=== PATIENT | male | born 1955 ===

== ENCOUNTER 2021-06-28 05:52 | Inpatient (IN) | payer BC, MEDICARE, SELFPAY ==
[2021-06-28] VITALS (10 sets, daily range): BP systolic 102–157; BP diastolic 56–100; PULSE 67–150; RESP 10–20; TEMP 36.6–37.1; O2SAT 94–98; BMI 26.7
--- NOTE | 2021-06-28 | ECG_ITS ---
Test Reason : TACHYCARDIA Blood Pressure : / mmHG Vent. Rate : 154 BPM Atrial Rate : 170 BPM P-R Int : 000 ms QRS Dur : 080 ms QT Int : 292 ms P-R-T Axes : 000 040 -59 degrees QTc Int : 467 ms Atrial fibrillation with rapid ventricular response Low voltage QRS ST depression, consider subendocardial injury Anterolateral leads Possible Inferior infarct (cited on or before 08-AUG-2011) Abnormal ECG When compared with ECG of 14-JAN-2019 21:21, Atrial fibrillation with rapid ventricular response is now Present ST now depressed in Anterolateral leads Referred By: Masood Jeffery Electronically Signed By:MARLYN FELICIANO
--- NOTE | ~2021-06-28 | XR_ITS ---
EXAMINATION: XR CHEST CLINICAL INFORMATION: Rule out pulmonary edema COMPARISON: Previous chest x-ray most recent December 2018 TECHNIQUE: Frontal view of the chest was obtained. FINDINGS: The cardiac silhouette does not appear enlarged. Pulmonary yadira may be slightly prominent questionable for enlarged pulmonary arteries or pulmonary venous redistribution. Mediastinal contours are unremarkable. The lungs are clear without evidence of pulmonary edema. There is no pleural effusion or pneumothorax. There are degenerative changes of the spine and scoliosis. XR/XR chest 1V IMPRESSION: Normal size heart. No evidence of pulmonary edema.
--- NOTE | 2021-06-28 06:13 | PC.NURSE ---
pt had episode of svt after attempting to go the bathroom this morning. Heart rate was in the 130' to 150's. Pt experience lightheadedness and became diaphoretic. Pt placed on monitor, heart rate on the 130s to 150s. Iv line placed. labs drawn. Base line ekg and repeat Ekg after pt give 20mg of Cardizem Iv at 6:02am, Heart is irregular but with a control heart rate. Pt reports feeling much better. Pt also recieved 1 liter of normal saline. pt did take his Eliquis this morning.
--- NOTE | 2021-06-28 06:13 | ED.ARRPALP ---
HPI - Arrhythmia/Palpitations General Chief Complaint: Arrhythmia/Palpitations Stated Complaint: IN AND OUT OF SVTs Time Seen by Provider: 06/28/21 06:10 Source: patient and EMS Mode of arrival: EMS Limitations: no limitations History of Present Illness HPI narrative: Patient comes to the emergency room complaining palpitations, syncopal episode. Early this morning, patient stood up from bed, tried walking towards the bathroom, patient states that he was feeling dizzy. EMS was called. On arrival, patient was found to be in atrial fibrillation. Patient told EMS that he was feeling well, declined transport to the hospital by ambulance, stated that he would have his son drive him. When EMS was helping the patient into his car, patient had a syncopal episode lasting a few seconds, patient did not fall to the ground, he was helped by the EMS crew and lowered to the floor. Patient was unconscious for 2-3 seconds according to EMS, put on the stretcher and brought to the emergency room. On arrival, patient stated that he was very dizzy, no chest pain, shortness of breath. Initial heart rate per EMS was between 160-100, on arrival to the emergency room, heart rate 160. Patient did not receive any medication by EMS. Patient known to be on Eliquis for atrial fibrillation. Patient reports he has had multiple abrasions in the past. Related Data Allergies Allergy/AdvReac Type Severity Reaction Status Date / Time Sulfa (Sulfonamide Allergy Mild HIVES Unverified 07/09/20 15:36 Antibiotics) [SULFA (SULFONAMIDE ANTIBIOTICS)] penicillamine [Cuprimine] Allergy Unknown unknown Verified 09/11/18 00:00 Penicillins Allergy Unknown INKNOWN Unverified 07/09/20 15:36 sulfacetamide Allergy Unknown rash Verified 09/11/18 00:00 Review of Systems Review of Systems: Constitutional : No Weight loss, No Fever, No Chills, No Night Sweats, No Fatigue, No Malaise ENT/Mouth : No Hearing loss, No Ear Pain, No Nasal Congestion, No Sinus Pain, No Hoarseness, No sore throat, No Rhinorrhea, No Swallowing Difficulty Eyes: No Eye Pain, No Swelling, No Redness, No Foreign Body, No Discharge, No Vision Changes Cardiovascular : No Chest Pain, No SOB, No Dyspnea on Exertion, No Orthopnea, No Edema, complaining of palpitations and dizziness Respiratory : No Cough, No Sputum, No Wheezing, No Smoke Exposure, No Dyspnea Gastrointestinal : No Nausea, No Vomiting, No Diarrhea, No Constipation, No abdominal Pain, No Hematochezia, No Melena Genitourinary : no irregular bleeding, No Dysuria, No Urinary Frequency, No Hematuria, No Urinary Incontinence, No Urgency, No Flank Pain, No Urinary Flow Changes, No Hesitancy Musculoskeletal : No joint pain, No Myalgias, No Joint Swelling Skin : No Skin Lesions, No rash Neuro : No Weakness, No Numbness, No Paresthesias, 1 loss of consciousness for a few seconds, No Headache Psych : No Anxiety/Panic, No Depression, No SI/HI/AH/VH, No Social Issues, Heme/Lymph: No Bruising, No Bleeding,No Lymphadenopathy Endocrine : No Polyuria, No Polydipsia, No Temperature Intolerance [facility] Past Medical History Medical History (Updated 06/28/21 @ 06:38 by Maddy Rea MD) Atrial fibrillation CVA (cerebral vascular accident) Type 2 diabetes mellitus Surgical History (Updated 06/28/21 @ 06:18 by Maddy Rea MD) H/O cardiac radiofrequency ablation Social History Social History Alcohol intake: current Alcohol intake frequency: holidays/special occasions only Patient Tobacco Use Status: Never used Tobacco Use of substances other than those prescribed or required for medical reasons: No Advance Directives: No Advance Directives Information Provided: No Physical Exam Vital Signs: Vital Signs: Last Vital Signs Temp 98.8 F 06/28/21 05:56 Pulse 90 06/28/21 06:09 Resp 16 06/28/21 06:09 BP 102/63 06/28/21 06:09 Pulse Ox 97 06/28/21 06:09 Body Mass Index 26.7 Const: Other: Appearance: Alert. Oriented X3. No acute distress. Eyes: Pupils equal, round and reactive to light. ENT: Pharynx normal. Neck: Normal inspection. Neck supple. No lymph nodes noted. No crepitus CVS: Irregularly irregular, heart rate approximately 160 beats per minute Respiratory: No respiratory distress. Breath sounds normal. No Wheezing. No rales Abdomen: Soft and nontender. No rigidity. No distention. good BS x4 Skin: Skin warm and dry. Normal skin color. Normal skin turgor. Extremities: No lower extremity edema. No Lacerations. No Rash Neuro: Oriented X 3. No motor deficit. No sensory deficit. Moving all extermities. No slurred speech. Course Course Course Narrative: On arrival to the emergency room, patient's blood pressure above 100, heart rate 160. EKG shows atrial fibrillation, patient was given 1 dose of 20 mg of diltiazem, heart rate improved to 90 to 100, blood pressure 104 systolic. Patient now asymptomatic, denies chest pain, no shortness of breath, no dizziness. As mentioned above, patient is on Eliquis. All of the patient's labs are pending, point of care shows a glucose of 380, patient receiving 1 L of normal saline, 10 units of regular insulin As we were checking patient's orthostatic vitals, when patient stood up, patient's blood pressure dropped to 72 systolic, started feeling very dizzy. Patient was put in bed immediately, patient recuperated well within couple of minutes, blood pressure improved to 120 systolic. Patient feeling better, no chest pain, no shortness of breath. However, patient's heart rate is 120. Patient was started on a Cardizem drip. Patient being admitted MDM - Arrhythmia/Palpitations Lab Data Result diagrams: 06/28/21 06:19 06/28/21 06:19 Labs: Lab Results 06/28/21 06/28/21 06/28/21 Range/Units 05:59 06:19 06:19 WBC 11.6 H (4.8-10.8) X10*3/uL RBC 5.17 (4.60-5.80) X10*6/uL Hgb 15.5 (14.0-18.0) g/dl Hct 43.8 (42-52) % MCV 84.7 (80-98) fL MCH 30.0 (27.0-33.0) pg MCHC 35.4 (31.0-36.0) g/dl RDW 12.4 (11.0-16.0) % Plt Count 217 (160-400) X10*3/uL MPV 12.5 H (9.4-12.4) fL Immature Gran % (Auto) 0.3 (0.0-0.4) % Neut % (Auto) 57.8 (45-73) % Lymph % (Auto) 29.7 (20-40) % [place] % (Auto) 9.4 (2-11) % Eos % (Auto) 2.5 (0-4) % Baso % (Auto) 0.3 (0-2) % Lymph # (Auto) 3.5 (1.2-4.9) X10*3/uL [place] # (Auto) 1.1 (0.1-1.2) X10*3/uL Eos # (Auto) 0.3 (0.0-0.4) X10*3/uL Baso # (Auto) 0.0 (0.0-0.2) X10*3/uL Abs Immat Gran (auto) 0.04 H (0.00-0.03) X10*3/uL Absolute Neuts (auto) 6.7 (2.0-8.3) X10*3/uL Absolute Nucleated RBC 0.000 (0.0-0.012) X10*3/uL Nucleated RBC % (auto) 0.0 (0.0-0.2) /100WBC Sodium 137 (135-145) mmol/L Potassium 4.6 (3.3-5.1) mmol/L Chloride 103 (96-108) mmol/L Carbon Dioxide 24 (22-29) mmol/L Anion Gap 15 (12-20) BUN 23 H (9-16) mg/dL Creatinine 1.56 H (0.5-1.4) mg/dL Estim Creat Clear Calc 46.7 Estimated GFR 44 POC Glucose 389 H* (60-115) mg/dL Random Glucose 433 H* (60-115) mg/dL Calcium 9.5 (8.4-10.2) mg/dL Total Bilirubin 0.9 (0.0-1.0) mg/dL Direct Bilirubin 0.4 (0.0-0.5) mg/dL AST 13 (5-37) U/L ALT 14 (0-40) U/L Alkaline Phosphatase 71 (39-117) U/L Troponin I High Sens (<3.5-35.0) ng/L B-Natriuretic Peptide (<100) pg/mL Total Protein 6.6 (6.5-8.0) g/dL Albumin 4.1 (3.5-5.0) g/dL 09/06/21 Range/Units 06:19 WBC (4.8-10.8) X10*3/uL RBC (4.60-5.80) X10*6/uL Hgb (14.0-18.0) g/dl Hct (42-52) % MCV (80-98) fL MCH (27.0-33.0) pg MCHC (31.0-36.0) g/dl RDW (11.0-16.0) % Plt Count (160-400) X10*3/uL MPV (9.4-12.4) fL Immature Gran % (Auto) (0.0-0.4) % Neut % (Auto) (45-73) % Lymph % (Auto) (20-40) % [place] % (Auto) (2-11) % Eos % (Auto) (0-4) % Baso % (Auto) (0-2) % Lymph # (Auto) (1.2-4.9) X10*3/uL [place] # (Auto) (0.1-1.2) X10*3/uL Eos # (Auto) (0.0-0.4) X10*3/uL Baso # (Auto) (0.0-0.2) X10*3/uL Abs Immat Gran (auto) (0.00-0.03) X10*3/uL Absolute Neuts (auto) (2.0-8.3) X10*3/uL Absolute Nucleated RBC (0.0-0.012) X10*3/uL Nucleated RBC % (auto) (0.0-0.2) /100WBC Sodium (135-145) mmol/L Potassium (3.3-5.1) mmol/L Chloride (96-108) mmol/L Carbon Dioxide (22-29) mmol/L Anion Gap (12-20) BUN (9-16) mg/dL Creatinine (0.5-1.4) mg/dL Estim Creat Clear Calc Estimated GFR POC Glucose (60-115) mg/dL Random Glucose (60-115) mg/dL Calcium (8.4-10.2) mg/dL Total Bilirubin (0.0-1.0) mg/dL Direct Bilirubin (0.0-0.5) mg/dL AST (5-37) U/L ALT (0-40) U/L Alkaline Phosphatase (39-117) U/L Troponin I High Sens < 3.5 (<3.5-35.0) ng/L B-Natriuretic Peptide 105 H (<100) pg/mL Total Protein (6.5-8.0) g/dL Albumin (3.5-5.0) g/dL Critical Care Time Critical Care Time Critical Care Time: Yes Total Critical Care Time: 90 Attestation: 90 minutes were spent with the patient in patient care, stabilization Discharge Plan Discharge Clinical Impression: Atrial fibrillation with rapid ventricular response, Hyperglycemia Patient Disposition: Admitted As Inpatient
[2021-06-28] MEDS: dilTIAZem HCL 50 MG/10 ML VIAL 20 MG IVPUSH (06:22)
[2021-06-28 06:23] LABS: Glucose, Whole Blood 389 mg/dL (60-115)
[2021-06-28] MEDS: 0.9 % Sodium Chloride 1,000 ML 999 ML IVCONT (06:24)
[2021-06-28 06:25] LABS: Basophils Percent Auto 0.3 % (0-2); Eosinophils Absolute Auto 0.3 X10*3/uL (0.0-0.4); Eosinophils Percent Auto 2.5 % (0-4); Hematocrit 43.8 % (42-52); Hemoglobin 15.5 g/dl (14.0-18.0); Imm Gran Abs Auto 0.04 X10*3/uL (0.00-0.03); Imm Gran Pct Auto 0.3 % (0.0-0.4); Lymphocytes Absolute Auto 3.5 X10*3/uL (1.2-4.9); Lymphocytes Percent Auto 29.7 % (20-40); MANUAL DIFF FLAG NO; Mean Corpuscular HGB Conc 35.4 g/dl (31.0-36.0); Mean Corpuscular Volume 84.7 fL (80-98); Mean Platelet Volume 12.5 fL (9.4-12.4); Monocytes Absolute Auto 1.1 X10*3/uL (0.1-1.2); Monocytes Percent Auto 9.4 % (2-11); Neutrophils Absolute Auto 6.7 X10*3/uL (2.0-8.3); Neutrophils Percent Auto 57.8 % (45-73); Platelet Count 217 X10*3/uL (160-400); Red Blood Count 5.17 X10*6/uL (4.60-5.80); Red Cell Distribution Width 12.4 % (11.0-16.0); White Blood Count 11.6 X10*3/uL (4.8-10.8)
[2021-06-28 06:43] LABS: B Type Natriuretic Peptide 105 pg/mL (<100); Troponin-I High Sensitivity < 3.5 ng/L (<3.5-35.0)
[2021-06-28] MEDS: Insulin Regular, Human 100 UNIT/ML 3 ML VIAL 10 UNIT IVPUSH (06:48)
--- NOTE | 2021-06-28 06:49 | PC.NURSE ---
medicated pt for poc per mar. pt denies any sob or chest pain. pt heart rate is control at this time will continue to monitor.
[2021-06-28 06:57] LABS: Alanine Aminotransferase 14 U/L (0-40); Albumin Level 4.1 g/dL (3.5-5.0); Alkaline Phosphatase 71 U/L (39-117); Anion Gap 15 (12-20); Aspartate Amino Transferase 13 U/L (5-37); Bilirubin Direct 0.4 mg/dL (0.0-0.5); Bilirubin Total 0.9 mg/dL (0.0-1.0); Blood Urea Nitrogen 23 mg/dL (9-16); Calcium 9.5 mg/dL (8.4-10.2); Carbon Dioxide 24 mmol/L (22-29); Chloride 103 mmol/L (96-108); Creatinine Clr Calc Pharmacy 46.7; Estimated Glomerular Filt Rate 44; Glucose Random 433 mg/dL (60-115); Potassium 4.6 mmol/L (3.3-5.1); Sodium 137 mmol/L (135-145); Total Protein 6.6 g/dL (6.5-8.0)
--- NOTE | 2021-06-28 07:37 | PC.NURSE ---
pt received in bed , NAYAN, follows commands. States feeling better. Dr. Rea at bedside, pt stands up, HR up to 140s, BP to 72/40. Plan is to start cardiazem drip; admission.Pt aware of plan.
--- NOTE | 2021-06-28 07:50 | P.HPHOSP_ITS ---
History of Present Illness Date of Service: 06/28/21 Chief Complaint: Syncope 66-year-old man presented to the ER after an episode dizziness. Apparently got up from the bed and felt unwell and EMS was called. While EMS was there patient got knocked walking apparently had fallen and lost consciousness. This lasted it is several seconds maybe a minute. Patient reports not having any history of this in the past. He does have a history of coronary artery disease with stents. He denied chest pain, shortness of breath, nausea, vomiting, diarrhea. Does have a history of atrial fibrillation and had an ablation and has not had any incident in over 2 years. In the ER he was noted to be in atrial fibrillation with rapid ventricular response was placed on a Cardizem drip. He subsequently converted to normal sinus rhythm and Cardizem drip was stopped. His creatinine was elevated 1.56, glucose 433, troponin 3.5, BNP 105, TSH 3.92, magnesium 2.0. His vital signs are stable. He will be admitted for further management and treatment of atrial fibrillation with rapid ventricular response and syncope. Review of Systems Review of Systems: Denies any recent fever chills or decrease in appetite respiratory denies any shortness of breath coverage production cardiovascular denies chest pain gastrointestinal denies any dysphagia abdominal pain nausea vomiting or diarrhea genitourinary denies any dysuria frequency or hematuria musculoskeletal denies any joint pain or swelling neuropsych denies any weakness or seizures all other systems reviewed are negative [facility] Medical History (Updated 06/28/21 @ 11:06 by Franchesca Troncoso NP) Atrial fibrillation CKD (chronic kidney disease), stage III CVA (cerebral vascular accident) HLD (hyperlipidemia) Type 2 diabetes mellitus Surgical History H/O cardiac radiofrequency ablation Social History Alcohol intake: current Alcohol intake frequency: holidays/special occasions only Patient Tobacco Use Status: Never used Tobacco Use of substances other than those prescribed or required for medical reasons: No Advance Directives: No Advance Directives Information Provided: No Meds Allergies Allergy/AdvReac Type Severity Reaction Status Date / Time Sulfa (Sulfonamide Allergy Mild HIVES Unverified 07/09/20 15:36 Antibiotics) [SULFA (SULFONAMIDE ANTIBIOTICS)] penicillamine [Cuprimine] Allergy Unknown unknown Verified 09/11/18 00:00 Penicillins Allergy Unknown INKNOWN Unverified 07/09/20 15:36 sulfacetamide Allergy Unknown rash Verified 09/11/18 00:00 Active Medications: Current Medications Generic Name Dose Route Start Last Admin Trade Name Freq PRN Reason Stop Dose Admin Acetaminophen 650 mg 06/28/21 07:47 Acetaminophen 325 Mg Tablet PO Q6H PRN Pain, Mild (Pain Scale 1-3) Diltiazem HCl 125 mg/ Sodium 125 mls @ 0 mls/hr 06/28/21 07:45 Chloride IVCONT .Q0M [facility] Protocol Per Protocol Sodium Chloride 3 ml 06/28/21 08:00 0.9 % Sodium Chloride Flush 3 Ml Syringe IVFLUSH QSHIFT [facility] Home Medications Medication Instructions Recorded Confirmed Last Taken Type Rafaelaglzahra VillafuertePen U-100 Insulin 36 units SUBCUT BEDTIME 06/28/21 06/28/21 06/27/21 History apixaban 5 mg tablet (Eliquis) 1 tab PO BID 06/28/21 06/28/21 06/28/21 History aspirin 81 mg chewable tablet 81 mg PO DAILY 06/28/21 06/28/21 06/28/21 History atorvastatin 40 mg tablet 1 tab PO BEDTIME 06/28/21 06/28/21 06/27/21 History diphenoxylate-atropine 2.5 1 tab PO BID 06/28/21 06/28/21 Unknown History mg-0.025 mg tablet (Lomotil) fiber 2 tab PO BID 06/28/21 06/28/21 Unknown History Physical Exam Vital Signs and Narrative: Vital Signs: Last Vital Signs Temp 98.8 F 06/28/21 05:56 Pulse 90 06/28/21 06:09 Resp 16 06/28/21 06:09 BP 102/63 06/28/21 06:09 Pulse Ox 97 06/28/21 06:09 Body Mass Index 26.7 Appearing in no acute distress head is normocephalic atraumatic eyes pupils are PERRLA sclera is anicteric mouth throat mucous membranes are intact and moist neck is supple no lymphadenopathy, no JVD noted lung sounds are clear to auscultation heart regular rate rhythm, clear S1, S2 positive bowel sounds, abdomen is soft, nontender neuro patient is alert x3, no focal deficits Results Labs CBC and Chem 7: 06/28/21 06:19 06/28/21 06:19 Labs: Laboratory Results - last 24 hr 06/28/21 06/28/21 06/28/21 05:59 06:19 06:19 MCV 84.7 MCH 30.0 MCHC 35.4 RDW 12.4 Plt Count 217 MPV 12.5 H Immature Gran % (Auto) 0.3 Neut % (Auto) 57.8 Lymph % (Auto) 29.7 [place] % (Auto) 9.4 Eos % (Auto) 2.5 Baso % (Auto) 0.3 Lymph # (Auto) 3.5 [place] # (Auto) 1.1 Eos # (Auto) 0.3 Baso # (Auto) 0.0 Abs Immat Gran (auto) 0.04 H Absolute Neuts (auto) 6.7 Absolute Nucleated RBC 0.000 Nucleated RBC % (auto) 0.0 Anion Gap 15 Estim Creat Clear Calc 46.7 Estimated GFR 44 POC Glucose 389 H* Random Glucose 433 H* Calcium 9.5 Total Bilirubin 0.9 Direct Bilirubin 0.4 AST 13 ALT 14 Alkaline Phosphatase 71 Troponin I High Sens B-Natriuretic Peptide Total Protein 6.6 Albumin 4.1 06/28/21 06:19 MCV MCH MCHC RDW Plt Count MPV Immature Gran % (Auto) Neut % (Auto) Lymph % (Auto) [place] % (Auto) Eos % (Auto) Baso % (Auto) Lymph # (Auto) [place] # (Auto) Eos # (Auto) Baso # (Auto) Abs Immat Gran (auto) Absolute Neuts (auto) Absolute Nucleated RBC Nucleated RBC % (auto) Anion Gap Estim Creat Clear Calc Estimated GFR POC Glucose Random Glucose Calcium Total Bilirubin Direct Bilirubin AST ALT Alkaline Phosphatase Troponin I High Sens < 3.5 B-Natriuretic Peptide 105 H Total Protein Albumin Imaging Radiologist's Impressions: Impressions Chest X-Ray 06/28/21 06:11 IMPRESSION: Normal size heart. No evidence of pulmonary edema. Assessment and Plan (1) Syncope: Status: Acute (2) Atrial fibrillation with rapid ventricular response: Status: Acute 66 year old man admitted with Afib RVR and had an episode of syncope. Syncope Orthostatic BP OOB with assist monitor for arrhythmias on telemetry Afib RVR. Treated with IV diltiazem in the ED HR better controlled check tsh,mag and trop continue OAC and BB Diabetes Sliding scale, ADA diet DVT prophylaxis with Aruna Attending Dr. Lomeli Quality Stroke Does the patient have a stroke diagnosis?: No VTE Prior VTE?: No VTE Risk Level:: Medical - moderate - high VTE Device Contraindication: Treatment Not Indicated VTE Drug Contraindication: N/A - Med Ordered
--- NOTE | 2021-06-28 07:57 | ECG_ITS ---
Test Reason : TACHYCARDIA Blood Pressure : / mmHG Vent. Rate : 155 BPM Atrial Rate : 178 BPM P-R Int : 150 ms QRS Dur : 080 ms QT Int : 276 ms P-R-T Axes : 033 039 -75 degrees QTc Int : 443 ms Atrial fibrillation with rapid ventricular response ST & T wave abnormality, consider inferior ischemia ST depression, consider subendocardial injury Anterolateral leads Abnormal ECG When compared with ECG of 28-JUN-2021 05:59, No significant change was found Referred By: Maddy Rea Electronically Signed By:MARLYN FELICIANO
[2021-06-28] MEDS: dilTIAZem HCL 125 MG in 0.9 % Sodium Chloride 100 ML 10 MG IVCONT (07:58)
--- NOTE | 2021-06-28 07:58 | ECG_ITS ---
Test Reason : TACHYCARDIA Blood Pressure : / mmHG Vent. Rate : 100 BPM Atrial Rate : 136 BPM P-R Int : 000 ms QRS Dur : 084 ms QT Int : 286 ms P-R-T Axes : 000 029 010 degrees QTc Int : 368 ms Atrial fibrillation Low voltage QRS Inferior infarct , age undetermined Abnormal ECG When compared with ECG of 28-JUN-2021 06:01, Vent. rate has decreased BY 55 BPM Inferior infarct is now Present T wave inversion no longer evident in Inferior leads T wave inversion no longer evident in Lateral leads Referred By: Maddy Rea Electronically Signed By:MARLYN FELICIANO
--- NOTE | 2021-06-28 08:30 | ECG_ITS ---
Test Reason : REPEAT, A FIB Blood Pressure : / mmHG Vent. Rate : 071 BPM Atrial Rate : 071 BPM P-R Int : 188 ms QRS Dur : 088 ms QT Int : 390 ms P-R-T Axes : 034 008 009 degrees QTc Int : 423 ms Normal sinus rhythm Inferior infarct (cited on or before 28-JUN-2021) Abnormal ECG When compared with ECG of 28-JUN-2021 06:05, Sinus rhythm has replaced Atrial fibrillation Referred By: Gisel Layne Electronically Signed By:MARLYN FELICIANO
[2021-06-28 08:34] LABS: Thyroid Stimulating Hormone 3.92 uIU/mL (0.32-4.0)
--- NOTE | 2021-06-28 09:59 | PC.NURSE ---
seen by PAUL Troncoso, hospitalist. Chandu ortiz halted r/t NSR 60s. Plan is to admit patient, awaiting orders.
--- NOTE | 2021-06-28 12:06 | PC.NURSE ---
Pt SaO2 at 98% this rn noticed the NC was not properly on his nose -- d/c o2 via NC pt SaO2 98% on Room air
--- NOTE | 2021-06-28 12:38 | PC.NURSE ---
this RN came on at 11 and took repoort on pt, informed by RN taking over for that Cardizem drip was stopped at pt came out of Rapid A.Fib. Updated MAR to reflect that the drip was stopped, unknown exact stop time
--- NOTE | 2021-06-28 12:41 | PC.NURSE ---
this RN taking over pt at [address] [place] [address] drip was stopped by previous RN. MAR did not reflect this. MAR updated at this time to reflect the stopped drip
[2021-06-28 12:48] LABS: Glucose, Whole Blood 252 mg/dL (60-115)
[2021-06-28 12:49] LABS: COVID-19 Test Negative (Negative); IDNOW Serial# 9DD0AD1C
--- NOTE | 2021-06-28 12:57 | PM.CNCAR ---
History of Present Illness History of Present Illness Date of Service: 06/28/21 Requesting physician: Franchesca Troncoso Consult reason: atrial fibrillation and other (Syncope) Chief complaint: IN AND OUT OF SVTs Narrative: I was requested to see Kiko in cardiology consultation today for syncope. He is a 66-year-old male with prior history of paroxysmal atrial fibrillation status post ablation as per him and his duysobog-ic-krf was present at bedside, coronary artery disease status post stenting of the LAD, February of 2019, diabetes mellitus, prior CVA related to atrial fibrillation, colon cancer status post treatment and remission. Patient says he was in usual state of health, this morning developed dizziness lightheadedness and subsequently ktfvxwyz-[id number] was a pediatrician/medical doctor took his pulse and was noted to be in rapid irregular heartbeat. His symptoms were similar to his prior atrial fibrillation. Given his symptomatology, ambulance was called. When the ambulance came there his symptoms have subsided and he was feeling well. At that time the EMS advised him to still go to the emergency room but can go on his own car. He was then being helped walk to the car and he lost consciousness. At that time there was no clear episode of irregular rapid heart rate noted. Wtvovbgw-[id number]-ksm thinks that his heart rate might have been slow. Symptoms were clearly orthostatic in nature. Since then he has been in emergency room he presented with atrial fibrillation rapid ventricular response was given IV Cardizem and subsequently converted to sinus rhythm. He has been supine and has had no recurrent symptoms. He has had no chest pain. No shortness of breath, orthopnea, PND. He has had no recent exertional chest pain but has some precordial chest pain which last for few seconds not exertional nature. 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 Takes all his medications including blood thinners. No recent bleeding or neurologic events. Patient has symptoms of chronic diarrhea. However he denies any recent nausea vomiting or worsening diarrhea. Review of Systems Constitutional: Constitutional: Reports no additional constitutional complaints Eyes: Eyes: Reports no additional eye complaints ENT: Reports system reviewed and no additional complaints, except as documented Cardiovascular: Cardiovascular: Denies chest pain, Reports syncope, Denies leg edema, Reports lightheadedness, Reports Loss of Consciousness, Denies palpitations and Denies dyspnea Respiratory: Respiratory: Reports no additional respiratory complaints and Denies dyspnea Gastrointestinal: Gastrointestinal: Reports no additional gastrointestinal complaints Genitourinary: Genitourinary: Reports no additional male genitourinary complaints Musculoskeletal: Musculoskeletal: Reports no additional musculoskeletal complaints Integumentary/Breasts: Skin/Breast: Reports system reviewed and no additional complaints, except as docu Neurologic: Reports system reviewed and no additional complaints, except as documented and Reports syncope Psychiatric: Psychiatric: Reports no additional psychiatric complaints Endocrine: Endocrine: Reports no additional endocrine complaints and Denies palpitations Allergic/Immunologic: Allergic/Immunologic: Reports no additional allergic/immunologic complaints [facility] Past Medical History Medical History (Updated 06/28/21 @ 13:03 by Jose L Archer MD) Atrial fibrillation CAD (coronary artery disease) CKD (chronic kidney disease), stage III CVA (cerebral vascular accident) HLD (hyperlipidemia) Type 2 diabetes mellitus Surgical History Surgical History (Updated 06/28/21 @ 13:03 by Jose L Archer MD) H/O cardiac radiofrequency ablation Stented coronary artery Social History Social History Alcohol intake: current Alcohol intake frequency: holidays/special occasions only Patient Tobacco Use Status: Never used Tobacco Use of substances other than those prescribed or required for medical reasons: No Advance Directives: No Advance Directives Information Provided: No Meds Allergies Allergy/AdvReac Type Severity Reaction Status Date / Time Sulfa (Sulfonamide Allergy Mild HIVES Unverified 07/09/20 15:36 Antibiotics) [SULFA (SULFONAMIDE ANTIBIOTICS)] penicillamine [Cuprimine] Allergy Unknown unknown Verified 09/11/18 00:00 Penicillins Allergy Unknown INKNOWN Unverified 07/09/20 15:36 sulfacetamide Allergy Unknown rash Verified 09/11/18 00:00 Active Medications: Current Medications Generic Name Dose Route Start Last Admin Trade Name Freq PRN Reason Stop Dose Admin Acetaminophen 650 mg 06/28/21 07:47 Acetaminophen 325 Mg Tablet PO Q6H PRN Pain, Mild (Pain Scale 1-3) Diltiazem HCl 125 mg/ Sodium 125 mls @ 0 mls/hr 06/28/21 07:45 06/28/21 12:38 Chloride IVCONT 0 mg/hr .Q0M ALAN 0 mls/hr Titration Protocol Per Protocol Sodium Chloride 3 ml 06/28/21 08:00 06/28/21 12:03 0.9 % Sodium Chloride Flush 3 Ml Syringe IVFLUSH Not Given QSHIFT [facility] Home Medications Medication Instructions Recorded Confirmed Last Taken Type Andreia Siu U-100 Insulin 36 units SUBCUT BEDTIME 06/28/21 06/28/21 06/27/21 History apixaban 5 mg tablet (Eliquis) 1 tab PO BID 06/28/21 06/28/21 06/28/21 History aspirin 81 mg chewable tablet 81 mg PO DAILY 06/28/21 06/28/21 06/28/21 History atorvastatin 40 mg tablet 1 tab PO BEDTIME 06/28/21 06/28/21 06/27/21 History diphenoxylate-atropine 2.5 1 tab PO BID 06/28/21 06/28/21 Unknown History mg-0.025 mg tablet (Lomotil) fiber 2 tab PO BID 06/28/21 06/28/21 Unknown History Physical Exam Vital Signs: Vital Signs: Last Vital Signs Temp 98.8 F 06/28/21 05:56 Pulse 69 06/28/21 12:01 Resp 15 06/28/21 12:01 BP 133/67 06/28/21 12:01 Pulse Ox 98 06/28/21 12:01 Body Mass Index 26.7 Const: General: cooperative, comfortable, alert and awake Nutritional Appearance: average body habitus Orientation/consciousness: patient oriented x3 Limitations: no limitations HENMT: Head: Yes normocephalic and Yes atraumatic Neck: Neck: Yes trachea midline, Yes supple and Yes no JVD Resp: Effort & Inspection: normal respiratory effort Auscultation: clear to auscultation bilaterally Cardio: Jugular venous distension: no JVD Palpation: normal PMI Rate: regular rate Rhythm: regular rhythm Heart sounds: S1 normal heart sound present, S2 normal heart sound present, no click, no gallops, no murmurs and no rubs GI: Auscultation: normal bowel sounds Skin: General skin exam: no rashes or lesions noted Neuro: General: patient oriented x3 and no focal motor deficits Extrem: General: Yes no clubbing, cyanosis or edema Psych: Appearance: grossly normal Results Labs and Meds Result diagrams: 06/28/21 06:19 06/28/21 06:19 Lab results: Laboratory Results - last 24 hr 06/28/21 06/28/2106/28/21 05:59 06:19 06:19 WBC 11.6 H RBC 5.17 Hgb 15.5 Hct 43.8 MCV 84.7 MCH 30.0 MCHC 35.4 RDW 12.4 Plt Count 217 MPV 12.5 H Immature Gran % (Auto) 0.3 Neut % (Auto) 57.8 Lymph % (Auto) 29.7 [place] % (Auto) 9.4 Eos % (Auto) 2.5 Baso % (Auto) 0.3 Lymph # (Auto) 3.5 [place] # (Auto) 1.1 Eos # (Auto) 0.3 Baso # (Auto) 0.0 Abs Immat Gran (auto) 0.04 H Absolute Neuts (auto) 6.7 Absolute Nucleated RBC 0.000 Nucleated RBC % (auto) 0.0 Sodium 137 Potassium 4.6 Chloride 103 Carbon Dioxide 24 Anion Gap 15 BUN 23 H Creatinine 1.56 H Estim Creat Clear Calc 46.7 Estimated GFR 44 POC Glucose 389 H* Random Glucose 433 H* Calcium 9.5 Magnesium 2.0 Total Bilirubin 0.9 Direct Bilirubin 0.4 AST 13 ALT 14 Alkaline Phosphatase 71 Troponin I High Sens B-Natriuretic Peptide Total Protein 6.6 Albumin 4.1 TSH 3.92 COVID-19 (MARIELA) COVID-19 Aionex Com 06/28/21 06/28/21 06/28/21 06:19 12:10 12:43 WBC RBC Hgb Hct MCV MCH MCHC RDW Plt Count MPV Immature Gran % (Auto) Neut % (Auto) Lymph % (Auto) [place] % (Auto) Eos % (Auto) Baso % (Auto) Lymph # (Auto) [place] # (Auto) Eos # (Auto) Baso # (Auto) Abs Immat Gran (auto) Absolute Neuts (auto) Absolute Nucleated RBC Nucleated RBC % (auto) Sodium Potassium Chloride Carbon Dioxide Anion Gap BUN Creatinine Estim Creat Clear Calc Estimated GFR POC Glucose 252 H Random Glucose Calcium Magnesium Total Bilirubin Direct Bilirubin AST ALT Alkaline Phosphatase Troponin I High Sens < 3.5 B-Natriuretic Peptide 105 H Total Protein Albumin TSH COVID-19 (MARIELA) Negative COVID-19 Clin Com See Note Initial EKG shows atrial fibrillation rapid ventricular response with right bundle-branch block with inferior Q-waves with ST depression in the lateral lead suggestive of rate-related ischemia EKG post conversion shows normal sinus rhythm with incomplete right bundle-branch block with inferior infarct with normalized ST segment changes Imaging Radiologist's impression: Impressions Chest X-Ray 06/28/21 06:11 IMPRESSION: Normal size heart. No evidence of pulmonary edema. Assessment and Plan (1) Syncope: Status: Acute Patient present with syncope which is highly unusual manifestation of atrial fibrillation rapid ventricular response. However in the past he has had symptoms of lightheadedness with atrial fibrillation. Could represent a vascular volume depletion from his chronic diarrhea. Would perform orthostatic vital signs with orthostatic blood pressure changes. Also continue full disclosure cardiac monitoring to rule out Dax arrhythmias or less likely ventricular tachyarrhythmias. Echocardiogram tomorrow. Further treatment based on the findings. Overnight would give him IV normal saline 100 cc an hour. Clinically not in heart failure. Minimally elevated BNP most likely related to atrial fibrillation rapid ventricular response. (2) Atrial fibrillation with rapid ventricular response: Status: Acute Atrial fibrillation rapid ventricular response with prior history of ablation as per the patient and patient's uimzyrek-av-yud. Recurrent atrial fibrillation at this point time with symptoms of lightheadedness. Converted back to sinus rhythm with rate control. Start him on metoprolol 12.5 mg p.o. b.i.d. and maximize as tolerated based on his blood pressure. Continue full oral anticoagulation with Eliquis 5 mg b.i.d.. Check TSH. Echocardiograms above. Will follow the patient. Thank you for allowing us to partake in his care Procedures Date of Service Date of Service: 06/28/21
[2021-06-28 17:15] LABS: Glucose, Whole Blood 212 mg/dL (60-115)
[2021-06-28] MEDS: Insulin Lispro 100 UNIT/ML 3 ML VIAL SUBCUT ×2 (17:49→20:57)
[2021-06-28] MEDS: 0.9 % Sodium Chloride Flush 3 ML SYRINGE IVFLUSH ×2 (17:50→20:58)
[2021-06-28] MEDS: Diphenoxylate/Atrop 2.5/0.025 TABLET 1 TAB PO (18:19)
[2021-06-28 19:50] LABS: Glucose, Whole Blood 258 mg/dL (60-115)
[2021-06-28] MEDS: Atorvastatin Calcium 40 MG TABLET PO (20:56)
[2021-06-28] MEDS: Apixaban 5 MG TABLET PO (20:56)
[2021-06-28] MEDS: dilTIAZem HCL 30 MG TABLET PO (20:56)
[2021-06-29] VITALS (15 sets, daily range): BP systolic 97–176; BP diastolic 57–86; PULSE 57–78; RESP 18; TEMP 36.2–37.1; O2SAT 94–98
[2021-06-29 05:52] LABS: MANUAL DIFF FLAG NO
[2021-06-29 05:59] LABS: Basophils Percent Auto 0.4 % (0-2); Eosinophils Absolute Auto 0.2 X10*3/uL (0.0-0.4); Eosinophils Percent Auto 2.1 % (0-4); Hematocrit 40.4 % (42-52); Hemoglobin 13.8 g/dl (14.0-18.0); Imm Gran Abs Auto 0.03 X10*3/uL (0.00-0.03); Imm Gran Pct Auto 0.3 % (0.0-0.4); Lymphocytes Absolute Auto 2.6 X10*3/uL (1.2-4.9); Lymphocytes Percent Auto 24.3 % (20-40); Mean Corpuscular HGB Conc 34.2 g/dl (31.0-36.0); Mean Corpuscular Hemoglobin 29.4 pg (27.0-33.0); Mean Platelet Volume 12.7 fL (9.4-12.4); Monocytes Absolute Auto 0.9 X10*3/uL (0.1-1.2); Monocytes Percent Auto 8.5 % (2-11); Neutrophils Absolute Auto 6.8 X10*3/uL (2.0-8.3); Neutrophils Percent Auto 64.4 % (45-73); Platelet Count 191 X10*3/uL (160-400); Red Cell Distribution Width 12.5 % (11.0-16.0); White Blood Count 10.5 X10*3/uL (4.8-10.8)
[2021-06-29 06:09] LABS: Anion Gap 14 (12-20); Blood Urea Nitrogen 20 mg/dL (9-16); Carbon Dioxide 24 mmol/L (22-29); Chloride 108 mmol/L (96-108); Creatinine Clr Calc Pharmacy 57.9; Estimated Glomerular Filt Rate 57; Glucose Random 195 mg/dL (60-115); Potassium 4.2 mmol/L (3.3-5.1); Sodium 142 mmol/L (135-145)
[2021-06-29 07:44] LABS: Glucose, Whole Blood 219 mg/dL (60-115)
[2021-06-29] MEDS: dilTIAZem HCL 30 MG TABLET PO (08:13)
[2021-06-29] MEDS: Insulin Lispro 100 UNIT/ML 3 ML VIAL SUBCUT ×4 (08:13→20:49)
[2021-06-29] MEDS: Diphenoxylate/Atrop 2.5/0.025 TABLET 1 TAB PO ×2 (08:14→17:48)
[2021-06-29] MEDS: Aspirin 81 MG TAB.CHEW PO (08:14)
[2021-06-29] MEDS: 0.9 % Sodium Chloride Flush 3 ML SYRINGE IVFLUSH ×3 (08:14→20:52)
[2021-06-29] MEDS: Apixaban 5 MG TABLET PO ×2 (08:14→20:49)
--- NOTE | 2021-06-29 11:04 | MHC.CM.PN ---
CM MET WITH PT WHO REPORTS HE LIVES WITH HIS SON, [id number] AND GRAND KIDS. HE REPORTS HE IS INDEPENDENT WITH CARE AND HAS NO DME AND NO SERVICES. PT REPORTS HE HAS A HCP NAMING HIS SON HIS AGENT. PT CONFIRMS HIS PCP IS AMINATA CHEN. CURRENT DC PLAN IS HOME WITH NO SERVICES PT WILL ARRANGE TRANSPORT HOME
--- NOTE | 2021-06-29 11:12 | P.PNCA_ITS ---
Subjective Subjective Date of Service: 06/29/21 Interval history: Feels ok. No new symptoms. Review of Systems Review of Systems Yes all other systems are reviewed and are negative Cardiovascular: Reports as per HPI, Reports no additional cardiovascular complaints, Denies acrocyanosis, Denies cool extremities, Denies painful fingertips, Denies chest pain, Denies chest pain at rest, Denies diaphoresis, Denies syncope, Denies irregular heart rhythm, Denies claudication, Denies leg edema, Denies lightheadedness, Denies palpitations and Denies dyspnea Respiratory: Denies dyspnea Denies syncope Endocrine: Denies palpitations Physical Exam Vital Signs: Last Vital Signs Temp 97.4 F 06/29/21 07:22 Pulse 78 06/29/21 08:13 Resp 18 06/29/21 07:22 BP 135/65 06/29/21 08:00 Pulse Ox 97 06/29/21 07:22 Body Mass Index 26.7 Const General: cooperative and no acute distress HENME Other: Unremarkable Neck Neck: Yes normal visual inspection Chest Chest palpation & inspection: normal inspection of the chest Resp Auscultation: clear to auscultation bilaterally, no crackles and no wheezes Cardio Jugular venous distension: no JVD Palpation: normal PMI Heart sounds: S1 normal heart sound present, S2 normal heart sound present, no gallops, no murmurs and no rubs GI Palpation (GI): Soft to palpation Back/Spine/Pelvis Other: unremarkable Skin General skin exam: no rashes or lesions noted Neuro Cranial nerves: Yes Other cranial nerve findings present Extrem General: Yes no clubbing, cyanosis or edema Psych Mental Status: other Results Labs and Meds Result diagrams: 06/29/21 04:51 06/29/21 04:51 Lab results: Laboratory Results - last 24 hr 06/28/21 06/28/21 06/28/21 12:10 12:43 17:11 WBC RBC Hgb Hct MCV MCH MCHC RDW Plt Count MPV Immature Gran % (Auto) Neut % (Auto) Lymph % (Auto) [place] % (Auto) Eos % (Auto) Baso % (Auto) Lymph # (Auto) [place] # (Auto) Eos # (Auto) Baso # (Auto) Abs Immat Gran (auto) Absolute Neuts (auto) Absolute Nucleated RBC Nucleated RBC % (auto) Sodium Potassium Chloride Carbon Dioxide Anion Gap BUN Creatinine Estim Creat Clear Calc Estimated GFR POC Glucose 252 H 212 H Random Glucose Calcium COVID-19 (MARIELA) Negative COVID-19 Clin Com See Note 06/28/21 06/29/21 06/29/21 19:47 04:51 04:51 WBC 10.5 RBC 4.70 Hgb 13.8 L Hct 40.4 L MCV 86.0 MCH 29.4 MCHC 34.2 RDW 12.5 Plt Count 191 MPV 12.7 H Immature Gran % (Auto) 0.3 Neut % (Auto) 64.4 Lymph % (Auto) 24.3 [place] % (Auto) 8.5 Eos % (Auto) 2.1 Baso % (Auto) 0.4 Lymph # (Auto) 2.6 [place] # (Auto) 0.9 Eos # (Auto) 0.2 Baso # (Auto) 0.0 Abs Immat Gran (auto) 0.03 Absolute Neuts (auto) 6.8 Absolute Nucleated RBC 0.000 Nucleated RBC % (auto) 0.0 Sodium 142 Potassium 4.2 Chloride 108 Carbon Dioxide 24 Anion Gap 14 BUN 20 H Creatinine 1.26 Estim Creat Clear Calc 57.9 Estimated GFR 57 POC Glucose 258 H Random Glucose 195 H D Calcium 9.0 COVID-19 (MARIELA) COVID-19 Clin Com 06/29/21 07:40 WBC RBC Hgb Hct MCV MCH MCHC RDW Plt Count MPV Immature Gran % (Auto) Neut % (Auto) Lymph % (Auto) [place] % (Auto) Eos % (Auto) Baso % (Auto) Lymph # (Auto) [place] # (Auto) Eos # (Auto) Baso # (Auto) Abs Immat Gran (auto) Absolute Neuts (auto) Absolute Nucleated RBC Nucleated RBC % (auto) Sodium Potassium Chloride Carbon Dioxide Anion Gap BUN Creatinine Estim Creat Clear Calc Estimated GFR POC Glucose 219 H Random Glucose Calcium COVID-19 (MARIELA) COVID-19 Clin Com ECG Interpretation: Telemetry shows sinus rhythm and PACs. Progress Note: A&P Assessment and plan (1) Atrial fibrillation with rapid ventricular response: Status: Acute (2) Syncope: Status: Acute Assessment and Plan: Atrial fibrillation with rapid rate, presenting as syncope. History of prior ablation. He is not on any rate or rhythm control agents at baseline. Has been commenced on diltiazem. If blood pressure tolerates, then changed to diltiazem CD 120 mg daily. Continue anticoagulation. Echocardiogram today. Follow up with his own medical registrar upon discharge. Fall Risk Details Current Medications: Current Medications Generic Name Dose Route Start Last Admin Trade Name Freq PRN Reason Stop Dose Admin Acetaminophen 650 mg 06/28/21 07:47 Acetaminophen 325 Mg Tablet PO Q6H PRN Pain, Mild (Pain Scale 1-3) Apixaban 5 mg 06/28/21 21:00 06/29/21 08:14 Apixaban 5 Mg Tablet PO 5 mg BID ALAN Administration Aspirin 81 mg 06/29/21 09:00 06/29/21 08:14 Aspirin 81 Mg Tab.Chew PO 81 mg DAILY ALAN Administration Atorvastatin Calcium 40 mg 06/28/21 21:00 06/28/21 20:56 Atorvastatin Calcium 40 Mg Tablet PO 40 mg BEDTIME ALAN Administration Dextrose 25 gm 06/28/21 17:01 Dextrose 50 % 25 Gm/50 Ml Vial IVPUSH Q15M PRN per Hypoglycemia Standing Ord. Protocol Diltiazem HCl 30 mg 06/28/21 21:00 06/29/21 08:13 Diltiazem Hcl 30 Mg Tablet PO 30 mg QID ALAN Administration Protocol Diphenoxylate HCl/Atropine 1 tab 06/29/21 08:00 06/29/21 08:14 Diphenoxylate/Atrop 2.5/0.025 Tablet PO 1 tab BIDWM ALAN Administration Glucose 15 gm 06/28/21 17:01 Glucose Gel 15 Gm Gel..Gram. PO Q15M PRN per Hypoglycemia Standing Ord. Protocol Insulin Human Lispro 0 unit 06/28/21 21:00 06/29/21 08:13 Insulin Lispro 100 Unit/Ml 3 Ml Vial SUBCUT 4 unit QIDACHS ALAN Administration Protocol Sodium Chloride 3 ml 06/28/21 08:00 06/29/21 08:14 0.9 % Sodium Chloride Flush 3 Ml Syringe IVFLUSH 3 ml QSHIFT [facility] Administration Time Spent With Patient Time: Total time spent is greater than 50% in coordination of care (as documented) at patient's floor/unit and/or counseling patient: Time with patient: less than 15 minutes Progress Note: Quality Stroke Does the patient have a stroke diagnosis?: No Procedures Date of Service Date of Service: 06/29/21
[2021-06-29 11:37] LABS: Glucose, Whole Blood 265 mg/dL (60-115)
--- NOTE | 2021-06-29 15:06 | HO.PM.IMPN ---
Subjective Subjective Date of Service: 06/29/21 Interval History: Offers no acute complaints of chest pain or palpitation, has mild lightheadedness, no acute issues overnight. Review of Systems General no headache, mild lightheadedness, no fever chills. CVS no chest pain, no palpitation. Respiratory no cough no sob. Gastrointestinal no nausea, no vomiting, no abdominal pain Physical Exam Vital Signs: Vital Signs: Last Vital Signs Temp 97.5 F 06/29/21 15:05 Pulse 72 06/29/21 15:05 Resp 18 06/29/21 15:05 BP 154/70 H 06/29/21 15:05 Pulse Ox 98 06/29/21 15:05 Body Mass Index 26.7 General resting comfortably in no acute distress. Neck no JVD. CVS regular rate rhythm, Respiratory lungs clear to auscultation, no respiratory distress, no wheeze, no rhonchi. Gastrointestinal abdomen soft, nontender, bowel sounds audible. Extremities no edema. Neuro nonfocal , speech clear. Skin no rash Objective Data Active Medications Acetaminophen (Acetaminophen 325 Mg Tablet) 650 mg PO Q6H PRN PRN Reason: Pain, Mild (Pain Scale 1-3) Apixaban (Apixaban 5 Mg Tablet) 5 mg PO BID [facility] Last Admin: 06/29/21 08:14 Dose: 5 mg Documented by: BABS Aspirin (Aspirin 81 Mg Tab.Chew) 81 mg PO DAILY [facility] Last Admin: 06/29/21 08:14 Dose: 81 mg Documented by: BABS Atorvastatin Calcium (Atorvastatin Calcium 40 Mg Tablet) 40 mg PO BEDTIME [facility] Last Admin: 06/28/21 20:56 Dose: 40 mg Documented by: GAURAVOIC Dextrose (Dextrose 50 % 25 Gm/50 Ml Vial) 25 gm IVPUSH Q15M PRN; Protocol PRN Reason: per Hypoglycemia Standing Ord. Diphenoxylate HCl/Atropine (Diphenoxylate/Atrop 2.5/0.025 Tablet) 1 tab PO BIDWM [facility] Last Admin: 06/29/21 08:14 Dose: 1 tab Documented by: BABS Glucose (Glucose Gel 15 Gm Gel..Gram.) 15 gm PO Q15M PRN; Protocol PRN Reason: per Hypoglycemia Standing Ord. Insulin Human Lispro (Insulin Lispro 100 Unit/Ml 3 Ml Vial) 0 unit SUBCUT QIDACHS [facility]; Protocol Last Admin: 06/29/21 12:50 Dose: 6 unit Documented by: BABS Metoprolol Tartrate (Metoprolol Tartrate 25 Mg Tablet) 25 mg PO BID [facility]; Protocol Sodium Chloride (0.9 % Sodium Chloride Flush 3 Ml Syringe) 3 ml IVFLUSH QSHIFT [facility] Last Admin: 06/29/21 08:14 Dose: 3 ml Documented by: BABS Labs CBC & Chem 7: 06/29/21 04:51 06/29/21 04:51 Labs: Laboratory Results - last 24 hr 06/28/21 06/28/21 06/29/21 17:11 19:47 04:51 MCV 86.0 MCH 29.4 MCHC 34.2 RDW 12.5 Plt Count 191 MPV 12.7 H Immature Gran % (Auto) 0.3 Neut % (Auto) 64.4 Lymph % (Auto) 24.3 [place] % (Auto) 8.5 Eos % (Auto) 2.1 Baso % (Auto) 0.4 Lymph # (Auto) 2.6 [place] # (Auto) 0.9 Eos # (Auto) 0.2 Baso # (Auto) 0.0 Abs Immat Gran (auto) 0.03 Absolute Neuts (auto) 6.8 Absolute Nucleated RBC 0.000 Nucleated RBC % (auto) 0.0 Anion Gap Estim Creat Clear Calc Estimated GFR POC Glucose 212 H 258 H Random Glucose Calcium 06/29/21 06/29/21 06/29/21 04:51 07:40 11:31 MCV MCH MCHC RDW Plt Count MPV Immature Gran % (Auto) Neut % (Auto) Lymph % (Auto) [place] % (Auto) Eos % (Auto) Baso % (Auto) Lymph # (Auto) [place] # (Auto) Eos # (Auto) Baso # (Auto) Abs Immat Gran (auto) Absolute Neuts (auto) Absolute Nucleated RBC Nucleated RBC % (auto) Anion Gap 14 Estim Creat Clear Calc 57.9 Estimated GFR 57 POC Glucose 219 H 265 H Random Glucose 195 H D Calcium 9.0 Assessment and Plan (1) Syncope: Status: Acute (2) Atrial fibrillation with rapid ventricular response: Status: Acute (3) Type 2 diabetes mellitus: Status: Acute (4) HLD (hyperlipidemia): Status: Acute (5) CKD (chronic kidney disease), stage III: Status: Acute Assessment and Plan: 66 year old man admitted with Afib with RVR and had an episode of syncope. Syncope Noted to have drop in blood pressure with standing, status post IV fluid, follow orthostatic BP, encourage by mouth fluid Converted to normal sinus rhythm, Afib RVR. Treated with IV diltiazem in the ED, converted to normal sinus rhythm now on cardizem 30mg q6h, will place on metoprolol 25 b.i.d., stable TSH, magnesium and electrolytes, normal troponin continue OAC and BB Seen by cardiology, await echocardiogram. Diabetes Stable blood sugars, Sliding scale, ADA diet DVT prophylaxis with Eliquis Quality Stroke Does the patient have a stroke diagnosis?: No VTE Prior VTE?: No VTE Risk Level:: Medical - moderate - high VTE Device Contraindication: Treatment Not Indicated VTE Drug Contraindication: N/A - Med Ordered
[2021-06-29 16:35] LABS: Glucose, Whole Blood 283 mg/dL (60-115)
[2021-06-29 20:18] LABS: Glucose, Whole Blood 256 mg/dL (60-115)
[2021-06-29] MEDS: Atorvastatin Calcium 40 MG TABLET PO (20:49)
[2021-06-29] MEDS: Metoprolol Tartrate 25 MG TABLET PO (20:49)
[2021-06-30 03:02] VITALS: BP 152/81; PULSE 59; RESP 20; TEMP 36.6; O2SAT 98
[2021-06-30 07:16] LABS: Glucose, Whole Blood 207 mg/dL (60-115)
[2021-06-30 07:31] VITALS: BP 135/71; PULSE 60; RESP 20; TEMP 36.9; O2SAT 94
[2021-06-30 08:00] VITALS: BP 134/60; PULSE 87
[2021-06-30] MEDS: Insulin Lispro 100 UNIT/ML 3 ML VIAL SUBCUT ×2 (08:01→11:18)
[2021-06-30 08:02] VITALS: BP 135/71; PULSE 70
[2021-06-30] MEDS: Aspirin 81 MG TAB.CHEW PO (08:02)
[2021-06-30] MEDS: Apixaban 5 MG TABLET PO (08:02)
[2021-06-30] MEDS: Metoprolol Tartrate 25 MG TABLET PO (08:02)
[2021-06-30] MEDS: Diphenoxylate/Atrop 2.5/0.025 TABLET 1 TAB PO (08:02)
[2021-06-30] MEDS: 0.9 % Sodium Chloride Flush 3 ML SYRINGE IVFLUSH (08:03)
[2021-06-30 10:53] LABS: Glucose, Whole Blood 240 mg/dL (60-115)
[2021-06-30 11:14] VITALS: BP 132/62; PULSE 61; RESP 20; TEMP 36.4; O2SAT 98
--- NOTE | 2021-06-30 11:37 | MHC.CM.PN ---
Patient has been medically cleared for dc to home today, no services. Last IMM addressed on 06/29/21.
--- NOTE | 2021-06-30 11:38 | P.PNCA_ITS ---
Subjective Subjective Date of Service: 06/30/21 Interval history: No cardiac symptoms. Review of Systems Review of Systems Yes all other systems are reviewed and are negative Cardiovascular: Reports as per HPI, Reports no additional cardiovascular complaints, Denies acrocyanosis, Denies cool extremities, Denies painful fingertips, Denies chest pain, Denies chest pain at rest, Denies diaphoresis, Denies syncope, Denies irregular heart rhythm, Denies claudication, Denies leg edema, Denies lightheadedness, Denies palpitations and Denies dyspnea Respiratory: Denies dyspnea Denies syncope Endocrine: Denies palpitations Physical Exam Vital Signs: Last Vital Signs Temp 97.6 F 06/30/21 11:14 Pulse 61 06/30/21 11:14 Resp 20 06/30/21 11:14 BP 132/62 06/30/21 11:14 Pulse Ox 98 06/30/21 11:14 Body Mass Index 26.7 Const General: cooperative and no acute distress HENMT Other: Unremarkable Neck Neck: Yes normal visual inspection Chest Chest palpation & inspection: normal inspection of the chest Resp Auscultation: clear to auscultation bilaterally, no crackles and no wheezes Cardio Jugular venous distension: no JVD Palpation: normal PMI Heart sounds: S1 normal heart sound present, S2 normal heart sound present, no gallops, no murmurs and no rubs GI Palpation (GI): Soft to palpation Back/Spine/Pelvis Other: unremarkable Skin General skin exam: no rashes or lesions noted Neuro Cranial nerves: Yes Other cranial nerve findings present Extrem General: Yes no clubbing, cyanosis or edema Psych Mental Status: other Results Labs and Meds Result diagrams: 06/29/21 04:51 06/29/21 04:51 Lab results: Laboratory Results - last 24 hr 06/29/21 06/29/21 06/30/21 16:26 20:06 07:07 POC Glucose 283 H 256 H 207 H 06/30/21 10:43 POC Glucose 240 H Progress Note: A&P Assessment and plan (1) Atrial fibrillation with rapid ventricular response: Status: Acute (2) Syncope: Status: Acute Assessment and Plan: Atrial fibrillation with rapid rate, presenting as syncope. History of prior ablation. He is not on any rate or rhythm control agents at baseline. Now on beta blockers. Continue anticoagulation. 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 Fall Risk Details Current Medications: Current Medications Generic Name Dose Route Start Last Admin Trade Name Freq PRN Reason Stop Dose Admin Acetaminophen 650 mg 06/28/21 07:47 Acetaminophen 325 Mg Tablet PO Q6H PRN Pain, Mild (Pain Scale 1-3) Apixaban 5 mg 06/28/21 21:00 06/30/21 08:02 Apixaban 5 Mg Tablet PO 5 mg BID ALAN Administration Aspirin 81 mg 06/29/21 09:00 06/30/21 08:02 Aspirin 81 Mg Tab.Chew PO 81 mg DAILY ALAN Administration Atorvastatin Calcium 40 mg 06/28/21 21:00 06/29/21 20:49 Atorvastatin Calcium 40 Mg Tablet PO 40 mg BEDTIME ALAN Administration Dextrose 25 gm 06/28/21 17:01 Dextrose 50 % 25 Gm/50 Ml Vial IVPUSH Q15M PRN per Hypoglycemia Standing Ord. Protocol Diphenoxylate HCl/Atropine 1 tab 06/29/21 08:00 06/30/21 08:02 Diphenoxylate/Atrop 2.5/0.025 Tablet PO 1 tab BIDWM ALAN Administration Glucose 15 gm 06/28/21 17:01 Glucose Gel 15 Gm Gel..Gram. PO Q15M PRN per Hypoglycemia Standing Ord. Protocol Insulin Human Lispro 0 unit 06/28/21 21:00 06/30/21 11:18 Insulin Lispro 100 Unit/Ml 3 Ml Vial SUBCUT 4 unit QIDACHS ALAN Administration Protocol Metoprolol Tartrate 25 mg 06/29/21 21:00 06/30/21 08:02 Metoprolol Tartrate 25 Mg Tablet PO 25 mg BID ALAN Administration Protocol Sodium Chloride 3 ml 06/28/21 08:00 06/30/21 08:03 0.9 % Sodium Chloride Flush 3 Ml Syringe IVFLUSH 3 ml QSHIFT ALAN Administration Time Spent With Patient Time: Total time spent is greater than 50% in coordination of care (as documented) at patient's floor/unit and/or counseling patient: Time with patient: less than 15 minutes Progress Note: Quality Stroke Does the patient have a stroke diagnosis?: No Procedures Date of Service Date of Service: 06/30/21
--- NOTE | 2021-06-30 11:42 | PM.DS ---
DS: Providers Provider Date of Service: 06/30/21 Date of admission: 06/28/21 10:52 Primary care physician: Masood Jeffery MD Consults: 06/28/21 10:52 Consult to Cardiology Routine Consulting Provider: Jose L Archer Reason for consultation: afib rvr, orthostasis Has provider been notified: No DS: Diagnosis Discharge Diagnosis (1) Atrial fibrillation with rapid ventricular response: Status: Acute (2) Syncope: Status: Acute DS: Summary Hospital Course Hospital Course: Chief Complaint: Syncope ?66-year-old man presented to the ER after an episode dizziness.? Apparently got up from the bed and felt unwell and EMS was called.? While EMS was there patient got knocked walking apparently had fallen and lost consciousness.? This lasted it is several seconds maybe a minute.? Patient reports not having any history of this in the past.? He does have a history of coronary artery disease with stents.? He denied chest pain, shortness of breath, nausea, vomiting, diarrhea.? Does have a history of atrial fibrillation and had an ablation and has not had any incident in over 2 years.? In the ER he was noted to be in atrial fibrillation with rapid ventricular response was placed on a Cardizem drip.? He subsequently converted to normal sinus rhythm and Cardizem drip was stopped.? His creatinine was elevated 1.56, glucose 433, troponin 3.5, BNP 105, TSH 3.92, magnesium 2.0.? His vital signs are stable.? He will be admitted for further management and treatment of atrial fibrillation with rapid ventricular response and syncope. Hospital course 66 year old man admitted with Afib with RVR and had an episode of syncope. Syncope likely due to dehydration with a backdrop of atrial fib with RVR, patient treated with IV fluids, blood pressure is stable, dehydration likely due to chronic diarrhea recommended low residue and lactose-free diet And to have outpatient follow-up with PCP regarding chronic diarrhea. 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 Time Spent with Patient Time attestation: Total time spent providing and/or coordinating discharge services: Discharge coordination time: Greater than 30 minutes Quality: Stroke Does the patient have a stroke diagnosis?: No Physical Exam Vital Signs: Vital Signs: Last Vital Signs Temp 97.6 F 06/30/21 11:14 Pulse 61 06/30/21 11:14 Resp 20 06/30/21 11:14 BP 132/62 06/30/21 11:14 Pulse Ox 98 06/30/21 11:14 Body Mass Index 26.7 General? resting c omfortably in no a cute distress.? Ne ck no JVD. CVS? re gular rate rhythm, Respiratory lungs clear to ausculta tion, no respirato ry distress, no wh eeze, no rhonchi. Gastrointestinal a bdomen soft, nonte nder, bowel sounds audible. Extremit ies no edema. Neur o nonfocal , speec h clear. Skin no r krissy DS: Data Data Completed and Pending Labs on day of discharge: Laboratory Results - last 24 hr 06/29/21 06/29/21 06/30/21 16:26 20:06 07:07 POC Glucose 283 H 256 H 207 H 06/30/21 10:43 POC Glucose 240 H Discharge Plan Discharge Patient Disposition: Home, Self-Care Discharge Diagnosis: Syncope Atrial fibrillation with RVR Referrals: Masood Jeffery MD [Primary Care Provider] - 1 Week Discharge Medications: New metoprolol tartrate 25 mg Tablet 25 mg PO BID Qty: 60 RF: 0 Continued Eliquis 5 mg tablet 1 tab PO BID RF: 0 atorvastatin 40 mg tablet 1 tab PO BEDTIME RF: 0 diphenoxylate-atropine [Lomotil] 2.5-0.025 mg Tablet 1 tab PO BID RF: 0 Basaglar KwikPen U-100 Insulin 36 units subcut BEDTIME RF: 0 aspirin 81 mg Tablet,Chewable 81 mg PO DAILY RF: 0 fiber Tablet 2 tab PO BID RF: 0 Discharge Orders: Discharge Order (Routine); Ordered 06/30/21 Ordered By: Gisel Layne Diet: diabetic diet and low fat, low cholesterol Activity on Discharge: As tolerated Stand Alone Forms: Patient Portal Discharge page Care Plan Goals: Syncope likely due to dehydration resolved, atrial fibrillation with RVR started on metoprolol twice daily no evidence of acute coronary syndrome Health Concerns: Atrial fibrillation, diabetes mellitus, hyperlipidemia continue all medications as before Plan of Treatment: Outpatient follow-up with primary care physician and Cardiology in next 1-2 weeks Assessment: As above
== END 2021-06-30 14:29 | disposition home or self-care (01) | DRG 249 ==
LOC: HO.ED 07:34 → HO.EDOVER 11:01 → HO.IMC 13:33
PROVIDERS: Admitting Provider Nurse Practitioner Acute Care; Emergency Provider Emergency Medicine; PCP Family Medicine; Visit Provider Hospitalist
DX: E86.0 Dehydration (principal); K52.9 Noninfective gastroenteritis and colitis, unspecified; I48.91 Unspecified atrial fibrillation; I25.10 Atherosclerotic heart disease of native coronary artery without angina pectoris; Z20.822 Contact with and (suspected) exposure to COVID-19; Z88.0 Allergy status to penicillin; Z88.2 Allergy status to sulfonamides; Z79.01 Long term (current) use of anticoagulants; Z79.82 Long term (current) use of aspirin; Z79.899 Other long term (current) drug therapy
CPT/HCPCS: 36415; 71045; 80048; 80076; 82947; 83735; 83880; 84443; 84484; 85025; 87635; 93005; 96361; 96365; 96366; 96375; 99285; 99291; 99292

== ENCOUNTER 2022-11-04 22:35 | Observation (INO) | payer MEDICARE, SELFPAY ==
--- NOTE | 2022-11-04 | ECG_ITS ---
Test Reason : WEAKNESS Blood Pressure : / mmHG Vent. Rate : 075 BPM Atrial Rate : 075 BPM P-R Int : 192 ms QRS Dur : 082 ms QT Int : 388 ms P-R-T Axes : 059 -09 016 degrees QTc Int : 433 ms Normal sinus rhythm Inferior infarct (cited on or before 28-JUN-2021) Abnormal ECG When compared with ECG of 28-JUN-2021 08:39, No significant change was found Referred By: Concepcion Thrasher Electronically Signed By:Jose Farfan
--- NOTE | ~2022-11-04 | XR_ITS ---
EXAMINATION: XR CHEST CLINICAL INFORMATION: Shortness of breath COMPARISON: 06/28/2021 TECHNIQUE: Frontal view of the chest was obtained. FINDINGS: Lungs are well-inflated and clear. Trachea is midline in position. No interstitial disease, consolidation or mass. No pleural effusion or pneumothorax. Cardiac silhouette and pulmonary vessels are normal in size. The mediastinum and yadira have normal contour. Mild dextrocurvature and multilevel osteophyte formation of the thoracic spine. XR/XR chest 1V IMPRESSION: No acute cardiopulmonary abnormality.
--- NOTE | ~2022-11-04 | XR_ITS ---
EXAMINATION: XR ABDOMEN COMPLETE CLINICAL INDICATION: Follow-up small bowel obstruction COMPARISON: CT abdomen from 11/05/2022 TECHNIQUE: 2 views of the abdomen. FINDINGS: Lung bases are unremarkable. Surgical clip within the right upper quadrant. Loops of small bowel remain dilated and measure up to approximately 4 cm diameter. There is a paucity of distal bowel gas. No pneumoperitoneum or other significant change. XR/XR acute abdomen series IMPRESSION: 1. Small bowel obstruction remains similar in appearance compared to 11/05/2022. 2. No pneumoperitoneum.
--- NOTE | ~2022-11-04 | CT_ITS ---
EXAMINATION: CT ABDOMEN AND PELVIS WITHOUT CONTRAST CLINICAL INFORMATION: Abdominal pain COMPARISON: None TECHNIQUE: Multidetector volumetric imaging was performed from the superior aspect of the liver through the pubic symphysis. Sagittal and coronal reformatted images were obtained on the technologist's workstation. This CT examination was performed using dose optimization techniques as appropriate, variously including the following: *Automated exposure control *Adjustment of mA and/or kV according to patient size (this includes techniques or standardized protocols for targeted exams where dose is matched to indication/reason for exam; i.e. extremities or head) *Use of iterative reconstruction technique DLP: 1333 mGy-cm in conjunction with the head CT FINDINGS: LUNG BASES: Lung bases are clear. Dense coronary artery calcifications. LIVER, GALLBLADDER, AND BILIARY TREE: The liver is normal in size, shape, and attenuation. No focal hepatic lesion or biliary ductal dilatation is present. Small stones layering in the gallbladder fossa. No wall thickening or adjacent inflammation. PANCREAS: Unremarkable. SPLEEN: Unremarkable. ADRENAL GLANDS: Unremarkable. KIDNEYS AND URETERS: The kidneys are normal in size, shape, and attenuation. No hydronephrosis, hydroureter, or calculi seen. Symmetric chronic perinephric stranding. BLADDER: Unremarkable. GASTROINTESTINAL TRACT: Distended stomach without wall thickening. The proximal small bowel is fluid-filled and dilated this extends to an area of fecalization in the anterior central abdomen followed by a somewhat gradual decompression. There is a partial right colectomy with a right upper quadrant enterocolic anastomosis. Gas and stool are seen in the colon. No free air. No free fluid. ABDOMINAL WALL: No significant hernia is appreciated. LYMPH NODES: Normal. VASCULAR: Normal caliber aorta. Mild atherosclerotic calcification. PELVIC VISCERA: The prostate is prominent measuring 5.1 cm transverse. The seminal vesicles are unremarkable. OSSEOUS STRUCTURES: No acute or suspicious osseous abnormality. Mild degenerative change of the hips and spine. CT/CT abdomen pelvis wo IV con IMPRESSION: 1. Dilated fluid-filled proximal small bowel extending to an area of fecalization in the anterior central abdomen followed by a somewhat gradual decompression. This suggests a partial small bowel obstruction. 2. Cholelithiasis without evidence of acute cholecystitis. Fleischner guidelines were followed.
--- NOTE | ~2022-11-04 | CT_ITS ---
EXAMINATION: CT HEAD WITHOUT CONTRAST CLINICAL INFORMATION: Dizziness on blood thinners. COMPARISON: 01/14/2019 TECHNIQUE: Contiguous axial imaging was performed from the skull base to vertex without intravenous contrast. This CT examination was performed using dose optimization techniques as appropriate, variously including the following: * Automated exposure control * Adjustment of mA and/or kV according to patient size (this includes techniques or standardized protocols for targeted exams where dose is matched to indication/reason for exam; i.e. extremities or head) Use of iterative reconstruction technique DLP: 1333 mGy-cm in conjunction with the abdominal CT. FINDINGS: There is no evidence of acute intracranial hemorrhage or territorial infarction. No abnormal mass effect or midline shift is seen. Fallon to white matter differentiation is well preserved. No extra-axial fluid collections are identified. No hydrocephalus. Proportional prominence of the ventricles and sulcal spaces is consistent with mild volume loss. Patchy periventricular and deep white matter hypoattenuation is consistent with mild small vessel ischemic changes. Small chronic left frontal lobe infarct. The osseous structures and soft tissues are normal. The mastoid air cells and visualized portions of the paranasal sinuses are well aerated. CT/CT head/brain wo IV con IMPRESSION: No acute intracranial pathology.
[2022-11-04 22:44] VITALS: BP 146/77; BP 94/56; PULSE 77; PULSE 86; RESP 23; TEMP 36.6; O2SAT 94; O2SAT 95; BMI 26.0
--- NOTE | 2022-11-04 22:45 | MHC.EDTECH ---
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
[2022-11-04 22:58] LABS: Glucose, Whole Blood 448 mg/dL (60-115)
--- NOTE | 2022-11-04 23:20 | ED.WEAKNESS ---
HPI - Weakness General Chief complaint: Weakness Stated complaint: weakness hypotensive high poc Time Seen by Provider: 11/04/22 22:52 History of Present Illness HPI Narrative: Patient is a 67-year-old male with a history of diabetes, atrial fibrillation, CVA in the past. Patient not taking his insulin. Having some diarrhea yesterday. Also had some coughing upper respiratory symptoms 2 days prior that has improved. Also had diarrhea yesterday. The abdominal pain started approximately 2 hours ago. Is diffuse worse over the epigastric area. Did not radiate. Patient was in the bathroom after urinating patient felt the pain. Was leaning against a wall. [place] very weak. Almost passed out. Subsequently was sent to the emergency department for further evaluation. Related Data Home Medications Medication Instructions Recorded Confirmed Basaglar ToñoikPen U-100 Insulin 36 units subcut BEDTIME 06/28/21 06/28/21 apixaban 5 mg tablet (Eliquis) 1 tab PO BID 06/28/21 06/28/21 aspirin 81 mg chewable tablet 81 mg PO DAILY 06/28/21 06/28/21 atorvastatin 40 mg tablet 1 tab PO BEDTIME 06/28/21 06/28/21 diphenoxylate-atropine 2.5 1 tab PO BID 06/28/21 06/28/21 mg-0.025 mg tablet (Lomotil) fiber 2 tab PO BID 06/28/21 06/28/21 Previous Rx's Medication Instructions Recorded metoprolol tartrate 25 mg tablet 25 mg PO BID #60 tabs 06/30/21 Allergies Allergy/AdvReac Type Severity Reaction Status Date / Time Sulfa (Sulfonamide Allergy Mild HIVES Unverified 07/09/20 15:36 Antibiotics) [SULFA (SULFONAMIDE ANTIBIOTICS)] penicillamine [Cuprimine] Allergy Unknown unknown Verified 09/11/18 00:00 Penicillins Allergy Unknown INKNOWN Unverified 07/09/20 15:36 sulfacetamide Allergy Unknown rash Verified 09/11/18 00:00 Review of Systems Review of Systems: Positive abdominal pain. Positive nausea. Yes all other systems are reviewed and are negative [facility] Past Medical History Attestation statement: The following information was validated with the patient. Medical History Atrial fibrillation CAD (coronary artery disease) CKD (chronic kidney disease), stage III CVA (cerebral vascular accident) HLD (hyperlipidemia) Type 2 diabetes mellitus Surgical History H/O cardiac radiofrequency ablation Stented coronary artery Social History Social History Household Members: Family Housing: House Do you presently have visiting nurse or other home services: No Alcohol intake: current Alcohol intake frequency: a few times a week Alcohol type: beer Patient Tobacco Use Status: Never used Tobacco Smoked in Last 30 Days: No Advance Directives: No Advance Directives Information Provided: Yes service: No Current occupational status: retired Physical Exam Vital Signs: Vital Signs: Last Vital Signs Temp 97.8 F 11/05/22 01:03 Pulse 81 11/05/22 01:03 Resp 18 11/05/22 01:26 BP 134/66 11/05/22 01:03 Pulse Ox 95 11/05/22 01:03 O2 Del Method 11/05/22 01:03 O2 Flow Rate 2 11/05/22 00:30 BMI result Body Mass Index 26.0 Appearance: Alert. Oriented X3. No acute distress. Eyes: Pupils equal, round and reactive to light. ENT: Pharynx normal. Neck: Normal inspection. Neck supple. No lymph nodes noted. No crepitus CVS: Normal heart rate and rhythm. Pulses normal. Normal S1 and S2 Respiratory: No respiratory distress. Breath sounds normal. No Wheezing. No rales Abdomen: Soft and nontender. No rigidity. No distention. good BS x4 Skin: Skin warm and dry. Normal skin color. Normal skin turgor. Extremities: No lower extremity edema. Neurovascular intact to all extremities. No Lacerations. No Rash Neuro: Oriented X 3. No motor deficit. No sensory deficit. Moving all extermities. No slurred speech Medications Administered Generic Name Dose Route Start Last Admin Trade Name Freq PRN Reason Stop Dose Admin Sodium Chloride 1,000 mls @ 999 mls/hr 11/05/22 01:15 11/05/22 01:28 Ns IV 11/05/22 02:15 999 mls/hr .Q1H1M ALAN Administration Discontinued Medications Generic Name Dose Route Start Last Admin Trade Name Freq PRN Reason Stop Dose Admin Hydromorphone HCl 0.5 mg 11/05/22 01:19 11/05/22 01:26 Hydromorphone Hcl 0.5 Mg/0.5 Ml Syringe IVPUSH 11/05/22 01:20 0.5 mg ONCE ONE Administration Protocol Sodium Chloride 500 mls @ 999 mls/hr 11/04/22 23:30 11/05/22 00:29 Ns IV 11/05/22 00:00 Infused .Q31M ALAN Infusion Sodium Chloride 1,000 mls @ 999 mls/hr 11/05/22 00:15 11/05/22 00:24 Ns IV 11/05/22 01:15 999 mls/hr .Q1H1M ALAN Administration Insulin Human Regular 8 unit 11/04/22 23:16 11/04/22 23:34 Insulin Regular, Human 100 Unit/Ml 3 Ml Vial 0.1 unit/kg (8 unit) 11/04/22 23:17 8 unit IVPUSH Administration ONCE ONE Medical Decision Making Differential Diagnosis Patient presents today with having generalized malaise weakness. Nausea abdominal pain. Differential includes small bowel obstruction, common duct stone, pancreatitis, coronary issues, dehydration, COVID/flu. Labs ordered IV fluid given. Patient's sugar was over 450. Insulin was given. Patient's blood pressure dropped in the emergency department to 100/70. Additional IV fluids ordered. Patient's labs showed no evidence of diabetic ketoacidosis. CT scan of the abdomen pelvis was done. Positive for partial small-bowel obstruction. Case discussed with surgery. Case discussed with hospitalist team. Hospitalist team will admit patient for further evaluation. IV fluid hydration and monitoring. Serial cardiac enzymes. First set of troponin was negative. Blood pressure recover after IV fluids. Patient given a dose of pain medication. Finding explained to patient and family. Patient is to be admitted. Consult Healthcare Provider Management of the patient was discussed with: Hospitalist and [facility] Case discussed with hospitalist team for admission. Consulted with surgery. Lab Data MDM Lab Attestation statement: I reviewed the patient's lab results. 11/04/22 23:37 11/04/22 23:37 Labs: Lab Results 11/04/22 11/04/22 11/04/22 Range/Units 22:45 23:37 23:37 WBC 17.8 H (4.8-10.8) X10*3/uL RBC 4.97 (4.60-5.80) X10*6/uL Hgb 14.7 (14.0-18.0) g/dl Hct 42.8 (42.0-52.0) % MCV 86.1 (80.0-98.0) fL MCH 29.6 (27.0-33.0) pg MCHC 34.3 (31.0-36.0) g/dl RDW 13.2 (11.0-16.0) % Plt Count 287 (160-400) X10*3/uL MPV 12.0 (9.4-12.4) fL Immature Gran % (Auto) 0.3 (0.0-0.4) % Neut % (Auto) 90.4 H (45-73) % Lymph % (Auto) 5.0 L (20-40) % J[place]uld % (Auto) 3.8 (2-11) % Eos % (Auto) 0.3 (0-4) % Baso % (Auto) 0.2 (0-2) % Lymph # (Auto) 0.9 L (1.2-4.9) X10*3/uL [place] # (Auto) 0.7 (0.1-1.2) X10*3/uL Eos # (Auto) 0.1 (0.0-0.4) X10*3/uL Baso # (Auto) 0.0 (0.0-0.2) X10*3/uL Abs Immat Gran (auto) 0.06 H (0.00-0.03) X10*3/uL Absolute Neuts (auto) 16.1 H (2.0-8.3) x10*3/uL Absolute Nucleated RBC 0.000 (0.0-0.012) X10*3/uL Nucleated RBC % (auto) 0.0 (0.0-0.2) /100WBC Smear Tech's Comments VERIFIED VBG pH (7.32-7.43) VBG pCO2 mmHg VBG pO2 mmHg VBG HCO3 (22-26) mmol/L VBG O2 Saturation % VBG Base Excess mmol/L Sodium 138 (135-145) mmol/L Potassium 4.3 (3.3-5.1) mmol/L Chloride 107 (96-108) mmol/L Carbon Dioxide 22 (22-29) mmol/L Anion Gap 13 (12-20) BUN 37 H (9-16) mg/dL Creatinine 1.64 H (0.5-1.4) mg/dL Estim Creat Clear Calc 43.8 Estimated GFR 42 POC Glucose 448 H* (60-115) mg/dL Random Glucose 495 H* (60-115) mg/dL Calcium 9.2 (8.4-10.2) mg/dL Total Bilirubin 0.8 (0.0-1.0) mg/dL AST 12 (5-37) U/L ALT 20 (0-40) U/L Alkaline Phosphatase 80 (39-117) U/L Troponin I High Sens (<3.5-35.0) ng/L Total Protein 6.5 (6.5-8.0) g/dL Albumin 4.0 (3.5-5.0) g/dL Lipase (8-78) U/L Acetone, Qual (Negative) COVID-19 (MARIELA) (Negative) COVID-19 Clin Com Influenza Type A (ANNIE) (Negative) Influenza Type B (ANNIE) (Negative) Influenza A & B Note 11/04/22 11/04/22 11/04/22 Range/Units 23:37 23:37 23:38 WBC (4.8-10.8) X10*3/uL RBC (4.60-5.80) X10*6/uL Hgb (14.0-18.0) g/dl Hct (42.0-52.0) % MCV (80.0-98.0) fL MCH (27.0-33.0) pg MCHC (31.0-36.0) g/dl RDW (11.0-16.0) % Plt Count (160-400) X10*3/uL MPV (9.4-12.4) fL Immature Gran % (Auto) (0.0-0.4) % Neut % (Auto) (45-73) % Lymph % (Auto) (20-40) % J[place]uld % (Auto) (2-11) % Eos % (Auto) (0-4) % Baso % (Auto) (0-2) % Lymph # (Auto) (1.2-4.9) X10*3/uL [place] # (Auto) (0.1-1.2) X10*3/uL Eos # (Auto) (0.0-0.4) X10*3/uL Baso # (Auto) (0.0-0.2) X10*3/uL Abs Immat Gran (auto) (0.00-0.03) X10*3/uL Absolute Neuts (auto) (2.0-8.3) x10*3/uL Absolute Nucleated RBC (0.0-0.012) X10*3/uL Nucleated RBC % (auto) (0.0-0.2) /100WBC Smear Tech's Comments VBG pH (7.32-7.43) VBG pCO2 mmHg VBG pO2 mmHg VBG HCO3 (22-26) mmol/L VBG O2 Saturation % VBG Base Excess mmol/L Sodium (135-145) mmol/L Potassium (3.3-5.1) mmol/L Chloride (96-108) mmol/L Carbon Dioxide (22-29) mmol/L Anion Gap (12-20) BUN (9-16) mg/dL Creatinine (0.5-1.4) mg/dL Estim Creat Clear Calc Estimated GFR POC Glucose (60-115) mg/dL Random Glucose (60-115) mg/dL Calcium (8.4-10.2) mg/dL Total Bilirubin (0.0-1.0) mg/dL AST (5-37) U/L ALT (0-40) U/L Alkaline Phosphatase (39-117) U/L Troponin I High Sens 4.1 (<3.5-35.0) ng/L Total Protein (6.5-8.0) g/dL Albumin (3.5-5.0) g/dL Lipase 21 (8-78) U/L Acetone, Qual Negative (Negative) COVID-19 (MARIELA) (Negative) COVID-19 Clin Com Influenza Type A (ANNIE) Negative (Negative) Influenza Type B (ANNIE) Negative (Negative) Influenza A & B Note See Note 11/04/22 11/04/22 Range/Units 23:38 23:45 WBC (4.8-10.8) X10*3/uL RBC (4.60-5.80) X10*6/uL Hgb (14.0-18.0) g/dl Hct (42.0-52.0) % MCV (80.0-98.0) fL MCH (27.0-33.0) pg MCHC (31.0-36.0) g/dl RDW (11.0-16.0) % Plt Count (160-400) X10*3/uL MPV (9.4-12.4) fL Immature Gran % (Auto) (0.0-0.4) % Neut % (Auto) (45-73) % Lymph % (Auto) (20-40) % [place]erauld % (Auto) (2-11) % Eos % (Auto) (0-4) % Baso % (Auto) (0-2) % Lymph # (Auto) (1.2-4.9) X10*3/uL [place] # (Auto) (0.1-1.2) X10*3/uL Eos # (Auto) (0.0-0.4) X10*3/uL Baso # (Auto) (0.0-0.2) X10*3/uL Abs Immat Gran (auto) (0.00-0.03) X10*3/uL Absolute Neuts (auto) (2.0-8.3) x10*3/uL Absolute Nucleated RBC (0.0-0.012) X10*3/uL Nucleated RBC % (auto) (0.0-0.2) /100WBC Smear Tech's Comments VBG pH 7.36 (7.32-7.43) VBG pCO2 40 mmHg VBG pO2 57 mmHg VBG HCO3 23 (22-26) mmol/L VBG O2 Saturation 85.0 % VBG Base Excess -2.0 mmol/L Sodium (135-145) mmol/L Potassium (3.3-5.1) mmol/L Chloride (96-108) mmol/L Carbon Dioxide (22-29) mmol/L Anion Gap (12-20) BUN (9-16) mg/dL Creatinine (0.5-1.4) mg/dL Estim Creat Clear Calc Estimated GFR POC Glucose (60-115) mg/dL Random Glucose (60-115) mg/dL Calcium (8.4-10.2) mg/dL Total Bilirubin (0.0-1.0) mg/dL AST (5-37) U/L ALT (0-40) U/L Alkaline Phosphatase (39-117) U/L Troponin I High Sens (<3.5-35.0) ng/L Total Protein (6.5-8.0) g/dL Albumin (3.5-5.0) g/dL Lipase (8-78) U/L Acetone, Qual (Negative) COVID-19 (MARIELA) Negative (Negative) COVID-19 Clin Com See Note Influenza Type A (ANNIE) (Negative) Influenza Type B (ANNIE) (Negative) Influenza A & B Note Chronic Conditions Patient?s care impacted by: Diabetes and Hypertension Critical Care Time Critical Care Time Critical Care Time: Yes Total Critical Care Time: 35 Attestation: I have personally provided 35 minutes of critical care time exclusive of time spent on separately billable procedures. Time includes review of lab data, radiology results, discussion with consultants, and monitoring for potential decompensation. Interventions were performed as documented above Discharge Plan Discharge Clinical Impression: Acute hyperglycemia, Acute dehydration, Near syncope, Partial small bowel obstruction Patient Disposition: Admitted As Inpatient Prescriptions: No Action Eliquis 5 mg tablet 1 tab PO BID atorvastatin 40 mg tablet 1 tab PO BEDTIME diphenoxylate-atropine [Lomotil] 2.5-0.025 mg Tablet 1 tab PO BID Basaglar KwikPen U-100 Insulin 36 units subcut BEDTIME aspirin 81 mg Tablet,Chewable 81 mg PO DAILY fiber Tablet 2 tab PO BID metoprolol tartrate 25 mg Tablet 25 mg PO BID Qty: 60 0RF Protocol: Hold for SBP/HR < HOLD for SBP < : 90 HOLD for HR < : 60
[2022-11-04] MEDS: Insulin Regular, Human 100 UNIT/ML 3 ML VIAL 8 UNIT IVPUSH (23:34)
[2022-11-04] MEDS: 0.9 % Sodium Chloride 500 ML 999 ML IV (23:35)
[2022-11-04 23:47] LABS: Basophils Percent Auto 0.2 % (0-2); Eosinophils Absolute Auto 0.1 X10*3/uL (0.0-0.4); Eosinophils Percent Auto 0.3 % (0-4); Hematocrit 42.8 % (42.0-52.0); Hemoglobin 14.7 g/dl (14.0-18.0); Imm Gran Abs Auto 0.06 X10*3/uL (0.00-0.03); Imm Gran Pct Auto 0.3 % (0.0-0.4); Lymphocytes Absolute Auto 0.9 X10*3/uL (1.2-4.9); MANUAL DIFF FLAG SCAN; Mean Corpuscular HGB Conc 34.3 g/dl (31.0-36.0); Mean Corpuscular Hemoglobin 29.6 pg (27.0-33.0); Mean Corpuscular Volume 86.1 fL (80.0-98.0); Monocytes Absolute Auto 0.7 X10*3/uL (0.1-1.2); Monocytes Percent Auto 3.8 % (2-11); Neutrophils Absolute Auto 16.1 x10*3/uL (2.0-8.3); Neutrophils Percent Auto 90.4 % (45-73); Platelet Count 287 X10*3/uL (160-400); Red Blood Count 4.97 X10*6/uL (4.60-5.80); Red Cell Distribution Width 13.2 % (11.0-16.0); SCAN SMEAR FLAG 1; White Blood Count 17.8 X10*3/uL (4.8-10.8)
[2022-11-04 23:52] LABS: VBG HCO3 23 mmol/L (22-26); VBG pCO2 40 mmHg; VBG pH 7.36 (7.32-7.43); VBG pO2 57 mmHg
[2022-11-05] VITALS (12 sets, daily range): BP systolic 102–158; BP diastolic 52–84; PULSE 66–93; RESP 13–22; TEMP 36.4–37.3; O2SAT 86–98; BMI 25.4
[2022-11-05 00:01] LABS: Venous Blood Gas Refer to POC result
[2022-11-05 00:01] LABS: COVID-19 Test Negative (Negative); IDNOW Serial# 16C4AD1C; IDNOW Serial# BCCEAD1C; Influenza A Negative (Negative); Influenza B2 Negative (Negative)
[2022-11-05 00:03] LABS: Lipase 21 U/L (8-78)
[2022-11-05 00:09] LABS: Alanine Aminotransferase 20 U/L (0-40); Alkaline Phosphatase 80 U/L (39-117); Anion Gap 13 (12-20); Aspartate Amino Transferase 12 U/L (5-37); Bilirubin Total 0.8 mg/dL (0.0-1.0); Blood Urea Nitrogen 37 mg/dL (9-16); Calcium 9.2 mg/dL (8.4-10.2); Carbon Dioxide 22 mmol/L (22-29); Chloride 107 mmol/L (96-108); Creatinine Clr Calc Pharmacy 43.8; Estimated Glomerular Filt Rate 42; Glucose Random 495 mg/dL (60-115); Potassium 4.3 mmol/L (3.3-5.1); Sodium 138 mmol/L (135-145); Total Protein 6.5 g/dL (6.5-8.0)
[2022-11-05 00:10] LABS: Troponin-I High Sensitivity 4.1 ng/L (<3.5-35.0)
[2022-11-05 00:13] LABS: SLIDE REVIEW VERIFIED
[2022-11-05 00:16] LABS: Acetone, serum QL Negative (Negative)
--- NOTE | 2022-11-05 00:18 | PC.NURSE ---
Pt complaining of dizziness and BP is hypotensive. Pt positioned in Trendelenburg position and placed on O2 at 2 lpm via NC to improve BP 120/56 and SpO2 to 97%, respectively. Provider made aware. Pt needs CT scan stat.
[2022-11-05] MEDS: 0.9 % Sodium Chloride 1,000 ML 999 ML IV ×2 (00:24→01:28)
--- NOTE | 2022-11-05 01:16 | PC.NURSE ---
Pt returned from CT scan. VS stable. Lung sounds clear to auscultation.
[2022-11-05] MEDS: HYDROmorphone HCl 0.5 MG/0.5 ML SYRINGE IVPUSH (01:26)
--- NOTE | 2022-11-05 01:37 | PM.IMHP ---
History of Present Illness Date of Service: 11/05/22 Chief Complaint: abd pain 67-year-old male with past medical history of CAD, CKD, CVA, HLD, type 2 diabetes, AFib on Eliquis presents to the hospital with complaints of abdominal pain, distension, as well as back pain. Patient reports that it started today, has not had any vomiting, has had chills chronically, reports that his last BM was earlier in the day, had diarrhea yesterday, it appears that he has history of chronic diarrhea and he is on lomotil for it reports that he has not been passing gas since being in the ED. denies any chest pain, has some shortness of breath that has been chronic for him, reports no palpitations, no urinary symptoms and no lower extremity edema On arrival to the ED patient hemodynamically stable no significant abnormal vitals Labs are significant for WBC count of 17.8, creatinine of 1.64, with a baseline of 1.26 in June2021, glucose of 448, lactic acid of 2.2 that improved to 1.1 after IV fluids, COVID-19 influenza as well as RSV negative, abdominal pelvic CT shows dilated fluid-filled proximal small bowel extending to an area of fecalization in the anterior central abdomen followed by somewhat gradual decompression, this suggest partial small-bowel obstruction General surgery consult, patient will be admitted to medical floor Review of Systems Review of Systems: Yes all other systems are reviewed and are negative [facility] Medical History Atrial fibrillation CAD (coronary artery disease) CKD (chronic kidney disease), stage III CVA (cerebral vascular accident) HLD (hyperlipidemia) Type 2 diabetes mellitus Surgical History H/O cardiac radiofrequency ablation Stented coronary artery Social History Household Members: Family Housing: House Do you presently have visiting nurse or other home services: No Alcohol intake: current Alcohol intake frequency: a few times a week Alcohol type: beer Patient Tobacco Use Status: Never used Tobacco Smoked in Last 30 Days: No Use of substances other than those prescribed or required for medical reasons: No Have you been hit, kicked, punched, or otherwise hurt by someone within the past year? If so, by whom?: No Do you feel safe in your current relationship?: Yes Is there a partner from a previous relationship who is making you feel unsafe now?: No Are you made to feel afraid or neglected: No Advance Directives: No Advance Directives Information Provided: Yes Do you have thoughts of harming others: None Do you have a plan to hurt others: No Plan Recently lost weight without trying: No Nutrition Risks: No Nutritional Risk service: No Current occupational status: retired Meds Allergies Allergy/AdvReac Type Severity Reaction Status Date / Time Sulfa (Sulfonamide Allergy Mild HIVES Verified 11/05/22 02:41 Antibiotics) [SULFA (SULFONAMIDE ANTIBIOTICS)] penicillamine [Cuprimine] Allergy Unknown unknown Verified 11/05/22 02:41 Penicillins Allergy Unknown INKNOWN Verified 11/05/22 02:41 sulfacetamide Allergy Unknown rash Verified 11/05/22 02:41 Active Medications: Current Medications Sodium Chloride (Ns) 1,000 mls @ 999 mls/hr IV .Q1H1M ALAN Stop: 11/05/22 02:15 Last Admin: 11/05/22 01:28 Dose: 999 mls/hr Home Medications Medication Instructions Recorded Confirmed Last Taken Type Rafaelaglzahra VillafuertePen U-100 Insulin 40 units subcut BEDTIME 06/28/21 11/05/22 11/03/22 History apixaban 5 mg tablet (Eliquis) 1 tab PO BID 06/28/21 11/05/22 11/04/22 History atorvastatin 40 mg tablet 1 tab PO BEDTIME 06/28/21 11/05/22 11/03/22 History diphenoxylate-atropine 2.5 1 tab PO BID 06/28/21 11/05/22 11/04/22 History mg-0.025 mg tablet (Lomotil) aspirin 81 mg tablet 81 mg PO DAILY 11/05/22 11/05/22 Unknown History Physical Exam Vital Signs and Narrative: Vital Signs: Last Vital Signs Temp 97.8 F 11/05/22 01:03 Pulse 81 11/05/22 01:03 Resp 18 11/05/22 01:26 BP 134/66 11/05/22 01:03 Pulse Ox 95 11/05/22 01:03 O2 Del Method 11/05/22 01:03 O2 Flow Rate 2 11/05/22 00:30 BMI result Body Mass Index 26.0 Const: General: cooperative and no acute distress Orientation/consciousness: patient oriented x3 Eyes: General: appearance normal, both eyes and all related structures Resp: Effort & Inspection: normal respiratory effort Auscultation: clear to auscultation bilaterally Cardio: Rate: regular rate Rhythm: regular rhythm GI: Other: distended abdomen, firm, tender on palpation, hyperactive bowel sounds Skin: General skin exam: no rashes or lesions noted Neuro: General: patient oriented x3 Cognition (Neuro): normal cognition Extrem: General: Yes normal to inspection and Yes no pedal edema Results Labs 11/04/22 23:37 11/04/22 23:37 Labs: Laboratory Results - last 24 hr 11/04/22 11/04/22 11/04/22 22:45 23:37 23:37 MCV 86.1 MCH 29.6 MCHC 34.3 RDW 13.2 Plt Count 287 MPV 12.0 Immature Gran % (Auto) 0.3 Neut % (Auto) 90.4 H Lymph % (Auto) 5.0 L Bradford % (Auto) 3.8 Eos % (Auto) 0.3 Baso % (Auto) 0.2 Lymph # (Auto) 0.9 L Bradford # (Auto) 0.7 Eos # (Auto) 0.1 Baso # (Auto) 0.0 Abs Immat Gran (auto) 0.06 H Absolute Neuts (auto) 16.1 H Absolute Nucleated RBC 0.000 Nucleated RBC % (auto) 0.0 Smear Tech's Comments VERIFIED VBG pH VBG pCO2 VBG pO2 VBG HCO3 VBG O2 Saturation VBG Base Excess Anion Gap 13 Estim Creat Clear Calc 43.8 Estimated GFR 42 POC Glucose 448 H* Random Glucose 495 H* Calcium 9.2 Total Bilirubin 0.8 AST 12 ALT 20 Alkaline Phosphatase 80 Troponin I High Sens Total Protein 6.5 Albumin 4.0 Lipase Acetone, Qual COVID-19 (MARIELA) COVID-19 Clin Com Influenza Type A (ANNIE) Influenza Type B (ANNIE) Influenza A & B Note 11/04/22 11/04/22 11/04/22 23:37 23:37 23:38 MCV MCH MCHC RDW Plt Count MPV Immature Gran % (Auto) Neut % (Auto) Lymph % (Auto) Bradford % (Auto) Eos % (Auto) Baso % (Auto) Lymph # (Auto) Bradford # (Auto) Eos # (Auto) Baso # (Auto) Abs Immat Gran (auto) Absolute Neuts (auto) Absolute Nucleated RBC Nucleated RBC % (auto) Smear Tech's Comments VBG pH VBG pCO2 VBG pO2 VBG HCO3 VBG O2 Saturation VBG Base Excess Anion Gap Estim Creat Clear Calc Estimated GFR POC Glucose Random Glucose Calcium Total Bilirubin AST ALT Alkaline Phosphatase Troponin I High Sens 4.1 Total Protein Albumin Lipase 21 Acetone, Qual Negative COVID-19 (MARIELA) COVID-19 Clin Com Influenza Type A (ANNIE) Negative Influenza Type B (ANNIE) Negative Influenza A & B Note See Note 11/04/22 11/04/22 23:38 23:45 MCV MCH MCHC RDW Plt Count MPV Immature Gran % (Auto) Neut % (Auto) Lymph % (Auto) Bradford % (Auto) Eos % (Auto) Baso % (Auto) Lymph # (Auto) Bradford # (Auto) Eos # (Auto) Baso # (Auto) Abs Immat Gran (auto) Absolute Neuts (auto) Absolute Nucleated RBC Nucleated RBC % (auto) Smear Tech's Comments VBG pH 7.36 VBG pCO2 40 VBG pO2 57 VBG HCO3 23 VBG O2 Saturation 85.0 VBG Base Excess -2.0 Anion Gap Estim Creat Clear Calc Estimated GFR POC Glucose Random Glucose Calcium Total Bilirubin AST ALT Alkaline Phosphatase Troponin I High Sens Total Protein Albumin Lipase Acetone, Qual COVID-19 (MARIELA) Negative COVID-19 Clin Com See Note Influenza Type A (ANNIE) Influenza Type B (ANNIE) Influenza A & B Note Imaging Radiologist's Impressions: Impressions Head CT 11/05/22 00:45 IMPRESSION: No acute intracranial pathology. Abdomen/Pelvis CT 11/05/22 00:48 IMPRESSION: 1. Dilated fluid-filled proximal small bowel extending to an area of fecalization in the anterior central abdomen followed by a somewhat gradual decompression. This suggests a partial small bowel obstruction. 2. Cholelithiasis without evidence of acute cholecystitis. Fleischner guidelines were followed. Assessment and Plan (1) Partial small bowel obstruction: Status: Acute (2) Acute hyperglycemia: Status: Acute (3) JODI (acute kidney injury): Status: Acute (4) Acute respiratory failure with hypoxia: Status: Acute (5) Leukocytosis: Status: Acute Plan 67-year-old male with past medical history of AFib on Eliquis, CAD, CKD, CVA, HLD, type 2 diabetes presents to the hospital with complaints of abdominal pain found to have partial small-bowel obstruction # acute partial small-bowel obstruction - likely secondary to intra-abdominal surgeries in the past - will keep NPO - Pain control - general surgery consulted - IVF # acute hyperglycemia - likely secondary to noncompliance with his home medications of insulin - continue home insulin, will add low-dose sliding scale insulin, diabetic diet, - glucose check q.i.d. a.c. HS # acute hypoxic respiratory failure - on review of his vital patient noted to be hypoxic, I was not informed of this, patient reports chronic shortness of breath, reports no new cough, no new worsening shortness of breath and no lower extremity edema no orthopnea or PND - will obtain chest x-ray - continue oxygen as required - monitor respiratory status - COVID, RSV, as well as influenza negative # leukocytosis - possibly reactive versus infectious - blood cultures obtained, chest x-ray pending, UA pending - given the leukocytosis, as well as hypoxia will treat with IV antibiotics pending further workup - follow cultures # history of CAD - continue aspirin, statin # history of AFib - unclear chronicity - continue Eliquis DVT prophylaxis: Eliquis given patient's need for further monitoring of small-bowel obstruction, patient require minimum 2 night inpatient hospital stay for further management Time Spent With Patient Time: Total time managing care of this patient today ____ minutes. Quality Stroke Does the patient have a stroke diagnosis?: No VTE Prior VTE?: No VTE Risk Level:: Medical - low VTE Device Contraindication: Treatment Not Indicated VTE Drug Contraindication: Treatment Not Indicated
[2022-11-05] MEDS: ondansetron HCL 4 MG/2 ML VIAL IVPUSH (01:56)
--- NOTE | 2022-11-05 01:59 | PC.NURSE ---
Pt de-stated to 86% room air after receiving IV Dilaudid. pt received supplemental oxygen via nasal cannula oxygen saturation went up to 96% on 2 liters.
--- NOTE | 2022-11-05 02:03 | PC.NURSE ---
Dr. Morrow at pt side reports to RN that pt reported feeling nauseaus and gave pt emesis bag. When RN got to room pt had bile colored emesis small amount in bag. Pt received IV zofran prn order.
[2022-11-05 02:16] LABS: Lactic Acid 2.2 mmol/L (0.5-2.0)
--- NOTE | 2022-11-05 02:29 | PC.NURSE ---
Received critical lab result lactic acid 2.2. Pt received NS 2.5 L. Per plan is to redraw another lactic acid blood draw. Blood glucose is now 316.
[2022-11-05 02:35] LABS: Glucose, Whole Blood 316 mg/dL (60-115)
[2022-11-05] MEDS: Lactated Ringers 1,000 ML 100 ML IVCONT ×3 (02:41→22:00)
[2022-11-05 02:56] LABS: Lactic Acid 1.1 mmol/L (0.5-2.0)
[2022-11-05] MEDS: Insulin Lispro 100 UNIT/ML 3 ML VIAL SUBCUT ×4 (02:57→17:46)
[2022-11-05] MEDS: Apixaban 5 MG TABLET PO ×2 (02:57→08:35)
[2022-11-05 03:38] LABS: Reflex Lactate? Lactic Acid Added
[2022-11-05 04:26] LABS: Basophils Percent Auto 0.2 % (0-2); Eosinophils Percent Auto 0.1 % (0-4); Hematocrit 38.8 % (42.0-52.0); Hemoglobin 13.2 g/dl (14.0-18.0); Imm Gran Abs Auto 0.08 X10*3/uL (0.00-0.03); Imm Gran Pct Auto 0.4 % (0.0-0.4); Lymphocytes Absolute Auto 0.4 X10*3/uL (1.2-4.9); MANUAL DIFF FLAG SCAN; Mean Corpuscular Hemoglobin 30.1 pg (27.0-33.0); Mean Corpuscular Volume 88.4 fL (80.0-98.0); Monocytes Percent Auto 5.1 % (2-11); Neutrophils Absolute Auto 18.8 x10*3/uL (2.0-8.3); Neutrophils Percent Auto 92.2 % (45-73); Platelet Count 247 X10*3/uL (160-400); Red Blood Count 4.39 X10*6/uL (4.60-5.80); Red Cell Distribution Width 13.2 % (11.0-16.0); SCAN SMEAR FLAG 1; White Blood Count 20.4 X10*3/uL (4.8-10.8)
[2022-11-05 04:35] LABS: ~Lactic Acid-LAB USE ONLY 1.2 mmol/L (0.5-2.0)
[2022-11-05 04:38] LABS: Anion Gap 15 (12-20); Blood Urea Nitrogen 40 mg/dL (9-16); Calcium 8.4 mg/dL (8.4-10.2); Carbon Dioxide 18 mmol/L (22-29); Chloride 113 mmol/L (96-108); Estimated Glomerular Filt Rate 45; Glucose Random 330 mg/dL (60-115); Potassium 4.1 mmol/L (3.3-5.1); Sodium 142 mmol/L (135-145)
[2022-11-05 07:07] LABS: B Type Natriuretic Peptide 53 pg/mL (<100)
[2022-11-05 07:36] LABS: Glucose, Whole Blood 276 mg/dL (60-115)
[2022-11-05 07:51] LABS: Lactic Acid 1.1 mmol/L (0.5-2.0)
[2022-11-05] MEDS: Aspirin 81 MG TAB.CHEW PO (08:35)
[2022-11-05] MEDS: 0.9 % Sodium Chloride Flush 3 ML SYRINGE IVFLUSH ×2 (08:36→20:26)
[2022-11-05] MEDS: levoFLOXacin/D5W 500 MG/100 ML PIGGYBACK 100 MG IV (08:36)
[2022-11-05] MEDS: Insulin Glargine,Hum.rec.anlog 100 UNIT/ML 10 ML VIAL 10 UNIT SUBCUT (08:42)
--- NOTE | 2022-11-05 08:48 | PHA.MEDREC ---
Pharmacy Consult ? Medication Reconciliation Pharmacy has completed the medication reconciliation. Reviewed med rec done by nursing (Jacqueline). Called daughter Deanna to confirm meds.
--- NOTE | 2022-11-05 10:39 | PM.EVENT ---
Event Note Date of Service: 11/05/22 Event Note: Seen and evaluated this morning No significant pain but not passing gas had 1 BM of diarrhea no further episodes of hypoxia, sat in 90s on room air Elevated BS readings pending surgery eval Time Spent With Patient Time: Total time managing care of this patient today ____ minutes.
[2022-11-05 12:02] LABS: Glucose, Whole Blood 232 mg/dL (60-115)
--- NOTE | 2022-11-05 13:20 | MHC.CM.PN ---
EZEKIEL 11/05/22, EMR REVIEWED, CM MET W/PT WHO REPORTS HE LIVES W/[facility], DIL WHO IS AT BEDSIDE AND GKIDS, PT AND DIL DENY USE OF DME AND PT HAS NO HOME SERVICES, ANTIC PT WILL D/C HOME W/FAMILY SUPPORT AND FAMILY FOR TRANSPORT. STEPHEN X2, PCP AMINATA CHEN VERIFIED AND PER DIL PT'S DTR TORO WILL BRING IN COPY OF HCP.
--- NOTE | 2022-11-05 14:54 | PM.CNGS ---
History of Present Illness Consult details Consult date: 11/05/22 Requesting physician: Galina Patterson Narrative: the patient is a 67-year-old male who has had multiple operations in the past. It seems like he may have has his gallbladder out and he has had partial colectomy he says for colon cancer and he has had surgery for a bowel obstruction and he has had hernia repair with mesh. He comes in because he has been having diarrhea abdominal pain nausea in and vomiting. He had stopped taking his insulin he is diabetic and almost passed out yesterday while going to the bathroom before coming into the hospital. He says he has not been taking the best care of himself recently. He denies eating anything unusual. He says the pain is kind of a cramping pain it comes in the middle. He denies passing gas but he says that he has been passing liquid stool and had a small bowel movement yesterday. He said he threw up here once in the emergency room earlier Review of Systems Review of Systems: Yes all other systems are reviewed and are negative PMFSH Past Medical History Medical History Atrial fibrillation CAD (coronary artery disease) CKD (chronic kidney disease), stage III CVA (cerebral vascular accident) HLD (hyperlipidemia) Type 2 diabetes mellitus Surgical History Surgical History H/O cardiac radiofrequency ablation Stented coronary artery Social History Social History Household Members: Family Housing: House Do you presently have visiting nurse or other home services: No Alcohol intake: current Alcohol intake frequency: a few times a week Alcohol type: beer Patient Tobacco Use Status: Never used Tobacco Smoked in Last 30 Days: No Use of substances other than those prescribed or required for medical reasons: No Currently Displaying Signs/Symptoms of Drug Intoxication Withdrawal: No Have you been hit, kicked, punched, or otherwise hurt by someone within the past year? If so, by whom?: No Do you feel safe in your current relationship?: Yes Is there a partner from a previous relationship who is making you feel unsafe now?: No Are you made to feel afraid or neglected: No Advance Directives: No Advance Directives Information Provided: Yes Do you have thoughts of harming others: None Do you have a plan to hurt others: No Plan Recently lost weight without trying: No Nutrition Risks: No Nutritional Risk service: No Current occupational status: retired Meds Allergies Allergy/AdvReac Type Severity Reaction Status Date / Time Sulfa (Sulfonamide Allergy Mild HIVES Verified 11/05/22 02:41 Antibiotics) [SULFA (SULFONAMIDE ANTIBIOTICS)] penicillamine [Cuprimine] Allergy Unknown unknown Verified 11/05/22 02:41 Penicillins Allergy Unknown INKNOWN Verified 11/05/22 02:41 sulfacetamide Allergy Unknown rash Verified 11/05/22 02:41 Active Medications: Current Medications Acetaminophen (Acetaminophen 325 Mg Tablet) 650 mg PO Q6H PRN PRN Reason: Pain, Mild (Pain Scale 1-3) Aspirin (Aspirin 81 Mg Tab.Chew) 81 mg PO DAILY [facility] Last Admin: 11/05/22 08:35 Dose: 81 mg Atorvastatin Calcium (Atorvastatin Calcium 40 Mg Tablet) 40 mg PO BEDTIME [facility]AN Dextrose (Dextrose 50 % 25 Gm/50 Ml Syringe) 25 gm IVPUSH Q15M PRN; Protocol PRN Reason: per Hypoglycemia Standing Ord. Enoxaparin Sodium (Enoxaparin Sodium 80 Mg/0.8 Ml Syringe) 80 mg 1 mg/kg (80 mg) SUBCUT Q12H [facility] Glucose (Glucose Gel 15 Gm Gel..Gram.) 15 gm PO Q15M PRN; Protocol PRN Reason: per Hypoglycemia Standing Ord. Lactated Ringer's (Lr) 1,000 mls @ 100 mls/hr IVCONT .Q10H [facility] Last Admin: 11/05/22 13:03 Dose: 100 mls/hr Levofloxacin (Levaquin) 500 mg in 100 mls @ 100 mls/hr IV Q24H [facility] Last Infusion: 11/05/22 09:58 Dose: Infused Insulin Glargine (Insulin Glargine,Hum.Rec.Anlog 100 Unit/Ml 10 Ml Vial) 25 unit SUBCUT BEDTIME ALAN Insulin Human Lispro (Insulin Lispro 100 Unit/Ml 3 Ml Vial) 0.1 - 10 unit SUBCUT QIDACHS [facility]; Protocol Last Admin: 11/05/22 12:19 Dose: 4 unit Morphine Sulfate (Morphine Sulfate 4 Mg/Ml Cartridge) 4 mg IVPUSH Q4H PRN; Protocol PRN Reason: Pain, Severe (Pain Scale 7-10) Ondansetron HCl (Ondansetron Hcl 4 Mg/2 Ml Vial) 4 mg IVPUSH Q8H PRN PRN Reason: Nausea and Vomiting Last Admin: 11/05/22 01:56 Dose: 4 mg Sodium Chloride (0.9 % Sodium Chloride Flush 3 Ml Syringe) 3 ml IVFLUSH [facility] Last Admin: 11/05/22 08:36 Dose: 3 ml Home Medications Medication Instructions Recorded Confirmed Last Taken Type apixaban 5 mg tablet (Eliquis) 1 tab PO BID 06/28/21 11/05/22 11/04/22 History atorvastatin 40 mg tablet 1 tab PO BEDTIME 06/28/21 11/05/22 11/03/22 History diphenoxylate-atropine 2.5 1 tab PO BID PRN Loose Stool 06/28/21 11/05/22 11/04/22 History mg-0.025 mg tablet (Lomotil) aspirin 81 mg tablet,delayed 81 mg PO DAILY 11/05/22 11/05/22 Unknown History release insulin glargine 100 unit/mL (3 40 unit subcut BEDTIME 11/05/22 11/05/22 11/04/22 History mL) subcutaneous pen (Basaglar KwikPen U-100 Insulin) Physical Exam Vital Signs: Vital Signs: Last Vital Signs Temp 99.1 F 11/05/22 07:23 Pulse 93 11/05/22 07:23 Resp 16 11/05/22 07:23 BP 158/84 H 11/05/22 07:23 Pulse Ox 93 11/05/22 07:23 O2 Del Method 11/05/22 07:23 O2 Flow Rate 2 11/05/22 03:03 BMI result Body Mass Index 25.4 Const: General: cooperative, healthy appearing, comfortable and no acute distress Orientation/consciousness: oriented to person, oriented to place and oriented to time HEENT: Head: Yes normal to inspection Eyes: General: appearance normal, both eyes and all related structures Resp: Effort & Inspection: normal respiratory effort and able to speak in complete sentences Auscultation: clear to auscultation bilaterally Cardio: Rate: regular rate Rhythm: abnormal rhythm GI: Other: abdomen is soft nondistended there are bowel sounds but maybe a little slower patient has multiple incisions midlines from previous surgery well healed no incarcerated hernias noted. Mildly tender on the right side and around the umbilical area. No guarding no rebound no peritoneal signs Skin: Other: nonicteric Neuro: General: oriented to person, oriented to place and oriented to time Extrem: General: Yes normal to inspection Psych: Appearance: grossly normal Mental Status: mental status grossly normal Results Labs 11/05/22 04:10 11/05/22 04:10 Labs: Abnormal lab results 11/04/22 11/04/22 11/04/22 Range/Units 22:45 23:37 23:37 WBC 17.8 H (4.8-10.8) X10*3/uL RBC (4.60-5.80) X10*6/uL Hgb (14.0-18.0) g/dl Hct (42.0-52.0) % Neut % (Auto) 90.4 H (45-73) % Lymph % (Auto) 5.0 L (20-40) % Lymph # (Auto) 0.9 L (1.2-4.9) X10*3/uL Abs Immat Gran (auto) 0.06 H (0.00-0.03) X10*3/uL Absolute Neuts (auto) 16.1 H (2.0-8.3) x10*3/uL Chloride (96-108) mmol/L Carbon Dioxide (22-29) mmol/L BUN 37 H (9-16) mg/dL Creatinine 1.64 H (0.5-1.4) mg/dL POC Glucose 448 H* (60-115) mg/dL Random Glucose 495 H* (60-115) mg/dL Lactic Acid (0.5-2.0) mmol/L 11/05/22 11/05/22 11/05/22 Range/Units 01:35 02:30 04:10 WBC 20.4 H (4.8-10.8) X10*3/uL RBC 4.39 L (4.60-5.80) X10*6/uL Hgb 13.2 L (14.0-18.0) g/dl Hct 38.8 L (42.0-52.0) % Neut % (Auto) 92.2 H (45-73) % Lymph % (Auto) 2.0 L (20-40) % Lymph # (Auto) 0.4 L (1.2-4.9) X10*3/uL Abs Immat Gran (auto) 0.08 H (0.00-0.03) X10*3/uL Absolute Neuts (auto) 18.8 H (2.0-8.3) x10*3/uL Chloride (96-108) mmol/L Carbon Dioxide (22-29) mmol/L BUN (9-16) mg/dL Creatinine (0.5-1.4) mg/dL POC Glucose 316 H (60-115) mg/dL Random Glucose (60-115) mg/dL Lactic Acid 2.2 H* (0.5-2.0) mmol/L 11/05/22 11/05/22 11/05/22 Range/Units 04:10 07:26 11:26 WBC (4.8-10.8) X10*3/uL RBC (4.60-5.80) X10*6/uL Hgb (14.0-18.0) g/dl Hct (42.0-52.0) % Neut % (Auto) (45-73) % Lymph % (Auto) (20-40) % Lymph # (Auto) (1.2-4.9) X10*3/uL Abs Immat Gran (auto) (0.00-0.03) X10*3/uL Absolute Neuts (auto) (2.0-8.3) x10*3/uL Chloride 113 H (96-108) mmol/L Carbon Dioxide 18 L (22-29) mmol/L BUN 40 H (9-16) mg/dL Creatinine 1.53 H (0.5-1.4) mg/dL POC Glucose 276 H 232 H (60-115) mg/dL Random Glucose 330 H (60-115) mg/dL Lactic Acid (0.5-2.0) mmol/L Short CBC 11/04/22 11/05/22 Range/Units 23:37 04:10 WBC 17.8 H 20.4 H (4.8-10.8) X10*3/uL Hgb 14.7 13.2 L (14.0-18.0) g/dl Hct 42.8 38.8 L (42.0-52.0) % Plt Count 287 247 (160-400) X10*3/uL BMP 11/04/22 11/05/22 23:37 04:10 Sodium 138 142 Potassium 4.3 4.1 Chloride 107 113 H Carbon Dioxide 22 18 L BUN 37 H 40 H Creatinine 1.64 H 1.53 H Calcium 9.2 8.4 D Liver Function 11/04/22 Range/Units 23:37 Total Bilirubin 0.8 (0.0-1.0) mg/dL AST 12 (5-37) U/L ALT 20 (0-40) U/L Alkaline Phosphatase 80 (39-117) U/L Albumin 4.0 (3.5-5.0) g/dL All other labs normal. Imaging Abdomen CT scan report/results: report reviewed and image reviewed CT scan - pelvis: report reviewed and image reviewed Assessment and Plan (1) Partial small bowel obstruction: Status: Acute Plan 67-year-old male diabetic not taking his insulin coming in with abdominal pain diarrhea and CT scan finding showing some dilated small-bowel loop transitioning to normal small bowel with some fecalization of the small bowel noted. He has had lots of loose stools diarrhea happening but he says this is normal for him. Not passing as much gas. He was nauseated and vomited here once. Patient says he normally has diarrhea since after his surgery. It seems that most of his surgery was done at [facility]. His family is going to get a some specific records. At this point there is no indication for surgery and ideally he would do better with just conservative care specially with the mesh in place and his multiple previous surgeries which means that he probably has some significant adhesions. If he where the vomit again replace and put in the NG to. Would encourage him to ambulate. Get another KUB tomorrow. May want to consider repeat CT scan with p.o. contrast along drink in order to look at the transition time of the contrast through which can also be therapeutic in addition to diagnostic. Medical team to manage any issues with his heart pulmonary and his glucose control. Discussion was had with his family they understand that he understands and agrees with the above plan. Continue with mainly NPO and IV fluid hydration evaluate with a KUB tomorrow Time Spent With Patient Time: Total time managing care of this patient today _45___ minutes. Procedures Date of Service Date of Service: 11/05/22
[2022-11-05 16:37] LABS: Glucose, Whole Blood 156 mg/dL (60-115)
[2022-11-05 20:00] LABS: Glucose, Whole Blood 123 mg/dL (60-115)
[2022-11-05] MEDS: Enoxaparin Sodium 80 MG/0.8 ML SYRINGE SUBCUT (20:25)
[2022-11-05] MEDS: Atorvastatin Calcium 40 MG TABLET PO (20:25)
[2022-11-06 03:31] VITALS: BP 159/76; PULSE 85; RESP 16; TEMP 36.2; O2SAT 93
[2022-11-06 06:40] LABS: Hemoglobin 11.7 g/dl (14.0-18.0); Mean Corpuscular HGB Conc 34.4 g/dl (31.0-36.0); Mean Corpuscular Hemoglobin 29.8 pg (27.0-33.0); Mean Corpuscular Volume 86.7 fL (80.0-98.0); Mean Platelet Volume 12.2 fL (9.4-12.4); Platelet Count 216 X10*3/uL (160-400); Red Blood Count 3.92 X10*6/uL (4.60-5.80); Red Cell Distribution Width 13.4 % (11.0-16.0)
[2022-11-06 07:28] VITALS: BP 140/66; PULSE 80; RESP 78; TEMP 37.1; O2SAT 94
[2022-11-06 07:38] LABS: Anion Gap 12 (12-20); Blood Urea Nitrogen 23 mg/dL (9-16); Calcium 8.2 mg/dL (8.4-10.2); Carbon Dioxide 22 mmol/L (22-29); Chloride 113 mmol/L (96-108); Creatinine Clr Calc Pharmacy 60.4; Estimated Glomerular Filt Rate > 60; Glucose Random 158 mg/dL (60-115); Potassium 3.7 mmol/L (3.3-5.1); Sodium 143 mmol/L (135-145)
[2022-11-06 07:43] LABS: Glucose, Whole Blood 153 mg/dL (60-115)
[2022-11-06] MEDS: Aspirin 81 MG TAB.CHEW PO (08:10)
[2022-11-06] MEDS: Insulin Lispro 100 UNIT/ML 3 ML VIAL SUBCUT (08:10)
[2022-11-06] MEDS: Lactated Ringers 1,000 ML 100 ML IVCONT ×2 (08:10→20:43)
[2022-11-06] MEDS: 0.9 % Sodium Chloride Flush 3 ML SYRINGE IVFLUSH (08:13)
[2022-11-06] MEDS: Enoxaparin Sodium 80 MG/0.8 ML SYRINGE SUBCUT ×2 (08:22→20:43)
[2022-11-06] MEDS: levoFLOXacin/D5W 500 MG/100 ML PIGGYBACK 100 MG IV (08:33)
[2022-11-06 08:45] LABS: Estimated Average Glucose 315 mg/dL; Hemoglobin A1c % 12.6 %
--- NOTE | 2022-11-06 10:56 | P.PNIM_ITS ---
Subjective Subjective Date of Service: 11/06/22 Interval History: the patient was seen and evaluated this morning Laying in bed, feels much better this morning No significant abdominal pain Not passing gas, no bowel movement or diarrhea overnight Denies any fever, chills or shortness of breath No reported other overnight events. Review of Systems Review of Systems: Yes all other systems are reviewed and are negative Physical Exam Vital Signs: Vital Signs: Last Vital Signs Temp 98.8 F 11/06/22 07:28 Pulse 80 11/06/22 07:28 Resp 78 H 11/06/22 07:28 BP 140/66 H 11/06/22 07:28 Pulse Ox 94 11/06/22 07:28 O2 Del Method 11/06/22 07:28 O2 Flow Rate 2 11/05/22 03:03 BMI result Body Mass Index 25.4 Const: Other: Constitutional : Awake, interactive, not in distress Neck : Normal inspection, Supple Cardiovascular : RRR, no JVP, no lower extremity edema Respiratory : good bilateral air entry, no crackles, wheezes or rhonchi Gastrointestinal: soft, lax, Normal bowel sounds, mild generalized tenderness with no surgical signs Skin : Warm, Dry Neurological : Alert & oriented x3, No focal deficit Objective Data Active Medications Acetaminophen (Acetaminophen 325 Mg Tablet) 650 mg PO Q6H PRN PRN Reason: Pain, Mild (Pain Scale 1-3) Aspirin (Aspirin 81 Mg Tab.Chew) 81 mg PO DAILY [facility] Last Admin: 11/06/22 08:10 Dose: 81 mg Documented By: MARC Atorvastatin Calcium (Atorvastatin Calcium 40 Mg Tablet) 40 mg PO BEDTIME [facility] Last Admin: 11/05/22 20:25 Dose: 40 mg Documented By: HOWARD Dextrose (Dextrose 50 % 25 Gm/50 Ml Syringe) 25 gm IVPUSH Q15M PRN; Protocol PRN Reason: per Hypoglycemia Standing Ord. Enoxaparin Sodium (Enoxaparin Sodium 80 Mg/0.8 Ml Syringe) 80 mg 1 mg/kg (80 mg) SUBCUT Q12H [facility] Last Admin: 11/06/22 08:22 Dose: 80 mg Documented By: MARC Glucose (Glucose Gel 15 Gm Gel..Gram.) 15 gm PO Q15M PRN; Protocol PRN Reason: per Hypoglycemia Standing Ord. Lactated Ringer's (Lr) 1,000 mls @ 100 mls/hr IVCONT .Q10H [facility] Last Admin: 11/06/22 08:10 Dose: 100 mls/hr Documented By: MARC Levofloxacin (Levaquin) 500 mg in 100 mls @ 100 mls/hr IV Q24H [facility] Last Infusion: 11/06/22 09:42 Dose: 0 mls/hr Documented By: MARC Insulin Glargine (Insulin Glargine,Hum.Rec.Anlog 100 Unit/Ml 10 Ml Vial) 25 unit SUBCUT BEDTIME [facility] Last Admin: 11/05/22 21:23 Dose: Not Given Documented By: HOWARD Non-Admin Reason: Physician Held Med Insulin Human Lispro (Insulin Lispro 100 Unit/Ml 3 Ml Vial) 0.1 - 10 unit SUBCUT QIDACHS [facility]; Protocol Last Admin: 11/06/22 08:10 Dose: 2 unit Documented By: MARC Morphine Sulfate (Morphine Sulfate 4 Mg/Ml Cartridge) 4 mg IVPUSH Q4H PRN; Protocol PRN Reason: Pain, Severe (Pain Scale 7-10) Ondansetron HCl (Ondansetron Hcl 4 Mg/2 Ml Vial) 4 mg IVPUSH Q8H PRN PRN Reason: Nausea and Vomiting Last Admin: 11/05/22 01:56 Dose: 4 mg Documented By: MYRIAM Sodium Chloride (0.9 % Sodium Chloride Flush 3 Ml Syringe) 3 ml IVFLUSH QSHIFT [facility] Last Admin: 11/06/22 08:13 Dose: 3 ml Documented By: MARC Labs 11/06/22 05:33 11/06/22 05:33 Labs: Laboratory Results - last 24 hr 11/05/22 11/05/22 11/05/22 11:26 16:32 19:56 MCV MCH MCHC RDW Plt Count MPV Absolute Nucleated RBC Nucleated RBC % (auto) Anion Gap Estim Creat Clear Calc Estimated GFR POC Glucose 232 H 156 H 123 H Random Glucose Estimat Average Glucose Hemoglobin A1c % Calcium 11/06/22 11/06/22 11/06/22 05:33 05:33 05:33 MCV 86.7 MCH 29.8 MCHC 34.4 RDW 13.4 Plt Count 216 MPV 12.2 Absolute Nucleated RBC 0.000 Nucleated RBC % (auto) 0.0 Anion Gap 12 Estim Creat Clear Calc 60.4 Estimated GFR > 60 POC Glucose Random Glucose 158 H Estimat Average Glucose 315 Hemoglobin A1c % 12.6 Calcium 8.2 L 11/06/22 07:33 MCV MCH MCHC RDW Plt Count MPV Absolute Nucleated RBC Nucleated RBC % (auto) Anion Gap Estim Creat Clear Calc Estimated GFR POC Glucose 153 H Random Glucose Estimat Average Glucose Hemoglobin A1c % Calcium Microbiology Microbiology Results: Microbiology 11/05/22 01:34 Blood Culture - Preliminary Blood - Venous No growth after 24 hours. 11/05/22 01:34 Blood Culture - Preliminary Blood - Venous No growth after 24 hours. Assessment and Plan (1) Leukocytosis: Status: Acute (2) Acute respiratory failure with hypoxia: Status: Acute (3) Acute hyperglycemia: Status: Acute (4) Partial small bowel obstruction: Status: Acute Plan 67-year-old male with past medical history of AFib on Eliquis, CAD, CKD, CVA, HLD, type 2 diabetes presents to the hospital with complaints of abdominal pain found to have partial small-bowel obstruction # acute partial small-bowel obstruction likely secondary to adhesions Repeated KUB showing similar appearance of SBO keep NPO Pain control general surgery input appreciated, consider CT with IV and p.o. contrast by tomorrow Continue IVF # acute hyperglycemia in type 2 diabetes continue home insulin low-dose sliding scale insulin # episode of hypoxia Unclear etiology, could be wrong reading CXR negative for any acute findings # leukocytosis, resolved reactive versus infectious No clear source of infection identified Continue Levaquin pending final blood cultures # history of CAD continue aspirin, statin # history of AFib unclear chronicity Hold Eliquis, start Lovenox for possible surgical intervention DVT prophylaxis Lovenox given patient's need for further monitoring of small-bowel obstruction, patient require overnight inpatient hospital stay for further management Time Spent With Patient Time: Total time managing care of this patient today ____ minutes. Quality Stroke Does the patient have a stroke diagnosis?: No VTE Prior VTE?: No VTE Risk Level:: Medical - low VTE Device Contraindication: Treatment Not Indicated VTE Drug Contraindication: Treatment Not Indicated
--- NOTE | 2022-11-06 11:22 | PM.PNGS ---
Subjective Subjective Date of Service: 11/06/22 Interval history: feeling better passing gas and small bowel movement and less abdo tenderness. kub not showing much change/imrovement though Physical Exam Vital Signs: Vital Signs: Last Vital Signs Temp 98.8 F 11/06/22 07:28 Pulse 80 11/06/22 07:28 Resp 78 H 11/06/22 07:28 BP 140/66 H 11/06/22 07:28 Pulse Ox 94 11/06/22 07:28 O2 Del Method 11/06/22 07:28 O2 Flow Rate 2 11/05/22 03:03 BMI result Body Mass Index 25.4 Const: General: cooperative, healthy appearing, comfortable and no acute distress GI: Other: abdo soft, flat nondistended mild left sided tenderness no guarding or rebound or peritoneal signs Skin: General skin exam: no rashes or lesions noted Objective Data Active Medications Acetaminophen (Acetaminophen 325 Mg Tablet) 650 mg PO Q6H PRN PRN Reason: Pain, Mild (Pain Scale 1-3) Aspirin (Aspirin 81 Mg Tab.Chew) 81 mg PO DAILY [facility] Last Admin: 11/06/22 08:10 Dose: 81 mg Documented By: MARC Atorvastatin Calcium (Atorvastatin Calcium 40 Mg Tablet) 40 mg PO BEDTIME [facility] Last Admin: 11/05/22 20:25 Dose: 40 mg Documented By: HOWARD Dextrose (Dextrose 50 % 25 Gm/50 Ml Syringe) 25 gm IVPUSH Q15M PRN; Protocol PRN Reason: per Hypoglycemia Standing Ord. Enoxaparin Sodium (Enoxaparin Sodium 80 Mg/0.8 Ml Syringe) 80 mg 1 mg/kg (80 mg) SUBCUT Q12H [facility] Last Admin: 11/06/22 08:22 Dose: 80 mg Documented By: MARC Glucose (Glucose Gel 15 Gm Gel..Gram.) 15 gm PO Q15M PRN; Protocol PRN Reason: per Hypoglycemia Standing Ord. Lactated Ringer's (Lr) 1,000 mls @ 100 mls/hr IVCONT .Q10H [facility] Last Admin: 11/06/22 08:10 Dose: 100 mls/hr Documented By: MARC Levofloxacin (Levaquin) 500 mg in 100 mls @ 100 mls/hr IV Q24H [facility] Last Infusion: 11/06/22 09:42 Dose: 0 mls/hr Documented By: MARC Insulin Glargine (Insulin Glargine,Hum.Rec.Anlog 100 Unit/Ml 10 Ml Vial) 25 unit SUBCUT BEDTIME [facility] Last Admin: 11/05/22 21:23 Dose: Not Given Documented By: HOWARD Non-Admin Reason: Physician Held Med Insulin Human Lispro (Insulin Lispro 100 Unit/Ml 3 Ml Vial) 0.1 - 10 unit SUBCUT QIDACHS [facility]; Protocol Last Admin: 11/06/22 08:10 Dose: 2 unit Documented By: MARC Morphine Sulfate (Morphine Sulfate 4 Mg/Ml Cartridge) 4 mg IVPUSH Q4H PRN; Protocol PRN Reason: Pain, Severe (Pain Scale 7-10) Ondansetron HCl (Ondansetron Hcl 4 Mg/2 Ml Vial) 4 mg IVPUSH Q8H PRN PRN Reason: Nausea and Vomiting Last Admin: 11/05/22 01:56 Dose: 4 mg Documented By: MYRIAM Sodium Chloride (0.9 % Sodium Chloride Flush 3 Ml Syringe) [facility] Last Admin: 11/06/22 08:13 Dose: 3 ml Documented By: MARC Labs 11/06/22 05:33 11/06/22 05:33 Labs: Laboratory Results - last 24 hr 11/05/22 11/05/22 11/05/22 11:26 16:32 19:56 MCV MCH MCHC RDW Plt Count MPV Absolute Nucleated RBC Nucleated RBC % (auto) Anion Gap Estim Creat Clear Calc Estimated GFR POC Glucose 232 H 156 H 123 H Random Glucose Estimat Average Glucose Hemoglobin A1c % Calcium 11/06/22 11/06/22 11/06/22 05:33 05:33 05:33 MCV 86.7 MCH 29.8 MCHC 34.4 RDW 13.4 Plt Count 216 MPV 12.2 Absolute Nucleated RBC 0.000 Nucleated RBC % (auto) 0.0 Anion Gap 12 Estim Creat Clear Calc 60.4 Estimated GFR > 60 POC Glucose Random Glucose 158 H Estimat Average Glucose 315 Hemoglobin A1c % 12.6 Calcium 8.2 L 11/06/22 07:33 MCV MCH MCHC RDW Plt Count MPV Absolute Nucleated RBC Nucleated RBC % (auto) Anion Gap Estim Creat Clear Calc Estimated GFR POC Glucose 153 H Random Glucose Estimat Average Glucose Hemoglobin A1c % Calcium Microbiology Microbiology Results: Microbiology 11/05/22 01:34 Blood Culture - Preliminary Blood - Venous No growth after 24 hours. 11/05/22 01:34 Blood Culture - Preliminary Blood - Venous No growth after 24 hours. Procedures Date of Service Date of Service: 11/06/22 Progress Note: A&P Assessment and plan (1) Partial small bowel obstruction: Status: Acute Assessment and Plan: 67 year old diabetic male with other med issues and psbo improving clinically - plan to ambulate and if passing more gas then advance to clear liquids. wbc better -? etiology of increase. also his glucose under better control med team following for these issues. Time Spent With Patient Time: Total time managing care of this patient today ____ minutes. Quality Stroke Does the patient have a stroke diagnosis?: No VTE Prior VTE?: No VTE Risk Level:: Medical - low VTE Device Contraindication: Treatment Not Indicated VTE Drug Contraindication: Treatment Not Indicated
[2022-11-06 12:45] LABS: Glucose, Whole Blood 134 mg/dL (60-115)
[2022-11-06 15:30] VITALS: BP 169/81; PULSE 78; RESP 18; TEMP 37; O2SAT 96
[2022-11-06 16:32] LABS: Glucose, Whole Blood 137 mg/dL (60-115)
[2022-11-06 19:22] VITALS: BP 155/72; PULSE 79; RESP 18; TEMP 37.1; O2SAT 98
[2022-11-06 20:00] LABS: Glucose, Whole Blood 134 mg/dL (60-115)
[2022-11-06] MEDS: Atorvastatin Calcium 40 MG TABLET PO (20:44)
[2022-11-07 03:34] VITALS: BP 143/74; PULSE 75; RESP 18; TEMP 36.4; O2SAT 93
[2022-11-07 06:35] LABS: Anion Gap 12 (12-20); Blood Urea Nitrogen 15 mg/dL (9-16); Calcium 8.5 mg/dL (8.4-10.2); Carbon Dioxide 23 mmol/L (22-29); Chloride 111 mmol/L (96-108); Estimated Glomerular Filt Rate > 60; Glucose Random 105 mg/dL (60-115); Potassium 3.5 mmol/L (3.3-5.1); Sodium 142 mmol/L (135-145)
[2022-11-07 07:30] VITALS: BP 148/75; PULSE 70; RESP 18; TEMP 37.1; O2SAT 94
[2022-11-07 07:43] LABS: Glucose, Whole Blood 97 mg/dL (60-115)
--- NOTE | 2022-11-07 07:55 | PM.PNGS ---
Subjective Subjective Date of Service: 11/07/22 Interval history: feels better denies abdl pain passing flatus Physical Exam Vital Signs: Vital Signs: Last Vital Signs Temp 98.8 F 11/07/22 07:30 Pulse 70 11/07/22 07:30 Resp 18 11/07/22 07:30 BP 148/75 H 11/07/22 07:30 Pulse Ox 94 11/07/22 07:30 O2 Del Method 11/07/22 07:30 O2 Flow Rate 2 11/05/22 03:03 BMI result Body Mass Index 25.4 Const: General: comfortable and no acute distress Resp: Effort & Inspection: normal respiratory effort GI: Palpation (GI): Soft to palpation, not firm, nontender and no guarding Objective Data Active Medications Acetaminophen (Acetaminophen 325 Mg Tablet) 650 mg PO Q6H PRN PRN Reason: Pain, Mild (Pain Scale 1-3) Aspirin (Aspirin 81 Mg Tab.Chew) 81 mg PO DAILY [facility] Last Admin: 11/06/22 08:10 Dose: 81 mg Documented By: MARC Atorvastatin Calcium (Atorvastatin Calcium 40 Mg Tablet) 40 mg PO BEDTIME [facility] Last Admin: 11/06/22 20:44 Dose: 40 mg Documented By: CHET Dextrose (Dextrose 50 % 25 Gm/50 Ml Syringe) 25 gm IVPUSH Q15M PRN; Protocol PRN Reason: per Hypoglycemia Standing Ord. Enoxaparin Sodium (Enoxaparin Sodium 80 Mg/0.8 Ml Syringe) 80 mg 1 mg/kg (80 mg) SUBCUT Q12H [facility] Last Admin: 11/06/22 20:43 Dose: 80 mg Documented By: CHET Glucose (Glucose Gel 15 Gm Gel..Gram.) 15 gm PO Q15M PRN; Protocol PRN Reason: per Hypoglycemia Standing Ord. Levofloxacin (Levaquin) 500 mg in 100 mls @ 100 mls/hr IV Q24H [facility] Stop: 11/07/22 22:00 Last Infusion: 11/06/22 09:42 Dose: 0 mls/hr Documented By: MARC Insulin Glargine (Insulin Glargine,Hum.Rec.Anlog 100 Unit/Ml 10 Ml Vial) 25 unit SUBCUT BEDTIME [facility] Last Admin: 11/06/22 20:44 Dose: Not Given Documented By: CHTE Non-Admin Reason: Physician Held Med Insulin Human Lispro (Insulin Lispro 100 Unit/Ml 3 Ml Vial) 0.1 - 10 unit SUBCUT [facility]; Protocol Last Admin: 11/06/22 20:45 Dose: Not Given Documented By: CHET Non-Admin Reason: not indicated per protocol Morphine Sulfate (Morphine Sulfate 4 Mg/Ml Cartridge) 4 mg IVPUSH Q4H PRN; Protocol PRN Reason: Pain, Severe (Pain Scale 7-10) Ondansetron HCl (Ondansetron Hcl 4 Mg/2 Ml Vial) 4 mg IVPUSH Q8H PRN PRN Reason: Nausea and Vomiting Last Admin: 11/05/22 01:56 Dose: 4 mg Documented By: SERBeto Sodium Chloride (0.9 % Sodium Chloride Flush 3 Ml Syringe) 3 ml IVFLUSH [facility] Last Admin: 11/06/22 23:33 Dose: Not Given Documented By: CHET Non-Admin Reason: IV Running Labs 11/06/22 05:33 11/07/22 05:19 Labs: Laboratory Results - last 24 hr 11/06/22 11/06/22 11/06/22 05:33 12:41 16:20 Anion Gap Estim Creat Clear Calc Estimated GFR POC Glucose 134 H 137 H Random Glucose Estimat Average Glucose 315 Hemoglobin A1c % 12.6 Calcium 11/06/22 11/07/22 11/07/22 19:29 05:19 07:29 Anion Gap 12 Estim Creat Clear Calc 66.0 Estimated GFR > 60 POC Glucose 134 H 97 Random Glucose 105 Estimat Average Glucose Hemoglobin A1c % Calcium 8.5 Microbiology Microbiology Results: Microbiology 11/05/22 01:34 Blood Culture - Preliminary Blood - Venous No growth after 48 hours. 11/05/22 01:34 Blood Culture - Preliminary Blood - Venous No growth after 48 hours. Procedures Date of Service Date of Service: 11/07/22 Progress Note: A&P Assessment and plan (1) Partial small bowel obstruction: Status: Acute Assessment and Plan: symptoms resolved clear liquids slowly advance as tolerated likely secondary to adhesions looks well exam benign Time Spent With Patient Time: Total time managing care of this patient today ____ minutes. Quality Stroke Does the patient have a stroke diagnosis?: No VTE Prior VTE?: No VTE Risk Level:: Medical - low VTE Device Contraindication: Treatment Not Indicated VTE Drug Contraindication: Treatment Not Indicated
[2022-11-07] MEDS: levoFLOXacin/D5W 500 MG/100 ML PIGGYBACK 100 MG IV (08:30)
[2022-11-07] MEDS: Aspirin 81 MG TAB.CHEW PO (08:31)
[2022-11-07] MEDS: Enoxaparin Sodium 80 MG/0.8 ML SYRINGE SUBCUT ×2 (08:31→19:21)
[2022-11-07] MEDS: 0.9 % Sodium Chloride Flush 3 ML SYRINGE IVFLUSH ×3 (08:31→19:34)
[2022-11-07 11:32] LABS: Glucose, Whole Blood 122 mg/dL (60-115)
--- NOTE | 2022-11-07 11:46 | P.PNIM_ITS ---
Subjective Subjective Date of Service: 11/07/22 Interval History: the patient was seen and evaluated this morning Laying in bed, feels much better this morning No significant abdominal pain Start passing gas as No reported other overnight events. Review of Systems Review of Systems: Yes all other systems are reviewed and are negative Physical Exam Vital Signs: Vital Signs: Last Vital Signs Temp 98.8 F 11/07/22 07:30 Pulse 70 11/07/22 07:30 Resp 18 11/07/22 07:30 BP 148/75 H 11/07/22 07:30 Pulse Ox 94 11/07/22 07:30 O2 Del Method 11/07/22 07:30 O2 Flow Rate 2 11/05/22 03:03 BMI result Body Mass Index 25.4 Const: Other: Constitutional : Awake, interactive, not in distress Neck : Normal inspection, Supple Cardiovascular : RRR, no JVP, no lower extremity edema Respiratory : good bilateral air entry, no crackles, wheezes or rhonchi Gastrointestinal: soft, lax, decreased bowel sounds, no significant tenderness with no surgical signs Skin : Warm, Dry Neurological : Alert & oriented x3, No focal deficit Objective Data Active Medications Acetaminophen (Acetaminophen 325 Mg Tablet) 650 mg PO Q6H PRN PRN Reason: Pain, Mild (Pain Scale 1-3) Aspirin (Aspirin 81 Mg Tab.Chew) 81 mg PO DAILY [facility] Last Admin: 11/07/22 08:31 Dose: 81 mg Documented By: ITA Atorvastatin Calcium (Atorvastatin Calcium 40 Mg Tablet) 40 mg PO BEDTIME REPLACED BY [facility] Last Admin: 11/06/22 20:44 Dose: 40 mg Documented By: CHET Dextrose (Dextrose 50 % 25 Gm/50 Ml Syringe) 25 gm IVPUSH Q15M PRN; Protocol PRN Reason: per Hypoglycemia Standing Ord. Enoxaparin Sodium (Enoxaparin Sodium 80 Mg/0.8 Ml Syringe) 80 mg 1 mg/kg (80 mg) SUBCUT Q12H [facility]PL[facility] BY [facility] Last Admin: 11/07/22 08:31 Dose: 80 mg Documented By: ITA Glucose (Glucose Gel 15 Gm Gel..Gram.) 15 gm PO Q15M PRN; Protocol PRN Reason: per Hypoglycemia Standing Ord. Levofloxacin (Levaquin) 500 mg in 100 mls @ 100 mls/hr IV Q24H [facility]PL[facility] BY [facility] Stop: 11/07/22 22:00 Last Infusion: 11/07/22 09:42 Dose: 0 mls/hr Documented By: ITA Insulin Glargine (Insulin Glargine,Hum.Rec.Anlog 100 Unit/Ml 10 Ml Vial) 25 unit SUBCUT BEDTIME [facility]ED [facility] Last Admin: 11/06/22 20:44 Dose: Not Given Documented By: CHET Non-Admin Reason: Physician Held Med Insulin Human Lispro (Insulin Lispro 100 Unit/Ml 3 Ml Vial) 0.1 - 10 unit SUBCUT QIDACHS [facility]PL[facility]ED BY [facility]; Protocol Last Admin: 11/07/22 08:22 Dose: Not Given Documented By: ITA Non-Admin Reason: No Insulin Coverage Morphine Sulfate (Morphine Sulfate 4 Mg/Ml Cartridge) 4 mg IVPUSH Q4H PRN; Protocol PRN Reason: Pain, Severe (Pain Scale 7-10) Ondansetron HCl (Ondansetron Hcl 4 Mg/2 Ml Vial) 4 mg IVPUSH Q8H PRN PRN Reason: Nausea and Vomiting Last Admin: 11/05/22 01:56 Dose: 4 mg Documented By: SERBeto Sodium Chloride (0.9 % Sodium Chloride Flush 3 Ml Syringe) 3 ml IVFLUSH QSHIFT REPLACED BY [facility] Last Admin: 11/07/22 08:31 Dose: 3 ml Documented By: ITA Labs 11/06/22 05:33 11/07/22 05:19 Labs: Laboratory Results - last 24 hr 11/06/22 11/06/22 11/06/22 12:41 16:20 19:29 Anion Gap Estim Creat Clear Calc Estimated GFR POC Glucose 134 H 137 H 134 H Random Glucose Calcium 11/07/22 11/07/22 11/07/22 05:19 07:29 11:25 Anion Gap 12 Estim Creat Clear Calc 66.0 Estimated GFR > 60 POC Glucose 97 122 H Random Glucose 105 Calcium 8.5 Microbiology Microbiology Results: Microbiology 11/05/22 01:34 Blood Culture - Preliminary Blood - Venous No growth after 48 hours. 11/05/22 01:34 Blood Culture - Preliminary Blood - Venous No growth after 48 hours. Assessment and Plan (1) JODI (acute kidney injury): Status: Acute (2) Acute hyperglycemia: Status: Acute (3) Partial small bowel obstruction: Status: Acute Plan 67-year-old male with past medical history of AFib on Eliquis, CAD, CKD, CVA, HLD, type 2 diabetes presents to the hospital with complaints of abdominal pain found to have partial small-bowel obstruction # acute partial small-bowel obstruction likely secondary to adhesions Start passing gas Start clear liquids Pain control general surgery input appreciated, advanced diet and monitor response DC IVF # acute hyperglycemia in type 2 diabetes continue home insulin low-dose sliding scale insulin # episode of hypoxia Unclear etiology, could be wrong reading CXR negative for any acute findings # leukocytosis, resolved reactive versus infectious No clear source of infection identified Continue Levaquin pending final blood cultures # CKD3 GFR in 40s usually Cr of 1.1 today with fluid usage # history of CAD continue aspirin, statin # history of AFib unclear chronicity Hold Eliquis, Lovenox for possible surgical intervention DVT prophylaxis Lovenox given patient's need for further monitoring of small-bowel obstruction, patient require overnight inpatient hospital stay for further management Time Spent With Patient Time: Total time managing care of this patient today ____ minutes. Quality Stroke Does the patient have a stroke diagnosis?: No VTE Prior VTE?: No VTE Risk Level:: Medical - low VTE Device Contraindication: Treatment Not Indicated VTE Drug Contraindication: Treatment Not Indicated
[2022-11-07] MEDS: amLODIPine Besylate 5 MG TABLET PO (15:48)
[2022-11-07 15:51] LABS: Glucose, Whole Blood 137 mg/dL (60-115)
[2022-11-07 16:00] VITALS: BP 179/80; PULSE 87; RESP 18; TEMP 36.7; O2SAT 98
[2022-11-07 19:04] VITALS: BP 134/65; PULSE 85; RESP 18; TEMP 36.3; O2SAT 95
[2022-11-07 20:53] LABS: Glucose, Whole Blood 197 mg/dL (60-115)
[2022-11-07] MEDS: Insulin Lispro 100 UNIT/ML 3 ML VIAL SUBCUT (21:02)
[2022-11-07] MEDS: Atorvastatin Calcium 40 MG TABLET PO (21:02)
[2022-11-07] MEDS: Insulin Glargine,Hum.rec.anlog 100 UNIT/ML 10 ML VIAL 25 UNIT SUBCUT (21:06)
[2022-11-08 03:29] VITALS: BP 137/65; PULSE 69; RESP 18; TEMP 36.4; O2SAT 98
[2022-11-08 06:42] LABS: Anion Gap 14 (12-20); Blood Urea Nitrogen 12 mg/dL (9-16); Calcium 8.8 mg/dL (8.4-10.2); Carbon Dioxide 24 mmol/L (22-29); Chloride 109 mmol/L (96-108); Creatinine Clr Calc Pharmacy 62.5; Estimated Glomerular Filt Rate > 60; Glucose Random 89 mg/dL (60-115); Potassium 3.5 mmol/L (3.3-5.1); Sodium 143 mmol/L (135-145)
[2022-11-08] MEDS: 0.9 % Sodium Chloride Flush 3 ML SYRINGE IVFLUSH ×3 (07:06→20:40)
[2022-11-08 07:22] LABS: Glucose, Whole Blood 86 mg/dL (60-115)
[2022-11-08 07:41] VITALS: BP 160/76; PULSE 69; RESP 18; TEMP 36.4; O2SAT 98
[2022-11-08] MEDS: Aspirin 81 MG TAB.CHEW PO (07:55)
[2022-11-08] MEDS: amLODIPine Besylate 5 MG TABLET PO (07:55)
[2022-11-08] MEDS: Enoxaparin Sodium 80 MG/0.8 ML SYRINGE SUBCUT ×2 (07:56→20:39)
--- NOTE | 2022-11-08 08:35 | P.PNGS_ITS ---
Subjective Subjective Date of Service: 11/08/22 <Medina Byers PA-C - Last Filed: 11/08/22 08:37> 11/08/22 <Hossein Fernandes MD - Last Filed: 11/08/22 09:36> Interval history: Feels well. Denies abd pain. Tolerating clear liquids. Denies nausea. Hungry and wants to eat. Passing flatus, no BM. <Medina Byers PA-C - Last Filed: 11/08/22 08:37> Physical Exam Vital Signs: Vital Signs: Last Vital Signs Temp 97.5 F 11/08/22 07:41 Pulse 69 11/08/22 07:41 Resp 18 11/08/22 07:41 BP 160/76 H 11/08/22 07:41 Pulse Ox 98 11/08/22 07:41 O2 Del Method 11/08/22 07:41 O2 Flow Rate 2 11/05/22 03:03 BMI result Body Mass Index 25.4 <Medina Byers PA-C - Last Filed: 11/08/22 08:37> Const: General: comfortable, no acute distress and alert <Medina Byers PA-C - Last Filed: 11/08/22 08:37> Orientation/consciousness: patient oriented x3 <Medina Byers PA-C - Last Filed: 11/08/22 08:37> Resp: Effort & Inspection: normal respiratory effort <Medina Byers PA-C - Last Filed: 11/08/22 08:37> GI: Inspection: No distended <Medina Byers PA-C - Last Filed: 11/08/22 08:37> Palpation (GI): nontender, no guarding and not rigid <Medina Byers PA-C - Last Filed: 11/08/22 08:37> Skin: General skin exam: no rashes or lesions noted <[place] Last Filed: 11/08/22 08:37> Neuro: General: patient oriented x3 <[place] Last Filed: 11/08/22 08:37> Objective Data Active Medications Acetaminophen (Acetaminophen 325 Mg Tablet) 650 mg PO Q6H PRN PRN Reason: Pain, Mild (Pain Scale 1-3) Amlodipine Besylate (Amlodipine Besylate 5 Mg Tablet) 5 mg PO DAILY [facility]; Protocol Last Admin: 11/08/22 07:55 Dose: 5 mg Documented By: SAL Aspirin (Aspirin 81 Mg Tab.Chew) 81 mg PO DAILY [facility] Last Admin: 11/08/22 07:55 Dose: 81 mg Documented By: SAL Atorvastatin Calcium (Atorvastatin Calcium 40 Mg Tablet) 40 mg PO BEDTIME [facility] Last Admin: 11/07/22 21:02 Dose: 40 mg Documented By: MILY Dextrose (Dextrose 50 % 25 Gm/50 Ml Syringe) 25 gm IVPUSH Q15M PRN; Protocol PRN Reason: per Hypoglycemia Standing Ord. Enoxaparin Sodium (Enoxaparin Sodium 80 Mg/0.8 Ml Syringe) 80 mg 1 mg/kg (80 mg) SUBCUT Q12H [facility] Last Admin: 11/08/22 07:56 Dose: 80 mg Documented By: SAL Glucose (Glucose Gel 15 Gm Gel..Gram.) 15 gm PO Q15M PRN; Protocol PRN Reason: per Hypoglycemia Standing Ord. Insulin Glargine (Insulin Glargine,Hum.Rec.Anlog 100 Unit/Ml 10 Ml Vial) 25 unit SUBCUT BEDTIME [facility] Last Admin: 11/07/22 21:06 Dose: 25 unit Documented By: MILY Insulin Human Lispro (Insulin Lispro 100 Unit/Ml 3 Ml Vial) 0.1 - 10 unit SUBC UT QIDACHS [facility]; Protocol Last Admin: 11/08/22 07:18 Dose: Not Given Documented By: SAL Non-Admin Reason: No Insulin Coverage Morphine Sulfate (Morphine Sulfate 4 Mg/Ml Cartridge) 4 mg IVPUSH Q4H PRN; Protocol PRN Reason: Pain, Severe (Pain Scale 7-10) Ondansetron HCl (Ondansetron Hcl 4 Mg/2 Ml Vial) 4 mg IVPUSH Q8H PRN PRN Reason: Nausea and Vomiting Last Admin: 11/05/22 01:56 Dose: 4 mg Documented By: SERBeto Sodium Chloride (0.9 % Sodium Chloride Flush 3 Ml Syringe) 3 ml IVFLUSH QSHIFT [facility] Last Admin: 11/08/22 07:06 Dose: 3 ml Documented By: SAL <Medina Byers PA-C - Last Filed: 11/08/22 08:37> Labs CBC & Chem 7: 11/06/22 05:33 11/08/22 05:41 <Medina Byers PA-C - Last Filed: 11/08/22 08:37> Labs: Laboratory Results - last 24 hr 11/07/22 11/07/22 11/07/22 11:25 15:08 20:50 Anion Gap Estim Creat Clear Calc Estimated GFR POC Glucose 122 H 137 H 197 H Random Glucose Calcium 11/08/22 11/08/22 05:41 07:16 Anion Gap 14 Estim Creat Clear Calc 62.5 Estimated GFR > 60 POC Glucose 86 Random Glucose 89 Calcium 8.8 <Medina Byers PA-C - Last Filed: 11/08/22 08:37> Microbiology Microbiology Results: Microbiology 11/05/22 01:34 Blood Culture - Preliminary Blood - Venous No growth after 48 hours. 11/05/22 01:34 Blood Culture - Preliminary Blood - Venous No growth after 48 hours. <Medina Byers PA-C - Last Filed: 11/08/22 08:37> Procedures Date of Service Date of Service: 11/08/22 <Medina Byers PA-C - Last Filed: 11/08/22 08:37> Progress Note: A&P Assessment and plan (1) Partial small bowel obstruction: Status: Acute <Medina Byers PA-C - Last Filed: 11/08/22 08:37> Assessment and Plan: continues to feel better denies abdl pain passing flatus abd soft, not distended, nontender advance diet as tolerated ok to dc home if tolerating regular diet seen and examined independently - agree with DEV Byers <Hossein Fernandes MD - Last Filed: 11/08/22 09:36> Assessment and Plan: SBO likely secondary to adhesions, symptoms resolved Advance to low residue diet. looks well, exam benign If tolerating diet without recurrent symptoms, stable for dc from surgical standpoint <[facility] Last Filed: 11/08/22 08:37> Time Spent With Patient Time: Total time managing care of this patient today ____ minutes. <Medina Byers PA-C - Last Filed: 11/08/22 08:37> Quality Stroke Does the patient have a stroke diagnosis?: No <Medina Byers PA-C - Last Filed: 11/08/22 08:37> VTE Prior VTE?: No <Medina Byers PA-C - Last Filed: 11/08/22 08:37> VTE Risk Level:: Medical - low <Medina Byers PA-C - Last Filed: 11/08/22 08:37> VTE Device Contraindication: Treatment Not Indicated <Medina Byers PA-C - Last Filed: 11/08/22 08:37> VTE Drug Contraindication: Treatment Not Indicated <Medina Byers PA-C - Last Filed: 11/08/22 08:37>
--- NOTE | 2022-11-08 10:39 | HO.PM.IMPN ---
Subjective Subjective Date of Service: 11/08/22 Interval History: the patient was seen and evaluated this morning Laying in bed, feels much better No significant abdominal pain tolerated clear liquids, passing gas No reported other overnight events. Review of Systems Review of Systems: Yes all other systems are reviewed and are negative Physical Exam Vital Signs: Vital Signs: Last Vital Signs Temp 97.5 F 11/08/22 07:41 Pulse 69 11/08/22 07:41 Resp 18 11/08/22 07:41 BP 160/76 H 11/08/22 07:41 Pulse Ox 98 11/08/22 07:41 O2 Del Method 11/08/22 07:41 O2 Flow Rate 2 11/05/22 03:03 BMI result Body Mass Index 25.4 Const: Other: Constitutional : Awake, interactive, not in distress Neck : Normal inspection, Supple Cardiovascular : RRR, no JVP, no lower extremity edema Respiratory : good bilateral air entry, no crackles, wheezes or rhonchi Gastrointestinal: soft, lax, audible bowel sounds, no significant tenderness with no surgical signs Skin : Warm, Dry Neurological : Alert & oriented x3, No focal deficit Objective Data Active Medications Acetaminophen (Acetaminophen 325 Mg Tablet) 650 mg PO Q6H PRN PRN Reason: Pain, Mild (Pain Scale 1-3) Amlodipine Besylate (Amlodipine Besylate 5 Mg Tablet) 5 mg PO DAILY [facility]; Protocol Last Admin: 11/08/22 07:55 Dose: 5 mg Documented By: SAL Aspirin (Aspirin 81 Mg Tab.Chew) 81 mg PO DAILY [facility] Last Admin: 11/08/22 07:55 Dose: 81 mg Documented By: SAL Atorvastatin Calcium (Atorvastatin Calcium 40 Mg Tablet) 40 mg PO BEDTIME [facility] Last Admin: 11/07/22 21:02 Dose: 40 mg Documented By: MILY Dextrose (Dextrose 50 % 25 Gm/50 Ml Syringe) 25 gm IVPUSH Q15M PRN; Protocol PRN Reason: per Hypoglycemia Standing Ord. Enoxaparin Sodium (Enoxaparin Sodium 80 Mg/0.8 Ml Syringe) 80 mg 1 mg/kg (80 mg) SUBCUT Q12H [facility] Last Admin: 11/08/22 07:56 Dose: 80 mg Documented By: SAL Glucose (Glucose Gel 15 Gm Gel..Gram.) 15 gm PO Q15M PRN; Protocol PRN Reason: per Hypoglycemia Standing Ord. Insulin Glargine (Insulin Glargine,Hum.Rec.Anlog 100 Unit/Ml 10 Ml Vial) 25 unit SUBCUT BEDTIME [facility] Last Admin: 11/07/22 21:06 Dose: 25 unit Documented By: MILY Insulin Human Lispro (Insulin Lispro 100 Unit/Ml 3 Ml Vial) 0.1 - 10 unit SUBCUT QIDACHS [facility]; Protocol Last Admin: 11/08/22 07:18 Dose: Not Given Documented By: SAL Non-Admin Reason: No Insulin Coverage Morphine Sulfate (Morphine Sulfate 4 Mg/Ml Cartridge) 4 mg IVPUSH Q4H PRN; Protocol PRN Reason: Pain, Severe (Pain Scale 7-10) Ondansetron HCl (Ondansetron Hcl 4 Mg/2 Ml Vial) 4 mg IVPUSH Q8H PRN PRN Reason: Nausea and Vomiting Last Admin: 11/05/22 01:56 Dose: 4 mg Documented By: MYRIAM Sodium Chloride (0.9 % Sodium Chloride Flush 3 Ml Syringe) 3 ml IVFLUSH QSHIFT [facility] Last Admin: 11/08/22 07:06 Dose: 3 ml Documented By: SAL Labs 11/06/22 05:33 11/08/22 05:41 Labs: Laboratory Results - last 24 hr 11/07/22 11/07/22 11/07/22 11:25 15:08 20:50 Anion Gap Estim Creat Clear Calc Estimated GFR POC Glucose 122 H 137 H 197 H Random Glucose Calcium 11/08/22 11/08/22 05:41 07:16 Anion Gap 14 Estim Creat Clear Calc 62.5 Estimated GFR > 60 POC Glucose 86 Random Glucose 89 Calcium 8.8 Assessment and Plan (1) Partial small bowel obstruction: Status: Acute Plan 67-year-old male with past medical history of AFib on Eliquis, CAD, CKD, CVA, HLD, type 2 diabetes presents to the hospital with complaints of abdominal pain found to have partial small-bowel obstruction # acute partial small-bowel obstruction likely secondary to adhesions passing gas tolerated clear liquids, advance to regular Pain control general surgery input appreciated, advanced diet and monitor response # acute hyperglycemia in type 2 diabetes continue home insulin low-dose sliding scale insulin # episode of hypoxia Unclear etiology, could be wrong reading CXR negative for any acute findings monitor resp status # leukocytosis, resolved reactive versus infectious No clear source of infection identified Continue Levaquin pending final blood cultures # CKD3 GFR in 40s usually Cr of 1.1 # history of CAD continue aspirin, statin # history of AFib unclear chronicity Hold Eliquis, Lovenox for possible surgical intervention DVT prophylaxis Lovenox given patient's need for further monitoring of small-bowel obstruction and diet tolerance, patient require overnight inpatient hospital stay for further management Time Spent With Patient Time: Total time managing care of this patient today ____ minutes. Quality Stroke Does the patient have a stroke diagnosis?: No VTE Prior VTE?: No VTE Risk Level:: Medical - low VTE Device Contraindication: Treatment Not Indicated VTE Drug Contraindication: Treatment Not Indicated
[2022-11-08 11:55] LABS: Glucose, Whole Blood 132 mg/dL (60-115)
[2022-11-08 15:09] VITALS: BP 111/62; PULSE 69; RESP 18; TEMP 36.2; O2SAT 95
[2022-11-08 16:20] LABS: Glucose, Whole Blood 219 mg/dL (60-115)
[2022-11-08] MEDS: Insulin Lispro 100 UNIT/ML 3 ML VIAL SUBCUT (17:04)
[2022-11-08 19:19] VITALS: BP 166/80; PULSE 74; RESP 18; TEMP 36; O2SAT 98
[2022-11-08] MEDS: Insulin Glargine,Hum.rec.anlog 100 UNIT/ML 10 ML VIAL 25 UNIT SUBCUT (20:39)
[2022-11-08] MEDS: Atorvastatin Calcium 40 MG TABLET PO (20:39)
[2022-11-08 20:40] LABS: Glucose, Whole Blood 148 mg/dL (60-115)
[2022-11-09 00:20] LABS: CDiff Gene PCR NEGATIVE (Negative)
[2022-11-09 03:40] VITALS: BP 136/68; PULSE 63; RESP 18; TEMP 36.2; O2SAT 96
[2022-11-09] MEDS: amLODIPine Besylate 5 MG TABLET PO (07:39)
[2022-11-09] MEDS: Enoxaparin Sodium 80 MG/0.8 ML SYRINGE SUBCUT (07:40)
[2022-11-09] MEDS: Aspirin 81 MG TAB.CHEW PO (07:40)
[2022-11-09] MEDS: 0.9 % Sodium Chloride Flush 3 ML SYRINGE IVFLUSH (07:41)
[2022-11-09 07:50] LABS: Glucose, Whole Blood 101 mg/dL (60-115)
[2022-11-09 08:00] VITALS: BP 150/78; PULSE 71; RESP 18; TEMP 36.3; O2SAT 98
--- NOTE | 2022-11-09 08:09 | P.PNGS_ITS ---
Subjective Subjective Date of Service: 11/09/22 Interval history: tolerating diet well denies abdominal pain he says he feels well overall had 1 large bowel movement last night which he says was watery Physical Exam Vital Signs: Vital Signs: Last Vital Signs Temp 97.4 F 11/09/22 08:00 Pulse 71 11/09/22 08:00 Resp 18 11/09/22 08:00 BP 150/78 H 11/09/22 08:00 Pulse Ox 98 11/09/22 08:00 O2 Del Method 11/09/22 08:00 O2 Flow Rate 2 11/05/22 03:03 BMI result Body Mass Index 25.4 Const: General: comfortable and no acute distress Resp: Effort & Inspection: normal respiratory effort Cardio: Rate: regular rate GI: Palpation (GI): Soft to palpation, not firm, nontender and no guarding Objective Data Active Medications Acetaminophen (Acetaminophen 325 Mg Tablet) 650 mg PO Q6H PRN PRN Reason: Pain, Mild (Pain Scale 1-3) Amlodipine Besylate (Amlodipine Besylate 5 Mg Tablet) 5 mg PO DAILY [facility]; Protocol Last Admin: 11/09/22 07:39 Dose: 5 mg Documented By: SAL Aspirin (Aspirin 81 Mg Tab.Chew) 81 mg PO DAILY [facility] Last Admin: 11/09/22 07:40 Dose: 81 mg Documented By: SAL Atorvastatin Calcium (Atorvastatin Calcium 40 Mg Tablet) 40 mg PO BEDTIME [facility] Last Admin: 11/08/22 20:39 Dose: 40 mg Documented By: SHARI Dextrose (Dextrose 50 % 25 Gm/50 Ml Syringe) 25 gm IVPUSH Q15M PRN; Protocol PRN Reason: per Hypoglycemia Standing Ord. Enoxaparin Sodium (Enoxaparin Sodium 80 Mg/0.8 Ml Syringe) 80 mg 1 mg/kg (80 mg) SUBCUT Q12H [facility] Last Admin: 11/09/22 07:40 Dose: 80 mg Documented By: SAL Glucose (Glucose Gel 15 Gm Gel..Gram.) 15 gm PO Q15M PRN; Protocol PRN Reason: per Hypoglycemia Standing Ord. Insulin Glargine (Insulin Glargine,Hum.Rec.Anlog 100 Unit/Ml 10 Ml Vial) 25 unit SUBCUT BEDTIME [facility] Last Admin: 11/08/22 20:39 Dose: 25 unit Documented By: SHARI Insulin Human Lispro (Insulin Lispro 100 Unit/Ml 3 Ml Vial) 0.1 - 10 unit SUBCUT [facility]; Protocol Last Admin: 11/09/22 07:22 Dose: Not Given Documented By: SAL Non-Admin Reason: No Insulin Coverage Morphine Sulfate (Morphine Sulfate 4 Mg/Ml Cartridge) 4 mg IVPUSH Q4H PRN; Protocol PRN Reason: Pain, Severe (Pain Scale 7-10) Ondansetron HCl (Ondansetron Hcl 4 Mg/2 Ml Vial) 4 mg IVPUSH Q8H PRN PRN Reason: Nausea and Vomiting Last Admin: 11/05/22 01:56 Dose: 4 mg Documented By: MYRIAM Sodium Chloride (0.9 % Sodium Chloride Flush 3 Ml Syringe) 3 ml IVFLUSH [facility] Last Admin: 11/09/22 07:41 Dose: 3 ml Documented By: SAL Labs 11/06/22 05:33 11/08/22 05:41 Labs: Laboratory Results - last 24 hr 11/08/22 11/08/22 11/08/22 11:44 16:14 20:35 POC Glucose 132 H 219 H 148 H C. difficile Tox B Gene 11/08/22 11/09/22 23:24 07:18 POC Glucose 101 C. difficile Tox B Gene NEGATIVE Procedures Date of Service Date of Service: 11/09/22 Progress Note: A&P Assessment and plan (1) Partial small bowel obstruction: Status: Acute Assessment and Plan: symptoms resolved tolerating diet well abdomen very benign okay to discharge home from surgical standpoint Time Spent With Patient Time: Total time managing care of this patient today ____ minutes. Quality Stroke Does the patient have a stroke diagnosis?: No VTE Prior VTE?: No VTE Risk Level:: Medical - low VTE Device Contraindication: Treatment Not Indicated VTE Drug Contraindication: Treatment Not Indicated
--- NOTE | 2022-11-09 10:37 | PM.DS ---
DS: Providers Provider Date of Service: 11/09/22 Date of admission: 11/05/22 01:35 Primary care physician: None Physician Consults: 11/05/22 06:40 Consult to General Surgery Routine Consulting Provider: Kellie Foley Reason for consultation: SBO Has provider been notified: Yes DS: Diagnosis Discharge Diagnosis (1) Partial small bowel obstruction: Status: Acute DS: Summary Hospital Course Hospital Course: from initial hpi: Chief Complaint: abd pain ?67-year-old male with past medical history of CAD, CKD, CVA, HLD, type 2 diabetes, AFib on Eliquis presents to the hospital with complaints of abdominal pain, distension, as well as back pain.? Patient reports that it started today, has not had any vomiting, has had chills chronically, reports that his last BM was earlier in the day, had diarrhea yesterday, it appears that he has history of chronic diarrhea and he is on lomotil for it ?reports that he has not been passing gas since being in the ED. denies any chest pain,? has some shortness of breath that has been chronic for him, reports no palpitations, no urinary symptoms and no lower extremity edema On arrival to the ED patient hemodynamically stable no significant abnormal vitals Labs are significant for? WBC count of? 17.8, creatinine of 1.64, with a baseline of? 1.26 in June2021, glucose of 448, lactic acid of 2.2 that improved to 1.1 after IV fluids, COVID-19 influenza as well as RSV negative, ?abdominal pelvic CT shows dilated fluid-filled proximal small bowel extending to an area of fecalization in the anterior central abdomen followed by somewhat gradual? decompression, this suggest? partial small-bowel obstruction General surgery consult, patient will be admitted to medical floor hospital course: Patient was admitted for acute partial small-bowel obstruction likely due to adhesions. Patient was treated conservatively and eventually pass stool and tolerate solid diet. For patient's diabetes type 2 with hyperglycemia is continued on an insulin and sugars became better controlled. On admission patient had leukocytosis likely due to obstruction which resolved. For patient's CKD 3 he remained stable. For history of coronary disease status post PCI of LAD and to drug-eluting stents, he will continue aspirin, Eliquis, statin. For his history of CVA he was continued on aspirin, statin, Eliquis. For his paroxysmal atrial fibrillation patient was in sinus rhythm, he was continued on Eliquis. Patient is feeling better will be discharged home. Time Spent with Patient Time attestation: Total time managing care of this patient today ____ minutes. Discharge coordination time: Greater than 30 minutes Quality: Safe Use of Opioids Does Pt have an Active Cancer Diagnosis on the Problem List?: No Quality: Stroke Does the patient have a stroke diagnosis?: No Physical Exam Vital Signs: Vital Signs: Last Vital Signs Temp 97.4 F 11/09/22 08:00 Pulse 71 11/09/22 08:00 Resp 18 11/09/22 08:00 BP 150/78 H 11/09/22 08:00 Pulse Ox 98 11/09/22 08:00 O2 Del Method 11/09/22 08:00 O2 Flow Rate 2 11/05/22 03:03 BMI result Body Mass Index 25.4 Const: General: comfortable and no acute distress Resp: Effort & Inspection: normal respiratory effort Cardio: Rate: regular rate GI: Palpation (GI): Soft to palpation, not firm, nontender and no guarding DS: Data Data Completed and Pending Labs on day of discharge: Laboratory Results - last 24 hr 11/08/22 11/08/22 11/08/22 11:44 16:14 20:35 POC Glucose 132 H 219 H 148 H C. difficile Tox B Gene 11/08/22 11/09/22 23:24 07:18 POC Glucose 101 C. difficile Tox B Gene NEGATIVE Preliminary micro results at discharge 11/05/22 01:34 Blood Culture - Preliminary Blood - Venous No growth after 48 hours. 11/05/22 01:34 Blood Culture - Preliminary Blood - Venous No growth after 48 hours. Discharge Plan Discharge Anticipated Discharge Date/Time: 11/09/22 10:30 Patient Disposition: Home, Self-Care Discharge Diagnosis: partial sbo Referrals: Physician,None [Primary Care Provider] - 1 Week Discharge Medications: New amlodipine 5 mg Tablet 5 mg PO DAILY Qty: 30 0RF Protocol: Hold for SBP< HOLD for SBP < : 90 Continued Eliquis 5 mg tablet 1 tab PO BID atorvastatin 40 mg tablet 1 tab PO BEDTIME aspirin 81 mg Tablet,Delayed Release (Dr/Ec) 81 mg PO DAILY insulin glargine [Basaglar KwikPen U-100 Insulin] 100 unit/mL (3 mL) insulin pen 40 unit subcut BEDTIME Discontinued diphenoxylate-atropine [Lomotil] 2.5-0.025 mg Tablet 1 tab PO BID PRN (Reason: Loose Stool) Discharge Orders: Discharge Order (Routine); Ordered 11/09/22 Ordered By: Miguel Turcios Diet: Advance to usual diet Activity on Discharge: As tolerated Stand Alone Forms: Patient Portal Discharge page Care Plan Goals: avoid obstruction Health Concerns: sbo Plan of Treatment: advance diet as tolerated Assessment: see above
--- NOTE | 2022-11-09 11:24 | MHC.CM.PN ---
PT MEDICALLY CLEARED FOR D/C HOME W/FAMILY SUPPORT, NO NEW SERVICES ORDERED AND FAMILY FOR TRANSPORT
== END 2022-11-09 12:19 | disposition home or self-care (01) ==
LOC: HO.ED 11-05 01:40 → HO.EDOVER 11-05 01:44 → HO.S3 11-05 02:59
PROVIDERS: Student in an Organized Health Care Education/Training Program; Surgery; Admitting Provider Internal Medicine; Emergency Provider Emergency Medicine Emergency Medical Services; Visit Provider Internal Medicine
DX: K56.600 Partial intestinal obstruction, unspecified as to cause (principal); E11.65 Type 2 diabetes mellitus with hyperglycemia; E11.22 Type 2 diabetes mellitus with diabetic chronic kidney disease; I12.9 Hypertensive chronic kidney disease with stage 1 through stage 4 chronic kidney disease, or unspecified chronic kidney disease; N18.30 Chronic kidney disease, stage 3 unspecified; N17.9 Acute kidney failure, unspecified; J96.01 Acute respiratory failure with hypoxia; D72.829 Elevated white blood cell count, unspecified; E86.0 Dehydration; R06.02 Shortness of breath; I48.91 Unspecified atrial fibrillation; Z86.73 Personal history of transient ischemic attack (TIA), and cerebral infarction without residual deficits; Z91.14 Patient's other noncompliance with medication regimen; Z79.01 Long term (current) use of anticoagulants; Z79.82 Long term (current) use of aspirin; Z79.02 Long term (current) use of antithrombotics/antiplatelets; Z79.899 Other long term (current) drug therapy; Z20.822 Contact with and (suspected) exposure to COVID-19
CPT/HCPCS: 36415; 70450; 71045; 74022; 74176; 80048; 80053; 82009; 82803; 82947; 83036; 83605; 83690; 83880; 84484; 85025; 85027; 87040; 87493; 87502; 87635; 93005; 96361; 96365; 96366; 96372; 96375; 99221; 99285; J1170; J1650; J1956; J2405

== ENCOUNTER 2023-11-04 07:44 | Emergency (ER) | payer MEDICARE, SELFPAY ==
--- NOTE | ~2023-11-04 | XR_ITS ---
EXAMINATION: XR CHEST CLINICAL INFORMATION: Covid positive weakness COMPARISON: Chest radiograph from 11/05/2022 TECHNIQUE: Frontal view of the chest was obtained. FINDINGS: Bronchial prominence which may be seen in setting of infectious/inflammatory etiology. Slight bibasilar atelectasis. No pneumothorax. Trachea is midline. Cardiac mediastinal silhouette is not enlarged. No large pleural effusion. Dextrocurvature of the thoracic spine with multilevel degenerative changes. Soft tissues are unremarkable. XR/XR chest 1V IMPRESSION: 1. Bronchial prominence which may be seen in setting of infectious/inflammatory etiology. 2. Slight bibasilar atelectasis.
[2023-11-04 07:51] VITALS: BP 136/63; BP 174/76; PULSE 70; PULSE 72; RESP 18; TEMP 37.6; O2SAT 95; BMI 26.3
--- NOTE | 2023-11-04 08:27 | PC.NURSE ---
Pt liz in law called and wanted to make sure we did not need any more information, they are currently sitting out in the parking lot until dispo plan placed.
[2023-11-04 08:34] LABS: COVID-19 Test Positive (Negative); IDNOW Serial# 58CA691E
[2023-11-04 08:41] LABS: IDNOW Serial# 9DB6401D; Influenza A Negative (Negative); Influenza B2 Negative (Negative)
--- NOTE | 2023-11-04 08:48 | ED_ITS ---
HPI - General Adult General Chief complaint: General Medical Stated complaint: +COVID/HOMETEST,WEAK PER EMS Time Seen by Provider: 11/04/23 08:48 History of Present Illness HPI narrative: The patient is a 68-year-old male with a history of multiple medical problems including type 2 diabetes, atrial fibrillation on apixaban, and previous strokes who lives with his daughter and son-in-law. He felt somewhat weak yesterday and today felt weak or still. The family did a home COVID test that was positive. His daughter called an ambulance because he seemed so weak. The patient says that he feels generally weak and somewhat nauseated. He also has a history of chronic diarrhea that he says is still a problem. He denies other specific complaints however. He denies headache, chest pain, shortness of breath, significant cough, abdominal pain, urinary discomfort. Related Data Home Medications Medication Instructions Recorded Confirmed apixaban 5 mg tablet (Eliquis) 1 tab PO BID 06/28/21 11/05/22 atorvastatin 40 mg tablet 1 tab PO BEDTIME 06/28/21 11/05/22 aspirin 81 mg tablet,delayed 81 mg PO DAILY 11/05/22 11/05/22 release insulin glargine 100 unit/mL (3 40 unit subcut BEDTIME 11/05/22 11/05/22 mL) subcutaneous pen (Basaglar KwikPen U-100 Insulin) Previous Rx's Medication Instructions Recorded amlodipine 5 mg tablet 5 mg PO DAILY #30 tabs 11/09/22 walker #1 ea 11/04/23 Allergies Allergy/AdvReac Type Severity Reaction Status Date / Time Sulfa (Sulfonamide Allergy Mild HIVES Verified 11/04/23 07:59 Antibiotics) [SULFA (SULFONAMIDE ANTIBIOTICS)] penicillamine [Cuprimine] Allergy Unknown unknown Verified 11/04/23 07:59 Penicillins Allergy Unknown INKNOWN Verified 11/04/23 07:59 sulfacetamide Allergy Unknown rash Verified 11/04/23 07:59 Review of Systems 2 Review of Systems: Yes all other systems are reviewed and are negative PMFSH Past Medical History Onset Date is defined in the Problem List Problems that require an onset date and time if occurred within 24 hrs of arrival to the ED Aortic Dissection and Rupture; Neurologic impairment; Cardiopulmonary Arrest; Endotracheal Intubation; Insertion or Replacement of Mechanical Circulatory Assist Device Medical History Atrial fibrillation CAD (coronary artery disease) CKD (chronic kidney disease), stage III CVA (cerebral vascular accident) HLD (hyperlipidemia) Type 2 diabetes mellitus Surgical History H/O cardiac radiofrequency ablation Stented coronary artery Social History Social History Household Members: Family Housing: House Do you presently have visiting nurse or other home services: No Unable to assess alcohol history related to: Unknown Alcohol intake: current Alcohol intake frequency: a few times a week Alcohol type: beer Patient Tobacco Use Status: Never used Tobacco Smoked in Last 30 Days: No Advance Directives: No Advance Directives Information Provided: Yes service: No Current occupational status: retired Physical Exam ED Vital Signs: Vital Signs - 24 hr 11/04/23 07:51 11/04/23 12:05 11/04/23 15:17 Temperature 99.7 F 97.9 F Pulse Rate 72 70 70 Respiratory Rate 18 20 Blood Pressure 136/63 106/45 L 106/45 L Pulse Oximetry 95 96 96 Oxygen Delivery Method Room Air Room Air 11/04/23 16:13 Temperature Pulse Rate 59 Respiratory Rate 18 Blood Pressure 122/58 L Pulse Oximetry 96 Oxygen Delivery Method Room Air BMI result Body Mass Index 26.3 Const Other: The patient is awake and alert. He seems oriented. He seems somewhat generally weak and chronically ill but not obviously acutely ill or in distress. HENMT Other: Face is symmetrical. Mucous membranes moist. The pharynx appears normal. Eyes Other: Pupils are round equal, conjunctivae clear, extraocular movements intact. Neck Other: No JVD. Neck is supple. No adenopathy. Resp Other: Lungs are clear bilaterally. No increased work of breathing. Cardio Other: The patient has a regular rate and rhythm with no murmur GI Other: The abdomen is soft and nontender Skin Other: Skin is pale and dry Neuro Other: The patient is awake and alert. Seems reasonably well oriented. He is cooperative. Face is symmetrical. Speech is clear. He seems diffusely weak. He moves his extremities symmetrically. He does not seem to have a focal finding. Extrem Other: No pitting edema. No calf swelling or tenderness. No asymmetry. Medications Administered Discontinued Medications Generic Name Dose Route Start Last Admin Trade Name Mini PRN Reason Stop Dose Admin Acetaminophen 975 mg 11/04/23 09:07 11/04/23 09:36 Acetaminophen 325 Mg Tablet PO 11/04/23 09:08 975 mg ONCE ONE Administration Sodium Chloride 1,000 mls @ 999 mls/hr 11/04/23 09:15 11/04/23 11:09 Ns IV 11/04/23 10:15 Infused .Q1H1M ALAN Infusion Sodium Chloride 1,000 mls @ 999 mls/hr 11/04/23 11:30 11/04/23 14:01 Ns IV 11/04/23 12:30 Infused .Q1H1M ALAN Infusion Medical Decision Making Medical Decision Making [facility] Narrative: The patient is a 68-year-old male with multiple medical problems who presents with acute weakness and has been found to be COVID positive. His medical evaluation is otherwise largely unremarkable. He was given acetaminophen 2 L of normal saline. He seemed to be a bit more functional at that point. I think his weakness is secondary to the COVID. He was seen by Physical therapy who felt that he was safe for discharge if he had people looking after him and might have access to a walker. I have written a prescription for a walker. He was discharged with his family. He lives with his daughter and son-in-law. I spoke to the patient's daughter about whether he should be on Paxlovid. He is on atorvastatin and apixaban. The patient's daughter says that every time he goes off apixaban, even briefly, he has a very high likelihood of having a stroke. The daughter does not feel that he should ever go off apixaban. Given this opinion I feel that we will simply forego treatment with Paxlovid. The patient does not seem hypoxic or grossly ill otherwise and I think can be managed symptomatically with supportive care at home. Lab Data 11/04/23 09:43 11/04/23 09:43 Labs: Lab Results 11/04/23 11/04/23 Range/Units 08:12 09:43 WBC 6.3 (4.8-10.8) X10*3/uL RBC 4.20 L (4.60-5.80) X10*6/uL Hgb 12.7 L (14.0-18.0) g/dl Hct 35.8 L (42.0-52.0) % MCV 85.2 (80.0-98.0) fL MCH 30.2 (27.0-33.0) pg MCHC 35.5 (31.0-36.0) g/dl RDW 12.7 (11.0-16.0) % Plt Count 177 (160-400) X10*3/uL MPV 11.3 (9.4-12.4) fL Immature Gran % (Auto) 0.5 H (0.0-0.4) % Neut % (Auto) 70.5 (45-73) % Lymph % (Auto) 11.4 L (20-40) % [facility] % (Auto) 17.0 H (2-11) % Eos % (Auto) 0.3 (0-4) % Baso % (Auto) 0.3 (0-2) % Lymph # (Auto) 0.7 L (1.2-4.9) X10*3/uL [facility] # (Auto) 1.1 (0.1-1.2) X10*3/uL Eos # (Auto) 0.0 (0.0-0.4) X10*3/uL Baso # (Auto) 0.0 (0.0-0.2) X10*3/uL Abs Immat Gran (auto) 0.03 (0.00-0.03) X10*3/uL Absolute Neuts (auto) 4.5 (2.0-8.3) x10*3/uL Absolute Nucleated RBC 0.000 (0.0-0.012) X10*3/uL Nucleated RBC % (auto) 0.0 (0.0-0.2) /100WBC Sodium 139 (135-145) mmol/L Potassium 4.2 (3.3-5.1) mmol/L Chloride 108 (96-108) mmol/L Carbon Dioxide 24 (22-29) mmol/L Anion Gap 11 L (12-20) BUN 25 H (9-16) mg/dL Creatinine 1.67 H (0.5-1.4) mg/dL Estim Creat Clear Calc 42.4 Estimated GFR 41 Random Glucose 194 H (60-115) mg/dL Calcium 9.0 (8.4-10.2) mg/dL Magnesium 1.9 (1.6-2.6) mg/dL Total Bilirubin 0.8 (0.0-1.0) mg/dL Direct Bilirubin 0.4 (0.0-0.5) mg/dL AST 12 (5-37) U/L ALT 16 (0-40) U/L Alkaline Phosphatase 67 (39-117) U/L Troponin I High Sens 7.1 D (<3.5-35.0) ng/L C-Reactive Protein 0.91 H (< or = 0.50) mg/dL B-Natriuretic Peptide 133 H (<100) pg/mL Total Protein 6.2 L (6.5-8.0) g/dL Albumin 3.6 (3.5-5.0) g/dL COVID-19 (MARIELA) Positive A (Negative) COVID-19 Clin Com See Note Influenza Type A (ANNIE) Negative (Negative) Influenza Type B (ANNIE) Negative (Negative) Influenza A & B Note See Note Independent Interpretation I performed an independent interpretation of an: EKG Interpretation: EKG at 09:50 shows normal sinus rhythm at 68 beats per minute. Discharge Plan Discharge Clinical Impression: COVID-19, Weakness Patient Disposition: Home, Self-Care Instructions: COVID-19 (Coronavirus Disease 2019) (ED) Additional Instructions: You have tested positive for COVID today. You may have also been somewhat dehydrated. You received 2 L of IV fluids and seem to be a bit more functional. Based on your current medications I think it would be unwise for you to take Paxlovid. I think you would have too many interactions with this medication. Therefore I would focus on keeping herself well hydrated with things like broth or chicken soup. Tylenol for any sense of muscle aches or chills. Stay in touch with your regular doctor as needed for additional advice. Return to the emergency room if worse. Prescriptions: [place] (FELIX) roma Peck See Rx Instructions .Route Qty: 1 0RF Rx Instructions: As directed No Action Eliquis 5 mg tablet 1 tab PO BID atorvastatin 40 mg tablet 1 tab PO BEDTIME aspirin 81 mg Tablet,Delayed Release (Dr/Ec) 81 mg PO DAILY insulin glargine [Basaglar KwikPen U-100 Insulin] 100 unit/mL (3 mL) insulin pen 40 unit subcut BEDTIME amlodipine 5 mg Tablet 5 mg PO DAILY Qty: 30 0RF Protocol: Hold for SBP< HOLD for SBP < : 90
--- NOTE | 2023-11-04 09:05 | ECG_ITS ---
Test Reason : COVID Blood Pressure : / mmHG Vent. Rate : 068 BPM Atrial Rate : 068 BPM P-R Int : 202 ms QRS Dur : 090 ms QT Int : 398 ms P-R-T Axes : 018 011 024 degrees QTc Int : 423 ms Normal sinus rhythm Low voltage QRS Borderline ECG When compared with ECG of 04-NOV-2022 22:57, Criteria for Inferior infarct are no longer Present Referred By: Norberto Vega Electronically Signed By:STEVENSON NGUYEN MD
[2023-11-04] MEDS: Acetaminophen 325 MG TABLET 975 MG PO (09:36)
[2023-11-04] MEDS: 0.9 % Sodium Chloride 1,000 ML 999 ML IV ×2 (09:36→11:45)
[2023-11-04 09:47] LABS: MANUAL DIFF FLAG NO
[2023-11-04 09:50] LABS: Basophils Percent Auto 0.3 % (0-2); Eosinophils Percent Auto 0.3 % (0-4); Hematocrit 35.8 % (42.0-52.0); Hemoglobin 12.7 g/dl (14.0-18.0); Imm Gran Abs Auto 0.03 X10*3/uL (0.00-0.03); Imm Gran Pct Auto 0.5 % (0.0-0.4); Lymphocytes Absolute Auto 0.7 X10*3/uL (1.2-4.9); Lymphocytes Percent Auto 11.4 % (20-40); Mean Corpuscular HGB Conc 35.5 g/dl (31.0-36.0); Mean Corpuscular Hemoglobin 30.2 pg (27.0-33.0); Mean Corpuscular Volume 85.2 fL (80.0-98.0); Mean Platelet Volume 11.3 fL (9.4-12.4); Monocytes Absolute Auto 1.1 X10*3/uL (0.1-1.2); Neutrophils Absolute Auto 4.5 x10*3/uL (2.0-8.3); Neutrophils Percent Auto 70.5 % (45-73); Platelet Count 177 X10*3/uL (160-400); Red Cell Distribution Width 12.7 % (11.0-16.0); White Blood Count 6.3 X10*3/uL (4.8-10.8)
[2023-11-04 10:08] LABS: Alanine Aminotransferase 16 U/L (0-40); Albumin Level 3.6 g/dL (3.5-5.0); Alkaline Phosphatase 67 U/L (39-117); Anion Gap 11 (12-20); Aspartate Amino Transferase 12 U/L (5-37); Bilirubin Direct 0.4 mg/dL (0.0-0.5); Bilirubin Total 0.8 mg/dL (0.0-1.0); Blood Urea Nitrogen 25 mg/dL (9-16); C Reactive Protein 0.91 mg/dL (< or = 0.50); Carbon Dioxide 24 mmol/L (22-29); Chloride 108 mmol/L (96-108); Creatinine Clr Calc Pharmacy 42.4; Estimated Glomerular Filt Rate 41; Glucose Random 194 mg/dL (60-115); Magnesium 1.9 mg/dL (1.6-2.6); Potassium 4.2 mmol/L (3.3-5.1); Sodium 139 mmol/L (135-145); Total Protein 6.2 g/dL (6.5-8.0)
[2023-11-04 10:12] LABS: B Type Natriuretic Peptide 133 pg/mL (<100); Troponin-I High Sensitivity 7.1 ng/L (<3.5-35.0)
[2023-11-04 12:05] VITALS: BP 106/45; PULSE 70; RESP 20; TEMP 36.6; O2SAT 96
--- NOTE | 2023-11-04 12:11 | PC.NURSE ---
Per MD will attempt walking trail once current IVF is completed
[2023-11-04 15:17] VITALS: BP 106/45; PULSE 70; O2SAT 96
[2023-11-04 16:13] VITALS: BP 122/58; PULSE 59; RESP 18; O2SAT 96
== END 2023-11-04 18:18 | disposition home or self-care (01) ==
PROVIDERS: Emergency Provider Emergency Medicine
DX: U07.1 COVID-19 (principal); R53.1 Weakness; E11.9 Type 2 diabetes mellitus without complications; E78.5 Hyperlipidemia, unspecified; I48.91 Unspecified atrial fibrillation; J96.01 Acute respiratory failure with hypoxia; R26.81 Unsteadiness on feet; Z79.01 Long term (current) use of anticoagulants; Z79.02 Long term (current) use of antithrombotics/antiplatelets; Z79.82 Long term (current) use of aspirin; Z79.4 Long term (current) use of insulin
CPT/HCPCS: 36415; 71045; 80048; 80076; 83735; 83880; 84484; 85025; 86140; 87502; 87635; 93005; 96360; 96361; 97161; 99285

== ENCOUNTER → 2023-11-04 09:05 | Outpatient (BNV) | payer MEDICARE, SELFPAY | PROVIDERS: Emergency Provider Emergency Medicine; Visit Provider Internal Medicine Cardiovascular Disease | DX: R26.81 Unsteadiness on feet (principal) | CPT/HCPCS: 93010 ==

== ENCOUNTER 2024-01-13 13:00 | Inpatient (IN) | payer MEDICARE, SELFPAY ==
[2024-01-13] VITALS (14 sets, daily range): BP systolic 97–124; BP diastolic 54–73; PULSE 42–63; RESP 16–20; TEMP 33.2–36.1; O2SAT 91–100; BMI 31.2
--- NOTE | ~2024-01-13 | XR_ITS ---
EXAMINATION: XR CHEST CLINICAL INFORMATION: Pneumonia COMPARISON: Previous chest x-ray most recent 01/15/2023 TECHNIQUE: Frontal view of the chest was obtained. FINDINGS: The cardiac silhouette is slightly enlarged but stable. There are increased central bronchovascular markings and bilateral perihilar and lower lung airspace disease. Again, differential would include pulmonary edema and pneumonia. This may be slightly improved at the right lung base. This does not appear appreciably changed in the left lung. There may be small bilateral pleural effusions. There is no pneumothorax. There are degenerative changes of the spine. XR/XR chest 1V IMPRESSION: Bilateral perihilar and lower lung airspace disease. Differential would include pulmonary edema and pneumonia. Minimal improvement at the right base compared to January 12 recent exam.
--- NOTE | ~2024-01-13 | CT_ITS ---
EXAMINATION: CT HEAD WITHOUT CONTRAST CLINICAL INFORMATION: Headache status-post fall. COMPARISON: CT head dated 11/05/2022. TECHNIQUE: Contiguous axial imaging was performed from the skull base to vertex without intravenous administration of contrast. Multiplanar reformatted images are submitted. This CT examination was performed using dose optimization techniques as appropriate, variously including the following: *Automated exposure control *Adjustment of mA and/or kV according to patient size (this includes techniques or standardized protocols for targeted exams where dose is matched to indication/reason for exam; i.e. extremities or head) *Use of iterative reconstruction technique DLP: 1232 mGy-cm (head and cervical spine) FINDINGS: There is no acute intracranial hemorrhage or evidence of territorial infarction. No abnormal mass effect or midline shift is seen. [place] to white matter differentiation is well preserved. There is moderate patchy low attenuation change in the periventricular white matter spaces. The ventricles and sulci are age-appropriate in size. No extra-axial fluid collections are identified. The calvarium and scalp soft tissues are normal. The middle ear cavity and mastoid air cells are clear. There is mild mucosal thickening of the bilateral anterior ethmoid air cells and of the right maxillary sinus. CT/CT cervical spine wo IV con IMPRESSION: 1. No acute intracranial pathology. 2. There is moderate patchy low attenuation change in the periventricular white matter spaces, commonly associated with chronic microangiopathy. 3. There is paranasal sinusitis. EXAMINATION: CT CERVICAL SPINE WITHOUT CONTRAST CLINICAL INFORMATION: Neck pain status-post fall. COMPARISON: None available. TECHNIQUE: Contiguous axial imaging was performed through the cervical spine without intravenous administration of contrast. Multiplanar reformatted images are submitted. The examination is somewhat limited by motion artifact. This CT examination was performed using dose optimization techniques as appropriate, variously including the following: *Automated exposure control *Adjustment of mA and/or kV according to patient size (this includes techniques or standardized protocols for targeted exams where dose is matched to indication/reason for exam; i.e. extremities or head) *Use of iterative reconstruction technique DLP: As above FINDINGS: Vertebral body heights and alignment are normal. At C5-C6 and C6-C7, moderate disc space narrowing, with associated endplate arthropathy. The remaining disc spaces are well-maintained. No acute fracture or spondylolisthesis is seen. The posterior elements are intact. There is no prevertebral soft tissue swelling. The dens is intact. The bilateral lung apices are clear. IMPRESSION: At C5-C6 and C6-C7, there is moderate degenerative disc disease, with endplate arthropathy. No acute fracture or spondylolisthesis is seen. Fleischner guidelines were followed.
--- NOTE | ~2024-01-13 | US_ITS ---
EXAMINATION: US arterial duplex LE BI, US THALIA complete CLINICAL INFORMATION: Nonhealing ulcers COMPARISON: None TECHNIQUE: Ankle pulse volume recordings, ankle pressure measurements and ankle brachial indices were obtained of the lower extremity arterial system bilaterally in addition to duplex Doppler techniques with wave form analysis and measurement of velocities in the common femoral, profunda femoral, superficial femoral, popliteal, tibial and peroneal arteries. The study was performed only at rest. FINDINGS: RIGHT LE. THE RIGHT ANKLE-BRACHIAL INDEX IS: 1.3 2. SEGMENTAL PRESSURES (mmHg): Ankle: PT 167, DP 77 3. PVR WAVEFORMS: Ankle: Normal 4. DIRECT DUPLEX: Common femoral artery: 95.2 cm/s, Multiphasic Profunda femoris artery: 83 cm/s, biphasic Superficial femoral artery (proximal): 111.6 cm/s, Multiphasic Superficial femoral artery (mid): 118.6 cm/s, Multiphasic Superficial femoral artery (distal): 86.3 cm/s, Multiphasic Proximal Popliteal artery: 100.6 cm/s, Multiphasic Distal popliteal artery: 108.7 cm/s, Multiphasic Mid posterior tibial artery: 18.9 cm/s, monophasic Peroneal artery: 34.6 cm/s, biphasic Anterior tibial artery: 88 cm/s, multiphasic LEFT LE. THE LEFT ANKLE-BRACHIAL INDEX IS: 1.37 2. SEGMENTAL PRESSURES: Ankle: PT 186, DP 170 3. PVR WAVEFORMS: Ankle: Normal 4. DIRECT DUPLEX: Common femoral artery: 118.9 cm/s, Multiphasic Profunda femoris artery: 73.3 cm/s, biphasic Superficial femoral artery (proximal): 135.3 cm/s, Multiphasic Superficial femoral artery (mid): 141.2 cm/s, Multiphasic Superficial femoral artery (distal): 130.6 cm/s, Multiphasic Proximal Popliteal artery: 105.8 cm/s, Multiphasic Distal popliteal artery: 123.3 cm/s, Multiphasic Mid posterior tibial artery: 53.6 cm/s, Multiphasic Peroneal artery: 111 cm/s, Multiphasic Anterior tibial artery: 112 cm/s, multiphasic US/US arterial duplex LE BI IMPRESSION: 1. Mild stenosis involving the entire left superficial femoral artery. Hemodynamically significant stenosis bilaterally. 2. Elevated ABIs and ankle pressures bilaterally suggests and incompressibility.
--- NOTE | ~2024-01-13 | XR_ITS ---
EXAMINATION: XR CHEST CLINICAL INFORMATION: Dizziness COMPARISON: 11/04/2023 TECHNIQUE: Frontal view of the chest was obtained. FINDINGS: The lungs are hypoinflated. There is airspace opacity in the right perihilar region. Milder opacity is also suspected at the retrocardiac left base. No evidence of pneumothorax or significant pleural effusion. Central vasculature is prominent. Cardiac silhouette appears near the upper limits of normal in size. No acute osseous findings are seen. XR/XR chest 1V IMPRESSION: Right perihilar and left basilar airspace opacities, which could be due to pneumonia versus pulmonary edema in the proper clinical setting, as the central vasculature also appears prominent.
--- NOTE | ~2024-01-13 | US_ITS ---
EXAMINATION: US arterial duplex LE BI, US THALIA complete CLINICAL INFORMATION: Nonhealing ulcers COMPARISON: None TECHNIQUE: Ankle pulse volume recordings, ankle pressure measurements and ankle brachial indices were obtained of the lower extremity arterial system bilaterally in addition to duplex Doppler techniques with wave form analysis and measurement of velocities in the common femoral, profunda femoral, superficial femoral, popliteal, tibial and peroneal arteries. The study was performed only at rest. FINDINGS: RIGHT LE. THE RIGHT ANKLE-BRACHIAL INDEX IS: 1.3 2. SEGMENTAL PRESSURES (mmHg): Ankle: PT 167, DP 77 3. PVR WAVEFORMS: Ankle: Normal 4. DIRECT DUPLEX: Common femoral artery: 95.2 cm/s, Multiphasic Profunda femoris artery: 83 cm/s, biphasic Superficial femoral artery (proximal): 111.6 cm/s, Multiphasic Superficial femoral artery (mid): 118.6 cm/s, Multiphasic Superficial femoral artery (distal): 86.3 cm/s, Multiphasic Proximal Popliteal artery: 100.6 cm/s, Multiphasic Distal popliteal artery: 108.7 cm/s, Multiphasic Mid posterior tibial artery: 18.9 cm/s, monophasic Peroneal artery: 34.6 cm/s, biphasic Anterior tibial artery: 88 cm/s, multiphasic LEFT LE. THE LEFT ANKLE-BRACHIAL INDEX IS: 1.37 2. SEGMENTAL PRESSURES: Ankle: PT 186, DP 170 3. PVR WAVEFORMS: Ankle: Normal 4. DIRECT DUPLEX: Common femoral artery: 118.9 cm/s, Multiphasic Profunda femoris artery: 73.3 cm/s, biphasic Superficial femoral artery (proximal): 135.3 cm/s, Multiphasic Superficial femoral artery (mid): 141.2 cm/s, Multiphasic Superficial femoral artery (distal): 130.6 cm/s, Multiphasic Proximal Popliteal artery: 105.8 cm/s, Multiphasic Distal popliteal artery: 123.3 cm/s, Multiphasic Mid posterior tibial artery: 53.6 cm/s, Multiphasic Peroneal artery: 111 cm/s, Multiphasic Anterior tibial artery: 112 cm/s, multiphasic US/US THALIA complete IMPRESSION: 1. Mild stenosis involving the entire left superficial femoral artery. Hemodynamically significant stenosis bilaterally. 2. Elevated ABIs and ankle pressures bilaterally suggests and incompressibility.
--- NOTE | 2024-01-13 13:08 | ECG_ITS ---
Test Reason : CINTHYA Blood Pressure : / mmHG Vent. Rate : 045 BPM Atrial Rate : 045 BPM P-R Int : 260 ms QRS Dur : 088 ms QT Int : 516 ms P-R-T Axes : 053 029 007 degrees QTc Int : 446 ms Sinus bradycardia with 1st degree A-V block Low voltage QRS Inferior infarct , age undetermined Cannot rule out Anterior infarct , age undetermined Abnormal ECG When compared with ECG of 04-NOV-2023 09:50, FL interval has increased Vent. rate has decreased BY 23 BPM Referred By: Lee Vela Electronically Signed By:Jose Farfan
[2024-01-13 13:29] LABS: MANUAL DIFF FLAG NO
[2024-01-13 13:40] LABS: Basophils Percent Auto 0.3 % (0-2); Eosinophils Absolute Auto 0.1 X10*3/uL (0.0-0.4); Eosinophils Percent Auto 0.9 % (0-4); Hematocrit 34.6 % (42.0-52.0); Hemoglobin 11.6 g/dl (14.0-18.0); Imm Gran Abs Auto 0.02 X10*3/uL (0.00-0.03); Imm Gran Pct Auto 0.2 % (0.0-0.4); Lymphocytes Percent Auto 10.8 % (20-40); Mean Corpuscular HGB Conc 33.5 g/dl (31.0-36.0); Mean Corpuscular Hemoglobin 30.1 pg (27.0-33.0); Mean Corpuscular Volume 89.6 fL (80.0-98.0); Mean Platelet Volume 11.8 fL (9.4-12.4); Monocytes Percent Auto 10.9 % (2-11); Neutrophils Absolute Auto 7.3 x10*3/uL (2.0-8.3); Neutrophils Percent Auto 76.9 % (45-73); Platelet Count 186 X10*3/uL (160-400); Red Blood Count 3.86 X10*6/uL (4.60-5.80); Red Cell Distribution Width 14.4 % (11.0-16.0); White Blood Count 9.5 X10*3/uL (4.8-10.8)
[2024-01-13] MEDS: 0.9 % Sodium Chloride 1,000 ML 999 ML IV (13:41)
--- NOTE | 2024-01-13 13:42 | PC.NURSE ---
Alert but slow to respond. reports fell a few days ago with headstrike and has neck pain. Collar placed pending ct scan. rectal temp 91.9. provider notified, bear hugger placed and temp sensing benitez placed reading 90.3.
[2024-01-13 13:51] LABS: B Type Natriuretic Peptide 541 pg/mL (<100)
[2024-01-13 13:54] LABS: Alanine Aminotransferase 62 U/L (0-40); Albumin Level 3.4 g/dL (3.5-5.0); Alkaline Phosphatase 80 U/L (39-117); Anion Gap 12 (12-20); Aspartate Amino Transferase 43 U/L (5-37); Bilirubin Direct 0.3 mg/dL (0.0-0.5); Bilirubin Total 0.8 mg/dL (0.0-1.0); Blood Urea Nitrogen 42 mg/dL (9-16); Calcium 8.6 mg/dL (8.4-10.2); Carbon Dioxide 18 mmol/L (22-29); Chloride 116 mmol/L (96-108); Creatinine Clr Calc Pharmacy 56.1; Estimated Glomerular Filt Rate 48; Glucose Random 213 mg/dL (60-115); Lipase 19 U/L (8-78); Potassium 5.1 mmol/L (3.3-5.1); Sodium 141 mmol/L (135-145); Troponin-I High Sensitivity < 2.7 ng/L (<3.5-35.0)
--- NOTE | 2024-01-13 13:55 | ED.GENADULT ---
HPI - General Adult General Chief complaint: Arrhythmia/Palpitations Stated complaint: dizziness, nausea, 1st degree h block Time Seen by Provider: 01/13/24 13:08 Source: patient Mode of arrival: EMS Limitations: no limitations History of Present Illness HPI narrative: A 68-year-old male brought in from home by EMS for evaluation of dizziness and generalized weakness since this morning, no CP, no SOB. patient was found by EMS to be bradycardic at 44 beats per minute, in the emergency department patient still bradycardic at 44 beats per minute, found also to be hypothermic, no CP, no SOB, no abdominal pain. Patient sustained a mechanical fall 2 days ago causing 2 days of neck pain but no weakness or numbness in the upper extremities. Related Data Home Medications Medication Instructions Recorded Confirmed apixaban 5 mg tablet (Eliquis) 1 tab PO BID 06/28/21 11/05/22 atorvastatin 40 mg tablet 1 tab PO BEDTIME 06/28/21 11/05/22 aspirin 81 mg tablet,delayed 81 mg PO DAILY 11/05/22 11/05/22 release insulin glargine 100 unit/mL (3 40 unit subcut BEDTIME 11/05/22 11/05/22 mL) subcutaneous pen (Basaglar KwikPen U-100 Insulin) Previous Rx's Medication Instructions Recorded amlodipine 5 mg tablet 5 mg PO DAILY #30 tabs 11/09/22 walker #1 ea 11/04/23 Allergies Allergy/AdvReac Type Severity Reaction Status Date / Time Sulfa (Sulfonamide Allergy Mild HIVES Verified 11/04/23 07:59 Antibiotics) [SULFA (SULFONAMIDE ANTIBIOTICS)] penicillamine [Cuprimine] Allergy Unknown unknown Verified 11/04/23 07:59 Penicillins Allergy Unknown INKNOWN Verified 11/04/23 07:59 sulfacetamide Allergy Unknown rash Verified 11/04/23 07:59 Review of Systems Review of Systems: All other systems are reviewed and are negative Constitutional: Reports as per HPI and Reports no additional constitutional complaints Eyes: Reports as per HPI and Reports no additional eye complaints Reports system reviewed and no additional complaints, except as documented Cardiovascular: Reports as per HPI and Reports no additional cardiovascular complaints Respiratory: Reports as per HPI and Reports no additional respiratory complaints Gastrointestinal: Reports as per HPI and Reports no additional gastrointestinal complaints Genitourinary: Reports no additional female genitourinary complaints Musculoskeletal: Reports no additional musculoskeletal complaints Skin/Breast: Reports system reviewed and no additional complaints, except as docu Psychiatric: Reports no additional psychiatric complaints Endocrine: Reports no additional endocrine complaints Hematologic/Lymphatic: Reports no additional hematologic/lymphatic complaints Allergic/Immunologic: Reports no additional allergic/immunologic complaints Reports system reviewed and no additional complaints, except as documented and Reports Abnormal speech present [facility] Past Medical History Medical History CAD (coronary artery disease) HLD (hyperlipidemia) CKD (chronic kidney disease), stage III CVA (cerebral vascular accident) Atrial fibrillation Type 2 diabetes mellitus Surgical History Stented coronary artery H/O cardiac radiofrequency ablation Social History Social History Household Members: Family Housing: House Do you presently have visiting nurse or other home services: No Unable to assess alcohol history related to: Unknown Alcohol intake: former Patient Tobacco Use Status: Never used Tobacco Smoked in Last 30 Days: No Use of substances other than those prescribed or required for medical reasons: No Advance Directives: Yes Advance Directives on File: Yes Advance Directives Date on File: 11/10/22 service: No Current occupational status: retired Physical Exam ED Vital Signs: Vital Signs - 24 hr 01/13/24 13:04 01/13/24 13:43 01/13/24 15:08 Temperature 91.9 F L Pulse Rate 44 L 43 L 43 L Respiratory Rate 18 18 16 Blood Pressure 115/58 L 97/54 L Pulse Oximetry 94 96 98 Oxygen Delivery Method Nasal Cannula Nasal Cannula Nasal Cannula Oxygen Flow Rate 3 3 01/13/24 15:14 01/13/24 15:23 01/13/24 16:09 Temperature 91.8 F L 91.9 F L 92.7 F L Pulse Rate 42 L 43 L Respiratory Rate 18 16 Blood Pressure 103/57 L 111/59 L Pulse Oximetry 98 98 Oxygen Delivery Method Nasal Cannula Room Air Oxygen Flow Rate 3 01/13/24 16:24 Temperature 93 F L Pulse Rate Respiratory Rate Blood Pressure Pulse Oximetry Oxygen Delivery Method Oxygen Flow Rate BMI result Body Mass Index 31.2 Vital signs have been reviewed and appear to be correct. Blood pressure elevated. Heart rate Low. Respiratory rate normal. Temperature normal. Oxygen saturation normal. Appearance: Alert. Oriented X3. No acute distress. Head: Normal external exam. Normocephalic. Atraumatic. No Malone signs noted. No raccoon eyes noted Eyes: PERRLA. EOMI. Conjunctiva and sclera normal. Eyelids normal. ENT: TM's Normal. Pharynx normal. Uvula midline. Moist mucous membranes. No trismus noted. No drooling noted. No muffled voice noted. Neck: Normal inspection. Neck supple. FROM. No adenopathy. Thyroid Normal. No meningeal signs. No neck mass noted. CVS: low heart rate with normal rhythm. Heart sound normal, No murmurs noted. Pulses normal throughout. Respiratory: No respiratory distress. Painless inspiration. Breath sounds normal. No wheezes/rales/rhonchi noted. Chest nontender. No accessory muscle usage noted or decreased air movement noted. Abdomen: Soft and nontender. Bowel sounds normal in all 4 quadrants. No distention noted. No organomegaly noted. No visible injury noted. Back: No CVA tenderness. Full range of motion noted. Skin: Skin warm and dry. Normal skin color. Normal skin turgor. No rashes/lesions/lacerations noted. Extremities: No lower extremity edema. Extremities exhibit normal range of motion. Extremities nontender. Neuro: Oriented X 3. Cranial nerve exam: II-XII are grossly intact No motor deficit. No sensory deficit. Reflexes normal. Course Reevaluation(s) Reevaluation #1: A 68-year-old came in with hypothermia likely secondary to pneumonia no severe sepsis or septic shock will cover with Levaquin. Hypothermia 91 improving with Elisabeth Hugger rewarming now is 93. TSH/ T4 still pending. Case discussed with Dr. Rae to admit await for temperature to reach 94 to come to the floor. Acute on chronic kidney injury Will gently hydrate. patient is on metoprolol at home which could be causing patient's bradycardia, will keep monitoring, will check thyroid function. Pneumonia, with no sepsis will start on Levaquin patient is allergic to penicillins. Case discussed with Dr. Corley patient is stable hemodynamically can be on the floor not a candidate to ICU at the Present time. Time: 16:29 Medications Administered Discontinued Medications Generic Name Dose Route Start Last Admin Trade Name Freq PRN Reason Stop Dose Admin Sodium Chloride 1,000 mls @ 999 mls/hr 01/13/24 13:32 01/13/24 14:37 Ns IV 01/13/24 14:32 Infused .Q1H1M ONE Infusion Medical Decision Making Differential Diagnosis Differential Diagnoses: The differential diagnosis associated with the presentation includes ( Hypothermia, bradycardia, pneumonia, pneumothorax, Severe anemia, pneumothorax, ACS, dysrhythmia, CHF, myxedema,, thyroid disease disorder, CHF , Electrolyte derangement.) Admission/Observation Consideration of admission/observation: Escalation of care including admission/observation considered Consult Healthcare Provider Management of the patient was discussed with: Hospitalist (Dr. Rae) Lab Data MDM Lab Attestation statement: I reviewed the patient's lab results. 01/13/24 13:24 01/13/24 13:24 Labs: Lab Results 01/13/24 01/13/24 01/13/24 Range/Units 13:24 13:50 13:57 WBC 9.5 (4.8-10.8) X10*3/uL RBC 3.86 L (4.60-5.80) X10*6/uL Hgb 11.6 L (14.0-18.0) g/dl Hct 34.6 L (42.0-52.0) % MCV 89.6 (80.0-98.0) fL MCH 30.1 (27.0-33.0) pg MCHC 33.5 (31.0-36.0) g/dl RDW 14.4 (11.0-16.0) % Plt Count 186 (160-400) X10*3/uL MPV 11.8 (9.4-12.4) fL Immature Gran % (Auto) 0.2 (0.0-0.4) % Neut % (Auto) 76.9 H (45-73) % Lymph % (Auto) 10.8 L (20-40) % [place] % (Auto) 10.9 (2-11) % Eos % (Auto) 0.9 (0-4) % Baso % (Auto) 0.3 (0-2) % Lymph # (Auto) 1.0 L (1.2-4.9) X10*3/uL [place] # (Auto) 1.0 (0.1-1.2) X10*3/uL Eos # (Auto) 0.1 (0.0-0.4) X10*3/uL Baso # (Auto) 0.0 (0.0-0.2) X10*3/uL Abs Immat Gran (auto) 0.02 (0.00-0.03) X10*3/uL Absolute Neuts (auto) 7.3 (2.0-8.3) x10*3/uL Absolute Nucleated RBC 0.000 (0.0-0.012) X10*3/uL Nucleated RBC % (auto) 0.0 (0.0-0.2) /100WBC Hold Blue Top SEE NOTE Sodium 141 (135-145) mmol/L Potassium 5.1 D (3.3-5.1) mmol/L Chloride 116 H (96-108) mmol/L Carbon Dioxide 18 L (22-29) mmol/L Anion Gap 12 (12-20) BUN 42 H (9-16) mg/dL Creatinine 1.44 H (0.5-1.4) mg/dL Estim Creat Clear Calc 56.1 Estimated GFR 48 Random Glucose 213 H (60-115) mg/dL Lactic Acid 0.8 (0.5-2.0) mmol/L Calcium 8.6 (8.4-10.2) mg/dL Total Bilirubin 0.8 (0.0-1.0) mg/dL Direct Bilirubin 0.3 (0.0-0.5) mg/dL AST 43 H (5-37) U/L ALT 62 H (0-40) U/L Alkaline Phosphatase 80 (39-117) U/L Troponin I High Sens < 2.7 D (<3.5-35.0) ng/L B-Natriuretic Peptide 541 H (<100) pg/mL Total Protein 6.0 L (6.5-8.0) g/dL Albumin 3.4 L (3.5-5.0) g/dL Lipase 19 (8-78) U/L Urine Color Yellow Urine Appearance Clear Urine pH 5.0 (5.0-9.0) Ur Specific [place] 1.020 (1.005-1.025) Urine Protein 30 (1+) H (Neg-Trace) mg/dL Urine Glucose (UA) 500 H (Negative) mg/dL Urine Ketones Negative (Negative) mg/dL Urine Blood Trace H (Negative) Urine Nitrite Negative (Negative) Ur Leukocyte Esterase Negative (Negative) Urine RBC 3-5 H (0-2) /HPF Urine WBC 0-5 (0-5) /HPF Ur Squamous Epith Cells 0-2 (0-2) /HPF Urine Bacteria None Seen (None Seen) Hyaline Casts 0-2 (0-2) /LPF Influenza Type A (PCR) NEGATIVE (Negative) Influenza Type B (PCR) NEGATIVE (Negative) RSV RNA Qual (PCR) NEGATIVE (Negative) SARS-CoV-2 RNA (RT-PCR) NEGATIVE (Negative) Independent Interpretation I performed an independent interpretation of an: Plain X-Ray (chest: Right perihilar and left basilar airspace opacities, which could be due to pneumonia versus pulmonary edema in the proper clinical setting, as the central vasculature also appears prominent. ) Radiology Impression Discussion of test interpretation with radiology: I have reviewed the radiologist's reading. Critical Care Time Critical Care Time Critical Care Time: Yes Total Critical Care Time: 45 Attestation: I spent 45 minutes providing critical care service to the patient, this including time spent at the bedside to evaluate the patient, reassess the patient, monitoring vital signs, review labs, and radiographic studies, counseling the patient/family, discussing the case with consultants, disposition the patient. Discharge Plan Discharge Clinical Impression: Hypothermia, Bradycardia, Pneumonia Patient Disposition: Admitted As Inpatient
--- NOTE | 2024-01-13 14:04 | PC.NURSE ---
right pupil sluggish to respond to light, provider aware CT ordered
[2024-01-13 14:09] LABS: Influenza A PCR NEGATIVE (Negative); Influenza B PCR NEGATIVE (Negative); Resp Syncy Virus RNA Qual PCR NEGATIVE (Negative); SARS COV2 PCR INHOUSE NEGATIVE (Negative)
[2024-01-13 14:09] LABS: Appearance Urine Clear; Color Urine Yellow; Glucose Urine UA 500 mg/dL (Negative); Leukocyte Esterase Urine Negative (Negative); Nitrite Urine Negative (Negative); UMIC TRIGGER UACC YES; Urine Blood Trace (Negative); Urine Ketones Negative (Negative); Urine Protein 30 (1+) mg/dL (Neg-Trace)
[2024-01-13 14:13] LABS: Lactic Acid 0.8 mmol/L (0.5-2.0)
[2024-01-13 14:14] LABS: Bacteria Urine None Seen (None Seen); Hyaline Casts Urine 0-2 /LPF (0-2); Squamous Epithelial Cell Urine 0-2 /HPF (0-2); WBC Urine 0-5 /HPF (0-5)
--- NOTE | 2024-01-13 15:14 | PC.NURSE ---
Daughter at bedside update on current condition. Patient remains arousable to verbal stimuli. Upon insetion temp delonte benitez registering temp of 90. Temp now 91.8
[2024-01-13] MEDS: levoFLOXacin/D5W 750 MG/150 ML PIGGYBACK 100 MG IV (16:46)
--- NOTE | 2024-01-13 16:51 | PC.NURSE ---
Alert and oriented, aware plan is to be admitted. Kee cath draining clear yellow urine
[2024-01-13 17:16] LABS: TSH reflex Free T4 9.23 uIU/mL (0.32-4.0)
--- NOTE | 2024-01-13 17:29 | PC.NURSE ---
benitez with small amount of blood in tubing, Dr. Rae notified stated to notify ED provider. Dr. Rea notified. Patient reports no pain or discomfort from cath site
[2024-01-13 17:52] LABS: Free T4 (Free Thyroxine) 0.82 ng/dL (0.71-1.85)
--- NOTE | 2024-01-13 18:01 | PHA.MEDREC ---
Pharmacy Consult ? Medication Reconciliation Pharmacy has completed the medication reconciliation. Pt no longer takes amlodipine.
[2024-01-13] MEDS: Hydrocortisone Sod Succ/PF 100 MG VIAL IVPUSH (18:25)
--- NOTE | 2024-01-13 18:28 | PC.NURSE ---
sating 96%b on 2 liters
[2024-01-13] MEDS: Levothyroxine Sodium 100 MCG/5 ML VIAL 75 MCG IVPUSH (18:39)
--- NOTE | 2024-01-13 18:46 | PC.NURSE ---
Patient reports he may have tugged on catheter because it was bothering him. Kee draining blood tinged urine
--- NOTE | 2024-01-13 19:35 | P.HPHOSP_ITS ---
History of Present Illness Date of Service: 01/13/24 Attending physician on admission: Ron Muniz Chief Complaint: Harry River is a 68 years old man with past medical history significant for atrial fibrillation on chronic anticoagulation with Eliquis (on metoprolol), CKD stage 3, type 2 diabetes mellitus on insulin, CVA, CAD and hyperlipidemia was brought to the emergency department due to dizziness, nausea and bradycardia. The patient is a very vague historian however he mentioned feeling generalized weak. He complained of generalized abdominal discomfort, he denied vomiting or diarrhea. He denies shortness or breath or chest pain. In the ED, he was found to have an initial temperature of 91.9 degrees and bradycardia in the 40s. His last blood pressure is 100/59. Oxygen saturation is normal on room air. Blood workup is remarkable for elevated creatinine, 1.44. GFR is 56.1 Bicarb is 18 and chloride is elevated. Other electrolytes are normal. LFTs There is no lactic acidosis. TSH is 9.23 and normal free T4. Urinalysis showed mild proteinuria, elevated glucose, trace blood, RBC 3-5 and normal WBC. CXR showed right perihilar and left bibasilar airspace opacities pneumonia versus pulmonary edema. Head and C-spine CT scan showed no acute findings. ED tx: NS 1 L bolus, levothyroxine 750 mg IV, Solu-Cortef 100 mg IV and levothyroxine 75 mcg IV. Review of Systems 2 Review of Systems: Yes Unobtainable due to mental condition [facility] Medical History (Updated 01/13/24 @ 20:06 by Ron Muniz MD) CAD (coronary artery disease) HLD (hyperlipidemia) CKD (chronic kidney disease), stage III CVA (cerebral vascular accident) Atrial fibrillation Type 2 diabetes mellitus Surgical History Stented coronary artery H/O cardiac radiofrequency ablation Social History Household Members: Family Housing: House Do you presently have visiting nurse or other home services: No Unable to assess alcohol history related to: Unknown Alcohol intake: former Patient Tobacco Use Status: Never used Tobacco Smoked in Last 30 Days: No Use of substances other than those prescribed or required for medical reasons: No Advance Directives: Yes Advance Directives on File: Yes Advance Directives Date on File: 11/10/22 service: No Current occupational status: retired Meds Allergies Allergy/AdvReac Type Severity Reaction Status Date / Time Sulfa (Sulfonamide Allergy Mild HIVES Verified 11/04/23 07:59 Antibiotics) [SULFA (SULFONAMIDE ANTIBIOTICS)] penicillamine [Cuprimine] Allergy Unknown unknown Verified 11/04/23 07:59 Penicillins Allergy Unknown INKNOWN Verified 11/04/23 07:59 sulfacetamide Allergy Unknown rash Verified 11/04/23 07:59 Active Medications: Current Medications Ceftriaxone Sodium 1 gm/ (Sodium Chloride) 50 mls @ 100 mls/hr IV Q24H ALAN Metronidazole (Flagyl) 500 mg in 100 mls @ 100 mls/hr IV Q8H ALAN Levothyroxine Sodium (Levothyroxine Sodium 100 Mcg/5 Ml Vial) 12.5 mcg IVPUSH DAILY ALAN Sodium Chloride (0.9 % Sodium Chloride Flush 3 Ml Syringe) 3 ml IVFLUSH QSHIFT ALAN Home Medications Medication Instructions Recorded Confirmed Last Taken Type apixaban 5 mg tablet (Eliquis) 1 tab PO BID 06/28/21 01/13/24 11/04/22 History aspirin 81 mg tablet,delayed 81 mg PO DAILY 11/05/22 01/13/24 Unknown History release insulin glargine 100 unit/mL (3 32 unit subcut BEDTIME 11/05/22 01/13/24 11/04/22 History mL) subcutaneous pen (Basaglar KwikPen U-100 Insulin) atorvastatin 80 mg tablet 40 mg PO BEDTIME 01/13/24 01/13/24 Unknown History diphenoxylate-atropine 2.5 2 tab PO BID PRN Diarrhea 01/13/24 01/13/24 Unknown History mg-0.025 mg tablet isosorbide mononitrate 30 mg 30 mg PO BEDTIME 01/13/24 01/13/24 Unknown History tablet,extended release 24 hr metoprolol tartrate 25 mg tablet 25 mg PO BID 01/13/24 01/13/24 Unknown History Physical Exam 2 Vital Signs and Narrative: Vital Signs: Last Vital Signs Temp 94.5 F L 01/13/24 18:24 Pulse 49 L 01/13/24 18:24 Resp 18 01/13/24 18:24 BP 100/59 L 01/13/24 18:24 Pulse Ox 96 01/13/24 18:28 O2 Del Method Nasal Cannula 01/13/24 18:28 O2 Flow Rate 2 01/13/24 18:28 BMI result Body Mass Index 31.2 Constitutional - Awake and Alert, acutely ill. HEENT - Pupils equally round. Normal sclerae. Heart - Bradycardia, irregular rhythm. No murmur. Lungs - Normal lung expansion, poor inspiratory effort, No respiratory distress, decreased breath sound at bases. Abdomen - +BS, mildly distended, generalized tenderness to palpation without rebound or guarding. Extremities - mild pitting edema Musculoskeletal - Normal inspection, normal ROM Skin - Warm/Dry Neurological - Alert & oriented x3. No focal weakness grossly noted. Normal speech. Psychological - Depressed affect Results Labs 01/13/24 13:24 01/13/24 13:24 Labs: Laboratory Results - last 24 hr 01/13/24 01/13/24 01/13/24 13:24 13:50 13:57 MCV 89.6 MCH 30.1 MCHC 33.5 RDW 14.4 Plt Count 186 MPV 11.8 Immature Gran % (Auto) 0.2 Neut % (Auto) 76.9 H Lymph % (Auto) 10.8 L [place] % (Auto) 10.9 Eos % (Auto) 0.9 Baso % (Auto) 0.3 Lymph # (Auto) 1.0 L [place] # (Auto) 1.0 Eos # (Auto) 0.1 Baso # (Auto) 0.0 Abs Immat Gran (auto) 0.02 Absolute Neuts (auto) 7.3 Absolute Nucleated RBC 0.000 Nucleated RBC % (auto) 0.0 Hold Blue Top SEE NOTE Anion Gap 12 Estim Creat Clear Calc 56.1 Estimated GFR 48 Random Glucose 213 H Lactic Acid 0.8 Calcium 8.6 Total Bilirubin 0.8 Direct Bilirubin 0.3 AST 43 H ALT 62 H Alkaline Phosphatase 80 Troponin I High Sens < 2.7 D B-Natriuretic Peptide 541 H Total Protein 6.0 L Albumin 3.4 L Lipase 19 TSH 9.23 H Free T4 0.82 Urine Color Yellow Urine Appearance Clear Urine pH 5.0 Ur Specific [place] 1.020 Urine Protein 30 (1+) H Urine Glucose (UA) 500 H Urine Ketones Negative Urine Blood Trace H Urine Nitrite Negative Ur Leukocyte Esterase Negative Urine RBC 3-5 H Urine WBC 0-5 Ur Squamous Epith Cells 0-2 Urine Bacteria None Seen Hyaline Casts 0-2 Influenza Type A (PCR) NEGATIVE Influenza Type B (PCR) NEGATIVE RSV RNA Qual (PCR) NEGATIVE SARS-CoV-2 RNA (RT-PCR) NEGATIVE ABG Attestation: I personally reviewed and interpreted this ABG as follows: (Sinus bradycardia, first-degree AV block. Heart rate 45 beats per minutes. Q-waves lead III and AVF. No acute ischemia.) Imaging Radiologist's Impressions: Impressions Cervical Spine CT 01/13/24 14:45 IMPRESSION: 1. No acute intracranial pathology. 2. There is moderate patchy low attenuation change in the periventricular white matter spaces, commonly associated with chronic microangiopathy. 3. There is paranasal sinusitis. EXAMINATION: CT CERVICAL SPINE WITHOUT CONTRAST CLINICAL INFORMATION: Neck pain status-post fall. COMPARISON: None available. TECHNIQUE: Contiguous axial imaging was performed through the cervical spine without intravenous administration of contrast. Multiplanar reformatted images are submitted. The examination is somewhat limited by motion artifact. This CT examination was performed using dose optimization techniques as appropriate, variously including the following: *Automated exposure control *Adjustment of mA and/or kV according to patient size (this includes techniques or standardized protocols for targeted exams where dose is matched to indication/reason for exam; i.e. extremities or head) *Use of iterative reconstruction technique DLP: As above FINDINGS: Vertebral body heights and alignment are normal. At C5-C6 and C6-C7, moderate disc space narrowing, with associated endplate arthropathy. The remaining disc spaces are well-maintained. No acute fracture or spondylolisthesis is seen. The posterior elements are intact. There is no prevertebral soft tissue swelling. The dens is intact. The bilateral lung apices are clear. IMPRESSION: At C5-C6 and C6-C7, there is moderate degenerative disc disease, with endplate arthropathy. No acute fracture or spondylolisthesis is seen. Fleischner guidelines were followed. Head CT 01/13/24 14:45 IMPRESSION: 1. No acute intracranial pathology. 2. There is moderate patchy low attenuation change in the periventricular white matter spaces, commonly associated with chronic microangiopathy. 3. There is paranasal sinusitis. EXAMINATION: CT CERVICAL SPINE WITHOUT CONTRAST CLINICAL INFORMATION: Neck pain status-post fall. COMPARISON: None available. TECHNIQUE: Contiguous axial imaging was performed through the cervical spine without intravenous administration of contrast. Multiplanar reformatted images are submitted. The examination is somewhat limited by motion artifact. This CT examination was performed using dose optimization techniques as appropriate, variously including the following: *Automated exposure control *Adjustment of mA and/or kV according to patient size (this includes techniques or standardized protocols for targeted exams where dose is matched to indication/reason for exam; i.e. extremities or head) *Use of iterative reconstruction technique DLP: As above FINDINGS: Vertebral body heights and alignment are normal. At C5-C6 and C6-C7, moderate disc space narrowing, with associated endplate arthropathy. The remaining disc spaces are well-maintained. No acute fracture or spondylolisthesis is seen. The posterior elements are intact. There is no prevertebral soft tissue swelling. The dens is intact. The bilateral lung apices are clear. IMPRESSION: At C5-C6 and C6-C7, there is moderate degenerative disc disease, with endplate arthropathy. No acute fracture or spondylolisthesis is seen. Fleischner guidelines were followed. Chest X-Ray 01/13/24 15:35 IMPRESSION: Right perihilar and left basilar airspace opacities, which could be due to pneumonia versus pulmonary edema in the proper clinical setting, as the central vasculature also appears prominent. Assessment and Plan (1) Bradycardia: Status: Acute (2) Hypothermia: Status: Acute (3) Pneumonia: Status: Acute (4) Hypothyroid: Status: Acute (5) Elevated liver transaminase level: Status: Acute Plan Kiko River is a 68 years old man admitted with: * Pneumonia, suspected aspiration + concern for associated pulmonary edema. No sepsis criteria: Temp 91.9 on arrival. Admit to hospitalist service. Telemetry. Pulse oximetry. Start treatment with ceftriaxone and Flagyl. Start low-dose Lasix. Blood cultures obtained -will follow results. Recheck BNP. * Hypothermia and bradycardia secondary to hypothyroidism. Telemetry. Continue to monitor temperature. Continue warming blankets. Hold metoprolol. Continue low-dose levothyroxine. Check TTE. If bradycardia we will consider Cardiology consult. * Elevated ALT and AST. Possible secondary to congestion. Atorvastatin induced? Continue to monitor for now. * Type 2 diabetes mellitus. Blood glucose monitoring before meals and bedtime. Insulin sliding scale. Diabetic diet. * Hematuria, traumatic after indwelling urinary catheter insertion. Hold aspirin and Eliquis. Continue to monitor for now. * CKD, stage 3. Continue to monitor renal function. Avoid nephrotoxic agents. * History of CAD and CVA. Aspirin and Eliquis on hold due to hematuria. Continue statin and isosorbide (if BP allows). * Hyperlipidemia. Continue statin. DVT prophylaxis: SCDs Code status: Full Patient will need hospitalization for at least 2 midnights for pneumonia treatment with IV antibiotics as well as bradycardia and hypothermia treatment that is presumed to be secondary to hypothyroidism with levothyroxine, warming blanket and close monitoring of vital signs. Quality Stroke Does the patient have a stroke diagnosis?: No VTE Prior VTE?: No VTE Risk Level:: Medical - moderate - high VTE Device Contraindication: N/A - Device Ordered VTE Drug Contraindication: Treatment Not Indicated
[2024-01-13 20:06] LABS: Cortisol Random 15.6 ug/dL
[2024-01-13 22:18] LABS: Hematocrit 35.6 % (42.0-52.0); Hemoglobin 11.9 g/dl (14.0-18.0)
[2024-01-13] MEDS: Isosorbide Mononitrate 30 MG TAB.ER.24H PO (22:46)
[2024-01-13] MEDS: Atorvastatin Calcium 40 MG TABLET PO (22:46)
[2024-01-13] MEDS: Insulin Lispro 100 UNIT/ML 3 ML VIAL SUBCUT (22:56)
[2024-01-13 23:03] LABS: Glucose, Whole Blood 163 mg/dL (60-115)
[2024-01-13 23:03] LABS: Glucose, Whole Blood 163 mg/dL (60-115)
[2024-01-14 03:22] VITALS: BP 114/56; PULSE 65; RESP 20; TEMP 36.2; O2SAT 97
[2024-01-14] MEDS: 0.9 % Sodium Chloride Flush 3 ML SYRINGE IVFLUSH ×4 (04:39→21:51)
[2024-01-14 05:17] VITALS: BMI 31.2
[2024-01-14 06:51] LABS: MANUAL DIFF FLAG NO
[2024-01-14 06:56] LABS: Basophils Percent Auto 0.2 % (0-2); Eosinophils Percent Auto 0.1 % (0-4); Hematocrit 33.7 % (42.0-52.0); Hemoglobin 11.2 g/dl (14.0-18.0); Imm Gran Abs Auto 0.06 X10*3/uL (0.00-0.03); Imm Gran Pct Auto 0.5 % (0.0-0.4); Lymphocytes Absolute Auto 0.9 X10*3/uL (1.2-4.9); Lymphocytes Percent Auto 8.5 % (20-40); Mean Corpuscular HGB Conc 33.2 g/dl (31.0-36.0); Mean Corpuscular Hemoglobin 30.4 pg (27.0-33.0); Mean Corpuscular Volume 91.6 fL (80.0-98.0); Mean Platelet Volume 11.8 fL (9.4-12.4); Monocytes Absolute Auto 1.1 X10*3/uL (0.1-1.2); Monocytes Percent Auto 9.7 % (2-11); Neutrophils Absolute Auto 8.9 x10*3/uL (2.0-8.3); Platelet Count 192 X10*3/uL (160-400); Red Blood Count 3.68 X10*6/uL (4.60-5.80); Red Cell Distribution Width 14.6 % (11.0-16.0)
[2024-01-14 07:11] LABS: Alanine Aminotransferase 50 U/L (0-40); Albumin Level 3.3 g/dL (3.5-5.0); Alkaline Phosphatase 74 U/L (39-117); Anion Gap 10 (12-20); Aspartate Amino Transferase 29 U/L (5-37); Bilirubin Total 0.8 mg/dL (0.0-1.0); Blood Urea Nitrogen 40 mg/dL (9-16); Calcium 8.9 mg/dL (8.4-10.2); Carbon Dioxide 19 mmol/L (22-29); Chloride 118 mmol/L (96-108); Creatinine Clr Calc Pharmacy 50.8; Estimated Glomerular Filt Rate 43; Glucose Random 125 mg/dL (60-115); Potassium 4.4 mmol/L (3.3-5.1); Sodium 143 mmol/L (135-145); Total Protein 5.7 g/dL (6.5-8.0)
[2024-01-14 07:45] VITALS: BP 123/62; PULSE 65; RESP 20; TEMP 35.8; O2SAT 97
[2024-01-14 08:23] LABS: Glucose, Whole Blood 90 mg/dL (60-115)
[2024-01-14] MEDS: metroNIDAZOLE/NS 500 MG/100 ML PIGGYBACK 100 MG IV (09:15)
[2024-01-14] MEDS: cefTRIAXone sodium 1 GM in 0.9 % Sodium Chloride 50 ML IV (09:15)
[2024-01-14] MEDS: Furosemide 20 MG/2 ML VIAL IVPUSH (09:16)
[2024-01-14] MEDS: Levothyroxine Sodium 100 MCG/5 ML VIAL 12.5 MCG IVPUSH (09:16)
--- NOTE | 2024-01-14 10:13 | MHC.CM.PN ---
IMM 01/14/24, Pt lives with family and they help take care of him, no home health services in the home, medical equip: walker, shower bench. HCP on file and confirmed, names; Leigh and Adrian. PCP is: Jose D, transport home from family. Pt has not used [facility] or been to [facility] before. There are 5 steps to get into the home. Pt is a , he does not use [facility] at this time. CM to follow and assist with DC plan.
[2024-01-14 11:36] VITALS: BP 123/64; PULSE 66; RESP 20; TEMP 35.9; O2SAT 97
[2024-01-14 11:42] LABS: Glucose, Whole Blood 157 mg/dL (60-115)
--- NOTE | 2024-01-14 11:55 | P.PNIM_ITS ---
Subjective Subjective Date of Service: 01/14/24 Interval History: seen and examined this morning follow up for hypothermia, pneumonia feeling better this am Review of Systems Review of Systems: Yes all other systems are reviewed and are negative Constitutional Constitutional: Denies chills and Denies fever(s) Cardiovascular Cardiovascular: Denies chest pain and Denies palpitations Respiratory Respiratory: Denies cough Gastrointestinal Gastrointestinal: Denies abdominal pain Endocrine Endocrine: Denies palpitations Physical Exam 2 Vital Signs: Vital Signs: Last Vital Signs Temp 96.6 F L 01/14/24 11:36 Pulse 66 01/14/24 11:36 Resp 20 01/14/24 11:36 BP 123/64 01/14/24 11:36 Pulse Ox 97 01/14/24 11:36 O2 Del Method Nasal Cannula 01/14/24 11:36 O2 Flow Rate 2 01/14/24 11:36 BMI result Body Mass Index 31.2 Const: General: cooperative, comfortable, no acute distress, alert and awake Nutritional Appearance: average body habitus Orientation/consciousness: p atient oriented x3 Resp: Effort & Inspection: normal respiratory effort, able to speak in complete sentences, no respiratory distress and no use of accessory muscles A uscultation: clear to auscultation bilaterally Cardio: Rate: regular rate GI: Inspection: No distended Palpation (GI): Soft to palpation and nontender Neuro: General: patient oriented x3, moves all extremities and CN's II-XI intact bilaterally Extrem: Other: b/l leg edema Objective Data Active Medications Atorvastatin Calcium (Atorvastatin Calcium 40 Mg Tablet) 40 mg PO BEDTIME COUNT INCLUDES THE [facility] Last Admin: 01/13/24 22:46 Dose: 40 mg Documented By: SHAYY Dextrose (Dextrose 50 % 25 Gm/50 Ml Syringe) 25 gm IVPUSH Q15M PRN; Protocol PRN Reason: per Hypoglycemia Standing Ord. Diphenoxylate HCl/Atropine (Diphenoxylate/Atrop 2.5/0.025 Tablet) 2 tab PO BID PRN PRN Reason: Diarrhea Furosemide (Furosemide 20 Mg/2 Ml Vial) 20 mg IVPUSH DAILY COUNT INCLUDES THE [facility]; Protocol Last Admin: 01/14/24 09:16 Dose: 20 mg Documented By: NEHA Glucose (Glucose Gel 15 Gm Gel..Gram.) 15 gm PO Q15M PRN; Protocol PRN Reason: per Hypoglycemia Standing Ord. Ceftriaxone Sodium 1 gm/ (Sodium Chloride) 50 mls @ 100 mls/hr IV Q24H COUNT INCLUDES THE [facility] Last Infusion: 01/14/24 10:01 Dose: Infused Documented By: NEHA Metronidazole (Flagyl) 500 mg in 100 mls @ 100 mls/hr IV Q8H COUNT INCLUDES THE [facility] Last Infusion: 01/14/24 10:15 Dose: Infused Documented By: NEHA Insulin Human Lispro (Insulin Lispro 100 Unit/Ml 3 Ml Vial) 0 unit SUBCUT QIDACHS COUNT INCLUDES THE [facility]; Protocol Last Admin: 01/14/24 08:29 Dose: Not Given Documented By: NEHA Non-Admin Reason: No Insulin Coverage Isosorbide Mononitrate (Isosorbide Mononitrate 30 Mg Tab.Er.24h) 30 mg PO BEDTIME COUNT INCLUDES THE [facility]; Protocol Last Admin: 01/13/24 22:46 Dose: 30 mg Documented By: SHAYY Levothyroxine Sodium (Levothyroxine Sodium 100 Mcg/5 Ml Vial) 12.5 mcg IVPUSH DAILY COUNT INCLUDES THE [facility] Last Admin: 01/14/24 09:16 Dose: 12.5 mcg Documented By: NEHA Sodium Chloride (0.9 % Sodium Chloride Flush 3 Ml Syringe) 3 ml IVFLUSH QSHIFT COUNT INCLUDES THE [facility] Last Admin: 01/14/24 09:17 Dose: 3 ml Documented By: NEHA Labs 01/14/24 06:34 01/14/24 06:34 Labs: Laboratory Results - last 24 hr 01/13/24 01/13/24 01/13/24 13:24 13:50 13:57 MCV 89.6 MCH 30.1 MCHC 33.5 RDW 14.4 Plt Count 186 MPV 11.8 Immature Gran % (Auto) 0.2 Neut % (Auto) 76.9 H Lymph % (Auto) 10.8 L [place] % (Auto) 10.9 Eos % (Auto) 0.9 Baso % (Auto) 0.3 Lymph # (Auto) 1.0 L [place] # (Auto) 1.0 Eos # (Auto) 0.1 Baso # (Auto) 0.0 Abs Immat Gran (auto) 0.02 Absolute Neuts (auto) 7.3 Absolute Nucleated RBC 0.000 Nucleated RBC % (auto) 0.0 Hold Blue Top SEE NOTE Anion Gap 12 Estim Creat Clear Calc 56.1 Estimated GFR 48 POC Glucose Random Glucose 213 H Lactic Acid 0.8 Calcium 8.6 Total Bilirubin 0.8 Direct Bilirubin 0.3 AST 43 H ALT 62 H Alkaline Phosphatase 80 Troponin I High Sens < 2.7 D B-Natriuretic Peptide 541 H Total Protein 6.0 L Albumin 3.4 L Lipase 19 TSH 9.23 H Free T4 0.82 Random Cortisol 15.6 Urine Color Yellow Urine Appearance Clear Urine pH 5.0 Ur Specific [place] 1.020 Urine Protein 30 (1+) H Urine Glucose (UA) 500 H Urine Ketones Negative Urine Blood Trace H Urine Nitrite Negative Ur Leukocyte Esterase Negative Urine RBC 3-5 H Urine WBC 0-5 Ur Squamous Epith Cells 0-2 Urine Bacteria None Seen Hyaline Casts 0-2 Influenza Type A (PCR) NEGATIVE Influenza Type B (PCR) NEGATIVE RSV RNA Qual (PCR) NEGATIVE SARS-CoV-2 RNA (RT-PCR) NEGATIVE 01/13/24 01/13/24 01/14/24 22:44 22:51 06:34 MCV 91.6 MCH 30.4 MCHC 33.2 RDW 14.6 Plt Count 192 MPV 11.8 Immature Gran % (Auto) 0.5 H Neut % (Auto) 81.0 H Lymph % (Auto) 8.5 L [place] % (Auto) 9.7 Eos % (Auto) 0.1 Baso % (Auto) 0.2 Lymph # (Auto) 0.9 L [place] # (Auto) 1.1 Eos # (Auto) 0.0 Baso # (Auto) 0.0 Abs Immat Gran (auto) 0.06 H Absolute Neuts (auto) 8.9 H Absolute Nucleated RBC 0.000 Nucleated RBC % (auto) 0.0 Hold Blue Top Anion Gap 10 L Estim Creat Clear Calc 50.8 Estimated GFR 43 POC Glucose 163 H 163 H Random Glucose 125 H Lactic Acid Calcium 8.9 Total Bilirubin 0.8 Direct Bilirubin AST 29 ALT 50 H Alkaline Phosphatase 74 Troponin I High Sens B-Natriuretic Peptide Total Protein 5.7 L Albumin 3.3 L Lipase TSH Free T4 Random Cortisol Urine Color Urine Appearance Urine pH Ur Specific [place] Urine Protein Urine Glucose (UA) Urine Ketones Urine Blood Urine Nitrite Ur Leukocyte Esterase Urine RBC Urine WBC Ur Squamous Epith Cells Urine Bacteria Hyaline Casts Influenza Type A (PCR) Influenza Type B (PCR) RSV RNA Qual (PCR) SARS-CoV-2 RNA (RT-PCR) 01/14/24 01/14/24 08:19 11:38 MCV MCH MCHC RDW Plt Count MPV Immature Gran % (Auto) Neut % (Auto) Lymph % (Auto) [place] % (Auto) Eos % (Auto) Baso % (Auto) Lymph # (Auto) [place] # (Auto) Eos # (Auto) Baso # (Auto) Abs Immat Gran (auto) Absolute Neuts (auto) Absolute Nucleated RBC Nucleated RBC % (auto) Hold Blue Top Anion Gap Estim Creat Clear Calc Estimated GFR POC Glucose 90 157 H Random Glucose Lactic Acid Calcium Total Bilirubin Direct Bilirubin AST ALT Alkaline Phosphatase Troponin I High Sens B-Natriuretic Peptide Total Protein Albumin Lipase TSH Free T4 Random Cortisol Urine Color Urine Appearance Urine pH Ur Specific [place] Urine Protein Urine Glucose (UA) Urine Ketones Urine Blood Urine Nitrite Ur Leukocyte Esterase Urine RBC Urine WBC Ur Squamous Epith Cells Urine Bacteria Hyaline Casts Influenza Type A (PCR) Influenza Type B (PCR) RSV RNA Qual (PCR) SARS-CoV-2 RNA (RT-PCR) Assessment and Plan (1) Bradycardia: Status: Acute (2) Hypothermia: Status: Acute Plan This is a 68 year old male with history of CAD, CKD, CVA, HLD, T2DM, atrial fibrillation on eliquis presented with dizziness and weakness found to be hypothermic Abnormal CXR no respiratory symptoms BNP elevated, received a dose of IV lasix, renal function trending up. will stop lasix and monitor will check procalcitonin, if low will d/c abx blood cultures pending wean oxygen Hypothermia and bradycardia possibly secondary to hypothyroidism. TSH high, but free t4 normal indicating subclinical hypothyroidism, but given presentation with hypothermia and bradycardia, will continue low dose synthroid hypothermia improved, HR improved to 60s - BB remains on hold recommend repeat thyroid function in 4-6 weeks echo pending for bradycardia Hematuria traumatic after indwelling urinary catheter insertion Hold aspirin and Eliquis follow cbc JODI on CKD, stage 3. creatinine trending up slightly to 1.29 stop IV lasix dizziness pt reports he presented due to dizziness but is no longer dizzy he reports chronic unsteady gait and frequent falls PT eval Elevated ALT and AST. trending down Type 2 diabetes mellitus. lantus on hold - reported hypoglycemia at home follow POCs continue ADA diet, SSI paroxysmal atrial fibrillation hold BB due to bradycardia hold eliquis due to hematuria History of CAD and CVA. Aspirin and Eliquis on hold due to hematuria. Continue statin and isosorbide Hyperlipidemia. Continue statin. chronic diarrhea continue lomotil DVT prophylaxis: SCDs Code status: Full Requires ongoing inpatient stay for close monitoring of heart rate and core temperature Quality Stroke Does the patient have a stroke diagnosis?: No VTE Prior VTE?: No VTE Risk Level:: Medical - moderate - high VTE Device Contraindication: N/A - Device Ordered VTE Drug Contraindication: Treatment Not Indicated
[2024-01-14] MEDS: Insulin Lispro 100 UNIT/ML 3 ML VIAL SUBCUT (11:59)
[2024-01-14 12:59] LABS: Procalcitonin 12.95 ng/mL
[2024-01-14 15:52] VITALS: BP 97/54; PULSE 62; RESP 20; TEMP 35.8; O2SAT 97
[2024-01-14 16:05] LABS: Glucose, Whole Blood 111 mg/dL (60-115)
[2024-01-14] MEDS: Azithromycin 500 MG in 0.9 % Sodium Chloride 250 ML 125 MG IV (17:19)
[2024-01-14 19:46] VITALS: BP 102/62; PULSE 64; RESP 16; TEMP 36.2; O2SAT 98
[2024-01-14 20:09] LABS: Glucose, Whole Blood 115 mg/dL (60-115)
[2024-01-14] MEDS: Isosorbide Mononitrate 30 MG TAB.ER.24H PO (21:50)
[2024-01-14] MEDS: Atorvastatin Calcium 40 MG TABLET PO (21:50)
[2024-01-14 23:36] VITALS: BP 113/61; PULSE 65; RESP 16; TEMP 36.3; O2SAT 96
[2024-01-15] VITALS (7 sets, daily range): BP systolic 125–153; BP diastolic 59–80; PULSE 63–90; RESP 16–20; TEMP 35.8–36.8; O2SAT 95–97
[2024-01-15] MEDS: Levothyroxine Sodium 50 MCG TABLET PO (05:18)
[2024-01-15 05:58] LABS: Hematocrit 33.7 % (42.0-52.0); Hemoglobin 10.9 g/dl (14.0-18.0); Mean Corpuscular HGB Conc 32.3 g/dl (31.0-36.0); Mean Corpuscular Volume 92.8 fL (80.0-98.0); Mean Platelet Volume 11.5 fL (9.4-12.4); Platelet Count 177 X10*3/uL (160-400); Red Blood Count 3.63 X10*6/uL (4.60-5.80); Red Cell Distribution Width 14.5 % (11.0-16.0); White Blood Count 9.3 X10*3/uL (4.8-10.8)
[2024-01-15 06:10] LABS: Estimated Average Glucose 171 mg/dL; Hemoglobin A1c % 7.6 % (<6.0)
[2024-01-15 06:13] LABS: Anion Gap 12 (12-20); Blood Urea Nitrogen 41 mg/dL (9-16); Calcium 8.4 mg/dL (8.4-10.2); Carbon Dioxide 18 mmol/L (22-29); Chloride 118 mmol/L (96-108); Creatinine Clr Calc Pharmacy 45.4; Estimated Glomerular Filt Rate 38; Glucose Random 98 mg/dL (60-115); Potassium 4.2 mmol/L (3.3-5.1); Sodium 144 mmol/L (135-145)
--- NOTE | 2024-01-15 07:00 | CA_ITS ---
Transthoracic Echocardiogram Patient (Last, First, Middle): Kiko River, Gender: Male Date of : 1955 Age: 68 Procedure Date: 01/15/2024 Procedure Type: Transthoracic Echocardiogram Location: [facility] [place] Height: 177.8 cm Weight: 81.65 kg BSA: 2.00 m2 Heart Rate: bpm [employer]idential [employer] Auditor: Referring MD: Ron Muniz MD Symptoms: Bradycardia, pulmonary edema Study Quality: Adequate ECG Rhythm: Sinus Conclusions: - Normal left ventricular cavity size. There is severely increased left ventricular wall thickness. The left ventricular systolic function is normal. The visually estimated ejection fraction is between 60-65%. There is no evidence of regional wall motion abnormalities. Diastolic function is normal for age. - There is borderline right ventricular systolic function. RV is moderate to severely dilated. - Significantly elevated right atrial pressure. Severe pulmonary hypertension is present. Findings Procedure Information Contrast agent, definity, is being given per protocol without apparent complications. Left Ventricle Normal left ventricular cavity size. There is severely increased left ventricular wall thickness. The left ventricular systolic function is normal. The visually estimated ejection fraction is between 60-65%. There is no evidence of regional wall motion abnormalities. Diastolic function is normal for age. Right Ventricle There is borderline right ventricular systolic function. RV is moderate to severely dilated. Atria The left atrium is normal in size. Aortic Valve The aortic valve structure and function is likely normal. There is no aortic valve stenosis. There is no aortic valve regurgitation. Mitral Valve The mitral valve appears normal. There is trace mitral valve regurgitation. There is no mitral valve stenosis. Pulmonic Valve The pulmonic valve was not well visualized. Tricuspid Valve Likely normal tricuspid valve structure and function. There is mild tricuspid valve regurgitation. The right ventricular systolic pressure is 75 mmHg. Significantly elevated right atrial pressure. Severe pulmonary hypertension is present. Great Vessels All visible segments of the aorta are normal in size. Venous The inferior vena cava is dilated and does not collapse with inspiration. Pericardium/Pleural There is no evidence of pericardial effusion. Measurements 2D Linear Measurements IVSd: 1.42 0.6-0.9/0.6-1.0 cm LVIDd: 3.07 3.9-5.3/4.2-5.9 cm LVIDd Index: 1.54 2.4-3.2/2.2-3.1 cm/m2 LVIDs: 2.12 2.0-3.6 cm LVPWd: 1.41 0.7-1.1 cm Ao Root: 3.50 2.1-3.5 cm LA Diam: 4.20 2.7-3.8/3.0-4.0 cm LAIDs Index: 2.10 1.5-2.3 cm/m2 LV Mass: 183.50 67-162/88-224 g LV Mass Index: 91.75 43-95/49-115 g/m2 LVOT Diam: 2.00 3.0+(-)1.3 cm Mitral Valve MV VTI: 0.29 MV Pk Darion: 1.41 MV Mn Darion: 0.86 MV Pk Grad: 8.00 MV Mn Grad: 4.00 MV Pk E: 1.21 MV Decel Time: 153.00 E'Lateral: 12.30 E'Medial: 15.90 E/E' Med: 7.60 E/E' Lat: 9.80 PHT: 45.00 MVA PHT: 4.89 MVA Continuity: 1.39 Decel Briscoe: 7.92 Aortic Valve AoV Pk Darion: 1.27 AoV Mn Darion: 0.84 AoV VTI: 0.29 AoV Pk Grad: 6.00 Aov Mn Grad: 3.00 DEEP Cont.VTI: 1.38 LVOT LVOT Pk Darion: 0.64 LVOT Mn Darion: 0.45 LVOT VTI: 0.13 LVOT Pk Grad: 2.00 LVOT Mn Grad: 1.00 LVOT Diam: 2.00 LVOT Area: 3.14 Diastolic Function MV Pk E: 1.21 E'Medial: 15.90 E/E' Med: 7.60 E' Laterial: 12.30 E/E' Lat: 9.80 Right Ventricle TAPSE (mm): 34.00 Tricuspid Valve TR Pk Darion: 3.68 TR Pk Grad: 54.00 RA Press: 15.00 RVSP: 75.00 Great Vessels Aorta Ao Root-2D: 3.50 2.0-3.7 cm Ao Asc: 3.20 2.1-3.4 cm Pulmonary Valve PV Pk Darion: 1.36 Peak PV Grad: 7.00 Updated in Other Vendor System with Status of Final Jose Farfan MD electronically signed on 01/16/2024 12:38:52 PM with status of Final
[2024-01-15 07:17] LABS: Glucose, Whole Blood 92 mg/dL (60-115)
[2024-01-15] MEDS: 0.9 % Sodium Chloride Flush 3 ML SYRINGE IVFLUSH ×3 (08:19→20:27)
[2024-01-15] MEDS: cefTRIAXone sodium 1 GM in 0.9 % Sodium Chloride 50 ML IV (08:19)
--- NOTE | 2024-01-15 11:07 | P.PNIM_ITS ---
Subjective Subjective Date of Service: 01/15/24 Interval History: seen and examined this morning follow up for hypothermia, pneumonia feeling better this am Review of Systems Review of Systems: Yes all other systems are reviewed and are negative Constitutional Constitutional: Denies chills and Denies fever(s) Cardiovascular Cardiovascular: Denies chest pain and Denies palpitations Respiratory Respiratory: Denies cough Gastrointestinal Gastrointestinal: Denies abdominal pain Endocrine Endocrine: Denies palpitations Physical Exam 2 Vital Signs: Vital Signs: Last Vital Signs Temp 97.3 F 01/15/24 08:00 Pulse 71 01/15/24 08:30 Resp 20 01/15/24 08:00 BP 139/66 01/15/24 08:30 Pulse Ox 95 01/15/24 08:30 O2 Del Method Room Air 01/15/24 08:00 O2 Flow Rate 1 01/15/24 03:36 BMI result Body Mass Index 31.2 Objective Data Active Medications Atorvastatin Calcium (Atorvastatin Calcium 40 Mg Tablet) 40 mg PO BEDTIME [facility] Last Admin: 01/14/24 21:50 Dose: 40 mg Documented By: JUAN PABLO Dextrose (Dextrose 50 % 25 Gm/50 Ml Syringe) 25 gm IVPUSH Q15M PRN; Protocol PRN Reason: per Hypoglycemia Standing Ord. Diphenoxylate HCl/Atropine (Diphenoxylate/Atrop 2.5/0.025 Tablet) 2 tab PO BID PRN PRN Reason: Diarrhea Glucose (Glucose Gel 15 Gm Gel..Gram.) 15 gm PO Q15M PRN; Protocol PRN Reason: per Hypoglycemia Standing Ord. Ceftriaxone Sodium 1 gm/ (Sodium Chloride) 50 mls @ 100 mls/hr IV Q24H [facility] Last Infusion: 01/15/24 08:57 Dose: Infused Documented By: RUBY Azithromycin 500 mg/ Sodium (Chloride) 250 mls @ 125 mls/hr IV Q24H [facility] Last Infusion: 01/14/24 19:29 Dose: Infused Documented By: NEHA Insulin Human Lispro (Insulin Lispro 100 Unit/Ml 3 Ml Vial) 0 unit SUBCUT QIDACHS [facility]; Protocol Last Admin: 01/15/24 07:25 Dose: Not Given Documented By: RUBY Non-Admin Reason: No Insulin Coverage Isosorbide Mononitrate (Isosorbide Mononitrate 30 Mg Tab.Er.24h) 30 mg PO BEDTIME [facility]; Protocol Last Admin: 01/14/24 21:50 Dose: 30 mg Documented By: JUAN PABLO Levothyroxine Sodium (Levothyroxine Sodium 50 Mcg Tablet) 50 mcg PO DAILY@0600 [facility] Last Admin: 01/15/24 05:18 Dose: 50 mcg Documented By: DWAYNE Sodium Chloride (0.9 % Sodium Chloride Flush 3 Ml Syringe) 3 ml IVFLUSH QSHIFT [facility] Last Admin: 01/15/24 08:19 Dose: 3 ml Documented By: RUBY Labs 01/15/24 05:30 01/15/24 05:30 Labs: Laboratory Results - last 24 hr 01/14/24 01/14/24 01/14/24 06:34 11:38 15:56 MCV MCH MCHC RDW Plt Count MPV Absolute Nucleated RBC Nucleated RBC % (auto) Anion Gap Estim Creat Clear Calc Estimated GFR POC Glucose 157 H 111 Random Glucose Estimat Average Glucose Hemoglobin A1c % Calcium Procalcitonin 12.95 01/14/24 01/15/24 01/15/24 19:49 05:30 07:11 MCV 92.8 MCH 30.0 MCHC 32.3 RDW 14.5 Plt Count 177 MPV 11.5 Absolute Nucleated RBC 0.000 Nucleated RBC % (auto) 0.0 Anion Gap 12 Estim Creat Clear Calc 45.4 Estimated GFR 38 POC Glucose 115 92 Random Glucose 98 Estimat Average Glucose 171 Hemoglobin A1c % 7.6 H Calcium 8.4 Procalcitonin Microbiology Microbiology Results: Microbiology 01/13/24 13:50 Blood Culture - Preliminary Blood - Arterial No growth after 24 hours. 01/13/24 13:57 Blood Culture - Preliminary Blood - Arterial No growth after 24 hours. Assessment and Plan (1) Bradycardia: Status: Acute (2) Hypothermia: Status: Acute Plan 68 year old male with history of CAD, CKD, CVA, HLD, T2DM, atrial fibrillation on eliquis presented with dizziness and weakness found to be hypothermic Acute hypoxic resp failure secodnary to CAP BNP elevated, received a dose of IV lasix, renal function trending up. lasix stopped procalcitonin 12.9 blood cultures neg after 24 hrs wean oxygen overnight sleep study while inpatient Hypothermia and bradycardia possibly secondary to hypothyroidism. TSH 9.23, but free t4 normal indicating subclinical hypothyroidism, but given presentation with hypothermia and bradycardia, will continue low dose synthroid hypothermia improved, HR improved to 60s, 70s - BB remains on hold recommend repeat thyroid function in 4-6 weeks echo pending for bradycardia Hematuria traumatic after indwelling urinary catheter insertion Hold aspirin and Eliquis follow cbc JODI on CKD, stage 3. creatinine trending 1.78 stop IV lasix echo ordered Elevated ALT and AST. trending down Type 2 diabetes mellitus. lantus on hold - reported hypoglycemia at home follow POCs continue ADA diet, SSI paroxysmal atrial fibrillation hold BB due to bradycardia hold eliquis due to hematuria History of CAD and CVA. Aspirin and Eliquis on hold due to hematuria. Continue statin and isosorbide Hyperlipidemia. Continue statin. chronic diarrhea continue lomotil DVT prophylaxis: SCDs Attending Dr. Lopez Code status: Full DISPO PT rec home with PT Requires ongoing inpatient stay for close monitoring of heart rate and core temperature Quality Stroke Does the patient have a stroke diagnosis?: No VTE Prior VTE?: No VTE Risk Level:: Medical - moderate - high VTE Device Contraindication: N/A - Device Ordered VTE Drug Contraindication: Treatment Not Indicated
[2024-01-15 11:23] LABS: Glucose, Whole Blood 142 mg/dL (60-115)
[2024-01-15 16:16] LABS: Glucose, Whole Blood 159 mg/dL (60-115)
[2024-01-15] MEDS: Azithromycin 500 MG in 0.9 % Sodium Chloride 250 ML 125 MG IV (16:36)
[2024-01-15] MEDS: Insulin Lispro 100 UNIT/ML 3 ML VIAL SUBCUT (16:36)
--- NOTE | 2024-01-15 17:05 | HO.WOUND ---
Wound Consult: Initial 68yr old?Male admitted to [facility] on 01/13/24 - See progress notes and H&P for detailed history.? Wound consult placed for Bilateral Toe wounds POA.? Patient agreeable to assessment and photo documentation.? Patient does not recall his wounds - he reports he is aware he has them but does not recall how he got them. He is able to report that his lower legs weep often - he reports he does not seek treatment for the leg or foot wounds. Bilateral heels were assessed for redness - they remain blanchable but are considerable red at the time of my assessment. The posterior legs are noted for scattered areas of full thickness tissue and moist weeping tissue. Bed linen noted to be stained and wet with yellow clear drainage. I suspect there is a venous component to these wounds as the feet appear to be slightly swollen. Bilateral great toes were assessed for Diabetic wounds - with adherent black scabs in place and red erythema noted in the periwound. Topical dressings applied and recommend continue Durafiber AG use and to consult vascular surgery for evaluation to rule out or in vascular etiology. +PP noted bilaterally no hemosiderin staining noted, slight swelling to bilateral feet and red erythema noted. Wounds cleansed and dressings applied and off loaded off of bed surface with pillows. Left heel and Posterior Leg Wounds Left 2nd toe Wound Right 2nd Toe wound Right Heel and Posterior Leg Wounds Recommendations: 1. Turn and Reposition every 2 hours and as needed for patient comfort.? Use pillows or wedges to support off loading positions. 2. Off Load all bony prominences with use of pillows and heel boots if needed.? Apply Preventative foams where needed. ? 3. Monitor for incontinence and moisture control, use barrier creams when needed for prevention and treatment. 4. Provide adequate and supplemental nutrition.? 5. Continue low air loss mattress. 6. Maintain blood glucose levels per Providers order. 7. Bilateral 2nd Toes and Posterior lower legs - cleanse and irrigate with NS moist gauze. Apply skin prep to periwound, cover wound bed with cut to size Durafiber AG, Dry gauze, ABD Pad and gauze wrap. Change every other day. Re-consult wound care Nurse for wound deterioration or wound changes.
[2024-01-15 19:00] LABS: B Type Natriuretic Peptide 624 pg/mL (<100)
[2024-01-15] MEDS: Isosorbide Mononitrate 30 MG TAB.ER.24H PO (20:27)
[2024-01-15] MEDS: Atorvastatin Calcium 40 MG TABLET PO (20:27)
[2024-01-15] MEDS: Diphenoxylate/Atrop 2.5/0.025 TABLET 2 TAB PO (20:35)
[2024-01-15 20:40] LABS: Glucose, Whole Blood 113 mg/dL (60-115)
--- NOTE | 2024-01-15 23:19 | PC.RT ---
pt placed on sleep study at 11:05 pm musa aware
[2024-01-16] VITALS (12 sets, daily range): BP systolic 129–166; BP diastolic 59–88; PULSE 57–70; RESP 16–20; TEMP 35.7–36.7; O2SAT 93–99
[2024-01-16] MEDS: Levothyroxine Sodium 50 MCG TABLET PO (05:50)
[2024-01-16 07:21] LABS: Glucose, Whole Blood 106 mg/dL (60-115)
[2024-01-16 07:53] LABS: Anion Gap 12 (12-20); Blood Urea Nitrogen 39 mg/dL (9-16); Calcium 9.1 mg/dL (8.4-10.2); Carbon Dioxide 23 mmol/L (22-29); Chloride 117 mmol/L (96-108); Creatinine Clr Calc Pharmacy 51.8; Estimated Glomerular Filt Rate 44; Glucose Random 107 mg/dL (60-115); Potassium 4.2 mmol/L (3.3-5.1); Sodium 148 mmol/L (135-145)
[2024-01-16] MEDS: cefTRIAXone sodium 1 GM in 0.9 % Sodium Chloride 50 ML IV (08:35)
[2024-01-16] MEDS: 0.9 % Sodium Chloride Flush 3 ML SYRINGE IVFLUSH ×3 (08:35→20:01)
--- NOTE | 2024-01-16 11:04 | HO.PM.IMPN ---
Subjective Subjective Date of Service: 01/16/24 Interval History: seen and examined this morning follow up for hypothermia, pneumonia feeling better this am Review of Systems Review of Systems: Yes all other systems are reviewed and are negative Constitutional Constitutional: Denies chills and Denies fever(s) Cardiovascular Cardiovascular: Denies chest pain and Denies palpitations Respiratory Respiratory: Denies cough Gastrointestinal Gastrointestinal: Denies abdominal pain Endocrine Endocrine: Denies palpitations Physical Exam Vital Signs: Vital Signs: Last Vital Signs Temp 97.0 F 01/16/24 07:55 Pulse 57 01/16/24 10:52 Resp 20 01/16/24 07:55 BP 138/76 01/16/24 10:52 Pulse Ox 99 01/16/24 10:52 O2 Del Method Room Air 01/16/24 07:55 O2 Flow Rate 4 01/15/24 23:39 BMI result Body Mass Index 31.2 Appearing in no acute distress lung sounds are clear to auscultation heart regular rate rhythm, clear S1, S2 positive bowel sounds, abdomen is soft, nontender neuro patient is alert x3, no focal deficits right and left heel and posterior leg wounds, right 2nd toe, left 2nd toe Objective Data Active Medications Atorvastatin Calcium (Atorvastatin Calcium 40 Mg Tablet) 40 mg PO BEDTIME [facility] Last Admin: 01/15/24 20:27 Dose: 40 mg Documented By: JUAN PABLO Dextrose (Dextrose 50 % 25 Gm/50 Ml Syringe) 25 gm IVPUSH Q15M PRN; Protocol PRN Reason: per Hypoglycemia Standing Ord. Diphenoxylate HCl/Atropine (Diphenoxylate/Atrop 2.5/0.025 Tablet) 2 tab PO BID PRN PRN Reason: Diarrhea Last Admin: 01/15/24 20:35 Dose: 2 tab Documented By: JUAN PABLO Glucose (Glucose Gel 15 Gm Gel..Gram.) 15 gm PO Q15M PRN; Protocol PRN Reason: per Hypoglycemia Standing Ord. Ceftriaxone Sodium 1 gm/ (Sodium Chloride) 50 mls @ 100 mls/hr IV Q24H [facility] Last Infusion: 01/16/24 09:18 Dose: Infused Documented By: RUBY Azithromycin 500 mg/ Sodium (Chloride) 250 mls @ 125 mls/hr IV Q24H [facility] Last Infusion: 01/15/24 20:36 Dose: Infused Documented By: JUAN PABLO Insulin Human Lispro (Insulin Lispro 100 Unit/Ml 3 Ml Vial) 0 unit SUBCUT QIDACHS [facility]; Protocol Last Admin: 01/16/24 07:21 Dose: Not Given Documented By: RUBY Non-Admin Reason: No Insulin Coverage Isosorbide Mononitrate (Isosorbide Mononitrate 30 Mg Tab.Er.24h) 30 mg PO BEDTIME [facility]; Protocol Last Admin: 01/15/24 20:27 Dose: 30 mg Documented By: JUAN PABLO Levothyroxine Sodium (Levothyroxine Sodium 50 Mcg Tablet) 50 mcg PO DAILY@0600 [facility] Last Admin: 01/16/24 05:50 Dose: 50 mcg Documented By: JUAN PABLO Sodium Chloride (0.9 % Sodium Chloride Flush 3 Ml Syringe) [facility] Last Admin: 01/16/24 08:35 Dose: 3 ml Documented By: RUBY Labs 01/15/24 05:30 01/16/24 06:45 Labs: Laboratory Results - last 24 hr 01/15/24 01/15/24 01/15/24 11:20 16:10 18:31 Hold Purple Top Anion Gap Estim Creat Clear Calc Estimated GFR POC Glucose 142 H 159 H Random Glucose Calcium B-Natriuretic Peptide 624 H 01/15/24 01/16/24 01/16/24 20:33 06:45 07:12 Hold Purple Top SEE NOTE Anion Gap 12 Estim Creat Clear Calc 51.8 Estimated GFR 44 POC Glucose 113 106 Random Glucose 107 Calcium 9.1 D B-Natriuretic Peptide Microbiology Microbiology Results: Microbiology 01/13/24 13:50 Blood Culture - Preliminary Blood - Arterial No growth after 48 hours. 01/13/24 13:57 Blood Culture - Preliminary Blood - Arterial No growth after 48 hours. Assessment and Plan (1) Bradycardia: Status: Acute (2) Hypothermia: Status: Acute Plan 68 year old male with history of CAD, CKD, CVA, HLD, T2DM, atrial fibrillation on eliquis presented with dizziness and weakness found to be hypothermic Acute hypoxic resp failure secodnary to CAP resp failure resolved BNP elevated, received a dose of IV lasix, renal function trending up. lasix stopped procalcitonin 12.9 blood cultures neg after 48 hrs off oxygen overnight sleep study tonight while inpatient Diabetic foot wounds vascular surgery consultation seen by wound nurse (see note from 01/15/24 for wound care) right and left heel and posterior leg wounds, right 2nd toe, left 2nd toe Hypothermia and bradycardia possibly secondary to hypothyroidism. TSH 9.23, but free t4 normal indicating subclinical hypothyroidism, but given presentation with hypothermia and bradycardia, will continue low dose synthroid hypothermia improved, HR improved to 60s, 70s - BB remains on hold recommend repeat thyroid function in 4-6 weeks echo pending for bradycardia Hematuria traumatic after indwelling urinary catheter insertion Hold aspirin and Eliquis follow cbc JODI on CKD, stage 3. creatinine trending 1.78 stop IV lasix echo ordered Elevated ALT and AST. trending down Type 2 diabetes mellitus. lantus on hold - reported hypoglycemia at home follow POCs continue ADA diet, SSI paroxysmal atrial fibrillation hold BB due to bradycardia hold eliquis due to hematuria History of CAD and CVA. Aspirin and Eliquis on hold due to hematuria. Continue statin and isosorbide Hyperlipidemia. Continue statin. chronic diarrhea continue lomotil DVT prophylaxis: SCDs Attending Dr. Lopez Code status: Full DISPO PT rec home with PT when medically clear Requires ongoing inpatient stay for close monitoring of resp status and necessitating overnight sleep study Quality Stroke Does the patient have a stroke diagnosis?: No VTE Prior VTE?: No VTE Risk Level:: Medical - moderate - high VTE Device Contraindication: N/A - Device Ordered VTE Drug Contraindication: Treatment Not Indicated
[2024-01-16 11:10] LABS: Glucose, Whole Blood 216 mg/dL (60-115)
[2024-01-16 11:44] LABS: B Type Natriuretic Peptide 82 pg/mL (<100)
[2024-01-16] MEDS: Insulin Lispro 100 UNIT/ML 3 ML VIAL SUBCUT ×3 (12:33→19:59)
[2024-01-16 16:05] LABS: Glucose, Whole Blood 191 mg/dL (60-115)
[2024-01-16] MEDS: Azithromycin 500 MG in 0.9 % Sodium Chloride 250 ML 125 MG IV (16:43)
[2024-01-16] MEDS: Furosemide 40 MG/4 ML VIAL IVPUSH (16:43)
[2024-01-16 19:51] LABS: Glucose, Whole Blood 219 mg/dL (60-115)
[2024-01-16] MEDS: Atorvastatin Calcium 40 MG TABLET PO (19:59)
[2024-01-16] MEDS: Isosorbide Mononitrate 30 MG TAB.ER.24H PO (19:59)
[2024-01-16] MEDS: Diphenoxylate/Atrop 2.5/0.025 TABLET 2 TAB PO (20:02)
--- NOTE | 2024-01-16 23:13 | PC.RT ---
Pt placed on Sleep Study
[2024-01-17 03:56] VITALS: BP 153/74; PULSE 66; RESP 16; TEMP 36.2; O2SAT 94
[2024-01-17] MEDS: Levothyroxine Sodium 50 MCG TABLET PO (06:05)
[2024-01-17 06:59] LABS: Anion Gap 11 (12-20); Blood Urea Nitrogen 31 mg/dL (9-16); Calcium 8.9 mg/dL (8.4-10.2); Carbon Dioxide 23 mmol/L (22-29); Chloride 116 mmol/L (96-108); Creatinine Clr Calc Pharmacy 52.8; Estimated Glomerular Filt Rate 45; Glucose Random 157 mg/dL (60-115); Potassium 3.9 mmol/L (3.3-5.1); Sodium 146 mmol/L (135-145)
[2024-01-17 07:11] VITALS: BP 137/82; PULSE 62; RESP 20; TEMP 36.2; O2SAT 98
[2024-01-17 07:29] LABS: Glucose, Whole Blood 154 mg/dL (60-115)
[2024-01-17] MEDS: Insulin Lispro 100 UNIT/ML 3 ML VIAL SUBCUT ×4 (08:38→22:39)
[2024-01-17] MEDS: Furosemide 40 MG/4 ML VIAL IVPUSH (08:39)
[2024-01-17] MEDS: cefTRIAXone sodium 1 GM in 0.9 % Sodium Chloride 50 ML IV (08:40)
--- NOTE | 2024-01-17 09:25 | P.CONCA_ITS ---
History of Present Illness History of Present Illness Date of Service: 01/17/24 Chief complaint: Pneumonia, bradycardia Narrative: [age] year gentleman who we have been asked to see for bradycardia. He has been admitted to hospital with shortness of breath and dizziness. He was noticed to be bradycardic but was also hypothermic at that time due to infection and pneumonia. He has been on antibiotics and is improving. Heart rate has improved. He is saying he is less dizzy. His breathing is better. He has some peripheral edema and his legs are currently wrapped. Echocardiography reviewed and he has severe pulmonary hypertension due to underlying lung disease. He also has moderate to severe RV dilation with borderline RV dysfunction. [facility] Past Medical History Medical History (Updated 01/17/24 @ 16:05 by Jose Farfan MD) CAD (coronary artery disease) HLD (hyperlipidemia) CKD (chronic kidney disease), stage III CVA (cerebral vascular accident) Atrial fibrillation Type 2 diabetes mellitus Surgical History Surgical History Stented coronary artery H/O cardiac radiofrequency ablation Social History Social History Household Members: Children Housing: House Do you presently have visiting nurse or other home services: No Unable to assess alcohol history related to: Unknown Alcohol intake: former Patient Tobacco Use Status: Never used Tobacco Advance Directives Date on File: 11/10/22 service: Yes Current occupational status: retired Meds Allergies Allergy/AdvReac Type Severity Reaction Status Date / Time Sulfa (Sulfonamide Allergy Mild HIVES Verified 11/04/23 07:59 Antibiotics) [SULFA (SULFONAMIDE ANTIBIOTICS)] penicillamine [Cuprimine] Allergy Unknown unknown Verified 11/04/23 07:59 Penicillins Allergy Unknown INKNOWN Verified 11/04/23 07:59 sulfacetamide Allergy Unknown rash Verified 11/04/23 07:59 Active Medications: Current Medications Atorvastatin Calcium (Atorvastatin Calcium 40 Mg Tablet) 40 mg PO BEDTIME [facility] Last Admin: 01/16/24 19:59 Dose: 40 mg Dextrose (Dextrose 50 % 25 Gm/50 Ml Syringe) 25 gm IVPUSH Q15M PRN; Protocol PRN Reason: per Hypoglycemia Standing Ord. Diphenoxylate HCl/Atropine (Diphenoxylate/Atrop 2.5/0.025 Tablet) 2 tab PO BID PRN PRN Reason: Diarrhea Last Admin: 01/16/24 20:02 Dose: 2 tab Furosemide (Furosemide 40 Mg/4 Ml Vial) 40 mg IVPUSH BID@0900,1800 [facility]; Protocol Last Admin: 01/17/24 08:39 Dose: 40 mg Glucose (Glucose Gel 15 Gm Gel..Gram.) 15 gm PO Q15M PRN; Protocol PRN Reason: per Hypoglycemia Standing Ord. Ceftriaxone Sodium 1 gm/ (Sodium Chloride) 50 mls @ 100 mls/hr IV Q24H [facility] Last Admin: 01/17/24 08:40 Dose: 100 mls/hr Azithromycin 500 mg/ Sodium (Chloride) 250 mls @ 125 mls/hr IV Q24H [facility] Last Infusion: 01/16/24 19:00 Dose: Infused Insulin Human Lispro (Insulin Lispro 100 Unit/Ml 3 Ml Vial) 0 unit SUBCUT QIDACHS [facility]; Protocol Last Admin: 01/17/24 08:38 Dose: 1 unit Isosorbide Mononitrate (Isosorbide Mononitrate 30 Mg Tab.Er.24h) 30 mg PO BEDTIME [facility]; Protocol Last Admin: 01/16/24 19:59 Dose: 30 mg Levothyroxine Sodium (Levothyroxine Sodium 50 Mcg Tablet) 50 mcg PO DAILY@0600 [facility] Last Admin: 01/17/24 06:05 Dose: 50 mcg Sodium Chloride (0.9 % Sodium Chloride Flush 3 Ml Syringe) 3 ml IVFLUSH QSHIFT [facility] Last Admin: 01/17/24 07:37 Dose: Not Given Home Medications Medication Instructions Recorded Confirmed Last Taken Type apixaban 5 mg tablet (Eliquis) 1 tab PO BID 06/28/21 01/13/24 11/04/22 History aspirin 81 mg tablet,delayed 81 mg PO DAILY 11/05/22 01/13/24 Unknown History release insulin glargine 100 unit/mL (3 32 unit subcut BEDTIME 11/05/22 01/13/24 11/04/22 History mL) subcutaneous pen (Basaglar KwikPen U-100 Insulin) atorvastatin 80 mg tablet 40 mg PO BEDTIME 01/13/24 01/13/24 Unknown History diphenoxylate-atropine 2.5 2 tab PO BID PRN Diarrhea 01/13/24 01/13/24 Unknown History mg-0.025 mg tablet isosorbide mononitrate 30 mg 30 mg PO BEDTIME 01/13/24 01/13/24 Unknown History tablet,extended release 24 hr metoprolol tartrate 25 mg tablet 25 mg PO BID 01/13/24 01/13/24 Unknown History Physical Exam 2 Vital Signs: Vital Signs: Last Vital Signs Temp 97.2 F 01/17/24 07:11 Pulse 62 01/17/24 07:11 Resp 20 01/17/24 07:11 BP 137/82 01/17/24 07:11 Pulse Ox 98 01/17/24 07:11 O2 Del Method Room Air 01/17/24 07:11 O2 Flow Rate 4 01/15/24 23:39 BMI result Body Mass Index 31.2 GENERAL APPEARANCE: in no acute distress, pleasant. NECK: no carotid bruit, no jugular venous distention. SKIN: no suspicious lesions, warm and dry. HEART: no murmurs, regular rate and rhythm. LUNGS: clear to auscultation bilaterally. ABDOMEN: soft, nontender. EXTREMITIES: + edema. PERIPHERAL PULSES: equal. NEUROLOGIC: No gross deficits, AAO X 3 Objective Labs and Meds 01/15/24 05:30 01/17/24 05:50 Lab results: Laboratory Results - last 24 hr 01/16/24 01/16/24 01/16/24 10:56 11:21 16:02 Hold Purple Top Sodium Potassium Chloride Carbon Dioxide Anion Gap BUN Creatinine Estim Creat Clear Calc Estimated GFR POC Glucose 216 H 191 H Random Glucose Calcium B-Natriuretic Peptide 82 01/16/24 01/17/24 01/17/24 19:47 05:50 07:24 Hold Purple Top SEE NOTE Sodium 146 H Potassium 3.9 Chloride 116 H Carbon Dioxide 23 Anion Gap 11 L BUN 31 H Creatinine 1.53 H Estim Creat Clear Calc 52.8 Estimated GFR 45 POC Glucose 219 H 154 H Random Glucose 157 H Calcium 8.9 B-Natriuretic Peptide Imaging Radiologist's impression: Impressions Chest X-Ray 01/16/24 11:30 IMPRESSION: Bilateral perihilar and lower lung airspace disease. Differential would include pulmonary edema and pneumonia. Minimal improvement at the right base compared to January 12 recent exam. Assessment and Plan (1) Bradycardia: Status: Acute (2) Right ventricular dysfunction: Status: Acute Plan 68 year gentleman presenting for pneumonia on background of COPD. He has moderate severe RV dilation with severe pulmonary hypertension. He also had dizziness and bradycardia in the setting of hypothermia. His heart rate has recovered sees temperature improved. Hypothermia was due to pneumonia. Clinically appears to be euvolemic. Adding spironolactone which may help the RV function. Control blood pressure. On Eliquis for paroxysmal atrial fibrillation. Thank you for allowing me to participate in the care of your patient. Please feel free to contact me if you have any questions. Procedures Date of Service Date of Service: 01/17/24
--- NOTE | 2024-01-17 10:13 | P.CONGS_ITS ---
History of Present Illness Consult details Consult date: 01/17/24 Reason for consult: wound care Narrative: Very pleasant 68-year-old gentleman presents for evaluation regarding nonhealing ulcers. He presented to the hospital with significant Janine edematous legs with posterior calf ulcerations bilaterally that had been weeping a fair amount of fluid. He now presents to us for vascular evaluation. Of note upon discussion with him he does have a history of 3 prior strokes which he does have some residual deficits from. In addition he is mostly sedentary and spends a good portion of his day sitting upright with his legs in a dependent position playing his placed a méndez. Now presents to us for vascular evaluation. Review of Systems 2 Constitutional: Constitutional: Reports as per HPI ENT: Reports system reviewed and no additional complaints, except as documented Cardiovascular: Cardiovascular: Denies chest pain, Denies chest pain at rest and Denies chest pain with activity Respiratory: Respiratory: Denies chest congestion and Denies cough Gastrointestinal: Gastrointestinal: Reports no additional gastrointestinal complaints Musculoskeletal: Musculoskeletal: Denies abnormal gait Integumentary/Breasts: Skin/Breast: Reports pruritus and Denies wounds Neurologic: Reports system reviewed and no additional complaints, except as documented and Denies abnormal gait Psychiatric: Psychiatric: Denies no additional psychiatric complaints PMFSH Past Medical History Medical History (Updated 01/17/24 @ 10:15 by Anibal Stinson MD) CAD (coronary artery disease) HLD (hyperlipidemia) CKD (chronic kidney disease), stage III CVA (cerebral vascular accident) Atrial fibrillation Type 2 diabetes mellitus Surgical History Surgical History Stented coronary artery H/O cardiac radiofrequency ablation Social History Social History Household Members: Children Housing: House Do you presently have visiting nurse or other home services: No Unable to assess alcohol history related to: Unknown Alcohol intake: former Patient Tobacco Use Status: Never used Tobacco Advance Directives Date on File: 11/10/22 service: Yes Current occupational status: retired Meds Allergies Allergy/AdvReac Type Severity Reaction Status Date / Time Sulfa (Sulfonamide Allergy Mild HIVES Verified 11/04/23 07:59 Antibiotics) [SULFA (SULFONAMIDE ANTIBIOTICS)] penicillamine [Cuprimine] Allergy Unknown unknown Verified 11/04/23 07:59 Penicillins Allergy Unknown INKNOWN Verified 11/04/23 07:59 sulfacetamide Allergy Unknown rash Verified 11/04/23 07:59 Active Medications: Current Medications Atorvastatin Calcium (Atorvastatin Calcium 40 Mg Tablet) 40 mg PO BEDTIME [facility] Last Admin: 01/16/24 19:59 Dose: 40 mg Dextrose (Dextrose 50 % 25 Gm/50 Ml Syringe) 25 gm IVPUSH Q15M PRN; Protocol PRN Reason: per Hypoglycemia Standing Ord. Diphenoxylate HCl/Atropine (Diphenoxylate/Atrop 2.5/0.025 Tablet) 2 tab PO BID PRN PRN Reason: Diarrhea Last Admin: 01/16/24 20:02 Dose: 2 tab Furosemide (Furosemide 40 Mg/4 Ml Vial) 40 mg IVPUSH BID@0900,1800 [facility]; Protocol Last Admin: 01/17/24 08:39 Dose: 40 mg Glucose (Glucose Gel 15 Gm Gel..Gram.) 15 gm PO Q15M PRN; Protocol PRN Reason: per Hypoglycemia Standing Ord. Ceftriaxone Sodium 1 gm/ (Sodium Chloride) 50 mls @ 100 mls/hr IV Q24H [facility] Last Infusion: 01/17/24 09:28 Dose: Infused Azithromycin 500 mg/ Sodium (Chloride) 250 mls @ 125 mls/hr IV Q24H [facility] Last Infusion: 01/16/24 19:00 Dose: Infused Insulin Human Lispro (Insulin Lispro 100 Unit/Ml 3 Ml Vial) 0 unit SUBCUT QIDACHS [facility]; Protocol Last Admin: 01/17/24 08:38 Dose: 1 unit Isosorbide Mononitrate (Isosorbide Mononitrate 30 Mg Tab.Er.24h) 30 mg PO BEDTIME [facility]; Protocol Last Admin: 01/16/24 19:59 Dose: 30 mg Levothyroxine Sodium (Levothyroxine Sodium 50 Mcg Tablet) 50 mcg PO DAILY@0600 [facility] Last Admin: 01/17/24 06:05 Dose: 50 mcg Sodium Chloride (0.9 % Sodium Chloride Flush 3 Ml Syringe) 3 ml IVFLUSH QSHIFT [facility] Last Admin: 01/17/24 07:37 Dose: Not Given Home Medications Medication Instructions Recorded Confirmed Last Taken Type apixaban 5 mg tablet (Eliquis) 1 tab PO BID 06/28/21 01/13/24 11/04/22 History aspirin 81 mg tablet,delayed 81 mg PO DAILY 11/05/22 01/13/24 Unknown History release insulin glargine 100 unit/mL (3 32 unit subcut BEDTIME 11/05/22 01/13/24 11/04/22 History mL) subcutaneous pen (Basaglar KwikPen U-100 Insulin) atorvastatin 80 mg tablet 40 mg PO BEDTIME 01/13/24 01/13/24 Unknown History diphenoxylate-atropine 2.5 2 tab PO BID PRN Diarrhea 01/13/24 01/13/24 Unknown History mg-0.025 mg tablet isosorbide mononitrate 30 mg 30 mg PO BEDTIME 01/13/24 01/13/24 Unknown History tablet,extended release 24 hr metoprolol tartrate 25 mg tablet 25 mg PO BID 01/13/24 01/13/24 Unknown History Physical Exam 2 Vital Signs: Vital Signs: Last Vital Signs Temp 97.2 F 01/17/24 07:11 Pulse 62 01/17/24 07:11 Resp 20 01/17/24 07:11 BP 137/82 01/17/24 07:11 Pulse Ox 98 01/17/24 07:11 O2 Del Method Room Air 01/17/24 07:11 O2 Flow Rate 4 01/15/24 23:39 BMI result Body Mass Index 31.2 Const: General: cooperative, healthy appearing and comfortable O rientation/consciousness: oriented to person, oriented to place and oriented to time Neck: Carotids: no bruits Chest: Chest palpation & inspection: normal inspection of the chest and normal palpation of entire chest wall Resp: Effort & Inspection: normal respiratory effort and able to speak in complete sentences Cardio: Rate: regular rate Heart sounds: S1 normal heart sound present and S2 normal heart sound present Peripheral pulses: Peripheral pulses 2+ throughout GI: Inspection: Yes normal to inspection Skin: Other: +2 edema, posterior calf ulcer CEAP Classification C6 - calf ulcers Ep - Etiology Primary As - superficial veins P - reflux General skin exam: dry skin Neuro: General: oriented to person, oriented to place and oriented to time Extrem: Right lower extremity: full ROM, normal capillary refill and edema Left lower extremity: full ROM, normal capillary refill and edema Psych: Mental Status: mental status grossly normal Results Labs 01/15/24 05:30 01/17/24 05:50 Labs: Abnormal lab results 01/16/24 01/16/24 01/16/24 Range/Units 10:56 16:02 19:47 Sodium (135-145) mmol/L Chloride (96-108) mmol/L Anion Gap (12-20) BUN (9-16) mg/dL Creatinine (0.5-1.4) mg/dL POC Glucose 216 H 191 H 219 H (60-115) mg/dL Random Glucose (60-115) mg/dL 01/17/24 01/17/24 Range/Units 05:50 07:24 Sodium 146 H (135-145) mmol/L Chloride 116 H (96-108) mmol/L Anion Gap 11 L (12-20) BUN 31 H (9-16) mg/dL Creatinine 1.53 H (0.5-1.4) mg/dL POC Glucose 154 H (60-115) mg/dL Random Glucose 157 H (60-115) mg/dL BMP 01/17/24 05:50 Sodium 146 H Potassium 3.9 Chloride 116 H Carbon Dioxide 23 BUN 31 H Creatinine 1.53 H Calcium 8.9 Urine 01/13/24 Range/Units 13:50 Urine Color Yellow Urine Appearance Clear Urine pH 5.0 (5.0-9.0) Ur Specific Aroda 1.020 (1.005-1.025) Urine Protein 30 (1+) H (Neg-Trace) mg/dL Urine Glucose (UA) 500 H (Negative) mg/dL All other labs normal. Assessment and Plan (1) Bilateral leg ulcer: Qualifiers: Non-pressure ulcer stage: unspecified non-pressure ulcer stage Qualified Code(s): L97.919 - Non-pressure chronic ulcer of unspecified part of right lower leg with unspecified severity; L97.929 - Non-pressure chronic ulcer of unspecified part of left lower leg with unspecified severity Status: Acute Plan In short patient has nonhealing bilateral lower extremity ulcers. At the current time it appears to be doing significantly better. Patient has normal arterial supply as he does have palpable pulses and noninvasive testing appear to be within normal limits. I do believe he has a fair amount of edema. He will require outpatient venous insufficiency testing in addition to possible compressive wraps to control the edema to help heal his ulcers. We did discuss routine conservative measures including compression elevation and exercise. He will follow up with us as an outpatient. Thank you for allowing us to assist in his care. Procedures Date of Service Date of Service: 01/17/24
[2024-01-17 11:11] VITALS: BP 147/74; PULSE 82; RESP 18; TEMP 36.3; O2SAT 97
--- NOTE | 2024-01-17 11:30 | HO.PM.IMPN ---
Subjective Subjective Date of Service: 01/17/24 Interval History: seen and examined this morning follow up for hypothermia, pneumonia feeling better this am Review of Systems Review of Systems: Yes all other systems are reviewed and are negative Constitutional Constitutional: Denies chills and Denies fever(s) Cardiovascular Cardiovascular: Denies chest pain and Denies palpitations Respiratory Respiratory: Denies cough Gastrointestinal Gastrointestinal: Denies abdominal pain Endocrine Endocrine: Denies palpitations Physical Exam Vital Signs: Vital Signs: Last Vital Signs Temp 97.4 F 01/17/24 11:11 Pulse 82 01/17/24 11:11 Resp 18 01/17/24 11:11 BP 147/74 H 01/17/24 11:11 Pulse Ox 97 01/17/24 11:11 O2 Del Method Room Air 01/17/24 11:11 O2 Flow Rate 4 01/15/24 23:39 BMI result Body Mass Index 31.2 Appearing in no acute distress lung sounds are clear to auscultation heart regular rate rhythm, clear S1, S2 positive bowel sounds, abdomen is soft, nontender neuro patient is alert x3, no focal deficits Objective Data Active Medications Atorvastatin Calcium (Atorvastatin Calcium 40 Mg Tablet) 40 mg PO BEDTIME [facility] Last Admin: 01/16/24 19:59 Dose: 40 mg Documented By: ZORA Dextrose (Dextrose 50 % 25 Gm/50 Ml Syringe) 25 gm IVPUSH Q15M PRN; Protocol PRN Reason: per Hypoglycemia Standing Ord. Diphenoxylate HCl/Atropine (Diphenoxylate/Atrop 2.5/0.025 Tablet) 2 tab PO BID PRN PRN Reason: Diarrhea Last Admin: 01/16/24 20:02 Dose: 2 tab Documented By: ZORA Furosemide (Furosemide 40 Mg/4 Ml Vial) 40 mg IVPUSH BID@0900,1800 [facility]; Protocol Last Admin: 01/17/24 08:39 Dose: 40 mg Documented By: VINCENT Glucose (Glucose Gel 15 Gm Gel..Gram.) 15 gm PO Q15M PRN; Protocol PRN Reason: per Hypoglycemia Standing Ord. Ceftriaxone Sodium 1 gm/ (Sodium Chloride) 50 mls @ 100 mls/hr IV Q24H [facility] Last Infusion: 01/17/24 09:28 Dose: Infused Documented By: VINCENT Azithromycin 500 mg/ Sodium (Chloride) 250 mls @ 125 mls/hr IV Q24H [facility] Last Infusion: 01/16/24 19:00 Dose: Infused Documented By: ZORA Insulin Human Lispro (Insulin Lispro 100 Unit/Ml 3 Ml Vial) 0 unit SUBCUT QIDACHS [facility]; Protocol Last Admin: 01/17/24 08:38 Dose: 1 unit Documented By: VINCENT Isosorbide Mononitrate (Isosorbide Mononitrate 30 Mg Tab.Er.24h) 30 mg PO BEDTIME [facility]; Protocol Last Admin: 01/16/24 19:59 Dose: 30 mg Documented By: ZORA Levothyroxine Sodium (Levothyroxine Sodium 50 Mcg Tablet) 50 mcg PO DAILY@0600 [facility] Last Admin: 01/17/24 06:05 Dose: 50 mcg Documented By: ZORA Sodium Chloride (0.9 % Sodium Chloride Flush 3 Ml Syringe) 3 ml IVFLUSH QSHIFT [facility] Last Admin: 01/17/24 07:37 Dose: Not Given Documented By: VINCENT Non-Admin Reason: See Note Labs 01/15/24 05:30 01/17/24 05:50 Labs: Laboratory Results - last 24 hr 01/16/24 01/16/24 01/16/24 11:21 16:02 19:47 Hold Purple Top Anion Gap Estim Creat Clear Calc Estimated GFR POC Glucose 191 H 219 H Random Glucose Calcium B-Natriuretic Peptide 82 01/17/24 01/17/24 05:50 07:24 Hold Purple Top SEE NOTE Anion Gap 11 L Estim Creat Clear Calc 52.8 Estimated GFR 45 POC Glucose 154 H Random Glucose 157 H Calcium 8.9 B-Natriuretic Peptide Assessment and Plan (1) Bradycardia: Status: Acute (2) Hypothermia: Status: Acute Plan 68 year old male with history of CAD, CKD, CVA, HLD, T2DM, atrial fibrillation on eliquis presented with dizziness and weakness found to be hypothermic Acute hypoxic resp failure secondary to CAP resp failure resolved procalcitonin 12.9 blood cultures neg off oxygen overnight sleep study completed 01/17/24 echo showing severe pulmonary htn> will need o/p pulm follow up Diabetic foot wounds vascular surgery consultation> arterial us neg, follow up in office o/p seen by wound nurse (see note from 01/15/24 for wound care) right and left heel and posterior leg wounds, right 2nd toe, left 2nd toe Hypothermia, dizziness and bradycardia possibly secondary to hypothyroidism. TSH 9.23, but free t4 normal indicating subclinical hypothyroidism, but given presentation with hypothermia and bradycardia, will continue low dose synthroid hypothermia improved, HR improved to 60s, 70s - BB remains on hold recommend repeat thyroid function in 4-6 weeks Hematuria traumatic after indwelling urinary catheter insertion Hold aspirin restarted Eliquis follow cbc JODI on CKD, stage 3. creatinine trended down to 1.53 lasix stopped today as patient appears euvolemic Elevated ALT and AST. trending down Type 2 diabetes mellitus. lantus restarted at half dose follow POCs continue ADA diet, SSI paroxysmal atrial fibrillation hold BB due to bradycardia eliquis restarted History of CAD and CVA. Aspirin and Eliquis Continue statin and isosorbide Hyperlipidemia. Continue statin. chronic diarrhea continue lomotil DVT prophylaxis: Aruna Attending Dr. Lopez Code status: Full DISPO PT rec home with PT when medically clear Requires ongoing inpatient stay for close monitoring of resp status and necessitating overnight sleep study Quality Stroke Does the patient have a stroke diagnosis?: No VTE Prior VTE?: No VTE Risk Level:: Medical - moderate - high VTE Device Contraindication: N/A - Device Ordered VTE Drug Contraindication: Treatment Not Indicated
--- NOTE | 2024-01-17 11:32 | PC.RT ---
I spoke with patient today regarding his sleep study last night. I told him the results were pending being read by either Wisam/Jacki. He told me if he has KEVIN he refuses to wear a Cpap machine at home. He wants absolutely nothing to do with it. I tigered Franchesca Troncoso and she is aware.
[2024-01-17 11:44] LABS: Glucose, Whole Blood 212 mg/dL (60-115)
--- NOTE | 2024-01-17 14:44 | MHC.CM.PN ---
Patient requires close monitoring of his respiratory status and he is not yet medically cleared for dc. PT is recommending home with services and CM will continue to follow.
--- NOTE | 2024-01-17 15:14 | P.CDIM_ITS ---
PROVIDER RESPONSE TEXT: To clarify, the appropriate diagnosis supported by the clinical indicators: Community acquired pneumonia: none QUERY TEXT: PHYSICIAN'S DOCUMENTATION REQUEST Date of Query: 01/17/2024 08:25 AM EDT Patient Name: ALBERTO CORNELL Admit Date: 01/13/2024 Dear Franchesca Troncoso, A review of the medical record indicates additional documentation may be needed. Please review below and update the documentation accordingly. Clinical Indicators: ED: Hypothermia likely secondary to pneumonia, Levaquin H&P 01/12 - Plan: Pneumonia suspected aspiration, denied vomiting or sob. Progress notes 01/14 & 01/15 - Plan: Acute hypoxic respiratory failure secondary to CAP Based on the above, could you clarify in the Progress Notes consistency of documented type of pneumon ia: Aspiration Pneumonia Please indicate substance such as food or vomitus, oils, or other solids or liquids Community acquired pneumonia Please indicate parainfluenza, RSV, adenovirus, influenza (indicate type), etc. Other Other (explain) Clinically unable to determine (explain) Thank you, Qing Mane, CCS, CDIS Use of terms such as suspected, likely, concern for, or probable (associated with a specific diagnosi s that is being evaluated, monitored, or treated as if it exists) are acceptable and can be coded in the inpatient se tting, when documented at the time of discharge. Please use your independent medical judgment in providing your response. THIS QUERY IS PART OF THE PERMANENT MEDICAL RECORD
--- NOTE | 2024-01-17 15:14 | P.CDIM_ITS ---
PROVIDER RESPONSE TEXT: To clarify, the appropriate diagnosis supported by the clinical indicators: Hypernatremia: resolved QUERY TEXT: PHYSICIAN'S DOCUMENTATION REQUEST Date of Query: 01/17/2024 12:20 PM EDT Patient Name: ALBERTO CORNELL Admit Date: 01/13/2024 Dear Franchesca Troncoso, A review of the medical record indicates additional documentation may be needed. Please review below and update the documentation accordingly. Clinical Indicators: LAB FINDINGS: Sodium 148 H 146 H Based on the above, is there a diagnosis that correlates with the above lab findings: Hypernatremia resolved, suspected, possible etc. Labs indicate a diagnosis of (please specify) Other (explain) Clinically unable to determine (explain) Thank you, Qing Mane, CCS, CDIS Use of terms such as suspected, likely, concern for, or probable (associated with a specific diagnosi s that is being evaluated, monitored, or treated as if it exists) are acceptable and can be coded in the inpatient se tting, when documented at the time of discharge. Please use your independent medical judgment in providing your response. THIS QUERY IS PART OF THE PERMANENT MEDICAL RECORD
[2024-01-17 15:16] VITALS: BP 151/65; PULSE 72; RESP 18; TEMP 36.4; O2SAT 93
[2024-01-17] MEDS: Spironolactone 25 MG TABLET PO (15:33)
[2024-01-17 16:17] LABS: Glucose, Whole Blood 252 mg/dL (60-115)
[2024-01-17] MEDS: Azithromycin 500 MG in 0.9 % Sodium Chloride 250 ML 125 MG IV (16:27)
[2024-01-17 20:00] VITALS: BP 148/70; PULSE 73; RESP 18; TEMP 36.4; O2SAT 96
[2024-01-17] MEDS: Isosorbide Mononitrate 30 MG TAB.ER.24H PO (21:03)
[2024-01-17] MEDS: Apixaban 5 MG TABLET PO (21:03)
[2024-01-17] MEDS: Atorvastatin Calcium 40 MG TABLET PO (21:03)
[2024-01-17] MEDS: 0.9 % Sodium Chloride Flush 3 ML SYRINGE IVFLUSH (21:05)
[2024-01-17 22:15] LABS: Glucose, Whole Blood 164 mg/dL (60-115)
[2024-01-17] MEDS: Insulin Glargine,Hum.rec.anlog 100 UNIT/ML 10 ML VIAL 15 UNIT SUBCUT (22:39)
[2024-01-18] VITALS (9 sets, daily range): BP systolic 123–153; BP diastolic 63–71; PULSE 74–118; RESP 18–20; TEMP 36–36.8; O2SAT 92–97
[2024-01-18] MEDS: Levothyroxine Sodium 50 MCG TABLET PO (05:15)
[2024-01-18 07:10] LABS: Glucose, Whole Blood 121 mg/dL (60-115)
[2024-01-18] MEDS: Apixaban 5 MG TABLET PO ×2 (09:12→20:12)
[2024-01-18] MEDS: Spironolactone 25 MG TABLET PO (09:12)
--- NOTE | 2024-01-18 10:25 | HO.WOUND ---
Wound Consult: Follow up 68yr old?Male admitted to [facility] on 01/13/24 - See progress notes and H&P for detailed history.? Wound consult follow up for Bilateral Toe wounds and posterior lower leg wounds POA.? Patient agreeable to assessment and photo documentation.? Patient does not recall his wounds - he reports he is aware he has them but does not recall how he got them.? He is able to report that his lower legs weep often and reports they are often swollen.? Dr. Stinson since consulted on patient and will follow out pt for vascular studies and compression application if appropriate. Bilateral heels were assessed for redness? - they remain blanchable and intact no pressure injury noted.? The posterior legs are noted for scattered areas of full thickness tissue and moist weeping tissue ? they are now dry and no appreciable drainage noted on the linen or dressing when removed ? recommend switching to xeroform to create a moist wound healing environment? Bilateral 2nd toes were assessed for Diabetic wounds? - with adherent black scabs in place on the right with red erythema noted in the periwound. The left is moist partial thickness tissue loss.?Wounds cleansed and dressings applied and off loaded off of recliner surface with pillows. Left heel and Posterior Leg Wounds Left 2nd toe Wound Right 2nd Toe wound Right Heel and Posterior Leg Wounds Recommendations: 1. Turn and Reposition every 2 hours and as needed for patient comfort.? Use pillows or wedges to support off loading positions. 2. Off Load all bony prominences with use of pillows and heel boots if needed.? Apply Preventative foams where needed. ? 3. Monitor for incontinence and moisture control, use barrier creams when needed for prevention and treatment. 4. Provide adequate and supplemental nutrition.? 5.? Continue low air loss mattress. 6. Maintain blood glucose levels per Providers order. 7. Posterior lower legs and Left 2nd Toe ?- cleanse and irrigate with NS moist gauze.? Apply xeroform to wounds to allow for moist wound healing cover with ABD pad and gauze wrap Change daily. 8. Right 2nd Toe ? Cleanse with Betadine Daily - allow to dry leave open to air. Re-consult wound care Nurse for wound deterioration or wound changes.
[2024-01-18] MEDS: 0.9 % Sodium Chloride Flush 3 ML SYRINGE IVFLUSH ×3 (10:33→20:15)
[2024-01-18] MEDS: cefTRIAXone sodium 1 GM in 0.9 % Sodium Chloride 50 ML IV (10:33)
[2024-01-18 11:01] LABS: Glucose, Whole Blood 200 mg/dL (60-115)
[2024-01-18] MEDS: Insulin Lispro 100 UNIT/ML 3 ML VIAL SUBCUT ×3 (11:35→20:12)
--- NOTE | 2024-01-18 12:31 | PM.PNCARD ---
Subjective Subjective Date of Service: 01/18/24 Interval history: Seen examined at bedside. Denying any symptoms. Echocardiography report discussed with the patient. He is saying that he has known RV dysfunction and follows in [place] with a flight test shop mechanic. Physical Exam Vital Signs: Last Vital Signs Temp 98.3 F 01/18/24 10:59 Pulse 79 01/18/24 10:59 Resp 20 01/18/24 10:59 BP 136/66 01/18/24 10:59 Pulse Ox 95 01/18/24 10:59 O2 Del Method Room Air 01/18/24 10:59 O2 Flow Rate 2 01/18/24 04:00 BMI result Body Mass Index 31.2 GENERAL APPEARANCE: in no acute distress, pleasant. NECK: no carotid bruit, no jugular venous distention. SKIN: no suspicious lesions, warm and dry. HEART: no murmurs, regular rate and rhythm. LUNGS: clear to auscultation bilaterally. ABDOMEN: soft, nontender. EXTREMITIES: No significant edema. PERIPHERAL PULSES: equal. NEUROLOGIC: No gross deficits, AAO X 3 Objective Labs and Meds 01/15/24 05:30 01/17/24 05:50 Lab results: Laboratory Results - last 24 hr 01/17/24 01/17/24 01/18/24 16:12 21:11 06:59 POC Glucose 252 H 164 H 121 H 01/18/24 10:48 POC Glucose 200 H Imaging Radiologist's impression: Impressions Abd US [id number] 01/16/24 16:00 IMPRESSION: 1. Mild stenosis involving the entire left superficial femoral artery. Hemodynamically significant stenosis bilaterally. 2. Elevated ABIs and ankle pressures bilaterally suggests and incompressibility. Duplex Scan Lower Extremity Artery 01/16/24 16:00 IMPRESSION: 1. Mild stenosis involving the entire left superficial femoral artery. Hemodynamically significant stenosis bilaterally. 2. Elevated ABIs and ankle pressures bilaterally suggests and incompressibility. Progress Note: A&P Assessment and plan (1) Right ventricular dysfunction: Status: Acute Plan 68-year-old gentleman presenting for pneumonia and hypothermia. He was initially bradycardic due to hypothermia. Heart rate has improved. Echocardiography has shown moderate to severe RV dilation with borderline RV dysfunction with severe pulmonary hypertension. Etiology for rehabilitation is unclear. The patient is saying that he is the nonsmoker and does not have COPD but also added that he has known dysfunction of the right side of his heart and follows with flight test shop mechanic in [place]. I will check [facility] records to see if I can gather more information. He did have COVID-19 infection in October. He has been on Eliquis for atrial fibrillation. We will follow along with you. Thank you for allowing me to participate in the care of your patient. Please feel free to contact me if you have any questions. Time Spent With Patient Time: Total time managing care of this patient today ____ minutes. Progress Note: Quality Stroke Does the patient have a stroke diagnosis?: No Procedures Date of Service Date of Service: 01/18/24
--- NOTE | 2024-01-18 14:43 | HO.PM.IMPN ---
Subjective Subjective Date of Service: 01/18/24 Interval History: seen and examined this morning follow up for PNA, pulm HTN no cough, sob desaturated with PT while ambulating Review of Systems Review of Systems: Yes all other systems are reviewed and are negative Constitutional Constitutional: Denies chills and Denies fever(s) ENT Ears, Nose, Mouth, and Throat: Denies dizziness Cardiovascular Cardiovascular: Denies chest pain Neurologic Neurologic: Denies dizziness Physical Exam Vital Signs: Vital Signs: Last Vital Signs Temp 98.3 F 01/18/24 10:59 Pulse 79 01/18/24 10:59 Resp 20 01/18/24 10:59 BP 136/66 01/18/24 10:59 Pulse Ox 95 01/18/24 10:59 O2 Del Method Room Air 01/18/24 10:59 O2 Flow Rate 2 01/18/24 04:00 BMI result Body Mass Index 31.2 Const: General: cooperative, comfortable, no acute distress, alert and awake Nutritional Appearance: overweight Orientation/consciousness: patient oriented x3 Resp: Effort & Inspection: normal respiratory effort, able to speak in complete sentences, no respiratory distress and no use of accessory muscles Cardio: Rate: regular rate GI: Inspection: No distended Palpation (GI): Soft to palpation and nontender Neuro: General: patient oriented x3, moves all extremities and CN's II-XI intact bilaterally Extrem: Other: b/l legs wrapped, just wrapped by wound nurse. see pictures in wound documentation Objective Data Active Medications Apixaban (Apixaban 5 Mg Tablet) 5 mg PO BID [facility] Last Admin: 01/18/24 09:12 Dose: 5 mg Documented By: ASHOK Atorvastatin Calcium (Atorvastatin Calcium 40 Mg Tablet) 40 mg PO BEDTIME [facility] Last Admin: 01/17/24 21:03 Dose: 40 mg Documented By: RAMA Dextrose (Dextrose 50 % 25 Gm/50 Ml Syringe) 25 gm IVPUSH Q15M PRN; Protocol PRN Reason: per Hypoglycemia Standing Ord. Diphenoxylate HCl/Atropine (Diphenoxylate/Atrop 2.5/0.025 Tablet) 2 tab PO BID PRN PRN Reason: Diarrhea Last Admin: 01/16/24 20:02 Dose: 2 tab Documented By: ZORA Glucose (Glucose Gel 15 Gm Gel..Gram.) 15 gm PO Q15M PRN; Protocol PRN Reason: per Hypoglycemia Standing Ord. Ceftriaxone Sodium 1 gm/ (Sodium Chloride) 50 mls @ 100 mls/hr IV Q24H [facility] Last Infusion: 01/18/24 11:08 Dose: Infused Documented By: ASHOK Azithromycin 500 mg/ Sodium (Chloride) 250 mls @ 125 mls/hr IV Q24H [facility] Last Infusion: 01/17/24 18:48 Dose: Infused Documented By: VINCENT Insulin Glargine (Insulin Glargine,Hum.Rec.Anlog 100 Unit/Ml 10 Ml Vial) 15 unit SUBCUT BEDTIME [facility] Last Admin: 01/17/24 22:39 Dose: 15 unit Documented By: RAMA Insulin Human Lispro (Insulin Lispro 100 Unit/Ml 3 Ml Vial) 0 unit SUBCUT QIDACHS [facility]; Protocol Last Admin: 01/18/24 11:35 Dose: 2 unit Documented By: ASHOK Isosorbide Mononitrate (Isosorbide Mononitrate 30 Mg Tab.Er.24h) 30 mg PO BEDTIME [facility]; Protocol Last Admin: 01/17/24 21:03 Dose: 30 mg Documented By: RAMA Levothyroxine Sodium (Levothyroxine Sodium 50 Mcg Tablet) 50 mcg PO DAILY@0600 [facility] Last Admin: 01/18/24 05:15 Dose: 50 mcg Documented By: RAMA Sodium Chloride (0.9 % Sodium Chloride Flush 3 Ml Syringe) 3 ml IVFLUSH QSHIFT [facility] Last Admin: 01/18/24 10:33 Dose: 3 ml Documented By: ASHOK Spironolactone (Spironolactone 25 Mg Tablet) 25 mg PO DAILY [facility]; Protocol Last Admin: 01/18/24 09:12 Dose: 25 mg Documented By: ASHOK Labs 01/15/24 05:30 01/17/24 05:50 Labs: Laboratory Results - last 24 hr 01/17/24 01/17/24 01/18/24 16:12 21:11 06:59 POC Glucose 252 H 164 H 121 H 01/18/24 10:48 POC Glucose 200 H Assessment and Plan (1) Right ventricular dysfunction: Status: Acute (2) Bilateral leg ulcer: Status: Acute (3) Pneumonia: Status: Acute (4) Pulmonary hypertension: Status: Acute Plan 68 year old male with history of CAD, CKD, CVA, HLD, T2DM, atrial fibrillation on eliquis presented with dizziness and weakness found to be hypothermic Acute hypoxic resp failure secondary to CAP resp failure resolved procalcitonin 12.9 continue IV ceftriaxone, azithromycin, started 01/13 blood cultures neg off oxygen but reportedly desaturated with ambulation, home o2 eval done - does not qualify for home o2 overnight sleep study completed 01/17/24, report pending, but pt does not want CPAP echo showing severe pulmonary htn; pulm consult pending Diabetic foot wounds vascular surgery consultation> arterial us neg, follow up in office o/p seen by wound nurse (see note from 01/15/24 for wound care) right and left heel and posterior leg wounds, right 2nd toe, left 2nd toe Hypothermia, dizziness and bradycardia possibly secondary to hypothyroidism. TSH 9.23, but free t4 normal indicating subclinical hypothyroidism, but given presentation with hypothermia and bradycardia, will continue low dose synthroid hypothermia improved, HR improved to 60s, 70s - BB remains on hold recommend repeat thyroid function in 4-6 weeks Hematuria traumatic after indwelling urinary catheter insertion Hold aspirin restarted Eliquis follow cbc JODI on CKD, stage 3. creatinine trended down to 1.53 lasix stopped today as patient appears euvolemic Elevated ALT and AST. trending down Type 2 diabetes mellitus. lantus restarted at half dose follow POCs continue ADA diet, SSI paroxysmal atrial fibrillation hold BB due to bradycardia. eliquis restarted History of CAD and CVA. Aspirin and Eliquis Continue statin and isosorbide Hyperlipidemia. Continue statin. chronic diarrhea continue lomotil DVT prophylaxis: Aruna Attending Dr. Lopez Code status: Full DISPO PT rec home with PT when medically clear Requires ongoing inpatient stay for close monitoring of resp status and necessitating overnight sleep study Quality Stroke Does the patient have a stroke diagnosis?: No VTE Prior VTE?: No VTE Risk Level:: Medical - moderate - high VTE Device Contraindication: N/A - Device Ordered VTE Drug Contraindication: Treatment Not Indicated
[2024-01-18 15:40] LABS: Glucose, Whole Blood 203 mg/dL (60-115)
--- NOTE | 2024-01-18 16:30 | PM.CNPUL ---
History of Present Illness History of Present Illness Consult date: 01/18/24 Chief complaint: Pulmonary hypertension Narrative: 68-year-old gentleman nonsmoker with underlying history of AFib on Eliquis, CAD, CKD stage 3, diabetes mellitus admitted on 01/13/2024 with nausea and bradycardia down to 40s. Evaluated by Cardiology patient was treated for pulmonary edema and pneumonia. 2D echocardiogram was obtained that showed elevated right ventricular systolic pressure and known right ventricular dysfunction. Pulmonary evaluation was requested. Patient does complain of some dyspnea on exertion and orthopnea that has been improving since he has been in the hospital. Review of Systems Constitutional: Constitutional: Denies daytime sleepiness, Denies excessive sweating, Denies fatigue, Denies fever(s), Denies lethargy, Denies malaise, Denies night sweats, Denies snoring and Denies weight loss Eyes: Eyes: Denies blurry vision and Denies itchy eyes ENT: Denies nasal congestion, Denies post nasal drip, Denies sinus pain, Denies sinus pressure and Denies other ( Thrush) Cardiovascular: Cardiovascular: Denies chest pain, Reports pedal edema, Denies dyspnea, Reports dyspnea on exertion, Reports orthopnea and Denies paroxysmal nocturnal dyspnea Respiratory: Respiratory: Denies cough, Denies hemoptysis, Denies excessive phlegm production, Denies dyspnea, Reports dyspnea on exertion, Denies snoring and Denies wheezing Gastrointestinal: Gastrointestinal: Denies abdominal pain and Denies heartburn Musculoskeletal: Musculoskeletal: Denies myalgias, Denies arthralgias and Denies joint swelling Integumentary/Breasts: Skin/Breast: Denies rash Neurologic: Denies memory loss and Denies seizure-like activity Psychiatric: Psychiatric: Denies abnormal sleep pattern, Denies anxiety and Denies memory loss Endocrine: Endocrine: Denies excessive sweating, Denies fatigue and Denies heat intolerance Hematologic/Lymphatic: Hematologic/Lymphatic: Denies easy bruising Allergic/Immunologic: Allergic/Immunologic: Denies itchy eyes, Denies seasonal rhinorrhea and Denies wheezing PMFSH Past Medical History Medical History (Updated 01/18/24 @ 16:33 by Antonio Corley MD) CAD (coronary artery disease) HLD (hyperlipidemia) CKD (chronic kidney disease), stage III CVA (cerebral vascular accident) Atrial fibrillation Type 2 diabetes mellitus Surgical History Surgical History Stented coronary artery H/O cardiac radiofrequency ablation Social History Social History Household Members: Children Housing: House Do you presently have visiting nurse or other home services: No Unable to assess alcohol history related to: Unknown Alcohol intake: former Patient Tobacco Use Status: Never used Tobacco Advance Directives Date on File: 11/10/22 service: Yes Current occupational status: retired Meds Allergies Allergy/AdvReac Type Severity Reaction Status Date / Time Sulfa (Sulfonamide Allergy Mild HIVES Verified 11/04/23 07:59 Antibiotics) [SULFA (SULFONAMIDE ANTIBIOTICS)] penicillamine [Cuprimine] Allergy Unknown unknown Verified 11/04/23 07:59 Penicillins Allergy Unknown INKNOWN Verified 11/04/23 07:59 sulfacetamide Allergy Unknown rash Verified 11/04/23 07:59 Active Medications: Current Medications Apixaban (Apixaban 5 Mg Tablet) 5 mg PO BID [facility] Last Admin: 01/18/24 09:12 Dose: 5 mg Atorvastatin Calcium (Atorvastatin Calcium 40 Mg Tablet) 40 mg PO BEDTIME [facility] Last Admin: 01/17/24 21:03 Dose: 40 mg Dextrose (Dextrose 50 % 25 Gm/50 Ml Syringe) 25 gm IVPUSH Q15M PRN; Protocol PRN Reason: per Hypoglycemia Standing Ord. Diphenoxylate HCl/Atropine (Diphenoxylate/Atrop 2.5/0.025 Tablet) 2 tab PO BID PRN PRN Reason: Diarrhea Last Admin: 01/16/24 20:02 Dose: 2 tab Glucose (Glucose Gel 15 Gm Gel..Gram.) 15 gm PO Q15M PRN; Protocol PRN Reason: per Hypoglycemia Standing Ord. Ceftriaxone Sodium 1 gm/ (Sodium Chloride) 50 mls @ 100 mls/hr IV Q24H [facility] Last Infusion: 01/18/24 11:08 Dose: Infused Azithromycin 500 mg/ Sodium (Chloride) 250 mls @ 125 mls/hr IV Q24H [facility] Last Infusion: 01/17/24 18:48 Dose: Infused Insulin Glargine (Insulin Glargine,Hum.Rec.Anlog 100 Unit/Ml 10 Ml Vial) 15 unit SUBCUT BEDTIME [facility] Last Admin: 01/17/24 22:39 Dose: 15 unit Insulin Human Lispro (Insulin Lispro 100 Unit/Ml 3 Ml Vial) 0 unit SUBCUT QIDACHS [facility]; Protocol Last Admin: 01/18/24 11:35 Dose: 2 unit Isosorbide Mononitrate (Isosorbide Mononitrate 30 Mg Tab.Er.24h) 30 mg PO BEDTIME [facility]; Protocol Last Admin: 01/17/24 21:03 Dose: 30 mg Levothyroxine Sodium (Levothyroxine Sodium 50 Mcg Tablet) 50 mcg PO DAILY@0600 [facility] Last Admin: 01/18/24 05:15 Dose: 50 mcg Sodium Chloride (0.9 % Sodium Chloride Flush 3 Ml Syringe) 3 ml IVFLUSH QSHIFT [facility] Last Admin: 01/18/24 10:33 Dose: 3 ml Spironolactone (Spironolactone 25 Mg Tablet) 25 mg PO DAILY [facility]; Protocol Last Admin: 01/18/24 09:12 Dose: 25 mg Home Medications Medication Instructions Recorded Confirmed Last Taken Type apixaban 5 mg tablet (Eliquis) 1 tab PO BID 06/28/21 01/13/24 11/04/22 History aspirin 81 mg tablet,delayed 81 mg PO DAILY 11/05/22 01/13/24 Unknown History release insulin glargine 100 unit/mL (3 32 unit subcut BEDTIME 11/05/22 01/13/24 11/04/22 History mL) subcutaneous pen (Basaglar KwikPen U-100 Insulin) atorvastatin 80 mg tablet 40 mg PO BEDTIME 01/13/24 01/13/24 Unknown History diphenoxylate-atropine 2.5 2 tab PO BID PRN Diarrhea 01/13/24 01/13/24 Unknown History mg-0.025 mg tablet isosorbide mononitrate 30 mg 30 mg PO BEDTIME 01/13/24 01/13/24 Unknown History tablet,extended release 24 hr metoprolol tartrate 25 mg tablet 25 mg PO BID 01/13/24 01/13/24 Unknown History Physical Exam Vital Signs: Vital Signs: Last Vital Signs Temp 97.3 F 01/18/24 15:06 Pulse 76 01/18/24 15:06 Resp 18 01/18/24 15:06 BP 153/69 H 01/18/24 15:06 Pulse Ox 96 01/18/24 15:06 O2 Del Method Room Air 01/18/24 15:06 O2 Flow Rate 2 01/18/24 04:00 BMI result Body Mass Index 31.2 Const: General: no acute distress and alert Nutritional Appearance: not obese Orientation/consciousness: Other orientation findings ( oriented) HEENT: Head: Yes atraumatic Eyes: General: appearance normal, both eyes and all related structures Sclerae: sclerae normal EOM: EOMs intact bilaterally Neck: Neck: Yes supple Lymphatic: no lymphadenopathy noted Resp: Effort & Inspection: normal respiratory effort and no use of accessory muscles Auscultation: clear to auscultation bilaterally Cardio: Rate: regular rate Rhythm: regular rhythm Heart sounds: no gallops, no murmurs and no rubs GI: Palpation (GI): Soft to palpation and nontender Skin: General skin exam: other ( warm) Extrem: General: No clubbing, No cyanosis and Yes edema (1+ bilateral) Results Laboratory Findings 01/15/24 05:30 01/17/24 05:50 Abnormal lab findings: Abnormal Labs 01/13/24 01/13/24 01/13/24 13:24 13:50 22:12 WBC RBC 3.86 L Hgb 11.6 L 11.9 L Hct 34.6 L 35.6 L Immature Gran % (Auto) Neut % (Auto) 76.9 H Lymph % (Auto) 10.8 L Lymph # (Auto) 1.0 L Abs Immat Gran (auto) Absolute Neuts (auto) Sodium Chloride 116 H Carbon Dioxide 18 L Anion Gap BUN 42 H Creatinine 1.44 H POC Glucose Random Glucose 213 H Hemoglobin A1c % AST 43 H ALT 62 H B-Natriuretic Peptide 541 H Total Protein 6.0 L Albumin 3.4 L TSH 9.23 H Urine Protein 30 (1+) H Urine Glucose (UA) 500 H Urine Blood Trace H Urine RBC 3-5 H 01/13/24 01/13/24 01/14/24 22:44 22:51 06:34 WBC 11.0 H RBC 3.68 L Hgb 11.2 L Hct 33.7 L Immature Gran % (Auto) 0.5 H Neut % (Auto) 81.0 H Lymph % (Auto) 8.5 L Lymph # (Auto) 0.9 L Abs Immat Gran (auto) 0.06 H Absolute Neuts (auto) 8.9 H Sodium Chloride 118 H Carbon Dioxide 19 L Anion Gap 10 L BUN 40 H Creatinine 1.59 H POC Glucose 163 H 163 H Random Glucose 125 H Hemoglobin A1c % AST ALT 50 H B-Natriuretic Peptide Total Protein 5.7 L Albumin 3.3 L TSH Urine Protein Urine Glucose (UA) Urine Blood Urine RBC 01/14/24 01/15/24 01/15/24 11:38 05:30 11:20 WBC RBC 3.63 L Hgb 10.9 L Hct 33.7 L Immature Gran % (Auto) Neut % (Auto) Lymph % (Auto) Lymph # (Auto) Abs Immat Gran (auto) Absolute Neuts (auto) Sodium Chloride 118 H Carbon Dioxide 18 L Anion Gap BUN 41 H Creatinine 1.78 H POC Glucose 157 H 142 H Random Glucose Hemoglobin A1c % 7.6 H AST ALT B-Natriuretic Peptide Total Protein Albumin TSH Urine Protein Urine Glucose (UA) Urine Blood Urine RBC 01/15/24 01/15/24 01/16/24 16:10 18:31 06:45 WBC RBC Hgb Hct Immature Gran % (Auto) Neut % (Auto) Lymph % (Auto) Lymph # (Auto) Abs Immat Gran (auto) Absolute Neuts (auto) Sodium 148 H Chloride 117 H Carbon Dioxide Anion Gap BUN 39 H Creatinine 1.56 H POC Glucose 159 H Random Glucose Hemoglobin A1c % AST ALT B-Natriuretic Peptide 624 H Total Protein Albumin TSH Urine Protein Urine Glucose (UA) Urine Blood Urine RBC 01/16/24 01/16/24 01/16/24 10:56 16:02 19:47 WBC RBC Hgb Hct Immature Gran % (Auto) Neut % (Auto) Lymph % (Auto) Lymph # (Auto) Abs Immat Gran (auto) Absolute Neuts (auto) Sodium Chloride Carbon Dioxide Anion Gap BUN Creatinine POC Glucose 216 H 191 H 219 H Random Glucose Hemoglobin A1c % AST ALT B-Natriuretic Peptide Total Protein Albumin TSH Urine Protein Urine Glucose (UA) Urine Blood Urine RBC 01/17/24 01/17/24 01/17/24 05:50 07:24 11:38 WBC RBC Hgb Hct Immature Gran % (Auto) Neut % (Auto) Lymph % (Auto) Lymph # (Auto) Abs Immat Gran (auto) Absolute Neuts (auto) Sodium 146 H Chloride 116 H Carbon Dioxide Anion Gap 11 L BUN 31 H Creatinine 1.53 H POC Glucose 154 H 212 H Random Glucose 157 H Hemoglobin A1c % AST ALT B-Natriuretic Peptide Total Protein Albumin TSH Urine Protein Urine Glucose (UA) Urine Blood Urine RBC 01/17/24 01/17/24 01/18/24 16:12 21:11 06:59 WBC RBC Hgb Hct Immature Gran % (Auto) Neut % (Auto) Lymph % (Auto) Lymph # (Auto) Abs Immat Gran (auto) Absolute Neuts (auto) Sodium Chloride Carbon Dioxide Anion Gap BUN Creatinine POC Glucose 252 H 164 H 121 H Random Glucose Hemoglobin A1c % AST ALT B-Natriuretic Peptide Total Protein Albumin TSH Urine Protein Urine Glucose (UA) Urine Blood Urine RBC 01/18/24 01/18/24 10:48 15:36 WBC RBC Hgb Hct Immature Gran % (Auto) Neut % (Auto) Lymph % (Auto) Lymph # (Auto) Abs Immat Gran (auto) Absolute Neuts (auto) Sodium Chloride Carbon Dioxide Anion Gap BUN Creatinine POC Glucose 200 H 203 H Random Glucose Hemoglobin A1c % AST ALT B-Natriuretic Peptide Total Protein Albumin TSH Urine Protein Urine Glucose (UA) Urine Blood Urine RBC Microbiology: Microbiology 01/13/24 13:50 Blood - Arterial Blood Culture - Final No growth after 5 days. 01/13/24 13:57 Blood - Arterial Blood Culture - Final No growth after 5 days. Assessment and Plan (1) Pulmonary hypertension: Status: Acute (2) Right ventricular dysfunction: Status: Acute (3) Nocturnal hypoxemia: Status: Acute Plan Impression: 68-year-old gentleman with underlying AFib/CAD admitted with nausea/bradycardia and treated for pneumonia/pulmonary edema, now with newly noted elevated pulmonary pressures on the background of known right ventricular dysfunction, also noted to have nocturnal hypoxemia. Recommendations: Suggests overnight oximetry and if appropriate discharged on supplemental oxygen at night, as patient is not interested in CPAP therapy. If Cardiology deems patient to be euvolemic, next step would be right heart catheterization on outpatient basis. Procedures Date of Service Date of Service: 01/18/24
[2024-01-18] MEDS: Azithromycin 500 MG in 0.9 % Sodium Chloride 250 ML 125 MG IV (17:37)
[2024-01-18 19:53] LABS: Glucose, Whole Blood 187 mg/dL (60-115)
[2024-01-18] MEDS: Atorvastatin Calcium 40 MG TABLET PO (20:12)
[2024-01-18] MEDS: Isosorbide Mononitrate 30 MG TAB.ER.24H PO (20:12)
[2024-01-18] MEDS: Insulin Glargine,Hum.rec.anlog 100 UNIT/ML 10 ML VIAL 15 UNIT SUBCUT (20:13)
--- NOTE | 2024-01-18 23:07 | PC.RT ---
Started NOC Oximetry at 2300 on RA; IVIS aware
--- NOTE | 2024-01-19 01:10 | PC.RT ---
Pt placed on .5L O2 0100
[2024-01-19 03:12] VITALS: BP 144/67; PULSE 73; RESP 18; TEMP 36; O2SAT 94
[2024-01-19 04:47] LABS: ABG Base Excess 3.9 mmol/L; ABG HCO3 27 mmol/L (22-26); ABG pCO2 39 mmHg (32-45); ABG pH 7.45 (7.35-7.45); ABG pO2 70 mmHg (83-108)
[2024-01-19 05:04] LABS: ABG Refer to POC result
[2024-01-19] MEDS: Levothyroxine Sodium 50 MCG TABLET PO (05:45)
[2024-01-19 07:16] LABS: Glucose, Whole Blood 84 mg/dL (60-115)
[2024-01-19 07:19] VITALS: BP 165/74; PULSE 78; RESP 20; TEMP 36; O2SAT 95
[2024-01-19] MEDS: cefTRIAXone sodium 1 GM in 0.9 % Sodium Chloride 50 ML IV (09:49)
[2024-01-19] MEDS: Spironolactone 25 MG TABLET PO (09:49)
[2024-01-19] MEDS: Apixaban 5 MG TABLET PO (09:49)
[2024-01-19] MEDS: 0.9 % Sodium Chloride Flush 3 ML SYRINGE IVFLUSH (09:51)
[2024-01-19] MEDS: Diphenoxylate/Atrop 2.5/0.025 TABLET 2 TAB PO (09:54)
[2024-01-19 10:15] VITALS: BP 165/74; PULSE 78; O2SAT 95
--- NOTE | 2024-01-19 10:47 | P.PNCA_ITS ---
Subjective Subjective Date of Service: 01/19/24 Interval history: Seen examined at bedside. Feeling better. Physical Exam Vital Signs: Last Vital Signs Temp 96.8 F 01/19/24 07:19 Pulse 78 01/19/24 10:15 Resp 20 01/19/24 07:19 BP 165/74 H 01/19/24 10:15 Pulse Ox 95 01/19/24 10:15 O2 Del Method Nasal Cannula 01/19/24 07:19 O2 Flow Rate 1 01/19/24 07:19 BMI result Body Mass Index 31.2 GENERAL APPEARANCE: in no acute distress, pleasant. NECK: no carotid bruit, no jugular venous distention. SKIN: no suspicious lesions, warm and dry. HEART: no murmurs, regular rate and rhythm. LUNGS: clear to auscultation bilaterally. ABDOMEN: soft, nontender. EXTREMITIES: No significant edema. PERIPHERAL PULSES: equal. NEUROLOGIC: No gross deficits, AAO X 3 Objective Labs and Meds 01/15/24 05:30 01/17/24 05:50 Lab results: Laboratory Results - last 24 hr 01/18/24 01/18/24 01/18/24 10:48 15:36 19:47 O2 Saturation ABG pH at Pt Temp ABG pCO2 at Pt Temp ABG pO2 at Pt Temp ABG HCO3 ABG Base Excess (Actual) POC Glucose 200 H 203 H 187 H 01/19/24 01/19/24 04:40 07:13 O2 Saturation 93.0 ABG pH at Pt Temp 7.45 ABG pCO2 at Pt Temp 39 ABG pO2 at Pt Temp 70 L ABG HCO3 27 H ABG Base Excess (Actual) 3.9 POC Glucose 84 Progress Note: A&P Assessment and plan (1) Right ventricular dysfunction: Status: Acute Plan [age] year gentleman with severe pulmonary hypertension and RV dilation with borderline dysfunction. He has known history of coronary disease with previous PCI and follows with Dr. Borrego. I have reviewed his records at [facility] it appears he did have RV dysfunction. The patient also said that he has known history of RV dysfunction. This is due to pulmonary hypertension. Currently appears to be stable and can be discharged back home and follow-up with Dr. Borrego. Thank you for allowing me to participate in the care of your patient. Please feel free to contact me if you have any questions. Time Spent With Patient Time: Total time managing care of this patient today ____ minutes. Progress Note: Quality Stroke Does the patient have a stroke diagnosis?: No Procedures Date of Service Date of Service: 01/19/24
[2024-01-19 10:53] VITALS: BP 157/68; PULSE 80; RESP 20; TEMP 36.1; O2SAT 95
[2024-01-19] MEDS: Insulin Lispro 100 UNIT/ML 3 ML VIAL SUBCUT (11:02)
[2024-01-19 11:10] LABS: Glucose, Whole Blood 231 mg/dL (60-115)
--- NOTE | 2024-01-19 11:45 | PM.DS ---
DS: Providers Provider Date of Service: 01/19/24 Date of admission: 01/13/24 19:36 Date of discharge: 01/19/24 Primary care physician: Masood Jeffery MD Consults: 01/14/24 05:48 Consult to Wound Care Routine Reason for consultation: Toe wounds Has provider been notified: Yes 01/16/24 11:07 Consult to Vascular Surgery Routine Consulting Provider: [facility] Reason for consultation: foot wounds 01/16/24 15:58 Consult to Cardiology Routine Consulting Provider: [facility] Cardiovascular Services Reason for consultation: severe pulm htn, dizziness 01/18/24 14:13 Consult to Pulmonology Routine Consulting Provider: [facility] Pulmonology Services Reason for consultation: severe pulm HTN, noctural hypoxia Has provider been notified: No Attending physician on discharge: Alberto Lopez Discharging clinician: Laura Sung DS: Diagnosis Discharge Diagnosis (1) Pulmonary hypertension: Status: Acute (2) Right ventricular dysfunction: Status: Acute (3) Nocturnal hypoxemia: Status: Acute DS: Summary Hospital Course Hospital Course: From H&P on the day of admission Kiko River is a 68 years old man with past medical history significant for atrial fibrillation on chronic anticoagulation with Eliquis (on metoprolol), CKD stage 3, type 2 diabetes mellitus on insulin, CVA, CAD and hyperlipidemia was brought to the emergency department due to dizziness, nausea and bradycardia. The patient is a very vague historian however he mentioned feeling generalized weak. He complained of generalized abdominal discomfort, he denied vomiting or diarrhea. He denies shortness or breath or chest pain. In the ED, he was found to have an initial temperature of 91.9 degrees and bradycardia in the 40s. His last blood pressure is 100/59. Oxygen saturation is normal on room air. Blood workup is remarkable for elevated creatinine, 1.44. GFR is 56.1 Bicarb is 18 and chloride is elevated. Other electrolytes are normal. LFTs There is no lactic acidosis. TSH is 9.23 and normal free T4. Urinalysis showed mild proteinuria, elevated glucose, trace blood, RBC 3-5 and normal WBC. CXR showed right perihilar and left bibasilar airspace opacities pneumonia versus pulmonary edema. Head and C-spine CT scan showed no acute findings. ED tx: NS 1 L bolus, levothyroxine 750 mg IV, Solu-Cortef 100 mg IV and levothyroxine 75 mcg IV. hospital course by problem: Acute hypoxic resp failure secondary to CAP resp failure resolved, currently back on room air. He was treated with IV ceftriaxone and azithromycin. blood cultures have remained negative. Due to concern of pulmonary edema on admission and echo was obtained and showed RV dysfunction and severe pulmonary htn. He was seen by Cardiology and pulmonology. Right ventricular dysfunction is known, recommend to follow up with his primary area operations manager. He was started on aldactone 25 mg daily by cardiology. He will need follow up with his primary cardiology to determine need for further outpatient workup including consideration for right heart cath. Nocturnal hypoxia He was noted to desaturate at night and had overnight sleep study completed 01/17/24, report pending, but pt has declined CPAP. He had overnight oximetry testing and had greater than 48 minutes less than 88% on room air and qualifies for 2 L of supplemental oxygen at night. Diabetic foot wounds He was seen by vascular surgery, arterial us neg, and recommended follow up in office as outpatient seen by wound nurse (see note from 01/15/24 for wound care) right and left heel and posterior leg wounds, right 2nd toe, left 2nd toe Hypothermia, dizziness and bradycardia possibly secondary to hypothyroidism. TSH 9.23, but free t4 normal indicating subclinical hypothyroidism, but given presentation with hypothermia and bradycardia, will continue low dose synthroid hypothermia improved, HR improved to 60s, 70s - BB remains on hold and is recommended to be stopped for now per cardiology recommend repeat thyroid function in 4-6 weeks Hematuria traumatic after indwelling urinary catheter insertion. Hematuria resolved, and no further bleeding after restarted on Eliquis JODI on CKD, stage 3. creatinine trended down to 1.53. Initially treated with lasix which was stopped as patient appears euvolemic. Elevated ALT and AST. trending down Type 2 diabetes mellitus. lantus restarted at half dose. hba1c was 7.6. Will be discharged with the lower dose of Lantus and insulin sliding scale. Will be discharged home with VNA for assistance in blood sugar management paroxysmal atrial fibrillation hold BB due to bradycardia.. eliquis restarted Time Attestation Total time managing care of this patient today: 36 mintues. Discharge Coordination Time (in mins): 38 Quality: Safe Use of Opioids Does Pt have an Active Cancer Diagnosis on the Problem List?: No Quality: Stroke Does the patient have a stroke diagnosis?: No Physical Exam Vital Signs: Vital Signs: Last Vital Signs Temp 96.9 F 01/19/24 10:53 Pulse 80 01/19/24 10:53 Resp 20 01/19/24 10:53 BP 157/68 H 01/19/24 10:53 Pulse Ox 95 01/19/24 10:53 O2 Del Method Room Air 01/19/24 10:53 O2 Flow Rate 1 01/19/24 07:19 BMI result Body Mass Index 31.2 Const: General: cooperative, comfortable, no acute distress, alert and awake Nutritional Appearance: average body habitus Orientation/consciousness: patient oriented x3 Resp: Effort & Inspection: normal respiratory effort, able to speak in complete sentences, no respiratory distress and no use of accessory muscles Cardio: Rate: regular rate GI: Inspection: No distended Palpation (GI): Soft to palpation and nontender Skin: Other: b/l LE wrapped in c/d/i dressings Neuro: General: patient oriented x3, moves all extremities and CN's II-XI intact bilaterally Extrem: General: Yes no pedal edema DS: Data Data Completed and Pending Labs on day of discharge: Laboratory Results - last 24 hr 01/18/24 01/18/24 01/19/24 15:36 19:47 04:40 O2 Saturation 93.0 ABG pH at Pt Temp 7.45 ABG pCO2 at Pt Temp 39 ABG pO2 at Pt Temp 70 L ABG HCO3 27 H ABG Base Excess (Actual) 3.9 POC Glucose 203 H 187 H 01/19/24 01/19/24 07:13 10:55 O2 Saturation ABG pH at Pt Temp ABG pCO2 at Pt Temp ABG pO2 at Pt Temp ABG HCO3 ABG Base Excess (Actual) POC Glucose 84 231 H Discharge Plan Discharge Anticipated Discharge Date/Time: 01/19/24 11:57 Patient Disposition: Home Health Service Discharge Diagnosis: Pneumonia, hypothermia, bradycardia, b/l leg wounds, hypothyroidism, pulm HTN, RV dysfunction Referrals: Masood Jeffery MD [Primary Care Provider] - 1 Week Anibal Stinson MD [Physician] - 1 Week Discharge Medications: New spironolactone 25 mg Tablet 25 mg PO DAILY Qty: 30 0RF Protocol: Hold for SBP< HOLD for SBP < : 90 levothyroxine 50 mcg Tablet 50 mcg PO DAILY@0600 30 Days Qty: 30 0RF insulin lispro [Humalog KwikPen Insulin] 100 unit/mL insulin pen 1 sliding scale dose SUBCUT QIDACHS MDD 30 Qty: 15 0RF Rx Instructions: Blood Sugar: <150 - 0 units 151-200 - 2 units 201-250 - 4 units 251-300 - 6 units 301-350 - 8 units >350 - 10 units Continued Eliquis 5 mg tablet 1 tab PO BID aspirin 81 mg Tablet,Delayed Release (Dr/Ec) 81 mg PO DAILY atorvastatin 80 mg tablet 40 mg PO BEDTIME isosorbide mononitrate 30 mg tablet extended release 24 hr 30 mg PO BEDTIME diphenoxylate-atropine 2.5-0.025 mg tablet 2 tab PO BID PRN (Reason: Diarrhea) Changed insulin glargine [Basaglar KwikPen U-100 Insulin] 100 unit/mL (3 mL) insulin pen 15 unit subcut BEDTIME Qty: 3 0RF Discontinued metoprolol tartrate 25 mg tablet 25 mg PO BID No Action (DME) walker Misc See Rx Instructions .Route Qty: 1 0RF Rx Instructions: As directed Discharge Orders: Discharge Order (Routine); Ordered 01/19/24 Ordered By: Laura Sung Activity on Discharge: As tolerated Stand Alone Forms: Patient Portal Discharge page Care Plan Goals: see below Health Concerns: Pneumonia-completed course of antibiotics Hypothermia-resolved Bradycardia-resolved, metoprolol stopped Hypothyroidism Started on low-dose Synthroid replacement RV dysfunction - previous diagnosis, cardiology aware - outpatient follow up with primary area operations manager severe pulmonary hypertension. outpatient follow up with primary area operations manager b/l lower extremity wounds - outpatient follow up with vascular surgery. wound care assistance by VNA nocturnal hypoxia - you qualify for 2L oxygen via nasal cannula at night while sleeping Plan of Treatment: Stop Taking metoprolol Start taking Synthroid Start taking Aldactone Call to schedule follow up appointment with your primary area operations manager Called to schedule follow-up appointment with Dr. Stinson, vascular surgery Call to schedule follow-up appointment with PCP for post hospitalization follow-up use 2L of oxygen at night while sleeping dose of insulin has been decrease, blood sugar has been controlled on lower dose. monitor your blood sugar closely before meals and at bedtime and use short acting insulin before meals per sliding scale wound care recommendations: Posterior lower legs and Left 2nd Toe ?- cleanse and irrigate with NS moist gauze.? Apply xeroform to wounds to allow for moist wound healing cover with ABD pad and gauze wrap Change daily. Right 2nd Toe ? Cleanse with Betadine Daily - allow to dry leave open to air. Assessment: see discharge summary
--- NOTE | 2024-01-19 12:16 | P.F2F_ITS ---
Service Date Service Date: 01/19/24 Encounter Date of encounter: 01/19/24 Reasons for Services Signs and symptoms assessed: needs home PT and half-way for medication management, assistance with diabetic education and checking blood sugar and wound care Reason for half-way: wound care (Posterior lower legs and Left 2nd Toe - cleanse and irrigate with NS moist gauze. Apply xeroform to wounds to allow for moist wound healing cover with ABD pad and gauze wrap Change every other day. Right 2nd Toe - Cleanse with Betadine Daily - allow to dry leave open to air. ), diabetic teaching and medication management Reason for physical therapy: home safety and mobility MD Overseeing Care: Masood Jeffery Homebound: Leaving the home is medically contraindicated at this time without the asist of a device and/or another person due th the listed conditions above and below. Reason homebound: unsteady gait / fall risk Certification: Based on the above findings, I certify that this patient is confined to the home and needs intermittent half-way care, physical therapy and/or speech therapy, or continues to need occupational therapy. The patient is under my care, and I have initiated the establishment of the plan of care. The patient will be followed by a physician who will periodically review the plan of care. Time Spent With Patient Time: Total time managing care of this patient today ____ minutes.
--- NOTE | 2024-01-19 12:43 | MHC.CM.PN ---
Second IMM given 01/18. Pt is medically cleared for D/C home with new [facility] and nocturnal home O2 via [employer]. Pts son Adrian to transport him home.
== END 2024-01-19 14:46 | disposition home health service (06) | DRG 194 ==
LOC: HO.ED 16:38 → HO.EDOVER 19:37 → HO.IMC 20:29
PROVIDERS: Nurse Practitioner Acute Care; Admitting Provider Internal Medicine; Emergency Provider Emergency Medicine; PCP Family Medicine; Visit Provider Physician Assistant Medical
DX: J18.9 Pneumonia, unspecified organism (principal); E87.0 Hyperosmolality and hypernatremia; N17.9 Acute kidney failure, unspecified; T83.83XA Hemorrhage due to genitourinary prosthetic devices, implants and grafts, initial encounter; L97.429 Non-pressure chronic ulcer of left heel and midfoot with unspecified severity; L97.419 Non-pressure chronic ulcer of right heel and midfoot with unspecified severity; R68.0 Hypothermia, not associated with low environmental temperature; E11.621 Type 2 diabetes mellitus with foot ulcer; L97.529 Non-pressure chronic ulcer of other part of left foot with unspecified severity; L97.519 Non-pressure chronic ulcer of other part of right foot with unspecified severity; I48.0 Paroxysmal atrial fibrillation; K52.9 Noninfective gastroenteritis and colitis, unspecified; I25.10 Atherosclerotic heart disease of native coronary artery without angina pectoris; I27.29 Other secondary pulmonary hypertension; N18.30 Chronic kidney disease, stage 3 unspecified; E78.5 Hyperlipidemia, unspecified; Z86.73 Personal history of transient ischemic attack (TIA), and cerebral infarction without residual deficits; Y73.8 Miscellaneous gastroenterology and urology devices associated with adverse incidents, not elsewhere classified; Z20.822 Contact with and (suspected) exposure to COVID-19; E11.22 Type 2 diabetes mellitus with diabetic chronic kidney disease; Z95.5 Presence of coronary angioplasty implant and graft; Z79.4 Long term (current) use of insulin; Z79.01 Long term (current) use of anticoagulants; Z79.82 Long term (current) use of aspirin; Z79.890 Hormone replacement therapy; Z79.899 Other long term (current) drug therapy
CPT/HCPCS: 0241U; 36415; 70450; 71045; 72125; 80048; 80053; 80076; 81001; 82533; 82803; 82947; 83036; 83605; 83690; 83880; 84145; 84439; 84443; 84484; 85014; 85018; 85025; 85027; 87040; 93005; 93306; 93923; 93925; 97110; 97116; 97161; 99285; C1758; J0456; J0696; J1720; J1836; J1940; J1956; Q9957

== ENCOUNTER → 2024-01-13 13:08 | Outpatient (BNV) | payer MEDICARE, SELFPAY | PROVIDERS: Admitting Provider Internal Medicine; Emergency Provider Emergency Medicine; PCP Family Medicine; Visit Provider Internal Medicine Cardiovascular Disease | DX: I44.0 Atrioventricular block, first degree (principal); R00.1 Bradycardia, unspecified | CPT/HCPCS: 93010 ==

== ENCOUNTER 2024-01-13 19:36 | Outpatient (BNV) | payer MEDICARE, SELFPAY | END 2024-01-15 07:00 | PROVIDERS: Admitting Provider Internal Medicine; Emergency Provider Emergency Medicine; PCP Family Medicine; Visit Provider Internal Medicine Cardiovascular Disease | DX: I27.0 Primary pulmonary hypertension (principal) | CPT/HCPCS: 93306 ==

== ENCOUNTER → 2024-01-13 19:36 | Outpatient (BNV) | payer MEDICARE, SELFPAY | PROVIDERS: Admitting Provider Internal Medicine; Emergency Provider Emergency Medicine; PCP Family Medicine; Visit Provider Internal Medicine Cardiovascular Disease | DX: I51.9 Heart disease, unspecified (principal) | CPT/HCPCS: 99222; 99232; 99233 ==

== ENCOUNTER → 2024-01-13 19:36 | Outpatient (BNV) | payer MEDICARE, SELFPAY | PROVIDERS: Admitting Provider Internal Medicine; Emergency Provider Emergency Medicine; PCP Family Medicine; Visit Provider Internal Medicine Pulmonary Disease | DX: I27.20 Pulmonary hypertension, unspecified (principal); I51.9 Heart disease, unspecified; G47.34 Idiopathic sleep related nonobstructive alveolar hypoventilation | CPT/HCPCS: 99222 ==

== ENCOUNTER → 2024-01-13 19:36 | Outpatient (BNV) | payer MEDICARE, SELFPAY | PROVIDERS: Admitting Provider Internal Medicine; Emergency Provider Emergency Medicine; PCP Family Medicine; Visit Provider Surgery Vascular Surgery | DX: L97.919 Non-pressure chronic ulcer of unspecified part of right lower leg with unspecified severity (principal); L97.929 Non-pressure chronic ulcer of unspecified part of left lower leg with unspecified severity | CPT/HCPCS: 99222 ==

== ENCOUNTER → 2024-01-13 19:36 | Outpatient (BNV) | payer MEDICARE, SELFPAY | PROVIDERS: Admitting Provider Internal Medicine; Emergency Provider Emergency Medicine; Visit Provider Internal Medicine | DX: R00.1 Bradycardia, unspecified (principal); J18.9 Pneumonia, unspecified organism; E03.9 Hypothyroidism, unspecified | CPT/HCPCS: 99223; 99232; 99233; 99239; G0180 ==

== ENCOUNTER 2024-02-12 08:46 | Emergency (ER) | payer MEDICARE, SELFPAY ==
--- NOTE | 2024-02-12 | ECG_ITS ---
Test Reason : CHEST PAIN Blood Pressure : / mmHG Vent. Rate : 077 BPM Atrial Rate : 077 BPM P-R Int : 212 ms QRS Dur : 072 ms QT Int : 368 ms P-R-T Axes : 056 068 060 degrees QTc Int : 416 ms Sinus rhythm with 1st degree A-V block Nonspecific ST abnormality Abnormal ECG When compared with ECG of 13-JAN-2024 13:08, Vent. rate has increased BY 32 BPM Minimal criteria for Anterior infarct are no longer Present Nonspecific T wave abnormality no longer evident in Inferior leads Referred By: Generic ED Physician Electronically Signed By:STEVENSON NGUYEN MD
--- NOTE | ~2024-02-12 | XR_ITS ---
EXAMINATION: XR CHEST CLINICAL INFORMATION: Chest pain for a few days COMPARISON: 01/16/2024 TECHNIQUE: Frontal view of the chest was obtained. FINDINGS: When comparison is made to 01/16/2024 study there has been a definite improvement in appearances with resolution of previously seen bilateral small pleural effusions and bibasilar opacities. Heart size within normal limits. No infiltrates, effusions or lung masses are seen. Some minimal bibasilar atelectasis remains. XR/XR chest 1V IMPRESSION: No acute intrathoracic disease. Resolution of previously seen pleural effusions and bibasilar opacities.
[2024-02-12 09:00] VITALS: BP 117/60; PULSE 80; RESP 16; TEMP 36.4; O2SAT 97; BMI 25.8
[2024-02-12 09:28] LABS: MANUAL DIFF FLAG NO
[2024-02-12 09:30] LABS: Basophils Absolute Auto 0.1 X10*3/uL (0.0-0.2); Basophils Percent Auto 0.5 % (0-2); Eosinophils Absolute Auto 0.2 X10*3/uL (0.0-0.4); Eosinophils Percent Auto 1.4 % (0-4); Hematocrit 39.7 % (42.0-52.0); Hemoglobin 13.6 g/dl (14.0-18.0); Imm Gran Abs Auto 0.03 X10*3/uL (0.00-0.03); Imm Gran Pct Auto 0.2 % (0.0-0.4); Lymphocytes Absolute Auto 1.8 X10*3/uL (1.2-4.9); Lymphocytes Percent Auto 15.3 % (20-40); Mean Corpuscular HGB Conc 34.3 g/dl (31.0-36.0); Mean Corpuscular Hemoglobin 29.8 pg (27.0-33.0); Mean Corpuscular Volume 86.9 fL (80.0-98.0); Mean Platelet Volume 10.7 fL (9.4-12.4); Neutrophils Percent Auto 74.6 % (45-73); Platelet Count 421 X10*3/uL (160-400); Red Blood Count 4.57 X10*6/uL (4.60-5.80); Red Cell Distribution Width 13.3 % (11.0-16.0)
[2024-02-12 09:47] LABS: Alanine Aminotransferase 38 U/L (0-40); Alkaline Phosphatase 110 U/L (39-117); Anion Gap 11 (12-20); Aspartate Amino Transferase 28 U/L (5-37); Bilirubin Total 0.7 mg/dL (0.0-1.0); Blood Urea Nitrogen 33 mg/dL (9-16); Calcium 9.5 mg/dL (8.4-10.2); Carbon Dioxide 27 mmol/L (22-29); Chloride 107 mmol/L (96-108); Creatinine Clr Calc Pharmacy 49.9; Estimated Glomerular Filt Rate 49; Glucose Random 262 mg/dL (60-115); Sodium 140 mmol/L (135-145); Total Protein 7.4 g/dL (6.5-8.0)
[2024-02-12 09:51] LABS: Troponin-I High Sensitivity 3.6 ng/L (<3.5-35.0)
[2024-02-12 10:04] VITALS: BP 132/69; PULSE 80; PULSE 81; RESP 16; TEMP 36.6; O2SAT 98
--- NOTE | 2024-02-12 10:08 | ED_ITS ---
HPI - Chest Pain General Chief Complaint: Chest Pain Stated Complaint: cp Time Seen by Provider: 02/12/24 10:04 Source: patient, family and old records reviewed Mode of arrival: ambulatory Limitations: no limitations History of Present Illness HPI narrative: 68 yo male with PMH of pulm HTN, DM, CKD, stage 3, PSBO, afib on eliquis, CVA, CAD s/p stent, hyperlipidemia, recent CAP pneumonia with admission in December that also had associated bradycardia and hypothermia who presents today with c/o L sided sharp non pleuritic chest pain occuring at rest - no associated dyspnea, URI, nausea, not related to exertion. Has been going on since yesterday AM. Does not hurt when he leans forward complaint: chest pain Pertinent past history: coronary artery disease Onset (ago): day(s) (1) Timing of current episode: constant Prior episodes: Yes Onset: during rest Pain location: left chest Pain radiation: none Severity: mild Quality: sharp Relieving factors: nothing Exacerbating factors: nothing Treatment prior to arrival: none Related Data Home Medications ?Medication ?Instructions ?Recorded ?Confirmed apixaban 5 mg tablet (Eliquis) 1 tab PO BID 06/28/21 01/13/24 aspirin 81 mg tablet,delayed 81 mg PO DAILY 11/05/22 01/13/24 release atorvastatin 80 mg tablet 40 mg PO BEDTIME 01/13/24 01/13/24 diphenoxylate-atropine 2.5 2 tab PO BID PRN Diarrhea 01/13/24 01/13/24 mg-0.025 mg tablet isosorbide mononitrate 30 mg 30 mg PO BEDTIME 01/13/24 01/13/24 tablet,extended release 24 hr Previous Rx's ?Medication ?Instructions ?Recorded walker #1 ea 11/04/23 insulin glargine 100 unit/mL (3 15 unit (0.15 mL) subcut BEDTIME 01/19/24 mL) subcutaneous pen (Basaglar #3 mL KwikPen U-100 Insulin) insulin lispro 100 unit/mL 1 sliding scale dose subcut 01/19/24 subcutaneous pen (Humalog KwikPen QIDACHS #15 mL (U-100) Insulin) levothyroxine 50 mcg tablet 50 mcg PO DAILY@0600 30 days #30 01/19/24 tabs spironolactone 25 mg tablet 25 mg PO DAILY #30 tabs 01/19/24 Allergies Allergy/AdvReac Type Severity Reaction Status Date / Time Sulfa (Sulfonamide Allergy Mild HIVES Verified 02/12/24 09:02 Antibiotics) [SULFA (SULFONAMIDE ANTIBIOTICS)] penicillamine [Cuprimine] Allergy Unknown unknown Verified 02/12/24 09:02 Penicillins Allergy Unknown INKNOWN Verified 02/12/24 09:02 sulfacetamide Allergy Unknown rash Verified 02/12/24 09:02 Review of Systems 2 Review of Systems: Constitutional : No Weight loss, No Fever, No Chills ENT/Mouth : No sore throat, No Rhinorrhea Eyes: No Eye Pain, No Swelling Cardiovascular : pos Chest Pain, no SOB, no Dyspnea on Exertion, No Orthopnea, No Edema, No Palpitations Respiratory : No Cough, No Sputum Gastrointestinal : no Nausea, No Vomiting, No Diarrhea, No abdominal Pain, No Hematochezia, No Melena Genitourinary : No Dysuria, No Urinary Frequency Musculoskeletal : No joint pain, No Myalgias, No Joint Swelling Skin : No Skin Lesions, No rash Neuro : No Weakness, No Numbness, No Dizziness, No Headache Psych : No Anxiety/Panic, No Depression All other systems reviewed and are negative [facility] Past Medical History Attestation statement: The following information was validated with the patient. Source: old records reviewed Medical History CAD (coronary artery disease) HLD (hyperlipidemia) CKD (chronic kidney disease), stage III CVA (cerebral vascular accident) Atrial fibrillation Type 2 diabetes mellitus Surgical History Stented coronary artery H/O cardiac radiofrequency ablation Social History Social History Household Members: Children Housing: House Do you presently have visiting nurse or other home services: No Unable to assess alcohol history related to: Unknown Alcohol intake: former Patient Tobacco Use Status: Never used Tobacco Smoked in Last 30 Days: No Use of substances other than those prescribed or required for medical reasons: No Advance Directives: Yes Advance Directives on File: Yes Advance Directives Date on File: 11/10/22 service: Yes Current occupational status: retired Physical Exam 2 Vital Signs: Vital Signs: Last Vital Signs Temp 98.2 F 02/12/24 13:22 Pulse 74 02/12/24 13:22 Resp 16 02/12/24 13:22 BP 143/69 H 02/12/24 13:22 Pulse Ox 94 02/12/24 13:22 O2 Del Method Room Air 02/12/24 13:22 BMI result Body Mass Index 25.8 Appearance: Alert. Oriented X3. No acute distress. Eyes: Pupils equal, round and reactive to light. ENT: Pharynx normal. Neck: Normal inspection. Neck supple. CVS: Normal heart rate and rhythm. Pulses normal. Respiratory: No respiratory distress. Breath sounds normal. Abdomen: Soft and nontender. Skin: Skin warm and dry. Normal skin color. Normal skin turgor. Extremities: No lower extremity edema. No calf ttp Neuro: Oriented X 3. No motor deficit. No sensory deficit. Procedures Procedure Narrative Procedure Narrative: bedside cardiac echo - apical subxiphoid substernal trace pericardial effusion on septal bowing no signs of tamponade Medical Decision Making Medical Decision Making MDM Narrative: 68 yo male with PMH of pulm HTN, DM, CKD, stage 3, PSBO, afib on eliquis, CVA, CAD, hyperlipidemia, recent CAP pneumonia with admission in December that also had associated bradycardia and hypothermia who presents today with c/o atypical sharp chest pain but has no associated symptoms at this time and denies infectious symptoms - he is compliant with his eliquis doubt VTE, seems atypical for ACS no associated symptoms sharp and not related to exertion and denies HENSLEY, will obtain EKG, troponin x 2, obtain ECHO for effusion, CXR for effusion/mass. Differential Diagnosis Differential Diagnoses: The differential diagnosis associated with the presentation includes ACS, doubt VTE given eliquis use, effusion, pericarditis Admission/Observation Consideration of admission/observation: Escalation of care including admission/observation considered trop flat x 2, EKG nonischemic no pain with leaning foreward but he has CKD will hold off NSAID is on blood thinner EKG not convincing for pericarditis pain free at this time will DC home Lab Data [facility] Lab Attestation statement: I reviewed the patient's lab results. 02/12/24 09:24 02/12/24 09:24 Labs: Lab Results 02/12/24 02/12/24 Range/Units 09:24 12:14 WBC 12.0 H (4.8-10.8) X10*3/uL RBC 4.57 L D (4.60-5.80) X10*6/uL Hgb 13.6 L D (14.0-18.0) g/dl Hct 39.7 L (42.0-52.0) % MCV 86.9 (80.0-98.0) fL MCH 29.8 (27.0-33.0) pg MCHC 34.3 (31.0-36.0) g/dl RDW 13.3 (11.0-16.0) % Plt Count 421 H D (160-400) X10*3/uL MPV 10.7 (9.4-12.4) fL Immature Gran % (Auto) 0.2 (0.0-0.4) % Neut % (Auto) 74.6 H (45-73) % Lymph % (Auto) 15.3 L (20-40) % Tyrrell % (Auto) 8.0 (2-11) % Eos % (Auto) 1.4 (0-4) % Baso % (Auto) 0.5 (0-2) % Lymph # (Auto) 1.8 (1.2-4.9) X10*3/uL Tyrrell # (Auto) 1.0 (0.1-1.2) X10*3/uL Eos # (Auto) 0.2 (0.0-0.4) X10*3/uL Baso # (Auto) 0.1 (0.0-0.2) X10*3/uL Abs Immat Gran (auto) 0.03 (0.00-0.03) X10*3/uL Absolute Neuts (auto) 9.0 H (2.0-8.3) x10*3/uL Absolute Nucleated RBC 0.000 (0.0-0.012) X10*3/uL Nucleated RBC % (auto) 0.0 (0.0-0.2) /100WBC ESR 25 H (0-15) MM/HR Sodium 140 (135-145) mmol/L Potassium 5.0 D (3.3-5.1) mmol/L Chloride 107 (96-108) mmol/L Carbon Dioxide 27 (22-29) mmol/L Anion Gap 11 L (12-20) BUN 33 H (9-16) mg/dL Creatinine 1.42 H (0.5-1.4) mg/dL Estim Creat Clear Calc 49.9 Estimated GFR 49 Random Glucose 262 H (60-115) mg/dL Calcium 9.5 D (8.4-10.2) mg/dL Total Bilirubin 0.7 (0.0-1.0) mg/dL AST 28 (5-37) U/L ALT 38 (0-40) U/L Alkaline Phosphatase 110 (39-117) U/L Troponin I High Sens 3.6 < 2.7 (<3.5-35.0) ng/L C-Reactive Protein 0.31 (< or = 0.50) mg/dL Total Protein 7.4 (6.5-8.0) g/dL Albumin 4.0 (3.5-5.0) g/dL Influenza Type A (PCR) NEGATIVE (Negative) Influenza Type B (PCR) NEGATIVE (Negative) RSV RNA Qual (PCR) NEGATIVE (Negative) SARS-CoV-2 RNA (RT-PCR) NEGATIVE (Negative) Independent Interpretation I performed an independent interpretation of an: EKG and Plain X-Ray (no pneumonia) Interpretation: Rate: 77 Rhythm: NSR 1st degree AVB [place]: normal Normal P waves. 1st degree Normal QRS complex. ST T wave : no VELVET, nonspecific ST T wave changes ant leads - ST changes look somewhat like pericarditis qTC: 416 prior studies: no sig change from prior The study has been interpreted contemporaneously by me. . Radiology Impression Discussion of test interpretation with radiology: I have reviewed the radiologist's reading. Independent Historian Clinical information obtained from an independent historian. History obtained from or confirmed by: Other (family) External Record Review External record reviewed: Inpatient record Discharge Plan Discharge Clinical Impression: Atypical chest pain Patient Disposition: Home, Self-Care Instructions: Chest Pain (ED) Additional Instructions: kidney function at baseline, troponin which is heart tests negative x 2, EKG no acute findings, chest xray improved since december return for any worsening symptoms - call his scaffolder today to schedule appointment on bedside echo trace fluid seen but nothing significant Prescriptions: No Action Eliquis 5 mg tablet 1 tab PO BID aspirin 81 mg Tablet,Delayed Release (Dr/Ec) 81 mg PO DAILY (DME) roma Misc See Rx Instructions .Route Qty: 1 0RF Rx Instructions: As directed atorvastatin 80 mg tablet 40 mg PO BEDTIME isosorbide mononitrate 30 mg tablet extended release 24 hr 30 mg PO BEDTIME diphenoxylate-atropine 2.5-0.025 mg tablet 2 tab PO BID PRN (Reason: Diarrhea) spironolactone 25 mg Tablet 25 mg PO DAILY Qty: 30 0RF Protocol: Hold for SBP< HOLD for SBP < : 90 levothyroxine 50 mcg Tablet 50 mcg PO DAILY@0600 30 Days Qty: 30 0RF insulin glargine [Basaglar KwikPen U-100 Insulin] 100 unit/mL (3 mL) insulin pen 15 unit subcut BEDTIME Qty: 3 0RF insulin lispro [Humalog KwikPen Insulin] 100 unit/mL insulin pen 1 sliding scale dose SUBCUT QIDACHS MDD 30 Qty: 15 0RF Rx Instructions: Blood Sugar: <150 - 0 units 151-200 - 2 units 201-250 - 4 units 251-300 - 6 units 301-350 - 8 units >350 - 10 units Interventions: ED Discharge Assessment Last Done: 02/12/24 13:22 Discharge Date/Time: 02/12/24 13:22 Print Language: Bruneian
[2024-02-12 10:18] LABS: Influenza A PCR NEGATIVE (Negative); Influenza B PCR NEGATIVE (Negative); Resp Syncy Virus RNA Qual PCR NEGATIVE (Negative); SARS COV2 PCR INHOUSE NEGATIVE (Negative)
[2024-02-12 10:54] LABS: C Reactive Protein 0.31 mg/dL (< or = 0.50)
[2024-02-12 11:23] LABS: Erythrocyte Sedimentation Rate 25 MM/HR (0-15)
[2024-02-12 12:24] VITALS: BP 141/70; PULSE 73; RESP 16; TEMP 36.7; O2SAT 95
[2024-02-12 12:42] LABS: Troponin-I High Sensitivity < 2.7 ng/L (<3.5-35.0)
[2024-02-12 13:22] VITALS: BP 143/69; PULSE 74; RESP 16; TEMP 36.8; O2SAT 94
== END 2024-02-12 13:22 | disposition home or self-care (01) ==
PROVIDERS: Emergency Provider Emergency Medicine; PCP Family Medicine
DX: R07.89 Other chest pain (principal); E11.22 Type 2 diabetes mellitus with diabetic chronic kidney disease; I12.9 Hypertensive chronic kidney disease with stage 1 through stage 4 chronic kidney disease, or unspecified chronic kidney disease; N18.30 Chronic kidney disease, stage 3 unspecified; I48.91 Unspecified atrial fibrillation; Z86.73 Personal history of transient ischemic attack (TIA), and cerebral infarction without residual deficits; Z79.01 Long term (current) use of anticoagulants; Z03.818 Encounter for observation for suspected exposure to other biological agents ruled out
CPT/HCPCS: 0241U; 36415; 71045; 80053; 84484; 85025; 85652; 86140; 93005; 99283; 99285

== ENCOUNTER → 2024-02-12 08:56 | Outpatient (BNV) | payer MEDICARE, SELFPAY | PROVIDERS: Emergency Provider Emergency Medicine; PCP Family Medicine; Visit Provider Internal Medicine Cardiovascular Disease | DX: I44.0 Atrioventricular block, first degree (principal) | CPT/HCPCS: 93010 ==

== ENCOUNTER 2024-10-25 19:21 | Inpatient (IN) | payer MEDICARE, SELFPAY ==
--- NOTE | ~2024-10-25 | US_ITS ---
CLINICAL HISTORY: Abdominal pain US abdomen complete Comparison: None Findings: The visualized pancreas is normal. The aorta and inferior vena cava are normal caliber. The liver is normal in size and echotexture. There is no intrahepatic bile duct dilatation. The common duct is 6 mm in diameter. The gallbladder demonstrates multiple small stones. Additionally, there is focal gallbladder wall thickening with, comet tail artifact. Trace ascites adjacent to gallbladder. The main portal vein is antegrade. The right kidney is 12.7 cm in length. Multiple benign cysts are noted. The left kidney is 12.2 cm in length. The spleen is normal. No ascites. IMPRESSION: Cholelithiasis. Trace fluid about the gallbladder. Focal gallbladder wall thickening consistent with adenomyomatosis. If there is clinical concern for acute cholecystitis, a HIDA may be helpful in this case. This document has been electronically signed by: Reno Gann MD on 10/26/2024 12:41:43
--- NOTE | ~2024-10-25 | CT_ITS ---
CLINICAL HISTORY: Right earache with AMS CT head without contrast COMPARISON: CT/REG/[place]/SR - CT HEAD/BRAIN WO IV CON - 11/05/22 00:25 EST FINDINGS: Global cerebral volume loss and chronic microvascular ischemic changes. No acute intracranial hemorrhage, extra-axial fluid collection, mass effect, or midline shift. Ventricular system and basilar cisterns are patent. [place]-white matter differentiation is maintained. No gross orbital abnormality. No suspicious or acute bone lesion. Mastoid air cells and paranasal sinuses are predominantly clear. IMPRESSION: 1. No acute intracranial abnormality. 2. Global cerebral volume loss and chronic microvascular ischemic changes. This document has been electronically signed by: Gregg Diallo MD on 10/26/2024 02:16:04
--- NOTE | ~2024-10-25 | CT_ITS ---
CLINICAL HISTORY: abd pain, fever CT abdomen and pelvis without contrast Comparison: CT/SR - CT ABDOMEN PELVIS WO IV CON - 11/05/22 00:25 EST Findings: No consolidation or effusion. Coronary artery calcifications are noted. Gallstones are present within the gallbladder. No significant pericholecystic fluid. The unenhanced liver, spleen, adrenal glands and pancreas are unremarkable. Kidneys demonstrate neither obstructive uropathy nor urinary calculus. The bladder is partially distended without focal abnormality. The prostate gland is mildly enlarged. No bowel obstruction, free air, free fluid, abscess or adenopathy. Mild fecal retention within the colon. Diverticulosis without diverticulitis. Moderate atherosclerotic disease. No acute osseous findings. Degenerative changes seen at L4-L5. Impression: No CT explanation for the patient's abdominal pain and fever. Mild fecal retention within the colon. Additional incidental findings. This document has been electronically signed by: Reno Gann MD on 10/26/2024 06:21:28
--- NOTE | ~2024-10-25 | XR_ITS ---
CLINICAL HISTORY: weakness Two views of the chest. COMPARISON: XR chest dated 02/12/24 at 10:49 EDT FINDINGS: Low lung volumes. Normal heart size. Tortuous thoracic aorta. No consolidation. Crowding of the bronchovascular markings, likely secondary to low lung volumes. No pleural effusion or pneumothorax. Leftward curvature of the lower thoracic and upper lumbar spine. No acute fracture identified. IMPRESSION: 1. Low lung volumes. No consolidation. This document has been electronically signed by: Omkar Alexander MD on 10/25/2024 20:42:06
[2024-10-25 19:34] VITALS: BP 114/38; BP 123/52; PULSE 80; PULSE 95; RESP 17; TEMP 36.9; O2SAT 96; BMI 41.1
--- NOTE | 2024-10-25 19:36 | ED_ITS ---
HPI - General Adult General Chief complaint: Ear Problems Stated complaint: L ear pain Time Seen by Provider: 10/26/24 00:14 Source: family Mode of arrival: EMS Limitations: no limitations History of Present Illness ED Provider: HPI narrative: 69-year-old male with a past medical history significant for CVA x3 (last years ago) on Eliquis, type 2 diabetes on insulin, hypothyroid, pulmonary hypertension and history of partial small-bowel obstruction s/p bowel resection, who presented to the ED with left-sided ear pain x1 day, with nausea mild epigastric pain for last 2-3 days patient denied any headache patient usually walks with walker and communicate but since he had fever earlier today with allergic and not communicating well confused Related Data Home Medications ?Medication ?Instructions ?Recorded ?Confirmed apixaban 5 mg tablet (Eliquis) 1 tab PO BID 06/28/21 01/13/24 aspirin 81 mg tablet,delayed 81 mg PO DAILY 11/05/22 01/13/24 release atorvastatin 80 mg tablet 40 mg PO BEDTIME 01/13/24 01/13/24 diphenoxylate-atropine 2.5 2 tab PO BID PRN Diarrhea 01/13/24 01/13/24 mg-0.025 mg tablet isosorbide mononitrate 30 mg 30 mg PO BEDTIME 01/13/24 01/13/24 tablet,extended release 24 hr Lantus Solostar U-100 Insulin 20 units subcut 10/26/24 Previous Rx's ?Medication ?Instructions ?Recorded walker #1 ea 11/04/23 spironolactone 25 mg tablet 25 mg PO DAILY #30 tabs 01/19/24 Allergies Allergy/AdvReac Type Severity Reaction Status Date / Time Sulfa (Sulfonamide Allergy Mild HIVES Verified 10/25/24 19:38 Antibiotics) [SULFA (SULFONAMIDE ANTIBIOTICS)] penicillamine [Cuprimine] Allergy Unknown unknown Verified 10/25/24 19:38 Penicillins Allergy Unknown INKNOWN Verified 10/25/24 19:38 sulfacetamide Allergy Unknown rash Verified 10/25/24 19:38 Review of Systems 2 Review of Systems: Yes Unobtainable due to mental status PMFSH Past Medical History Medical History Hx SBO CAD (coronary artery disease) HLD (hyperlipidemia) CKD (chronic kidney disease), stage III CVA (cerebral vascular accident) Atrial fibrillation Type 2 diabetes mellitus Surgical History Stented coronary artery H/O cardiac radiofrequency ablation Social History Social History Household Members: Children Housing: House Do you presently have visiting nurse or other home services: No Unable to assess alcohol history related to: Unknown Alcohol intake: former Patient Tobacco Use Status: Never used Tobacco Smoked in Last 30 Days: No Use of substances other than those prescribed or required for medical reasons: No Advance Directives: Yes Advance Directives on File: Yes Advance Directives Date on File: 11/10/22 Do you have a plan to hurt others: No Plan service: Yes Current occupational status: retired Physical Exam ED Vital Signs: Vital Signs - 24 hr 10/25/24 19:34 10/25/24 22:19 10/25/24 23:39 Temperature 98.4 F 98.5 F 100.8 F H Pulse Rate 95 95 88 Respiratory Rate 17 18 20 Blood Pressure 123/52 L 110/49 L 102/49 L Pulse Oximetry 96 95 96 Oxygen Delivery Method Room Air Room Air Room Air 10/26/24 00:00 10/26/24 01:48 10/26/24 03:55 Temperature 101.7 F H 98.9 F Pulse Rate 92 97 Respiratory Rate 16 20 Blood Pressure 115/68 116/68 Pulse Oximetry 96 Oxygen Delivery Method Room Air 10/26/24 04:13 Temperature Pulse Rate 99 Respiratory Rate 19 Blood Pressure 122/55 L Pulse Oximetry 95 Oxygen Delivery Method Room Air BMI result Body Mass Index 41.1 Appearance: Alert. Oriented X2. No acute distress. Eyes: PERRLA, No Nystagmus ENT: Pharynx normal. Oral Mucosa dry tympanic membrane intact bilaterally was started nontender Neck: Normal inspection. Neck supple. CVS: Normal heart rate and rhythm. Pulses normal. Respiratory: No respiratory distress. Equal air entry bilateral, no wheezing/rales/rhonchi Abdomen: Soft and mild epigastric tenderness. Bowel sounds are present, no mass palpable, no CVA tenderness Skin: Skin warm and dry. Normal skin color. Normal skin turgor. Extremities: No lower extremity edema. No calf tenderness Neuro: Lethargic confused alert oriented x2 No motor deficit. No sensory deficit.No cerebellar signs , cranial nerves II-XII intact Course Course Course Narrative: This is a rapid medical exam performed by Axel Vela NP: Additional HPI, ROS, PE not included below will be deferred to primary provider. Patient is a 69-year-old male with history of partial small bowel obstruction, T2DM, hypothyroid, pulmonary hypertension, RV dysfunction presenting with complaint of left ear pain, also has lower abdominal pain and nausea. Denies vomiting, reports chronic diarrhea. Daughter in law here with patient and reports he seems more weak than normal and is not acting like himself. She was recently sick with Covid 2 weeks ago, he has been testing negative at home. Plan: viral serology, labs, UA, ekg Medications Administered Generic Name Dose Route Start Last Admin Trade Name Freq PRN Reason Stop Dose Admin Metronidazole 500 mg in 100 mls @ 100 mls/hr 10/26/24 06:00 10/26/24 06:06 Flagyl IV 100 mls/hr Q8H ALAN Administration Insulin Human Lispro 0 unit 10/26/24 06:00 10/26/24 06:06 Insulin Lispro 100 Unit/Ml 3 Ml Vial SUBCUT 2 unit Q6H ALAN Administration Protocol Discontinued Medications Generic Name Dose Route Start Last Admin Trade Name Freq PRN Reason Stop Dose Admin Ceftriaxone Sodium 1 gm 10/26/24 00:26 10/26/24 00:59 Ceftriaxone Sodium 1 Gm Vial IVPUSH 10/26/24 00:27 1 gm ONCE ONE Administration Sodium Chloride 1,000 mls @ 999 mls/hr 10/26/24 00:23 10/26/24 03:45 Ns IV 10/26/24 01:23 Infused .Q1H1M ONE Infusion Acetaminophen 1,000 mg in 100 mls @ 400 mls/hr 10/26/24 00:23 10/26/24 01:47 Ofirmev IV 10/26/24 00:37 Infused ONCE ONE Infusion Medical Decision Making Medical Decision Making [facility] Narrative: Patient with fever with change in mental status likely bacteremia with leukocytosis meeting the criteria for SIRS without the source of infection patient has received IV fluids IV antibiotics admit to hospitalist service for further evaluation abdominal CT scan was ordered by hospitalist which was also negative head CT negative for any fluid collection/ mastoiditis Differential Diagnosis Differential Diagnoses: The differential diagnosis associated with the presentation includes Admission/Observation Consideration of admission/observation: Escalation of care including admission/observation considered Consult Healthcare Provider Management of the patient was discussed with: Hospitalist Lab Data MDM Lab Attestation statement: I reviewed the patient's lab results. 10/26/24 06:26 10/26/24 06:26 Labs: Lab Results 10/25/24 10/25/24 10/26/24 Range/Units 19:50 21:37 00:39 WBC 17.9 H (4.8-10.8) X10*3/uL RBC 3.94 L (4.60-5.80) X10*6/uL Hgb 12.1 L (14.0-18.0) g/dl Hct 34.6 L (42.0-52.0) % MCV 87.8 (80.0-98.0) fL MCH 30.7 (27.0-33.0) pg MCHC 35.0 (31.0-36.0) g/dl RDW 13.5 (11.0-16.0) % Plt Count 197 D (160-400) X10*3/uL MPV 11.4 (9.4-12.4) fL Immature Gran % (Auto) 0.4 (0.0-0.4) % Neut % (Auto) 90.8 H (45-73) % Lymph % (Auto) 2.7 L (20-40) % [place] % (Auto) 5.8 (2-11) % Eos % (Auto) 0.1 (0-4) % Baso % (Auto) 0.2 (0-2) % Lymph # (Auto) 0.5 L (1.2-4.9) X10*3/uL [place] # (Auto) 1.0 (0.1-1.2) X10*3/uL Eos # (Auto) 0.0 (0.0-0.4) X10*3/uL Baso # (Auto) 0.0 (0.0-0.2) X10*3/uL Abs Immat Gran (auto) 0.08 H (0.00-0.03) X10*3/uL Absolute Neuts (auto) 16.2 H (2.0-8.3) x10*3/uL Absolute Nucleated RBC 0.000 (0.0-0.012) X10*3/uL Nucleated RBC % (auto) 0.0 (0.0-0.2) /100WBC Smear Tech's Comments VERIFIED PT 20.0 H (10.9-12.4) SEC INR 1.7 H (0.9-1.1) Sodium 136 (135-145) mmol/L Potassium 4.7 (3.3-5.1) mmol/L Chloride 109 H (96-108) mmol/L Carbon Dioxide 20 L (22-29) mmol/L Anion Gap 12 (12-20) BUN 29 H (9-16) mg/dL Creatinine 1.57 H (0.5-1.4) mg/dL Estim Creat Clear Calc 58.4 Estimated GFR 44 Random Glucose 230 H (60-115) mg/dL Lactic Acid 1.5 (0.5-2.0) mmol/L Calcium 8.4 D (8.4-10.2) mg/dL Magnesium 1.8 (1.6-2.6) mg/dL Total Bilirubin 1.2 H (0.0-1.0) mg/dL AST 22 (5-37) U/L ALT 43 H (0-40) U/L Alkaline Phosphatase 86 (39-117) U/L Troponin I High Sens 5.4 D 5.3 (<3.5-35.0) ng/L B-Natriuretic Peptide 185 H (<100) pg/mL Total Protein 6.8 (6.5-8.0) g/dL Albumin 3.9 (3.5-5.0) g/dL Lipase 15 (8-78) U/L Urine Color Urine Appearance Urine pH (5.0-9.0) Ur Specific [place] (1.005-1.025) Urine Protein (Neg-Trace) mg/dL Urine Glucose (UA) (Negative) mg/dL Urine Ketones (Negative) mg/dL Urine Blood (Negative) Urine Nitrite (Negative) Ur Leukocyte Esterase (Negative) Urine RBC (0-2) /HPF Urine WBC (0-5) /HPF Ur Squamous Epith Cells (0-2) /HPF Urine Bacteria (None Seen) Hyaline Casts (0-2) /LPF Influenza Type A (PCR) NEGATIVE (Negative) Influenza Type B (PCR) NEGATIVE (Negative) RSV RNA Qual (PCR) NEGATIVE (Negative) SARS-CoV-2 RNA (RT-PCR) NEGATIVE (Negative) 10/26/24 Range/Units 04:20 WBC (4.8-10.8) X10*3/uL RBC (4.60-5.80) X10*6/uL Hgb (14.0-18.0) g/dl Hct (42.0-52.0) % MCV (80.0-98.0) fL MCH (27.0-33.0) pg MCHC (31.0-36.0) g/dl RDW (11.0-16.0) % Plt Count (160-400) X10*3/uL MPV (9.4-12.4) fL Immature Gran % (Auto) (0.0-0.4) % Neut % (Auto) (45-73) % Lymph % (Auto) (20-40) % [place] % (Auto) (2-11) % Eos % (Auto) (0-4) % Baso % (Auto) (0-2) % Lymph # (Auto) (1.2-4.9) X10*3/uL [place] # (Auto) (0.1-1.2) X10*3/uL Eos # (Auto) (0.0-0.4) X10*3/uL Baso # (Auto) (0.0-0.2) X10*3/uL Abs Immat Gran (auto) (0.00-0.03) X10*3/uL Absolute Neuts (auto) (2.0-8.3) x10*3/uL Absolute Nucleated RBC (0.0-0.012) X10*3/uL Nucleated RBC % (auto) (0.0-0.2) /100WBC Smear Tech's Comments PT (10.9-12.4) SEC INR (0.9-1.1) Sodium (135-145) mmol/L Potassium (3.3-5.1) mmol/L Chloride (96-108) mmol/L Carbon Dioxide (22-29) mmol/L Anion Gap (12-20) BUN (9-16) mg/dL Creatinine (0.5-1.4) mg/dL Estim Creat Clear Calc Estimated GFR Random Glucose (60-115) mg/dL Lactic Acid (0.5-2.0) mmol/L Calcium (8.4-10.2) mg/dL Magnesium (1.6-2.6) mg/dL Total Bilirubin (0.0-1.0) mg/dL AST (5-37) U/L ALT (0-40) U/L Alkaline Phosphatase (39-117) U/L Troponin I High Sens (<3.5-35.0) ng/L B-Natriuretic Peptide (<100) pg/mL Total Protein (6.5-8.0) g/dL Albumin (3.5-5.0) g/dL Lipase (8-78) U/L Urine Color Yellow Urine Appearance Cloudy Urine pH 5.0 (5.0-9.0) Ur Specific [place] 1.020 (1.005-1.025) Urine Protein 100 (2+) H (Neg-Trace) mg/dL Urine Glucose (UA) 500 H (Negative) mg/dL Urine Ketones Trace (Negative) mg/dL Urine Blood Small (1+) H (Negative) Urine Nitrite Negative (Negative) Ur Leukocyte Esterase Negative (Negative) Urine RBC 3-5 H (0-2) /HPF Urine WBC 0-5 (0-5) /HPF Ur Squamous Epith Cells 0-2 (0-2) /HPF Urine Bacteria None Seen (None Seen) Hyaline Casts 0-2 (0-2) /LPF Influenza Type A (PCR) (Negative) Influenza Type B (PCR) (Negative) RSV RNA Qual (PCR) (Negative) SARS-CoV-2 RNA (RT-PCR) (Negative) Independent Interpretation I performed an independent interpretation of an: EKG and CT Scan Interpretation: Normal sinus rhythm heart rate 87 beats per minute normal intervals normal axis no acute ST-T changes no acute ischemia Radiology Impression Discussion of test interpretation with radiology: I have reviewed the radiologist's reading. Critical Care Time Critical Care Time Critical Care Time: Yes Total Critical Care Time: 55 Attestation: The patient was critically ill with a high probability of imminent or life threatening deterioration. I spent greater than 60 ???minutes of discontinuous time evaluating the patient,delivering critical care at the bedside, discussing and evaluating pertinent data with consultants. Critical care time does not include time spent performing separately billable procedures or teaching. Total time spent performing critical care was 55??minutes. Discharge Plan Discharge Clinical Impression: SIRS (systemic inflammatory response syndrome), CKD (chronic kidney disease), stage III, Acute metabolic encephalopathy Patient Disposition: Admitted As Inpatient
--- NOTE | 2024-10-25 19:39 | ECG_ITS ---
Test Reason : WEAKNESS Blood Pressure : / mmHG Vent. Rate : 097 BPM Atrial Rate : 097 BPM P-R Int : 200 ms QRS Dur : 076 ms QT Int : 322 ms P-R-T Axes : 053 052 047 degrees QTc Int : 408 ms Normal sinus rhythm Low voltage QRS Nonspecific ST abnormality Abnormal ECG When compared with ECG of 12-FEB-2024 08:56, No significant change was found Referred By: Brooklyn Vela Electronically Signed By:STEVENSON NGUYEN MD
[2024-10-25 20:01] LABS: Basophils Percent Auto 0.2 % (0-2); Eosinophils Percent Auto 0.1 % (0-4); Hematocrit 34.6 % (42.0-52.0); Hemoglobin 12.1 g/dl (14.0-18.0); Imm Gran Abs Auto 0.08 X10*3/uL (0.00-0.03); Imm Gran Pct Auto 0.4 % (0.0-0.4); Lymphocytes Absolute Auto 0.5 X10*3/uL (1.2-4.9); Lymphocytes Percent Auto 2.7 % (20-40); MANUAL DIFF FLAG SCAN; Mean Corpuscular Hemoglobin 30.7 pg (27.0-33.0); Mean Corpuscular Volume 87.8 fL (80.0-98.0); Mean Platelet Volume 11.4 fL (9.4-12.4); Monocytes Percent Auto 5.8 % (2-11); Neutrophils Absolute Auto 16.2 x10*3/uL (2.0-8.3); Neutrophils Percent Auto 90.8 % (45-73); Platelet Count 197 X10*3/uL (160-400); Red Blood Count 3.94 X10*6/uL (4.60-5.80); Red Cell Distribution Width 13.5 % (11.0-16.0); SCAN SMEAR FLAG 1; White Blood Count 17.9 X10*3/uL (4.8-10.8)
[2024-10-25 20:10] LABS: INTERNATIONAL NORM RATIO 1.7 (0.9-1.1)
[2024-10-25 20:12] LABS: Alanine Aminotransferase 43 U/L (0-40); Albumin Level 3.9 g/dL (3.5-5.0); Alkaline Phosphatase 86 U/L (39-117); Anion Gap 12 (12-20); Aspartate Amino Transferase 22 U/L (5-37); Bilirubin Total 1.2 mg/dL (0.0-1.0); Blood Urea Nitrogen 29 mg/dL (9-16); Calcium 8.4 mg/dL (8.4-10.2); Carbon Dioxide 20 mmol/L (22-29); Chloride 109 mmol/L (96-108); Creatinine Clr Calc Pharmacy 58.4; Estimated Glomerular Filt Rate 44; Glucose Random 230 mg/dL (60-115); Lipase 15 U/L (8-78); Magnesium 1.8 mg/dL (1.6-2.6); Potassium 4.7 mmol/L (3.3-5.1); Sodium 136 mmol/L (135-145); Total Protein 6.8 g/dL (6.5-8.0)
[2024-10-25 20:17] LABS: B Type Natriuretic Peptide 185 pg/mL (<100)
[2024-10-25 20:19] LABS: Troponin-I High Sensitivity 5.4 ng/L (<3.5-35.0)
[2024-10-25 20:35] LABS: Influenza A PCR NEGATIVE (Negative); Influenza B PCR NEGATIVE (Negative); Resp Syncy Virus RNA Qual PCR NEGATIVE (Negative); SARS COV2 PCR INHOUSE NEGATIVE (Negative)
[2024-10-25 21:27] LABS: SLIDE REVIEW VERIFIED
[2024-10-25 22:03] LABS: Troponin-I High Sensitivity 5.3 ng/L (<3.5-35.0)
[2024-10-25 22:19] VITALS: BP 110/49; PULSE 95; RESP 18; TEMP 36.9; O2SAT 95
[2024-10-25 23:39] VITALS: BP 102/49; PULSE 88; RESP 20; TEMP 38.2; O2SAT 96
--- NOTE | 2024-10-25 23:54 | PC.NURSE ---
family at bedside and states the ear pain was new to them on arrival. pt is actually here due to weakness, disoriented seeing things that are not there. Dizzy nausea, dry heaving in waiting room. pt at that time told them his ear hurt right ear.
[2024-10-26] VITALS (14 sets, daily range): BP systolic 91–152; BP diastolic 46–74; PULSE 83–111; RESP 14–91; TEMP 36.6–39.2; O2SAT 91–96
[2024-10-26] MEDS: Acetaminophen 1,000 MG/100 ML PIGGYBACK 400 MG IV (00:57)
[2024-10-26] MEDS: cefTRIAXone sodium 1 GM VIAL IVPUSH ×2 (00:59→21:06)
[2024-10-26] MEDS: 0.9 % Sodium Chloride 1,000 ML 999 ML IV (01:00)
[2024-10-26 01:03] LABS: Lactic Acid 1.5 mmol/L (0.5-2.0)
--- NOTE | 2024-10-26 01:54 | PC.NURSE ---
unable to scan in the ns due to computor issue not allowing this rn to log in.
--- NOTE | 2024-10-26 03:45 | PC.NURSE ---
assumed care of pt at 0330.
--- NOTE | 2024-10-26 04:06 | PC.NURSE ---
pt unable to urinate at this time
[2024-10-26 04:27] LABS: Appearance Urine Cloudy; Color Urine Yellow; Glucose Urine UA 500 mg/dL (Negative); Leukocyte Esterase Urine Negative (Negative); Nitrite Urine Negative (Negative); UMIC TRIGGER UACC YES; Urine Blood Small (1+) (Negative); Urine Ketones Trace mg/dL (Negative); Urine Protein 100 (2+) mg/dL (Neg-Trace)
--- NOTE | 2024-10-26 04:28 | PC.NURSE ---
bladder scan showered > 300 cc urine in bladder. pt unable to urinate. per MD Scanlon straight cath pt for urine.
[2024-10-26 04:53] LABS: Bacteria Urine None Seen (None Seen); Hyaline Casts Urine 0-2 /LPF (0-2); Squamous Epithelial Cell Urine 0-2 /HPF (0-2); WBC Urine 0-5 /HPF (0-5)
--- NOTE | 2024-10-26 05:26 | PM.IMHP ---
History of Present Illness Date of Service: 10/26/24 Attending physician on admission: Ora Zapien Chief Complaint: nausea, L ear pain, LUQ pain Patient is a 69-year-old male with a past medical history significant for CVA x3 (last years ago) on Eliquis, type 2 diabetes on insulin, hypothyroid, pulmonary hypertension and history of partial small-bowel obstruction s/p bowel resection, who presented to the ED with left-sided ear pain x1 day, with nausea and abdominal pain x3 days. His most significant symptom is left upper quadrant pain for the past few days. He describes this as a sharp pain rating it 10/10 on arrival however now 2/10. He has associated fever and chills with a max temperature of 101.7 degrees. He also has associated nausea but no vomiting. He reports his last bowel movement was 6 days ago which is very atypical for him as he usually has chronic diarrhea. He recently was exposed to COVID by his daughter but reports that this was greater than 1 week ago and he has tested negative. Does not have any upper respiratory symptoms including cough, shortness of breath, runny nose or congestion. He also denies chest pain, headache, photosensitivity, change in vision or neck pain. Review of Systems Constitutional: Constitutional: Reports chills, Reports fatigue, Reports fever(s), Denies headache(s) and Reports poor appetite Eyes: Eyes: Denies change in vision and Denies photophobia ENT: Denies headache(s), Denies nasal congestion, Denies nasal discharge and Denies sore throat Cardiovascular: Cardiovascular: Denies rapid heart rate, Denies leg edema, Denies lightheadedness and Denies dyspnea Respiratory: Respiratory: Denies chest congestion, Denies cough, Denies dyspnea and Denies wheezing Gastrointestinal: Gastrointestinal: Reports constipation, Denies diarrhea, Reports nausea and Denies vomiting Genitourinary: Genitourinary: Denies dysuria, Reports urinary hesitancy and Denies urinary urgency Musculoskeletal: Musculoskeletal: Denies myalgias, Denies numbness and Denies tingling Integumentary/Breasts: Skin/Breast: Denies lesions, Denies rash and Denies skin ulcer Neurologic: Denies confusion, Denies headache(s), Denies numbness and Denies tingling Psychiatric: Psychiatric: Reports change in appetite (decreased) and Denies confusion Endocrine: Endocrine: Reports fatigue Hematologic/Lymphatic: Hematologic/Lymphatic: Denies easy bleeding and Denies easy bruising Allergic/Immunologic: Allergic/Immunologic: Denies wheezing FOR[facility]LY [facility], [facility] Medical History (Updated 10/26/24 @ 05:35 by Chelsy Santana PA-C) Hx SBO CAD (coronary artery disease) HLD (hyperlipidemia) CKD (chronic kidney disease), stage III CVA (cerebral vascular accident) Atrial fibrillation Type 2 diabetes mellitus Functional capacity: uses cane/walker Surgical History Stented coronary artery H/O cardiac radiofrequency ablation Social History Household Members: Children Housing: House Do you presently have visiting nurse or other home services: No Unable to assess alcohol history related to: Unknown Alcohol intake: former Patient Tobacco Use Status: Never used Tobacco Smoked in Last 30 Days: No Use of substances other than those prescribed or required for medical reasons: No Advance Directives: Yes Advance Directives on File: Yes Advance Directives Date on File: 11/10/22 Do you have a plan to hurt others: No Plan service: Yes Current occupational status: retired Narrative: no smoking, etoh or drug use Meds Allergies Allergy/AdvReac Type Severity Reaction Status Date / Time Sulfa (Sulfonamide Allergy Mild HIVES Verified 10/25/24 19:38 Antibiotics) [SULFA (SULFONAMIDE ANTIBIOTICS)] penicillamine [Cuprimine] Allergy Unknown unknown Verified 10/25/24 19:38 Penicillins Allergy Unknown INKNOWN Verified 10/25/24 19:38 sulfacetamide Allergy Unknown rash Verified 10/25/24 19:38 Home Medications ?Medication ?Instructions ?Recorded ?Confirmed ?Last Taken ?Type apixaban 5 mg tablet (Eliquis) 1 tab PO BID 06/28/21 01/13/24 10/25/24 History aspirin 81 mg tablet,delayed 81 mg PO DAILY 11/05/22 01/13/24 10/25/24 History release atorvastatin 80 mg tablet 40 mg PO BEDTIME 01/13/24 01/13/24 10/25/24 History diphenoxylate-atropine 2.5 2 tab PO BID PRN Diarrhea 01/13/24 01/13/24 Unknown History mg-0.025 mg tablet isosorbide mononitrate 30 mg 30 mg PO BEDTIME 01/13/24 01/13/24 10/25/24 History tablet,extended release 24 hr Lantus Solostar U-100 Insulin 20 units subcut 10/26/24 10/25/24 History Physical Exam Vital Signs and Narrative: Vital Signs: Last Vital Signs Temp 98.9 F 10/26/24 01:48 Pulse 99 10/26/24 04:13 Resp 19 10/26/24 04:13 BP 122/55 L 10/26/24 04:13 Pulse Ox 95 10/26/24 04:13 O2 Del Method Room Air 10/26/24 04:13 BMI result Body Mass Index 41.1 General: AOx3, no acute distress HEENT: external audiatory cancals normal AU. no fluid or erythema AU. no tenderness at mastoid process. Resp: CTA bilaterally CVS: S1, S2, mild tachy GI: hypoactive BS, mild tenderness LUQ, no distention Skin: Warm, dry Neuro: Cranial nerves II-XII grossly intact bilaterally. Motor grossly intact bilaterally. negative brudzinski Extremities: No LE edema Psych: Appropriate affect Const: General: No confusion Orientation/consciousness: No confusion Eyes: Direct Ophthalmoscopy: No photophobia Neuro: General: No confusion Results Labs 10/25/24 19:50 10/25/24 19:50 Labs: Laboratory Results - last 24 hr 10/25/24 10/25/24 10/26/24 19:50 21:37 00:39 MCV 87.8 MCH 30.7 MCHC 35.0 RDW 13.5 Plt Count 197 D MPV 11.4 Immature Gran % (Auto) 0.4 Neut % (Auto) 90.8 H Lymph % (Auto) 2.7 L [place] % (Auto) 5.8 Eos % (Auto) 0.1 Baso % (Auto) 0.2 Lymph # (Auto) 0.5 L [place] # (Auto) 1.0 Eos # (Auto) 0.0 Baso # (Auto) 0.0 Abs Immat Gran (auto) 0.08 H Absolute Neuts (auto) 16.2 H Absolute Nucleated RBC 0.000 Nucleated RBC % (auto) 0.0 Smear Tech's Comments VERIFIED PT 20.0 H INR 1.7 H Anion Gap 12 Estim Creat Clear Calc 58.4 Estimated GFR 44 Random Glucose 230 H Lactic Acid 1.5 Calcium 8.4 D Magnesium 1.8 Total Bilirubin 1.2 H AST 22 ALT 43 H Alkaline Phosphatase 86 Troponin I High Sens 5.4 D 5.3 B-Natriuretic Peptide 185 H Total Protein 6.8 Albumin 3.9 Lipase 15 Urine Color Urine Appearance Urine pH Ur Specific [place] Urine Protein Urine Glucose (UA) Urine Ketones Urine Blood Urine Nitrite Ur Leukocyte Esterase Urine RBC Urine WBC Ur Squamous Epith Cells Urine Bacteria Hyaline Casts Influenza Type A (PCR) NEGATIVE Influenza Type B (PCR) NEGATIVE RSV RNA Qual (PCR) NEGATIVE SARS-CoV-2 RNA (RT-PCR) NEGATIVE 10/26/24 04:20 MCV MCH MCHC RDW Plt Count MPV Immature Gran % (Auto) Neut % (Auto) Lymph % (Auto) [place] % (Auto) Eos % (Auto) Baso % (Auto) Lymph # (Auto) [place] # (Auto) Eos # (Auto) Baso # (Auto) Abs Immat Gran (auto) Absolute Neuts (auto) Absolute Nucleated RBC Nucleated RBC % (auto) Smear Tech's Comments PT INR Anion Gap Estim Creat Clear Calc Estimated GFR Random Glucose Lactic Acid Calcium Magnesium Total Bilirubin AST ALT Alkaline Phosphatase Troponin I High Sens B-Natriuretic Peptide Total Protein Albumin Lipase Urine Color Yellow Urine Appearance Cloudy Urine pH 5.0 Ur Specific [place] 1.020 Urine Protein 100 (2+) H Urine Glucose (UA) 500 H Urine Ketones Trace Urine Blood Small (1+) H Urine Nitrite Negative Ur Leukocyte Esterase Negative Urine RBC 3-5 H Urine WBC 0-5 Ur Squamous Epith Cells 0-2 Urine Bacteria None Seen Hyaline Casts 0-2 Influenza Type A (PCR) Influenza Type B (PCR) RSV RNA Qual (PCR) SARS-CoV-2 RNA (RT-PCR) Assessment and Plan (1) SIRS (systemic inflammatory response syndrome): Status: Acute (2) Intractable abdominal pain: Status: Acute (3) CKD (chronic kidney disease), stage III: Status: Acute Plan Patient is a 69-year-old male with a past medical history significant for CVA x3 (last years ago) on Eliquis, type 2 diabetes on insulin, hypothyroid, pulmonary hypertension and history of partial small-bowel obstruction s/p bowel resection, who presented to the ED with left-sided ear pain x1 day, with nausea and abdominal pain x3 days. Workup significant for SIRS however unknown source at this time. SIRS, intractable abd pain LUQ - improving - WBC 17.9, lactic acid normal, temp of 101.7 degrees, blood cultures x2 pending, not severe sepsis - chest x-ray negative - head CT negative - UA negative - EKG normal, BNP 185 - abdominopelvic CT pending - started on ceftriaxone and given 1 L of IV fluids - continue ceftriaxone and add Flagyl - NPO - monitor CBC and BMP History CVA - continue Eliquis if appropriate after CT results Type 2 diabetes - sliding scale insulin - diabetic diet when resumed Hypothyroid - continue levothyroxine CKD 3 - creatinine around baseline - monitor BMP - avoid nephrotoxins Full code VTE prophylaxis: Pneumoboots, consider resuming Eliquis pending CT results Patient with SIRS and intractable abdominal pain in the left upper quadrant, requiring admission for at least 2 midnights stay for further workup and IV antibiotics. Quality Stroke Does the patient have a stroke diagnosis?: No VTE Prior VTE?: No VTE Risk Level:: Medical - moderate - high VTE Device Contraindication: N/A - Device Ordered VTE Drug Contraindication: Treatment Not Indicated
[2024-10-26 06:06] LABS: Glucose, Whole Blood 172 mg/dL (60-115)
[2024-10-26] MEDS: metroNIDAZOLE/NS 500 MG/100 ML PIGGYBACK 100 MG IV ×3 (06:06→22:01)
[2024-10-26] MEDS: Insulin Lispro 100 UNIT/ML 3 ML VIAL SUBCUT ×4 (06:06→20:39)
[2024-10-26 06:56] LABS: Basophils Percent Auto 0.2 % (0-2); Hematocrit 32.7 % (42.0-52.0); Hemoglobin 11.6 g/dl (14.0-18.0); Imm Gran Abs Auto 0.14 X10*3/uL (0.00-0.03); Imm Gran Pct Auto 0.7 % (0.0-0.4); Lymphocytes Absolute Auto 0.3 X10*3/uL (1.2-4.9); Lymphocytes Percent Auto 1.6 % (20-40); MANUAL DIFF FLAG SCAN; Mean Corpuscular HGB Conc 35.5 g/dl (31.0-36.0); Mean Corpuscular Hemoglobin 31.3 pg (27.0-33.0); Mean Corpuscular Volume 88.1 fL (80.0-98.0); Mean Platelet Volume 11.6 fL (9.4-12.4); Monocytes Absolute Auto 1.2 X10*3/uL (0.1-1.2); Monocytes Percent Auto 5.8 % (2-11); Neutrophils Absolute Auto 19.2 x10*3/uL (2.0-8.3); Neutrophils Percent Auto 91.7 % (45-73); Platelet Count 157 X10*3/uL (160-400); Red Blood Count 3.71 X10*6/uL (4.60-5.80); Red Cell Distribution Width 13.4 % (11.0-16.0); SCAN SMEAR FLAG 1; White Blood Count 20.9 X10*3/uL (4.8-10.8)
[2024-10-26 07:13] LABS: Anion Gap 13 (12-20); Blood Urea Nitrogen 33 mg/dL (9-16); Calcium 8.3 mg/dL (8.4-10.2); Carbon Dioxide 22 mmol/L (22-29); Chloride 109 mmol/L (96-108); Creatinine Clr Calc Pharmacy 54.9; Estimated Glomerular Filt Rate 41; Glucose Random 195 mg/dL (60-115); Potassium 4.6 mmol/L (3.3-5.1); Sodium 139 mmol/L (135-145)
[2024-10-26 07:38] LABS: SLIDE REVIEW VERIFIED
[2024-10-26] MEDS: Acetaminophen 325 MG TABLET 650 MG PO (08:33)
[2024-10-26] MEDS: Apixaban 5 MG TABLET PO (08:33)
[2024-10-26] MEDS: 0.9 % Sodium Chloride Flush 3 ML SYRINGE IVFLUSH ×2 (08:37→22:04)
--- NOTE | 2024-10-26 08:45 | PC.NURSE ---
Pt. medicated per DEC. Fresh pads applied to bed and repositioned for comfort. Rectal tmax = 102.6F. Medicated with PRN Tylenol
--- NOTE | 2024-10-26 09:45 | PM.EVENT ---
Event Note Date of Service: 10/26/24 Event Note: Patient was seen and examined. The patient presented with abdominal pain, and a CT of the abdomen showed no acute findings. He has marked leukocytosis, ranging from 17K to 20K, and a fever of 102?F. While his abdominal pain has improved, he is becoming more hypotensive. Lactic acid was normal on presentation. The patient is currently on Flagyl and ceftriaxone for a possible abdominal source of infection, not confirmed. Plans include repeating lactic acid levels, adding vancomycin, and administering IV fluids to maintain a MAP > 65 mmHg or SBP > 90 mmHg. Initial MAP was 61, with a repeat of 66 less than 30 minutes later. The patient?s renal failure is chronic due to CKD. His elevated INR is attributed to chronic Eliquis use, and his low platelet count is not within the range of organ dysfunction. For other management see H and P from this morning,hold BP meds. Time Spent With Patient Time: Total time managing care of this patient today ____ minutes.
--- NOTE | 2024-10-26 09:48 | PC.NURSE ---
Temp still elevated on re-assessment, and pressure now soft. MD Yani aware - Repeat Lactic and fluid bolus ordered
--- NOTE | 2024-10-26 09:48 | PM.SEPBOLA4 ---
Sepsis Bolus Exclusion Sepsis Bolus Exclusion CHF/Renal Failure Date of Occurrence: 10/26/24 Replace the 30 mls/kg with (Zero amount not acceptable and all fluids for severe sepsis must be given at GREATER than 125 mls/hr) *Note: One of the ann must be documented
[2024-10-26] MEDS: Lactated Ringers 1,000 ML 999 ML IV (10:20)
[2024-10-26 10:21] LABS: Lactic Acid 1.5 mmol/L (0.5-2.0)
--- NOTE | 2024-10-26 10:25 | PHA.MEDREC ---
Addendum entered by Darron Pradhan [facility] 10/26/24 10:36: MED REC CHECKED BY [facility] Original Note: Pharmacy Consult ? Medication Reconciliation Pharmacy has completed the medication reconciliation. Spoke with family member, Deanna, over the phone. She confirmed all of his medications. They split in half the atorvastatin (40mg) and the isosorbide (30mg). She confirmed his lantus is 20 units in the morning. Patient has not had insulin since 10/24/24 because he has not been eating. Family reports if patient does not receive lyrica, he needs to get lomotil because he normally has diarrhea if not. He did not have his morning medications today besides eliquis. He did not receive bedtime medications yesterday as well.
--- NOTE | 2024-10-26 10:29 | PC.NURSE ---
20G peripheral IV inserted to pt.'s L forearm. Tolerated well. Good blood return, and flushes without difficulty or discomfort per pt.
--- NOTE | 2024-10-26 10:29 | PHA.PROG ---
Admission Date/Time: October 26, 2024 05:33 Indication:INTRA ABDOMINAL Weight in k kg Adjusted body weight in Kg: [place] body weight in Kg: Obesity Dosing Indication % IBW: Serum Creatinine - Last 168 Hours 10/25/24 10/26/24 19:50 06:26 Creatinine 1.57 H 1.67 H Estimated CrCl and GFR - Last 168 Hours 10/25/24 10/26/24 19:50 06:26 Estim Creat Clear Calc 58.4 54.9 Estimated GFR 44 41 Vancomycin Loading Dose: 2000 MG Current Vancomycin Dosing Regimen:1250 MG DAILY Vancomycin Monitoring using AUC goal of 400 - 600 range with trough as surrogate marker: Date and Time for next Vancomycin Level to be drawn: 10/28/24 0900 Pharmacist Comments on Vancomycin Plan: PREDICTED AUC OF 435 Vancomycin dosing will take advantage of [employer] as a clinical decision support tool that uses Bayesian modeling to calculate individual patient's pharmacokinetic parameters and forecast the patient's drug concentration time course with the target goal AUC 24 range of 400 - 600 mg/L/hr.
[2024-10-26] MEDS: vancomycin/NS 2,000 MG/500 ML PLAST..BAG 250 MG IV (10:37)
--- NOTE | 2024-10-26 11:34 | PC.NURSE ---
Lab called with critical blood culture result: one of two sets of the blood cultures positive for gram positive cocci + chains. Latrell Lomeli MD notified. No new orders at this time.
[2024-10-26 12:28] LABS: Glucose, Whole Blood 176 mg/dL (60-115)
[2024-10-26] MEDS: Lactated Ringers 1,000 ML 100 ML IVCONT ×2 (12:28→21:12)
[2024-10-26] MEDS: Aspirin Enteric Coated 81 MG TABLET.DR PO (12:44)
[2024-10-26] MEDS: Pregabalin 50 MG CAPSULE PO ×2 (12:44→20:29)
--- NOTE | 2024-10-26 12:52 | PC.NURSE ---
Per Latrell Lomeli MD - give d/c'ed 12:00 dose 2U Lispro now, although pt. now has a diet order and Insulin order is now changed to QIDACHS.
--- NOTE | 2024-10-26 12:52 | PC.NURSE ---
12:00 Lispro ordered by as 12:50 order
--- NOTE | 2024-10-26 16:17 | PC.NURSE ---
Pt. just requested to use urinal. Output appx. 20-30ccs of bright red blood. Latrell Lomeli MD notified.
--- NOTE | 2024-10-26 16:24 | PC.NURSE ---
Per Latrell Lomeli MD - Bladder scan, and if stable can go [up to Med-Surg]
--- NOTE | 2024-10-26 16:28 | PC.NURSE ---
states: Kee catheter, possibly CBI, will hold Eliquis
[2024-10-26 16:39] LABS: Glucose, Whole Blood 194 mg/dL (60-115)
--- NOTE | 2024-10-26 17:29 | PC.NURSE ---
3-way Kee catheter, size 22 inserted for CBI. Immeidate output is brown and sediment
[2024-10-26] MEDS: Lidocaine HCl 2 % Urojet 10 ML JEL.PF.APP TOPICAL (17:35)
[2024-10-26 18:41] LABS: Glucose, Whole Blood 200 mg/dL (60-115)
[2024-10-26] MEDS: Atorvastatin Calcium 40 MG TABLET PO (20:29)
[2024-10-26 20:38] LABS: Glucose, Whole Blood 169 mg/dL (60-115)
[2024-10-27 04:00] VITALS: BP 130/66; PULSE 93; RESP 16; TEMP 36.4; O2SAT 93
[2024-10-27] MEDS: metroNIDAZOLE/NS 500 MG/100 ML PIGGYBACK 100 MG IV (05:29)
[2024-10-27 06:02] LABS: Hematocrit 29.6 % (42.0-52.0); Hemoglobin 10.1 g/dl (14.0-18.0); Mean Corpuscular HGB Conc 34.1 g/dl (31.0-36.0); Mean Corpuscular Volume 87.8 fL (80.0-98.0); Mean Platelet Volume 11.4 fL (9.4-12.4); Platelet Count 149 X10*3/uL (160-400); Red Blood Count 3.37 X10*6/uL (4.60-5.80); Red Cell Distribution Width 13.6 % (11.0-16.0); White Blood Count 13.6 X10*3/uL (4.8-10.8)
[2024-10-27 06:16] LABS: Anion Gap 11 (12-20); Blood Urea Nitrogen 33 mg/dL (9-16); Carbon Dioxide 21 mmol/L (22-29); Chloride 110 mmol/L (96-108); Estimated Glomerular Filt Rate 43; Glucose Random 140 mg/dL (60-115); Potassium 4.1 mmol/L (3.3-5.1); Sodium 138 mmol/L (135-145)
[2024-10-27] MEDS: 0.9 % Sodium Chloride Flush 3 ML SYRINGE IVFLUSH ×2 (07:18→15:00)
[2024-10-27] MEDS: Lactated Ringers 1,000 ML 100 ML IVCONT ×2 (07:18→17:39)
[2024-10-27 08:00] VITALS: BP 126/63; PULSE 97; RESP 16; TEMP 36.9; O2SAT 93
[2024-10-27] MEDS: Aspirin Enteric Coated 81 MG TABLET.DR PO (08:07)
[2024-10-27 08:08] LABS: Glucose, Whole Blood 135 mg/dL (60-115)
[2024-10-27] MEDS: Pregabalin 50 MG CAPSULE PO ×2 (08:08→20:54)
[2024-10-27] MEDS: Flu Vacc TS2024-25(6mos up)/PF 0.5 ML SYRINGE IM (08:10)
[2024-10-27] MEDS: Insulin Glargine,Hum.rec.anlog 100 UNIT/ML 10 ML VIAL 20 UNIT SUBCUT (08:15)
--- NOTE | 2024-10-27 08:55 | HO.PM.IMPN ---
Subjective Subjective Date of Service: 10/27/24 Interval History: Follow up on sepsis, bacteremia, hematuria, had hematuria yesterday, started on cbi, urine is clear fevers resolved. Physical Exam Vital Signs: Vital Signs: Last Vital Signs Temp 98.4 F 10/27/24 08:00 Pulse 97 10/27/24 08:00 Resp 16 10/27/24 08:00 BP 126/63 10/27/24 08:00 Pulse Ox 93 10/27/24 08:00 O2 Del Method Room Air 10/27/24 08:00 O2 Flow Rate 2 10/26/24 18:11 BMI result Body Mass Index 41.1 Const: Other: General: AO X 3, no acute distress Resp: CTA bilateral CVS: S1,S2,RRR GI: +BS, NT, no distention Skin: No rash Neuro: motor grossly intact Psych: appropriate affect Objective Data Active Medications Acetaminophen (Acetaminophen 325 Mg Tablet) 650 mg PO Q6H PRN PRN Reason: Pain, Mild 1-3,fever,headache Last Admin: 10/26/24 08:33 Dose: 650 mg Documented By: GRETA Apixaban (Apixaban 5 Mg Tablet) 5 mg PO BID [facility] Last Admin: 10/27/24 07:32 Dose: Not Given Documented By: JAMAL Non-Admin Reason: Hold per M.D. Aspirin (Aspirin Enteric Coated 81 Mg Tablet.) 81 mg PO DAILY [facility] Last Admin: 10/27/24 08:07 Dose: 81 mg Documented By: JAMAL Atorvastatin Calcium (Atorvastatin Calcium 40 Mg Tablet) 40 mg PO BEDTIME [facility] Last Admin: 10/26/24 20:29 Dose: 40 mg Documented By: WILMAR Calcium Carbonate (Calcium Carbonate 750 Mg Tab.Chew) 750 mg PO Q4H PRN PRN Reason: Heartburn Ceftriaxone Sodium (Ceftriaxone Sodium 1 Gm Vial) 1 gm IVPUSH Q24H [facility] Last Admin: 10/26/24 21:06 Dose: 1 gm Documented By: WILMAR Diphenoxylate HCl/Atropine (Diphenoxylate/Atrop 2.5/0.025 Tablet) 2 tab PO BID PRN PRN Reason: Diarrhea Glucose (Glucose Gel 15 Gm Gel..Gram.) 15 gm PO Q15M PRN; Protocol PRN Reason: per Hypoglycemia Standing Ord. Metronidazole (Flagyl) 500 mg in 100 mls @ 100 mls/hr IV Q8H [facility] Last Infusion: 10/27/24 06:32 Dose: Infused Documented By: WILMAR Dextrose (D10) 250 mls @ 750 mls/hr IV Q15M PRN; Protocol PRN Reason: per Hypoglycemia Standing Ord. Vancomycin HCl 1,250 mg/ (Sodium Chloride) 250 mls @ 166.667 mls/hr IV Q24H [facility] Lactated Ringer's (Lr) 1,000 mls @ 100 mls/hr IVCONT .Q10H [facility] Last Admin: 10/27/24 07:18 Dose: 100 mls/hr Documented By: JAMAL Influenza Virus Vaccine (Flu Vacc Ov1982-38(6mos Up)/Pf 0.5 Ml Syringe) 0.5 ml IM .ONCE ONE Stop: 10/27/24 09:01 Last Admin: 10/27/24 08:10 Dose: 0.5 ml Documented By: JAMAL Comments: Left Deltoid Insulin Glargine (Insulin Glargine,Hum.Rec.Anlog 100 Unit/Ml 10 Ml Vial) 20 unit SUBCUT DAILY [facility] Last Admin: 10/27/24 08:15 Dose: 20 unit Documented By: JAMAL Insulin Human Lispro (Insulin Lispro 100 Unit/Ml 3 Ml Vial) 0 unit SUBCUT QIDACHS [facility]; Protocol Last Admin: 10/27/24 08:06 Dose: Not Given Documented By: JAMAL Non-Admin Reason: No Insulin Coverage Magnesium Hydroxide (Milk Of Magnesia 30 Ml Oral.Susp) 30 ml PO DAILY PRN PRN Reason: Constipation Melatonin (Melatonin 3 Mg Tablet) 6 mg PO BEDTIME PRN PRN Reason: Insomnia Ondansetron HCl (Ondansetron Hcl 4 Mg/2 Ml Vial) 4 mg IVPUSH Q8H PRN PRN Reason: Nausea and Vomiting Pharmacy Consult (Consult Rx Vancomycin Dosing) 1 each MISCELLANE DAILY PRN PRN Reason: Consult order Pregabalin (Pregabalin 50 Mg Capsule) 50 mg PO BID [facility] Last Admin: 10/27/24 08:08 Dose: 50 mg Documented By: JAMAL Sodium Chloride (0.9 % Sodium Chloride Flush 3 Ml Syringe) 3 ml IVFLUSH QSHIFT [facility] Last Admin: 10/27/24 07:18 Dose: 3 ml Documented By: JAMAL Labs 10/27/24 05:30 10/27/24 05:30 Labs: Laboratory Results - last 24 hr 10/26/24 10/26/24 10/26/24 09:57 12:22 16:35 MCV MCH MCHC RDW Plt Count MPV Absolute Nucleated RBC Nucleated RBC % (auto) Anion Gap Estim Creat Clear Calc Estimated GFR POC Glucose 176 H 194 H Random Glucose Lactic Acid 1.5 Calcium 10/26/24 10/26/24 10/27/24 17:57 20:35 05:30 MCV 87.8 MCH 30.0 MCHC 34.1 RDW 13.6 Plt Count 149 L MPV 11.4 Absolute Nucleated RBC 0.000 Nucleated RBC % (auto) 0.0 Anion Gap 11 L Estim Creat Clear Calc 57.0 Estimated GFR 43 POC Glucose 200 H 169 H Random Glucose 140 H Lactic Acid Calcium 8.0 L 10/27/24 08:01 MCV MCH MCHC RDW Plt Count MPV Absolute Nucleated RBC Nucleated RBC % (auto) Anion Gap Estim Creat Clear Calc Estimated GFR POC Glucose 135 H Random Glucose Lactic Acid Calcium Microbiology Microbiology Results: Microbiology 10/26/24 00:39 Blood Culture - Preliminary Blood - Venous Prelim: GPC Gram Stain only 10/26/24 00:58 Blood Culture - Preliminary Blood - Venous Prelim: GPC Gram Stain only Assessment and Plan (1) Gram-positive cocci bacteremia: Status: Acute Plan 69-year-old male with a past medical history significant for CVA x3 (last years ago) on Eliquis, type 2 diabetes on insulin, hypothyroid, pulmonary hypertension and history of partial small-bowel obstruction s/p bowel resection, who presented to the ED with left-sided ear pain x1 day, with nausea and abdominal pain x3 days. show workup showed SIRS with no source of infection. He later developed Gram-positive bacteremia Gram positive sepsis 2/2, source unclear., no UTI, fever resolved and WBC trending down -was empirically started on Ceftriaxone and flagyl and Vanco added. Stop flagyl -repeat blood cultures, echocardiogram tomorrow -ID consult Hematuria--eliquis stopped and cbi initiaated, urine now clear, stop cbi, uro consult pending History CVA - continue Eliquis if appropriate after CT results--eliquis on hold Type 2 diabetes - sliding scale insulin -Lantus home dose -diabetic diet when resumed Hypothyroid - continue levothyroxine CKD 3 - creatinine around baseline - monitor BMP - avoid nephrotoxins Full code VTE prophylaxis: Pneumoboots, while eliquis on hold Quality Stroke Does the patient have a stroke diagnosis?: No VTE Prior VTE?: No VTE Risk Level:: Medical - moderate - high VTE Device Contraindication: N/A - Device Ordered VTE Drug Contraindication: Treatment Not Indicated
--- NOTE | 2024-10-27 09:11 | HE.PHANOTE ---
VANCO DOSE ADJUSTMENT BASED ON SCR OF 1.61 DOSE CONTINUED AT 1250 Q 24. NEXT TROUGH AT 10/28 @ 0900
[2024-10-27] MEDS: vancomycin HCL 1,250 MG in 0.9 % Sodium Chloride 250 ML 166.67 MG IV (11:00)
[2024-10-27 11:32] LABS: Glucose, Whole Blood 160 mg/dL (60-115)
--- NOTE | 2024-10-27 11:38 | MHC.CM.PN ---
IMM delivered. From home w/ son and [id number]. Hx CVA x3, reports generalized weakness. Son assists w/ ADL's. Ambulates w/ walker. Has a shower chair. Uses home O2 PRN, supplier is [employer]. PCP Masood Jeffery MD HCP on file and verified. DP: Goal is home, may need PT/SN services. Has used [facility] in the past and would use their services again. Referral sent via [employer]. Family to transport. CM will continue to follow.
--- NOTE | 2024-10-27 12:25 | PM.UROCN ---
History of Present Illness Consult details Consult date: 10/27/24 Narrative: CC: Hematuria 69-year-old male Insulin-dependent diabetic on Eliquis presenting with nausea and abdominal pain past 3 days Evaluation for SIRS of unknown source Urine with 500 glucose consistent with spiking blood sugars Had episode of hematuria which has resolved with CBI Recommendations to hold Eliquis and aggressively manage blood sugar On antibiotics for blood culture showing group a strep Review of Systems Constitutional: Constitutional: Reports as per HPI and Reports no additional constitutional complaints Cardiovascular: Cardiovascular: Reports as per HPI and Reports no additional cardiovascular complaints Respiratory: Respiratory: Reports as per HPI and Reports no additional respiratory complaints Gastrointestinal: Gastrointestinal: Reports as per HPI and Reports no additional gastrointestinal complaints Genitourinary: Genitourinary: Reports as per HPI Musculoskeletal: Musculoskeletal: Reports no additional musculoskeletal complaints and Reports as per HPI Neurologic: Reports system reviewed and no additional complaints, except as documented and Reports as per HPI PMFSH Past Medical History Medical History Hx SBO CAD (coronary artery disease) HLD (hyperlipidemia) CKD (chronic kidney disease), stage III CVA (cerebral vascular accident) Atrial fibrillation Type 2 diabetes mellitus Surgical History Surgical History Stented coronary artery H/O cardiac radiofrequency ablation Social History Social History Household Members: Family Housing: House Do you presently have visiting nurse or other home services: No Unable to assess alcohol history related to: Unknown Alcohol intake: former Patient Tobacco Use Status: Never used Tobacco Advance Directives Date on File: 11/10/22 service: No Current occupational status: retired Meds Allergies Allergy/AdvReac Type Severity Reaction Status Date / Time Sulfa (Sulfonamide Allergy Mild HIVES Verified 10/25/24 19:38 Antibiotics) [SULFA (SULFONAMIDE ANTIBIOTICS)] penicillamine [Cuprimine] Allergy Unknown unknown Verified 10/25/24 19:38 Penicillins Allergy Unknown INKNOWN Verified 10/25/24 19:38 sulfacetamide Allergy Unknown rash Verified 10/25/24 19:38 Active Medications: Current Medications Acetaminophen (Acetaminophen 325 Mg Tablet) 650 mg PO Q6H PRN PRN Reason: Pain, Mild 1-3,fever,headache Last Admin: 10/26/24 08:33 Dose: 650 mg Apixaban (Apixaban 5 Mg Tablet) 5 mg PO BID [facility] Last Admin: 10/27/24 07:32 Dose: Not Given Aspirin (Aspirin Enteric Coated 81 Mg Tablet.Dr) 81 mg PO DAILY [facility] Last Admin: 10/27/24 08:07 Dose: 81 mg Atorvastatin Calcium (Atorvastatin Calcium 40 Mg Tablet) 40 mg PO BEDTIME [facility] Last Admin: 10/26/24 20:29 Dose: 40 mg Calcium Carbonate (Calcium Carbonate 750 Mg Tab.Chew) 750 mg PO Q4H PRN PRN Reason: Heartburn Ceftriaxone Sodium (Ceftriaxone Sodium 2 Gm Vial) 2 gm IVPUSH Q24H [facility] Diphenoxylate HCl/Atropine (Diphenoxylate/Atrop 2.5/0.025 Tablet) 2 tab PO BID PRN PRN Reason: Diarrhea Glucose (Glucose Gel 15 Gm Gel..Gram.) 15 gm PO Q15M PRN; Protocol PRN Reason: per Hypoglycemia Standing Ord. Dextrose (D10) 250 mls @ 750 mls/hr IV Q15M PRN; Protocol PRN Reason: per Hypoglycemia Standing Ord. Lactated Ringer's (Lr) 1,000 mls @ 100 mls/hr IVCONT .Q10H [facility] Last Admin: 10/27/24 07:18 Dose: 100 mls/hr Insulin Glargine (Insulin Glargine,Hum.Rec.Anlog 100 Unit/Ml 10 Ml Vial) 20 unit SUBCUT DAILY [facility] Last Admin: 10/27/24 08:15 Dose: 20 unit Insulin Human Lispro (Insulin Lispro 100 Unit/Ml 3 Ml Vial) 0 unit SUBCUT QIDACHS [facility]; Protocol Last Admin: 10/27/24 12:12 Dose: Not Given Magnesium Hydroxide (Milk Of Magnesia 30 Ml Oral.Susp) 30 ml PO DAILY PRN PRN Reason: Constipation Melatonin (Melatonin 3 Mg Tablet) 6 mg PO BEDTIME PRN PRN Reason: Insomnia Ondansetron HCl (Ondansetron Hcl 4 Mg/2 Ml Vial) 4 mg IVPUSH Q8H PRN PRN Reason: Nausea and Vomiting Pregabalin (Pregabalin 50 Mg Capsule) 50 mg PO BID [facility] Last Admin: 10/27/24 08:08 Dose: 50 mg Sodium Chloride (0.9 % Sodium Chloride Flush 3 Ml Syringe) 3 ml IVFLUSH QSHIFT ALAN Last Admin: 10/27/24 07:18 Dose: 3 ml Home Medications ?Medication ?Instructions ?Recorded ?Confirmed ?Last Taken ?Type apixaban 5 mg tablet (Eliquis) 1 tab PO BID 06/28/21 10/26/24 10/26/24 History aspirin 81 mg tablet,delayed 81 mg PO DAILY 11/05/22 10/26/24 10/25/24 History release atorvastatin 80 mg tablet 40 mg PO BEDTIME 01/13/24 10/26/24 Unknown History diphenoxylate-atropine 2.5 2 tab PO BID PRN Diarrhea 01/13/24 10/26/24 Unknown History mg-0.025 mg tablet insulin glargine 100 unit/mL (3 20 unit subcut DAILY 10/26/24 10/26/24 10/24/24 History mL) subcutaneous pen (Lantus Solostar U-100 Insulin) isosorbide mononitrate 60 mg 30 mg PO BEDTIME 10/26/24 10/26/24 Unknown History tablet,extended release 24 hr pregabalin 50 mg capsule 50 mg PO BID 10/26/24 10/26/24 10/25/24 History Physical Exam Vital Signs: Vital Signs: Last Vital Signs Temp 98.4 F 10/27/24 08:00 Pulse 97 10/27/24 08:00 Resp 16 10/27/24 08:00 BP 126/63 10/27/24 08:00 Pulse Ox 93 10/27/24 08:00 O2 Del Method Room Air 10/27/24 08:00 O2 Flow Rate 2 10/26/24 18:11 BMI result Body Mass Index 41.1 Const: General: cooperative, healthy appearing, comfortable and no acute distress Orientation/consciousness: patient oriented x3 HEENT: Face and sinus: Yes normal facial exam Mouth: moist mucous membranes Neck: Neck: Yes normal visual inspection, Yes full ROM and Yes trachea midline Chest: Chest palpation & inspection: normal inspection of the chest Resp: Effort & Inspection: normal respiratory effort, able to speak in complete sentences and no respiratory distress GI: Inspection: Yes normal to inspection Back/Spine/Pelvis: Cervical Spine: normal cervical lordosis Thoracic/Lumbar Spine: thoracic and lumbar spine normal to inspection Skin: General skin exam: no rashes or lesions noted Neuro: General: patient oriented x3, tone normal and moves all extremities Extrem: General: Yes normal to inspection and Yes capillary refill normal Results Labs 10/27/24 05:30 10/27/24 05:30 Labs: Abnormal lab results 10/26/24 10/26/24 10/26/24 Range/Units 12:22 16:35 17:57 WBC (4.8-10.8) X10*3/uL RBC (4.60-5.80) X10*6/uL Hgb (14.0-18.0) g/dl Hct (42.0-52.0) % Plt Count (160-400) X10*3/uL Chloride (96-108) mmol/L Carbon Dioxide (22-29) mmol/L Anion Gap (12-20) BUN (9-16) mg/dL Creatinine (0.5-1.4) mg/dL POC Glucose 176 H 194 H 200 H (60-115) mg/dL Random Glucose (60-115) mg/dL Calcium (8.4-10.2) mg/dL 10/26/24 10/27/24 10/27/24 Range/Units 20:35 05:30 08:01 WBC 13.6 H (4.8-10.8) X10*3/uL RBC 3.37 L (4.60-5.80) X10*6/uL Hgb 10.1 L (14.0-18.0) g/dl Hct 29.6 L (42.0-52.0) % Plt Count 149 L (160-400) X10*3/uL Chloride 110 H (96-108) mmol/L Carbon Dioxide 21 L (22-29) mmol/L Anion Gap 11 L (12-20) BUN 33 H (9-16) mg/dL Creatinine 1.61 H (0.5-1.4) mg/dL POC Glucose 169 H 135 H (60-115) mg/dL Random Glucose 140 H (60-115) mg/dL Calcium 8.0 L (8.4-10.2) mg/dL 10/27/24 Range/Units 11:29 WBC (4.8-10.8) X10*3/uL RBC (4.60-5.80) X10*6/uL Hgb (14.0-18.0) g/dl Hct (42.0-52.0) % Plt Count (160-400) X10*3/uL Chloride (96-108) mmol/L Carbon Dioxide (22-29) mmol/L Anion Gap (12-20) BUN (9-16) mg/dL Creatinine (0.5-1.4) mg/dL POC Glucose 160 H (60-115) mg/dL Random Glucose (60-115) mg/dL Calcium (8.4-10.2) mg/dL Short CBC 10/27/24 Range/Units 05:30 WBC 13.6 H (4.8-10.8) X10*3/uL Hgb 10.1 L (14.0-18.0) g/dl Hct 29.6 L (42.0-52.0) % Plt Count 149 L (160-400) X10*3/uL BMP 10/27/24 05:30 Sodium 138 Potassium 4.1 Chloride 110 H Carbon Dioxide 21 L BUN 33 H Creatinine 1.61 H Calcium 8.0 L Urine 10/26/24 Range/Units 04:20 Urine Color Yellow Urine Appearance Cloudy Urine pH 5.0 (5.0-9.0) Ur Specific [place] 1.020 (1.005-1.025) Urine Protein 100 (2+) H (Neg-Trace) mg/dL Urine Glucose (UA) 500 H (Negative) mg/dL All other labs normal. Assessment and Plan (1) Gross hematuria: Status: Acute Plan Hold anticoagulation Procedures Date of Service Date of Service: 10/27/24
[2024-10-27] MEDS: cefTRIAXone sodium 2 GM VIAL IVPUSH (13:36)
[2024-10-27 15:17] VITALS: BP 109/52; PULSE 90; RESP 18; TEMP 36.9; O2SAT 92
[2024-10-27 16:15] LABS: Glucose, Whole Blood 193 mg/dL (60-115)
[2024-10-27] MEDS: Insulin Lispro 100 UNIT/ML 3 ML VIAL SUBCUT ×2 (16:34→20:54)
[2024-10-27 19:48] VITALS: BP 131/60; PULSE 96; RESP 18; TEMP 36.6; O2SAT 93
[2024-10-27 20:02] LABS: Glucose, Whole Blood 169 mg/dL (60-115)
[2024-10-27] MEDS: Atorvastatin Calcium 40 MG TABLET PO (20:54)
[2024-10-28 03:44] VITALS: BP 126/60; PULSE 91; RESP 18; TEMP 37.2; O2SAT 86
[2024-10-28 03:54] VITALS: O2SAT 91
[2024-10-28] MEDS: Lactated Ringers 1,000 ML 100 ML IVCONT (04:30)
[2024-10-28 06:07] LABS: Hematocrit 29.4 % (42.0-52.0); Hemoglobin 10.4 g/dl (14.0-18.0); Mean Corpuscular HGB Conc 35.4 g/dl (31.0-36.0); Mean Corpuscular Hemoglobin 30.9 pg (27.0-33.0); Mean Corpuscular Volume 87.2 fL (80.0-98.0); Mean Platelet Volume 11.5 fL (9.4-12.4); Platelet Count 152 X10*3/uL (160-400); Red Blood Count 3.37 X10*6/uL (4.60-5.80); Red Cell Distribution Width 13.5 % (11.0-16.0)
[2024-10-28 06:20] LABS: Anion Gap 10 (12-20); Blood Urea Nitrogen 32 mg/dL (9-16); Carbon Dioxide 22 mmol/L (22-29); Chloride 112 mmol/L (96-108); Creatinine Clr Calc Pharmacy 57.3; Estimated Glomerular Filt Rate 43; Glucose Random 127 mg/dL (60-115); Potassium 3.8 mmol/L (3.3-5.1); Sodium 140 mmol/L (135-145)
--- NOTE | 2024-10-28 07:00 | CA_ITS ---
Transthoracic Echocardiogram Patient (Last, First, Middle): Kiko River, Gender: Male Date of : 1955 Age: 69 Procedure Date: 10/28/2024 Procedure Type: Transthoracic Echocardiogram Location: S3E Height: 177.8 cm Weight: 129.73 kg BSA: 2.43 m2 Heart Rate: 99 bpm BP: 154 / 71 mmHg Train Driver: STACEY Referring MD: Silas Lomeli MD Symptoms: Bacteremia Study Quality: Adequate w contrast ECG Rhythm: Sinus Conclusions: - The left ventricular systolic function is normal. The visually estimated ejection fraction is between 55-60%. - Moderately increased right ventricular cavity size. - There is mild calcification of the aortic valve. - There is mild mitral annular calcification. - Moderate pulmonary hypertension is present. Findings Procedure Information Contrast agent, definity, is being given per protocol without apparent complications. The quality of the study was technically difficult. The study quality is limited by patients body habitus and lung artifact. Left Ventricle Normal left ventricular cavity size. The left ventricular systolic function is normal. The visually estimated ejection fraction is between 55-60%. There is no evidence of regional wall motion abnormalities. Diastolic function is normal for age. There is moderate septal asymmetric hypertrophy. Right Ventricle Moderately increased right ventricular cavity size. There is normal right ventricular systolic function. Atria Both atria are normal in size. Aortic Valve There is mild calcification of the aortic valve. There is no aortic valve stenosis. There is no aortic valve regurgitation. Mitral Valve There is mild mitral annular calcification. There is no mitral valve regurgitation. There is no mitral valve stenosis. Pulmonic Valve The pulmonic valve is likely normal. Tricuspid Valve There is mild tricuspid valve regurgitation. The right ventricular systolic pressure is 62 mmHg. Moderate pulmonary hypertension is present. Great Vessels The asc aorta is normal in size. Venous The inferior vena cava is normal in size and collapses less than 50% with inspiration. Pericardium/Pleural There is no evidence of pericardial effusion. Prior Study Comparison No significant change compared to prior study dated: 01/15/2024. Recommendations, Care & Conclusions Consider a RODRIGO if clinically appropriate. Measurements 2D Linear Measurements IVSd: 1.34 0.6-0.9/0.6-1.0 cm LVIDd: 3.82 3.9-5.3/4.2-5.9 cm LVIDd Index: 1.57 2.4-3.2/2.2-3.1 cm/m2 LVIDs: 2.37 2.0-3.6 cm LVPWd: 0.75 0.7-1.1 cm LA Diam: 4.20 2.7-3.8/3.0-4.0 cm LAIDs Index: 1.73 1.5-2.3 cm/m2 LV Mass: 156.27 67-162/88-224 g LV Mass Index: 64.31 43-95/49-115 g/m2 LVOT Diam: 2.00 3.0+(-)1.3 cm 2D Systolic Function EF 4C: 71.20 >55% Mitral Valve MV Pk E: 1.02 MV PK A: 0.58 MV Decel Time: 171.00 E/A: 1.70 E'Lateral: 7.94 E'Medial: 5.87 E/E' Med: 17.40 E/E' Lat: 12.80 PHT: 50.00 MVA PHT: 4.40 Decel [place]: 5.96 Aortic Valve AoV Pk Darion: 1.19 AoV Pk Grad: 6.00 DEEP: 2.60 LVOT LVOT Pk Darion: 0.94 LVOT Mn Darion: 0.64 LVOT VTI: 0.18 LVOT Pk Grad: 4.00 LVOT Mn Grad: 2.00 LVOT Diam: 2.00 LVOT Area: 3.14 Diastolic Function MV Pk E: 1.02 MV Pk A: 0.58 E/A: 1.70 E'Medial: 5.87 E/E' Med: 17.40 E' Laterial: 7.94 E/E' Lat: 12.80 Right Ventricle TAPSE (mm): 23.30 TVS' Darion: 15.80 Tricuspid Valve TR Pk Darion: 3.68 TR Pk Grad: 54.00 RA Press: 8.00 RVSP: 62.00 Great Vessels Aorta Sinus of Valsalva: 3.30 2.0-3.5 cm Ao Asc: 3.80 2.1-3.4 cm Pulmonary Valve PV Pk Darion: 0.96 Peak PV Grad: 4.00 Updated in Other Vendor System with Status of Final Enmanuel Leyva MD electronically signed on 10/28/2024 11:21:38 AM with status of Final
[2024-10-28 07:27] VITALS: BP 154/71; PULSE 87; RESP 16; TEMP 37.6; O2SAT 93
[2024-10-28 07:33] LABS: Glucose, Whole Blood 119 mg/dL (60-115)
[2024-10-28] MEDS: Aspirin Enteric Coated 81 MG TABLET.DR PO (08:12)
[2024-10-28] MEDS: Pregabalin 50 MG CAPSULE PO ×2 (08:12→20:53)
[2024-10-28] MEDS: Insulin Glargine,Hum.rec.anlog 100 UNIT/ML 10 ML VIAL 20 UNIT SUBCUT (08:12)
[2024-10-28] MEDS: 0.9 % Sodium Chloride Flush 3 ML SYRINGE IVFLUSH ×3 (08:16→21:33)
--- NOTE | 2024-10-28 09:14 | P.PNIM_ITS ---
Subjective Subjective Date of Service: 10/28/24 Interval History: f/u on sepsis, hematuria, No new issues, afebrile, urine clear blood cultures reported as Group A strep Physical Exam 2 Vital Signs: Vital Signs: Last Vital Signs Temp 99.7 F 10/28/24 07:27 Pulse 87 10/28/24 07:27 Resp 16 10/28/24 07:27 BP 154/71 H 10/28/24 07:27 Pulse Ox 93 10/28/24 07:27 O2 Del Method Nasal Cannula 10/28/24 07:27 O2 Flow Rate 1 10/28/24 07:27 BMI result Body Mass Index 41.1 General: AO X 3, no acute distress Resp: CTA bilateral CVS: S1,S2,RRR GI: +BS, NT, no distention Skin: No rash Neuro: motor grossly intact Psych: appropriate affect Objective Data Active Medications Acetaminophen (Acetaminophen 325 Mg Tablet) 650 mg PO Q6H PRN PRN Reason: Pain, Mild 1-3,fever,headache Last Admin: 10/26/24 08:33 Dose: 650 mg Documented By: GRETA Apixaban (Apixaban 5 Mg Tablet) 5 mg PO BID [facility] Last Admin: 10/27/24 07:32 Dose: Not Given Documented By: JAMAL Non-Admin Reason: Hold per M.D. Aspirin (Aspirin Enteric Coated 81 Mg Tablet.) 81 mg PO DAILY [facility] Last Admin: 10/28/24 08:12 Dose: 81 mg Documented By: ROSITA Atorvastatin Calcium (Atorvastatin Calcium 40 Mg Tablet) 40 mg PO BEDTIME [facility] Last Admin: 10/27/24 20:54 Dose: 40 mg Documented By: MILA Calcium Carbonate (Calcium Carbonate 750 Mg Tab.Chew) 750 mg PO Q4H PRN PRN Reason: Heartburn Ceftriaxone Sodium (Ceftriaxone Sodium 2 Gm Vial) 2 gm IVPUSH Q24H [facility] Last Admin: 10/27/24 13:36 Dose: 2 gm Documented By: JAMAL Diphenoxylate HCl/Atropine (Diphenoxylate/Atrop 2.5/0.025 Tablet) 2 tab PO BID PRN PRN Reason: Diarrhea Glucose (Glucose Gel 15 Gm Gel..Gram.) 15 gm PO Q15M PRN; Protocol PRN Reason: per Hypoglycemia Standing Ord. Dextrose (D10) 250 mls @ 750 mls/hr IV Q15M PRN; Protocol PRN Reason: per Hypoglycemia Standing Ord. Lactated Ringer's (Lr) 1,000 mls @ 100 mls/hr IVCONT .Q10H [facility] Last Admin: 10/28/24 04:30 Dose: 100 mls/hr Documented By: MILA Insulin Glargine (Insulin Glargine,Hum.Rec.Anlog 100 Unit/Ml 10 Ml Vial) 20 unit SUBCUT DAILY [facility] Last Admin: 10/28/24 08:12 Dose: 20 unit Documented By: ROSITA Insulin Human Lispro (Insulin Lispro 100 Unit/Ml 3 Ml Vial) 0 unit SUBCUT QIDACHS [facility]; Protocol Last Admin: 10/28/24 08:06 Dose: Not Given Documented By: ROSITA Non-Admin Reason: No Insulin Coverage Magnesium Hydroxide (Milk Of Magnesia 30 Ml Oral.Susp) 30 ml PO DAILY PRN PRN Reason: Constipation Melatonin (Melatonin 3 Mg Tablet) 6 mg PO BEDTIME PRN PRN Reason: Insomnia Ondansetron HCl (Ondansetron Hcl 4 Mg/2 Ml Vial) 4 mg IVPUSH Q8H PRN PRN Reason: Nausea and Vomiting Pregabalin (Pregabalin 50 Mg Capsule) 50 mg PO BID [facility] Last Admin: 10/28/24 08:12 Dose: 50 mg Documented By: ROSITA Sodium Chloride (0.9 % Sodium Chloride Flush 3 Ml Syringe) 3 ml IVFLUSH QSHIFT [facility] Last Admin: 10/28/24 08:16 Dose: 3 ml Documented By: ROSITA Labs 10/28/24 05:51 10/28/24 05:51 Labs: Laboratory Results - last 24 hr 10/27/24 10/27/24 10/27/24 11:29 16:08 19:35 MCV MCH MCHC RDW Plt Count MPV Absolute Nucleated RBC Nucleated RBC % (auto) Anion Gap Estim Creat Clear Calc Estimated GFR POC Glucose 160 H 193 H 169 H Random Glucose Calcium 10/28/24 10/28/24 05:51 07:29 MCV 87.2 MCH 30.9 MCHC 35.4 RDW 13.5 Plt Count 152 L MPV 11.5 Absolute Nucleated RBC 0.000 Nucleated RBC % (auto) 0.0 Anion Gap 10 L Estim Creat Clear Calc 57.3 Estimated GFR 43 POC Glucose 119 H Random Glucose 127 H Calcium 8.0 L Microbiology Microbiology Results: Microbiology 10/26/24 00:39 Blood Culture - Final Blood - Venous Streptococcus pyogenes (Grp A) 10/26/24 00:58 Blood Culture - Final Blood - Venous Streptococcus pyogenes (Grp A) Assessment and Plan (1) Gram-positive cocci bacteremia: Status: Acute Plan 69-year-old male with a past medical history significant for CVA x3 (last years ago) on Eliquis, type 2 diabetes on insulin, hypothyroid, pulmonary hypertension and history of partial small-bowel obstruction s/p bowel resection, who presented to the ED with left-sided ear pain x1 day, with nausea and abdominal pain x3 days. show workup showed SIRS with no source of infection. He later developed Gram-positive bacteremia Group A strep sepsis and bacteremia, source unclear, source unclear ? UTI -was empirically started on Ceftriaxone and flagyl in ED, then Vanco added. -Now on Ceftriaxone alone -repeat blood cultures, echocardiogram today and ID consult Hematuria-- was briefly on CBI, now clear. Will resume eliquis and monitor. Uro consult is pending History CVA - continue Eliquis if appropriate after CT results--eliquis on hold Type 2 diabetes - sliding scale insulin -Lantus home dose -diabetic diet Hypothyroid - continue levothyroxine CKD 3 - creatinine around baseline - monitor BMP - avoid nephrotoxins Full code VTE prophylaxis: Pneumoboots, resume eliquis Quality Stroke Does the patient have a stroke diagnosis?: No VTE Prior VTE?: No VTE Risk Level:: Medical - moderate - high VTE Device Contraindication: N/A - Device Ordered VTE Drug Contraindication: Treatment Not Indicated
[2024-10-28] MEDS: Apixaban 5 MG TABLET PO ×2 (09:15→20:53)
[2024-10-28 11:04] LABS: Glucose, Whole Blood 174 mg/dL (60-115)
--- NOTE | 2024-10-28 11:18 | MHC.CM.PN ---
Per MD rounds Infectious disease consult and PT eval are pending. A clinical update has been sent to [facility]. DP home with [facility] and family transport.
[2024-10-28] MEDS: Insulin Lispro 100 UNIT/ML 3 ML VIAL SUBCUT ×3 (12:21→21:33)
[2024-10-28] MEDS: cefTRIAXone sodium 2 GM VIAL IVPUSH (12:22)
[2024-10-28 15:32] VITALS: BP 131/69; PULSE 77; RESP 18; TEMP 37.1; O2SAT 96
--- NOTE | 2024-10-28 16:04 | W.PM.IDCN ---
History of Present Illness Data of Consult Service Date: 10/28/24 Requesting physician: Silas Devlin Primary Care Provider: Masood Jeffery MD [facility] Reason for consult: Group A strep sepsis He presents with weakness and left facial pain and swelling for 2-3 daays. He denies dental problems but is missing lower teeth in front. He has Group A strep bacteremia. His PCN allergy is as a child,unknown. He has sulfa abdominal itching. Review of Systems Review of Systems: Yes all other systems are reviewed and are negative [facility] Past Medical History Medical History Hx SBO CAD (coronary artery disease) HLD (hyperlipidemia) CKD (chronic kidney disease), stage III CVA (cerebral vascular accident) Atrial fibrillation Type 2 diabetes mellitus Family History Family history: reviewed and not pertinent Surgical History Surgical History Stented coronary artery H/O cardiac radiofrequency ablation Social History Social History Household Members: Family Housing: House Do you presently have visiting nurse or other home services: No Unable to assess alcohol history related to: Unknown Alcohol intake: former Patient Tobacco Use Status: Never used Tobacco Advance Directives Date on File: 11/10/22 service: No Current occupational status: retired Meds Allergies Allergy/AdvReac Type Severity Reaction Status Date / Time Sulfa (Sulfonamide Allergy Mild HIVES Verified 10/25/24 19:38 Antibiotics) [SULFA (SULFONAMIDE ANTIBIOTICS)] penicillamine [Cuprimine] Allergy Unknown unknown Verified 10/25/24 19:38 Penicillins Allergy Unknown INKNOWN Verified 10/25/24 19:38 sulfacetamide Allergy Unknown rash Verified 10/25/24 19:38 Active Medications: Current Medications Acetaminophen (Acetaminophen 325 Mg Tablet) 650 mg PO Q6H PRN PRN Reason: Pain, Mild 1-3,fever,headache Last Admin: 10/26/24 08:33 Dose: 650 mg Apixaban (Apixaban 5 Mg Tablet) 5 mg PO BID [facility] Last Admin: 10/28/24 09:15 Dose: 5 mg Aspirin (Aspirin Enteric Coated 81 Mg Tablet.) 81 mg PO DAILY [facility] Last Admin: 10/28/24 08:12 Dose: 81 mg Atorvastatin Calcium (Atorvastatin Calcium 40 Mg Tablet) 40 mg PO BEDTIME [facility] Last Admin: 10/27/24 20:54 Dose: 40 mg Calcium Carbonate (Calcium Carbonate 750 Mg Tab.Chew) 750 mg PO Q4H PRN PRN Reason: Heartburn Ceftriaxone Sodium (Ceftriaxone Sodium 2 Gm Vial) 2 gm IVPUSH Q24H [facility] Last Admin: 10/28/24 12:22 Dose: 2 gm Diphenoxylate HCl/Atropine (Diphenoxylate/Atrop 2.5/0.025 Tablet) 2 tab PO BID PRN PRN Reason: Diarrhea Glucose (Glucose Gel 15 Gm Gel..Gram.) 15 gm PO Q15M PRN; Protocol PRN Reason: per Hypoglycemia Standing Ord. Dextrose (D10) 250 mls @ 750 mls/hr IV Q15M PRN; Protocol PRN Reason: per Hypoglycemia Standing Ord. Insulin Glargine (Insulin Glargine,Hum.Rec.Anlog 100 Unit/Ml 10 Ml Vial) 20 unit SUBCUT DAILY [facility] Last Admin: 10/28/24 08:12 Dose: 20 unit Insulin Human Lispro (Insulin Lispro 100 Unit/Ml 3 Ml Vial) 0 unit SUBCUT QIDACHS [facility]; Protocol Last Admin: 10/28/24 12:21 Dose: 2 unit Magnesium Hydroxide (Milk Of Magnesia 30 Ml Oral.Susp) 30 ml PO DAILY PRN PRN Reason: Constipation Melatonin (Melatonin 3 Mg Tablet) 6 mg PO BEDTIME PRN PRN Reason: Insomnia Ondansetron HCl (Ondansetron Hcl 4 Mg/2 Ml Vial) 4 mg IVPUSH Q8H PRN PRN Reason: Nausea and Vomiting Pregabalin (Pregabalin 50 Mg Capsule) 50 mg PO BID [facility] Last Admin: 10/28/24 08:12 Dose: 50 mg Sodium Chloride (0.9 % Sodium Chloride Flush 3 Ml Syringe) [address] [facility] Last Admin: 10/28/24 08:16 Dose: 3 ml Home Medications ?Medication ?Instructions ?Recorded ?Confirmed ?Last Taken ?Type apixaban 5 mg tablet (Eliquis) 1 tab PO BID 06/28/21 10/26/24 10/26/24 History aspirin 81 mg tablet,delayed 81 mg PO DAILY 11/05/22 10/26/2425 History release atorvastatin 80 mg tablet 40 mg PO BEDTIME 01/13/24 10/26/24 Unknown History diphenoxylate-atropine 2.5 2 tab PO BID PRN Diarrhea 01/13/24 10/26/24 Unknown History mg-0.025 mg tablet insulin glargine 100 unit/mL (3 20 unit subcut DAILY 10/26/24 10/26/24 10/24/24 History mL) subcutaneous pen (Lantus Solostar U-100 Insulin) isosorbide mononitrate 60 mg 30 mg PO BEDTIME 10/26/24 10/26/24 Unknown History tablet,extended release 24 hr pregabalin 50 mg capsule 50 mg PO BID 10/26/24 10/26/24 10/25/24 History Physical Exam Vital Signs: Vital Signs: Last Vital Signs Temp 98.8 F 10/28/24 15:32 Pulse 77 10/28/24 15:32 Resp 18 10/28/24 15:32 BP 131/69 10/28/24 15:32 Pulse Ox 96 10/28/24 15:32 O2 Del Method Nasal Cannula 10/28/24 15:32 O2 Flow Rate 1 10/28/24 15:32 BMI result Body Mass Index 41.1 Const: General: cooperative HEENT: Head: Yes normal to inspection Face and sinus: Yes normal facial exam Mouth: Normal oral and palatal mucosa present Teeth and gingiva: dentition normal Eyes: General: appearance normal, both eyes and all related structures Pupils: Equal, round and reactive pupils present Neck: Other: some swelling left parotid area Resp: Effort & Inspection: normal respiratory effort Cardio: Rate: regular rate Rhythm: regular rhythm GI: Palpation (GI): Soft to palpation and nontender : General: Yes no CVA tenderness Back/Spine/Pelvis: Back: no CVA tenderness Skin: General skin exam: no rashes or lesions noted Neuro: General: moves all extremities Cranial nerves: Yes Equal, round and reactive pupils present Extrem: General: Yes normal to inspection Psych: Appearance: grossly normal Results Labs 10/28/24 05:51 10/28/24 05:51 Labs: Short CBC 10/28/24 Range/Units 05:51 WBC 14.0 H (4.8-10.8) X10*3/uL Hgb 10.4 L (14.0-18.0) g/dl Hct 29.4 L (42.0-52.0) % Plt Count 152 L (160-400) X10*3/uL BMP 10/28/24 05:51 Sodium 140 Potassium 3.8 Chloride 112 H Carbon Dioxide 22 BUN 32 H Creatinine 1.60 H Calcium 8.0 L Microbiology Microbiology Results: Microbiology 10/27/24 12:39 Blood - Venous Blood Culture - Preliminary No growth after 24 hours. 10/27/24 12:39 Blood - Venous Blood Culture - Preliminary No growth after 24 hours. 10/26/24 00:39 Blood - Venous Blood Culture - Final Streptococcus pyogenes (Grp A) 10/26/24 00:58 Blood - Venous Blood Culture - Final Streptococcus pyogenes (Grp A) Assessment and Plan (1) Gram-positive cocci bacteremia: Status: Acute Plan He has some parotid swelling on left.possible parotitis cause of Group A strep sepsis He has some improvement. PCN allergy may not be significant now and has been tolerating Ceftriaxone. Would continue Ceftriaxone and switch to po cephalsporin on discharge, total 10 days. Can stop Clindamycin. Consider check face and neck CT.
[2024-10-28 16:06] LABS: Glucose, Whole Blood 215 mg/dL (60-115)
--- NOTE | 2024-10-28 16:44 | HO.WOUND ---
Wound Consult: Initial 69yr old male? [place] [facility] [place] See progress notes and H&P for detailed history.? Wound consult placed for Coccyx wound POA.? Patient agreeable to assessment and photo documentation.? Patient reports he has had the wound on and off for over a year he denies it fully healing. Denies seeking treatment for the wound. Sacrum Etiology: Deep tissue Injury - ??Present on Admission Measurements: 1cm x 1cm x 0.1cm Wound Bed: dark purple maroon nonblanchable tissue Drainage / Odor: none noted Edges: ? irregular and attached Galilea wound: red pink slow to katherine tissue - ? No Induration, Fluctuance or Warmth noted Pain: pain repored Goals of Treatment: ? Off Load Pressure and protect from moisture and friction with foam Recommendations: 1. Turn and Reposition every 2 hours and as needed for patient comfort.? Use pillows or wedges to support off loading positions. 2. Off Load all bony prominences with use of pillows and heel boots if needed.? Apply Preventative foams where needed. ? 3. Monitor for incontinence and moisture control, use barrier creams when needed for prevention and treatment. 4. Provide adequate and supplemental nutrition.? 5. Order low air loss mattress. 6. When applicable maintain blood glucose levels per Providers order. 7. Sacrum - Off Load Pressure with Q2hr turns and use of pillows. Apply skin prep allow to dry. Apply Sacral foam dressing change every 3 days and PRN. Re-consult wound care Nurse for wound deterioration or wound changes.
[2024-10-28 19:37] VITALS: BP 123/58; PULSE 80; RESP 16; TEMP 36.1; O2SAT 93
[2024-10-28] MEDS: Atorvastatin Calcium 40 MG TABLET PO (20:53)
[2024-10-28 20:59] LABS: Glucose, Whole Blood 174 mg/dL (60-115)
[2024-10-29 04:00] VITALS: BP 105/51; PULSE 72; RESP 16; TEMP 36.1; O2SAT 94
[2024-10-29 06:17] LABS: Anion Gap 10 (12-20); Blood Urea Nitrogen 32 mg/dL (9-16); Calcium 8.1 mg/dL (8.4-10.2); Carbon Dioxide 25 mmol/L (22-29); Chloride 111 mmol/L (96-108); Creatinine Clr Calc Pharmacy 54.6; Estimated Glomerular Filt Rate 40; Glucose Random 113 mg/dL (60-115); Potassium 3.8 mmol/L (3.3-5.1); Sodium 142 mmol/L (135-145)
[2024-10-29 06:19] LABS: Hematocrit 28.3 % (42.0-52.0); Hemoglobin 9.6 g/dl (14.0-18.0); Mean Corpuscular HGB Conc 33.9 g/dl (31.0-36.0); Mean Corpuscular Hemoglobin 30.2 pg (27.0-33.0); Mean Platelet Volume 11.4 fL (9.4-12.4); Platelet Count 159 X10*3/uL (160-400); Red Blood Count 3.18 X10*6/uL (4.60-5.80); Red Cell Distribution Width 13.6 % (11.0-16.0); White Blood Count 11.8 X10*3/uL (4.8-10.8)
[2024-10-29 07:42] VITALS: BP 133/65; PULSE 84; RESP 18; TEMP 36.6; O2SAT 94
[2024-10-29 07:54] LABS: Glucose, Whole Blood 97 mg/dL (60-115)
[2024-10-29] MEDS: Aspirin Enteric Coated 81 MG TABLET.DR PO (08:08)
[2024-10-29] MEDS: Pregabalin 50 MG CAPSULE PO (08:08)
[2024-10-29] MEDS: Apixaban 5 MG TABLET PO (08:08)
[2024-10-29] MEDS: 0.9 % Sodium Chloride Flush 3 ML SYRINGE IVFLUSH (08:08)
[2024-10-29] MEDS: Insulin Glargine,Hum.rec.anlog 100 UNIT/ML 10 ML VIAL 20 UNIT SUBCUT (08:09)
[2024-10-29 08:13] VITALS: TEMP 36.7; O2SAT 92
[2024-10-29 11:27] LABS: Glucose, Whole Blood 157 mg/dL (60-115)
[2024-10-29] MEDS: Insulin Lispro 100 UNIT/ML 3 ML VIAL SUBCUT (11:54)
[2024-10-29] MEDS: cefTRIAXone sodium 2 GM VIAL IVPUSH (11:55)
--- NOTE | 2024-10-29 13:34 | PM.DS ---
DS: Providers Provider Date of Service: 10/29/24 Date of admission: 10/26/24 05:33 Date of discharge: 10/29/24 Primary care physician: Masood Jeffery MD Consults: 10/26/24 16:32 Consult to Urology Routine Consulting Provider: [facility] [place] [facility] Reason for consultation: Hematuria 10/26/24 23:21 Consult to Wound Care Routine Reason for consultation: redness to coccyx 10/27/24 11:46 Consult to Infectious Diseases Routine Consulting Provider: [facility] [place] [facility] Disease [facility] Reason for consultation: strep bacteremia Has provider been notified: No Attending physician on discharge: Margot Rae Discharging clinician: Margot Rae DS: Diagnosis Discharge Diagnosis (1) Gram-positive cocci bacteremia: Status: Acute DS: Summary Hospital Course Hospital Course: HPI: 69-year-old male with a past medical history significant for CVA x3 (last years ago) on Eliquis, type 2 diabetes on insulin, hypothyroid, pulmonary hypertension and history of partial small-bowel obstruction s/p bowel resection, who presented to the ED with left-sided ear pain x1 day, with nausea and abdominal pain x3 days. His most significant symptom is left upper quadrant pain for the past few days. He describes this as a sharp pain rating it 10/10 on arrival however now 2/10. He has associated fever and chills with a max temperature of 101.7 degrees. He also has associated nausea but no vomiting. He reports his last bowel movement was 6 days ago which is very atypical for him as he usually has chronic diarrhea. He recently was exposed to COVID by his daughter but reports that this was greater than 1 week ago and he has tested negative. Does not have any upper respiratory symptoms including cough, shortness of breath, runny nose or congestion. He also denies chest pain, headache, photosensitivity, change in vision or neck pain. Hospital course:69-year-old male with a past medical history significant for CVA x3 (last years ago) on Eliquis, type 2 diabetes on insulin, hypothyroid, pulmonary hypertension and history of partial small-bowel obstruction s/p bowel resection, who presented to the ED with left-sided ear pain x1 day, with nausea and abdominal pain x3 days. show workup showed SIRS with no source of infection-started on iv antibiotics ,blood cultures sent,ua negative except 3-5 rbc,no bacteria. abd ct negative except mild constipation,abd us -possible adenomyomatosis, found to have Gram-positive bacteremia/sepsis possible sec to possible left parotiditis : patient seen by Id and echo done, repeated blood cultures :echo: ef 50-55%,moderate pulm htn,repeat blood cultures negative@48hrs, Id -possible left parotiditis and recomended to switch to po antibiotics upon discharge since patient seems to be improved. Hematuria : was briefly on CBI, now clear. seen by urology -eliquis was placed on hold temporarly and hematuria improved and then resumed on eliquis and monitored-no new episodes. continue to moniter outpatient Pt recomended home pT.patient refused home PT. Plan: ceftin 500 mg po bid x10 days abd us -possible adenomyomatosis, further management outpatient . follow up with urology outpatient. Above management discussed with the patient in detail length he understand and in agreement with the above plan, time spent 40 minute.updated Aziza tran also updated in detail. Time Attestation Total time managing care of this patient today: 40 mintues. Discharge Coordination Time (in mins): 40 min Quality: Safe Use of Opioids Does Pt have an Active Cancer Diagnosis on the Problem List?: No Quality: Stroke Does the patient have a stroke diagnosis?: No Physical Exam Vital Signs: Vital Signs: Last Vital Signs Temp 98.1 F 10/29/24 08:13 Pulse 84 10/29/24 07:42 Resp 18 10/29/24 07:42 BP 133/65 10/29/24 07:42 Pulse Ox 92 10/29/24 08:13 O2 Del Method Nasal Cannula 10/29/24 08:13 O2 Flow Rate 1 10/29/24 08:13 BMI result Body Mass Index 41.1 General: AO X 3, no acute distress Resp: CTA bilateral CVS: S1,S2,RRR GI: +BS, NT, no distention Skin: No rash Neuro: motor grossly intact Psych: appropriate affect DS: Data Data Completed and Pending Labs on day of discharge: Laboratory Results - last 24 hr 10/28/24 10/28/24 10/29/24 16:03 20:51 05:47 WBC 11.8 H RBC 3.18 L Hgb 9.6 L Hct 28.3 L MCV 89.0 MCH 30.2 MCHC 33.9 RDW 13.6 Plt Count 159 L MPV 11.4 Absolute Nucleated RBC 0.000 Nucleated RBC % (auto) 0.0 Sodium 142 Potassium 3.8 Chloride 111 H Carbon Dioxide 25 Anion Gap 10 L BUN 32 H Creatinine 1.68 H Estim Creat Clear Calc 54.6 Estimated GFR 40 POC Glucose 215 H 174 H Random Glucose 113 Calcium 8.1 L 10/29/24 10/29/24 07:50 11:23 WBC RBC Hgb Hct MCV MCH MCHC RDW Plt Count MPV Absolute Nucleated RBC Nucleated RBC % (auto) Sodium Potassium Chloride Carbon Dioxide Anion Gap BUN Creatinine Estim Creat Clear Calc Estimated GFR POC Glucose 97 157 H Random Glucose Calcium Preliminary micro results at discharge 10/27/24 12:39 Blood Culture - Preliminary Blood - Venous No growth after 24 hours. 10/27/24 12:39 Blood Culture - Preliminary Blood - Venous No growth after 24 hours. Discharge Plan Discharge Anticipated Discharge Date/Time: 10/29/24 13:22 Patient Disposition: Home, Self-Care Discharge Diagnosis: Group A strep ,sirs, and bacteremia-question of parotitis Referrals: Masood Jeffery MD [Primary Care Provider] - 1 Week Discharge Medications: New cefuroxime axetil 500 mg Tablet 500 mg PO Q12H Qty: 20 0RF Continued Eliquis 5 mg tablet 1 tab PO BID aspirin 81 mg Tablet,Delayed Release (Dr/Ec) 81 mg PO DAILY (DME[place] [place] .Route Qty: 1 0RF Rx Instructions: As directed atorvastatin 80 mg tablet 40 mg PO BEDTIME diphenoxylate-atropine 2.5-0.025 mg tablet 2 tab PO BID PRN (Reason: Diarrhea) Rx Instructions: Per family, if patient does not take Lyrica, he will need to take Lomotil spironolactone 25 mg Tablet 25 mg PO DAILY Qty: 30 0RF Protocol: Hold for SBP< HOLD for SBP < : 90 isosorbide mononitrate 60 mg tablet extended release 24 hr 30 mg PO BEDTIME pregabalin 50 mg capsule 50 mg PO BID insulin glargine [Lantus Solostar U-100 Insulin] 100 unit/mL (3 mL) insulin pen 20 unit subcut DAILY Discharge Orders: Discharge Order (Routine); Ordered 10/29/24 Ordered By: Margot Rae Diet: Advance to usual diet Activity on Discharge: As tolerated Stand Alone Forms: Patient Portal Discharge page Print Language: Spanish Care Plan Goals: ceftin 500 mg po bid x10 days abd us -possible adenomyomatosis, further management outpatient . he refused PT ,pharmacy customer care specialist miss stout stays with him most of time. Health Concerns: as above. Plan of Treatment: as above. Assessment: as above. Discharge Date/Time: 10/29/24 15:51
--- NOTE | 2024-10-29 15:50 | MHC.CM.PN ---
IMM 10/29/24 Patient received a PT eval. The Recommendation was Home with services. The patient refused to accept home services. Patient discharged to home with family assist. He has arranged for transportation home.
== END 2024-10-29 15:51 | disposition home or self-care (01) | DRG 872 ==
LOC: HO.ED 10-26 00:14 → HO.EDOVER 10-26 05:35 → HO.S3 10-26 14:42
PROVIDERS: Internal Medicine; Registered Nurse Emergency; Admitting Provider Student in an Organized Health Care Education/Training Program; Emergency Provider Internal Medicine; PCP Family Medicine; Visit Provider Internal Medicine
DX: A40.0 Sepsis due to streptococcus, group A (principal); E03.9 Hypothyroidism, unspecified; I25.10 Atherosclerotic heart disease of native coronary artery without angina pectoris; R31.0 Gross hematuria; K11.20 Sialoadenitis, unspecified; Z20.822 Contact with and (suspected) exposure to COVID-19; Z86.73 Personal history of transient ischemic attack (TIA), and cerebral infarction without residual deficits; Z23 Encounter for immunization; Z79.4 Long term (current) use of insulin; Z79.01 Long term (current) use of anticoagulants; Z79.82 Long term (current) use of aspirin; Z79.890 Hormone replacement therapy; Z79.899 Other long term (current) drug therapy
CPT/HCPCS: 0241U; 36415; 70450; 71046; 74176; 76700; 80048; 80053; 81001; 82947; 83605; 83690; 83735; 83880; 84484; 85025; 85027; 85610; 87040; 87147; 87205; 90656; 93005; 93306; 97162; 99285; C1758; J0131; J0696; J1836; J3370; J3371; J7120; Q9957

== ENCOUNTER → 2024-10-25 19:39 | Outpatient (BNV) | payer MEDICARE, SELFPAY | PROVIDERS: Admitting Provider Student in an Organized Health Care Education/Training Program; Emergency Provider Internal Medicine; PCP Family Medicine; Visit Provider Internal Medicine Cardiovascular Disease | DX: R94.31 Abnormal electrocardiogram [ECG] [EKG] (principal) | CPT/HCPCS: 93010 ==

== ENCOUNTER → 2024-10-25 19:39 | Outpatient (BNV) | payer MEDICARE, SELFPAY | PROVIDERS: Visit Provider Radiology Diagnostic Radiology | DX: R94.2 Abnormal results of pulmonary function studies (principal) | CPT/HCPCS: 71046 ==

== ENCOUNTER → 2024-10-26 00:25 | Outpatient (BNV) | payer MEDICARE, SELFPAY | PROVIDERS: Emergency Provider Internal Medicine; PCP Family Medicine; Visit Provider Radiology Diagnostic Radiology | DX: K80.80 Other cholelithiasis without obstruction (principal); G31.89 Other specified degenerative diseases of nervous system; R10.9 Unspecified abdominal pain | CPT/HCPCS: 70450; 74176; 76700 ==

== ENCOUNTER 2024-10-26 05:33 | Outpatient (BNV) | payer MEDICARE, SELFPAY | END 2024-10-28 07:00 | PROVIDERS: Admitting Provider Student in an Organized Health Care Education/Training Program; Emergency Provider Internal Medicine; PCP Family Medicine; Visit Provider Internal Medicine | DX: I36.1 Nonrheumatic tricuspid (valve) insufficiency (principal); I35.8 Other nonrheumatic aortic valve disorders; I34.81 Nonrheumatic mitral (valve) annulus calcification; I42.2 Other hypertrophic cardiomyopathy | CPT/HCPCS: 93306 ==

== ENCOUNTER → 2024-10-26 05:33 | Outpatient (BNV) | payer MEDICARE, SELFPAY | PROVIDERS: Admitting Provider Student in an Organized Health Care Education/Training Program; Emergency Provider Internal Medicine; PCP Family Medicine; Visit Provider Internal Medicine | DX: R78.81 Bacteremia (principal) | CPT/HCPCS: 99222 ==

== ENCOUNTER → 2024-10-26 05:33 | Outpatient (BNV) | payer MEDICARE, SELFPAY | PROVIDERS: Admitting Provider Student in an Organized Health Care Education/Training Program; Emergency Provider Internal Medicine; PCP Family Medicine; Visit Provider Physician Assistant | DX: R65.10 Systemic inflammatory response syndrome (SIRS) of non-infectious origin without acute organ dysfunction (principal); R10.9 Unspecified abdominal pain; N18.30 Chronic kidney disease, stage 3 unspecified | CPT/HCPCS: 99223; 99499 ==

== ENCOUNTER → 2024-10-26 05:33 | Outpatient (BNV) | payer MEDICARE, SELFPAY | PROVIDERS: Admitting Provider Student in an Organized Health Care Education/Training Program; Emergency Provider Internal Medicine; PCP Family Medicine; Visit Provider Urology | DX: R31.0 Gross hematuria (principal) | CPT/HCPCS: 99222 ==

== ENCOUNTER 2025-01-25 09:49 | Inpatient (IN) | payer MEDICARE, SELFPAY ==
[2025-01-25] VITALS (7 sets, daily range): BP systolic 117–165; BP diastolic 52–80; PULSE 62–87; RESP 12–17; TEMP 36.4–36.7; O2SAT 93–98; BMI 24.9
--- NOTE | ~2025-01-25 | US_ITS ---
EXAMINATION: US THYROID CLINICAL INFORMATION: Malignant mass left lobe. COMPARISON: No prior. CTA neck 01/25/2025. TECHNIQUE: Linear transducer grayscale and color Doppler examination with attention to the region of the thyroid. FINDINGS: SIZE: Measurements of the thyroid lobes and nodules are given in sagittal, anteroposterior and transverse dimensions respectively. Right Thyroid Lobe: 4.0 x 1.3 x 1.2 cm, volume 3.4 mL. Parenchyma: The gland echotexture is homogeneous. Thyroid vascularity is normal. Left Thyroid Lobe: 5.3 x 3.0 x 2.4 cm, volume 20.0 mL. Parenchyma: The gland echotexture is heterogeneous. Thyroid vascularity is increased. Isthmus: 0.4 cm in maximum AP dimension. Estimated total number of nodules greater than or equal to 1 cm: 2. Improvement Nurse nodules are described as follows: 1. Location: Left upper pole. Size: 1.0 x 0.7 x 1.0 cm, volume 0.4 mL. Nodule characteristics: Composition: Solid (2). Echogenicity: Very hypoechoic (3). Shape: Not taller than wide (0). Margins: Ill-defined (0). Echogenic Foci: None (0). ACR TI-RADS total points: 5 ACR TI-RADS category: 4 2. Location: Left midpole. Size: 3.5 x 2.1 x 2.3 cm, volume 9.0 mL. Nodule characteristics: Composition: Solid (2). Echogenicity: Hypoechoic (2). Shape: Taller than wide (3). Margins: Lobulated (2). Echogenic Foci: None (0). ACR TI-RADS total points: 8 ACR TI-RADS category: 5 3. Location: Left lobe inferior. Size: 1.5 x 1.4 x 1.2 cm, volume 1.3 mL. Nodule characteristics: Composition: Solid (2). Echogenicity: Very hypoechoic (3). Shape: Taller than wide (3). Margins: Ill-defined (0). Echogenic Foci: None (0). ACR TI-RADS total points: 8 ACR TI-RADS category: 5 NODES: Abnormal nodes are noted in the left neck (likely pathologic). Level 3 lymph node measuring 2.7 x 1.4 x 2.5 cm. Level 3 lymph node measuring 3.1 x 1.7 x 2.9 cm. Level 4 lymph node measuring 2.0 x 1.8 x 2.1 cm. Level 4 lymph node measuring 2.0 x 1.4 x 1.7 cm. US/US thyroid IMPRESSION: 1. There is a 3.5 cm TR category 5 nodule in the left mid pole, highly suspicious given the appearance. FNA advised. 2. There is a 1.0 cm TR category 4 nodule left upper pole. Follow-up advised. 3. There is a 1.5 cm TR category 5 nodule left inferior pole. FNA advised. 4. There are abnormal pathologic appearing lymph nodes in the left neck level 3 and 4. ACR TI-RADS RECOMMENDATION REFERENCE: Ultrasound-guided fine-needle aspiration, followup ultrasound, no further follow up. * TR1 (0 point) and TR2 (2 points): No FNA or follow up. * TR3 (3 points): FNA if more than or equal to 2.5 cm in maximum dimension, followup ultrasound in 1, 3 and 5 years if 1.5 to 2.4 cm in maximum dimension. * TR4 (4-6 points): FNA if more than or equal to 1.5 cm in maximum dimension, followup ultrasound in 1, 2, 3 and 5 years if 1 to 1.4 cm in maximum dimension. * TR5 (more than or equal to 7 points): FNA if more than or equal to 1 cm in maximum dimension, followup ultrasound every year for 5 years if 0.5 to 0.9 cm in maximum dimension. * TR3, TR4 or TR5 nodules that are below the size threshold for followup receive no follow up. Electronically signed by: Ron Christiansen MD 01/27/2025 12:31 PM EDT
--- NOTE | ~2025-01-25 | MR_ITS ---
CLINICAL HISTORY: Left-sided deficits, to r o CVA MR of the brain without contrast Comparison: CT/SR - CT ANGIO HEAD NECK STROKE - 01/25/25 09:[address]/SR - CT HEAD FOR STROKE - 01/25/25 09:[address] - CT ANGIO HEAD NECK STROKE - 01/25/25 09:[address]/SR - CT HEAD/BRAIN WO IV CON - 10/26/24 00:43 EST Findings: No acute infarction, mass-effect or herniation. There is susceptibility on the SWI images of the junction of the left parietal and occipital lobes (see series 9 images 40 through 51). There is associated increased signal in this region on the T1 weighted images (series 11 images 18 through 20 and series 5, image 11). This is in a region increased signal on the FLAIR/T2 weighted images (see series 12 and series 6 images 17 through 19). On the accompanying head CT there is no acute hemorrhage in this region. On the accompanying CTA there is no abnormal vessel in this region. No hydrocephalus. Increased signal intensity is seen in the deep and periventricular white matter on the T2/FLAIR sequences, which most likely represents the sequela of severe chronic small vessel ischemic disease. Chronic infarction in left cerebellum measuring 7 mm. Encephalomalacia in the right parietal lobe No extra-axial fluid collection or mass. Unremarkable sella. Intact flow voids. Normal orbits. Clear paranasal sinuses and mastoid air cells. Unremarkable osseous structures. Impression: No acute infarction. There is susceptibility at the left parietal/occipital lobe junction which likely indicates blood products. No acute hemorrhage is seen on the recent head CT. Associated increased signal on the T1 weighted images favors subacute hemorrhage. Chronic hemorrhage is also possible. Consider follow up with noncontrast head CT. This document has been electronically signed by: Gladys Lopez MD on 01/25/2025 17:12:55
--- NOTE | ~2025-01-25 | CT_ITS ---
CLINICAL HISTORY: Stroke Protocol CT head without contrast Comparison: CT/SR - CT HEAD/BRAIN WO IV CON - 10/26/24 00:43 EST Findings: No acute intracranial hemorrhage or midline shift. The wood-white matter differentiation is maintained. Bilateral carotid siphon and vertebrobasilar calcifications. Moderate generalized cerebral involutional change. Severe burden chronic small-vessel white matter ischemic change. The paranasal sinuses and mastoid air cells are clear. The calvarium is intact. IMPRESSION: No acute intracranial findings. This document has been electronically signed by: Julio Powell DO on 01/25/2025 10:19:27
--- NOTE | ~2025-01-25 | XR_ITS ---
CLINICAL HISTORY: Stroke Protocol Chest Radiograph Comparison: CR - XR CHEST 2V - 10/25/24 20:09 EST CR/NV/SR - XR CHEST 1V - 02/12/24 10:49 EDT CR/SR - XR CHEST 1V - 01/16/24 11:25 EDT Findings: No cardiomegaly. Normal mediastinal contours. No pneumothorax. No opacity. No pleural effusion. Normal upper abdomen. No acute fracture. Impression: No acute findings. This document has been electronically signed by: Gladys Lopez MD on 01/25/2025 12:00:02
--- NOTE | ~2025-01-25 | CT_ITS ---
CLINICAL HISTORY: Stroke Protocol CT angiography head and neck with contrast. 3D Postprocessing. Comparison: CT/SR - CT HEAD FOR STROKE - 01/25/25 09:[address]/SR - CT HEAD/BRAIN WO IV CON - 10/26/24 00:43 EST Findings: Bilateral carotid bulb calcifications without significant stenosis on the right. Short segment near-complete stenosis involving the origin of the left internal carotid artery. Aortic arch and cervical great vessels are otherwise patent. Intracranial arteries are patent. No aneurysm, dissection, hemodynamically significant stenoses, or occlusion. No abnormal intracranial enhancement. Ill-defined aggressive appearing mass within the left thyroid lobe measuring up to 2.5 x 1.9 x 2.1 cm. Multiple adjacent aggressive appearing left neck masses measuring up to 2.9 x 2.0 x 2.9 cm. Lung apices clear. Degenerative change of the spine. Partially imaged benign left paraspinal intramuscular lipoma. IMPRESSION: 1. 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 2. Multiple left lower neck aggressive appearing masses which are suspicious for malignancy and rhonda metastatic disease. Primary malignancy may involve the left thyroid lobe. This document has been electronically signed by: Julio Powell DO on 01/25/2025 10:34:04
--- NOTE | ~2025-01-25 | US_ITS ---
EXAMINATION: BILATERAL CAROTID ULTRASOUND WITH DOPPLER HISTORY: carotid stenosis COMPARISON: Correlation is made with a CT angiogram of the neck with contrast dated 01/25/2025. TECHNIQUE: Real time and Color and Spectral doppler ultrasonography of the carotid and vertebral arteries was performed in multiple planes. FINDINGS: There is mild plaque at the right carotid bifurcation and a moderate amount of plaque at the left carotid bifurcation. There are multiple masses within the left neck as seen on prior thyroid ultrasound. VERTEBRAL FLOW DIRECTION: Antegrade bilaterally. PEAK SYSTOLIC VELOCITIES (in cm/sec): RIGHT: CCA: Prox: 94.9 Dist: 88.9 ICA: Prox: 108 Mid: 119 Dist: 77.7 ICA/CCA Ratio: 1.25 ECA: 141 Peak ICA EDV: 28.0 LEFT: CCA: Prox: 113 Dist: 82 ICA: Prox: 395 Mid: 315 Dist: 82.6 ICA/CCA Ratio: 3.49 ECA: 159 Peak ICA EDV: 84.4 US/US carotid duplex BI IMPRESSION: 1. Findings consistent with 0-49% stenosis of the right internal carotid artery. 2. Findings consistent with 50-79% stenosis of the left internal carotid artery. Electronically signed by: Terrence Garcia MD 01/27/2025 12:45 PM EDT
--- NOTE | 2025-01-25 09:53 | ECG_ITS ---
Test Reason : STROKE PROTOCOL Blood Pressure : */* mmHG Vent. Rate : 72 BPM Atrial Rate : 72 BPM P-R Int : 234 ms QRS Dur : 94 ms QT Int : 394 ms P-R-T Axes : 61 39 49 degrees QTcB Int : 431 ms Sinus rhythm with 1st degree A-V block Low voltage QRS Incomplete right bundle branch block Inferior infarct , age undetermined Abnormal ECG When compared with ECG of 25-Oct-2024 19:56, VA interval has increased Inferior infarct is now Present Referred By: Concepcion Thrasher Electronically Signed By: NIKOLE SANCHEZ
--- NOTE | 2025-01-25 10:00 | ED_ITS ---
HPI - Neuro Symptoms/Deficit General Chief Complaint: Neuro Symptoms/Deficit Stated Complaint: ?STROKE,LKWT 9:20, R SIDE NUMB,H/O CVA,+THIN Time Seen by Provider: 01/25/25 09:52 History of Present Illness HPI Narrative: patient is a 69-year-old male with a history of atrial fibrillation currently on Eliquis presents today with having an episode of chest pain the chest pain was at 07:00. At approximately 09:30 patient noted having numbness to the right side of his body. Patient denies any changes in voice. He is from home. No trauma. EMS was contacted patient was sent to the ED. Related Data Home Medications ?Medication ?Instructions ?Recorded ?Confirmed apixaban 5 mg tablet (Eliquis) 1 tab PO BID 06/28/21 10/26/24 aspirin 81 mg tablet,delayed 81 mg PO DAILY 11/05/22 10/26/24 release atorvastatin 80 mg tablet 40 mg PO BEDTIME 01/13/24 10/26/24 diphenoxylate-atropine 2.5 1 tab PO BID PRN Diarrhea 01/13/24 10/26/24 mg-0.025 mg tablet insulin glargine 100 unit/mL (3 20 unit subcut DAILY 10/26/24 10/26/24 mL) subcutaneous pen (Lantus Solostar U-100 Insulin) isosorbide mononitrate 60 mg 30 mg PO BEDTIME 10/26/24 10/26/24 tablet,extended release 24 hr pregabalin 50 mg capsule 50 mg PO BID 10/26/24 10/26/24 ketorolac 0.5 % eye drops 1 drp ophthalmic (eye) QID PRN Pain 01/25/25 moxifloxacin 0.5 % eye drops 1 drp ophthalmic (eye) BID 01/25/25 Previous Rx's ?Medication ?Instructions ?Recorded walker #1 ea 11/04/23 spironolactone 25 mg tablet 25 mg PO DAILY #30 tabs 01/19/24 Allergies Allergy/AdvReac Type Severity Reaction Status Date / Time Sulfa (Sulfonamide Allergy Mild HIVES Verified 01/25/25 10:12 Antibiotics) [SULFA (SULFONAMIDE ANTIBIOTICS)] penicillamine [Cuprimine] Allergy Unknown unknown Verified 01/25/25 10:12 Penicillins Allergy Unknown INKNOWN Verified 01/25/25 10:12 sulfacetamide Allergy Unknown rash Verified 01/25/25 10:12 Review of Systems 2 Review of Systems: right-sided numbness chest pain at 07:00 Yes all other systems are reviewed and are negative [facility] Past Medical History Attestation statement: The following information was validated with the patient. Medical History Hx SBO CAD (coronary artery disease) HLD (hyperlipidemia) CKD (chronic kidney disease), stage III CVA (cerebral vascular accident) Atrial fibrillation Type 2 diabetes mellitus Surgical History Stented coronary artery H/O cardiac radiofrequency ablation Social History Social History Household Members: Family Housing: House Do you presently have visiting nurse or other home services: No Unable to assess alcohol history related to: Unknown Alcohol intake: former Patient Tobacco Use Status: Never used Tobacco Smoked in Last 30 Days: No Use of substances other than those prescribed or required for medical reasons: No Advance Directives: No Advance Directives Information Provided: No Advance Directives Date on File: 11/10/22 service: No Current occupational status: retired Physical Exam 2 Vital Signs: Vital Signs: Last Vital Signs Temp 97.6 F 01/25/25 10:08 Pulse 87 01/25/25 10:29 Resp 16 01/25/25 10:29 BP 160/67 H 01/25/25 10:29 Pulse Ox 97 01/25/25 10:29 O2 Del Method Room Air 01/25/25 10:29 BMI result Body Mass Index 24.9 Appearance: Alert. Oriented X3. No acute distress. Eyes: Pupils equal, round and reactive to light. ENT: Pharynx normal. Neck: Normal inspection. Neck supple. No lymph nodes noted. No crepitus CVS: Normal heart rate and rhythm. Pulses normal. Normal S1 and S2 Respiratory: No respiratory distress. Breath sounds normal. No Wheezing. No rales Abdomen: Soft and nontender. No rigidity. No distention. good BS x4 Skin: Skin warm and dry. Normal skin color. Normal skin turgor. Extremities: No lower extremity edema. Neurovascular intact to all extremities. No Lacerations. No Rash Neuro: Oriented X 3. No motor deficit. No sensory deficit. Moving all extermities. No slurred speech Medications Administered Discontinued Medications Generic Name Dose Route Start Last Admin Trade Name Mini PRN Reason Stop Dose Admin Iohexol 100 ml 01/25/25 10:20 01/25/25 10:20 Iohexol 350 Mg/Ml 100 Ml Infus..Btl IV 01/25/25 10:21 70 ml ONCE ONE Administration Medical Decision Making Medical Decision Making [facility] Narrative: Patient is on Eliquis not a good candidate for tPA. NIH stroke scale is 0 patient has no objective finding has subjective finding only. CTA is still pending. But no large deficit to suggest patient require endovascular intervention. Troponin was ordered. EKG ordered. Patient is awaiting labs. Will recheck patient a soon as patient got out a CAT scan. 1. 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 2. Multiple left lower neck aggressive appearing masses which are suspicious for malignancy and rhonda metastatic disease. Primary malignancy may involve the left thyroid lobe. Patient's CTA showed a near complete stenosis of the left internal carotid at the origin. There is also question mass noted in the left no neck question secondary to malignancy. This will both be required to get a further workup. Patient on re-examination feels the numbness to be gone. Neurologically intact NIH stroke scale was 0. Will admit patient for further evaluation of possible TIA and mass in the neck. Patient in stable condition. Hospitalist team consulted vascular team consulted A stroke alert was called on patient's arrival in the emergency department Got in contact with vascular they will consult no additional blood thinners tonight. Differential Diagnosis Differential Diagnoses: The differential diagnosis associated with the presentation includes ACS, CVA, hypoglycemia Admission/Observation Consideration of admission/observation: Escalation of care including admission/observation considered Consult Healthcare Provider Management of the patient was discussed with: Hospitalist and Washing Tub Operator ( hospitalist and vascular) Lab Data [facility] Lab Attestation statement: I reviewed the patient's lab results. 01/25/25 10:22 01/25/25 10:22 Labs: Lab Results 01/25/25 01/25/25 01/25/25 Range/Units 09:52 09:53 10:22 WBC 7.9 (4.8-10.8) X10*3/uL RBC 4.40 L D (4.60-5.80) X10*6/uL Hgb 12.7 L D (14.0-18.0) g/dl Hct 37.1 L D (42.0-52.0) % MCV 84.3 (80.0-98.0) fL MCH 28.9 (27.0-33.0) pg MCHC 34.2 (31.0-36.0) g/dl RDW 13.1 (11.0-16.0) % Plt Count 179 (160-400) X10*3/uL MPV 11.5 (9.4-12.4) fL Immature Gran % (Auto) 0.1 (0.0-0.4) % Neut % (Auto) 62.5 (45-73) % Lymph % (Auto) 25.6 (20-40) % Ocean % (Auto) 8.6 (2-11) % Eos % (Auto) 2.4 (0-4) % Baso % (Auto) 0.8 (0-2) % Lymph # (Auto) 2.0 (1.2-4.9) X10*3/uL Ocean # (Auto) 0.7 (0.1-1.2) X10*3/uL Eos # (Auto) 0.2 (0.0-0.4) X10*3/uL Baso # (Auto) 0.1 (0.0-0.2) X10*3/uL Abs Immat Gran (auto) 0.01 (0.00-0.03) X10*3/uL Absolute Neuts (auto) 4.9 (2.0-8.3) x10*3/uL Absolute Nucleated RBC 0.000 (0.0-0.012) X10*3/uL Nucleated RBC % (auto) 0.0 (0.0-0.2) /100WBC PT 17.4 H (10.9-12.4) SEC Whole Blood PT 15.6 H (11.1-13.5) sec INR 1.5 H (0.9-1.1) Whole Blood INR 1.3 H (0.9-1.1) APTT 38.2 H (26.0-36.8) SEC Sodium 139 (135-145) mmol/L Potassium 4.6 D (3.3-5.1) mmol/L Chloride 111 H (96-108) mmol/L Carbon Dioxide 23 (22-29) mmol/L Anion Gap 10 L (12-20) BUN 42 H (9-16) mg/dL Creatinine 1.75 H (0.5-1.4) mg/dL Estim Creat Clear Calc 39.9 Estimated GFR 39 POC Glucose 196 H (60-115) mg/dL Random Glucose 204 H (60-115) mg/dL Calcium 8.6 D (8.4-10.2) mg/dL Troponin I High Sens 3.7 (<3.5-35.0) ng/L Triglycerides 139 (<150) mg/dL Cholesterol 89 (<200) mg/dL LDL Cholesterol, Calc 33 (<100) mg/dL HDL Cholesterol 29 L (>40) mg/dL Independent Interpretation I performed an independent interpretation of an: EKG ( showed a sinus rhythm heart rate is 70 VT QRS QTC normal no acute ST segment elevation.), Plain X-Ray ( My interpretation of patient's chest x-ray is grossly negative for pneumonia pneumothorax.) and CT Scan ( My interpretation CT head was grossly negative for any acute evidence of bleeding) Radiology Impression Discussion of test interpretation with radiology: I discussed test interpretation with the radiologist and I have reviewed the radiologist's reading. Independent Historian Clinical information obtained from an independent historian. History obtained from or confirmed by: EMS External Record Review External record reviewed: Inpatient record and Office record Chronic Conditions Patient?s care impacted by: Diabetes and Hypertension Social Determinants Patient?s care significantly limited by Social Determinants of Health including: Problems related to primary support group NIH Stroke Scale Internal: Initial- Upon Arrival Time: 10:04 Level of Consciousness: Alert Level of Consciousness Questions: Answers both questions correctly Level of Consciousness Commands: Performs both tasks correctly Best Gaze: Normal Visual: No visual loss Facial Palsy: Normal Motor Arm (Right): No drift Motor Arm (Left): No drift Motor Leg (Right): No drift Motor Leg (Left): No drift Limb Ataxia: Absent Sensory: Normal Best Language: No aphasia Dysarthia: Normal Extinction and Inattention: No abnormality Score: 0 Critical Care Time Critical Care Time Critical Care Time: Yes Total Critical Care Time: 40 Attestation: I have personally provided 40 minutes of critical care time exclusive of time spent on separately billable procedures. Time includes review of lab data, radiology results, discussion with consultants, and monitoring for potential decompensation. Interventions were performed as documented above Discharge Plan Discharge Clinical Impression: Brain TIA Patient Disposition: Admitted As Inpatient Print Language: [place]
[2025-01-25 10:01] LABS: Glucose, Whole Blood 196 mg/dL (60-115)
[2025-01-25] MEDS: iohexoL 350 MG/ML 100 ML INFUS..BTL IV (10:20)
[2025-01-25 10:25] LABS: MANUAL DIFF FLAG NO
[2025-01-25 10:27] LABS: Basophils Absolute Auto 0.1 X10*3/uL (0.0-0.2); Basophils Percent Auto 0.8 % (0-2); Eosinophils Absolute Auto 0.2 X10*3/uL (0.0-0.4); Eosinophils Percent Auto 2.4 % (0-4); Hematocrit 37.1 % (42.0-52.0); Hemoglobin 12.7 g/dl (14.0-18.0); Imm Gran Abs Auto 0.01 X10*3/uL (0.00-0.03); Imm Gran Pct Auto 0.1 % (0.0-0.4); Lymphocytes Percent Auto 25.6 % (20-40); Mean Corpuscular HGB Conc 34.2 g/dl (31.0-36.0); Mean Corpuscular Hemoglobin 28.9 pg (27.0-33.0); Mean Corpuscular Volume 84.3 fL (80.0-98.0); Mean Platelet Volume 11.5 fL (9.4-12.4); Monocytes Absolute Auto 0.7 X10*3/uL (0.1-1.2); Monocytes Percent Auto 8.6 % (2-11); Neutrophils Absolute Auto 4.9 x10*3/uL (2.0-8.3); Neutrophils Percent Auto 62.5 % (45-73); Platelet Count 179 X10*3/uL (160-400); Red Cell Distribution Width 13.1 % (11.0-16.0); White Blood Count 7.9 X10*3/uL (4.8-10.8)
[2025-01-25 10:29] LABS: Prothrombin Time Whole Bld POC 15.6 sec (11.1-13.5); ~PT, ~INR - Anti Coag Clinic 1.3 (0.9-1.1)
[2025-01-25 10:35] LABS: INTERNATIONAL NORM RATIO 1.5 (0.9-1.1); Prothrombin Time 17.4 SEC (10.9-12.4)
[2025-01-25 10:38] LABS: Partial Thromboplastin Time 38.2 SEC (26.0-36.8)
[2025-01-25 10:39] LABS: Stroke Lab Use COMPLETE
[2025-01-25 10:42] LABS: Anion Gap 10 (12-20); Blood Urea Nitrogen 42 mg/dL (9-16); Calcium 8.6 mg/dL (8.4-10.2); Carbon Dioxide 23 mmol/L (22-29); Chloride 111 mmol/L (96-108); Cholesterol 89 mg/dL (<200); Creatinine Clr Calc Pharmacy 39.9; Estimated Glomerular Filt Rate 39; Glucose Random 204 mg/dL (60-115); HDL Cholesterol 29 mg/dL (>40); LDL Cholesterol Calculated 33 mg/dL (<100); Potassium 4.6 mmol/L (3.3-5.1); Sodium 139 mmol/L (135-145); Triglycerides 139 mg/dL (<150)
--- OUTSIDE RECORDS SUMMARY | 2025-01-25 10:43 | XMS_ITS | Clinical Summary ---
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 Active atorvastatin (LIPITOR) 40 mg tablet Take 40 mg by mouth at bedtime. Active psyllium seed, with sugar, (FIBER ORAL) FIBER COMPLETE Tab Take 2 tablets by mouth daily. Active diphenoxylate-a tropine (LOMOTIL) 2.5-0.025 mg per tablet Take 1 Tablet by mouth 2 times daily as needed. Active insulin glargine (LANTUS SoloStar) 100 unit/mL (3 mL) injection pen Inject 32 Units into the skin daily. Active pregabalin (LYRICA) 50 mg capsule Take 1 Capsule by mouth 2 Times Daily. Active spironolactone (ALDACTONE) 25 mg tablet Take 1 Tablet by mouth daily. 02/26/20 24 Active traMADoL (ULTRAM) 50 mg tablet Take 1 Tablet by mouth every 8 hours as needed. Active ONETOUCH DELICA LANCETS MISC 1 Each by Does not apply route 2 times daily. 08/12/20 11 Active pen needle, diabetic 31 gauge x 5/16 needle Insulin Pen Needle (B-D ULTRAFINE III SHORT PEN) 31G X 8 MM Misc Use with insulin pen once daily 08/21/20 18 Active isosorbide mononitrate (IMDUR) 60 mg 24 hr tablet TAKE 1 TABLET BY MOUTH EVERY DAY 90 tablet 1 01/14/20 25 Active isosorbide mononitrate (IMDUR) 60 mg 24 hr tablet Take 1 Tablet by mouth daily. 02/26/20 24 025 Discontinued Active Problems Problem Noted Date Diagnosed Date LVH (left ventricular hypertrophy) 02/26/2024 Overview (08/27/2024): Last Assessment & Plan: The patient underwent an echocardiogram at [facility] December 2023 which showed a severely increased left ventricular wall thickness with an LVEF 60 to 65%. Prior echocardiograms showed normal left ventricular size and wall thickness. EKG today showed low voltage QRS. The patient also has a history of atrial fibrillation and was noted to have bradycardia during his hospitalization. We discussed this in depth today. I recommended the patient undergo PYP scan to rule out TTR amyloidosis and associated lab work. Bradycardia 02/21/2024 Dizziness 02/21/2024 Pulmonary hypertension 02/21/2024 Overview (08/27/2024): Last Assessment & Plan: The patient underwent an echocardiogram during his recent hospitalization which showed moderate to severe RV dilation and borderline RV systolic function with elevated right atrial pressures, mild tricuspid valve regurgitation and severe pulmonary hypertension. He was seen in consultation with pulmonology who recommended overnight oximetry and if appropriate discharged on supplemental oxygen at night given that the patient did not want to undergo CPAP therapy. We discussed his pulmonary hypertension in depth today. The patient is not willing to wear CPAP or undergo sleep studies/CPAP titration studies. He did undergo a sleep study 01/17/24 and he was noted to desaturate at night. We discussed the impact of undiagnosed sleep apnea on his heart. He is not willing to undergo further testing. He continues on spironolactone which was started during his last hospitalization. I recommended he be referred to a prehemmer for further management and treatment of his pulmonary hypertension which he agrees to. Stroke (cerebrum) 08/17/2023 A-fib 05/18/2023 Overview (08/27/2024): Last Assessment & Plan: Patient has a history of atrial fibrillation. During his hospitalization, he was noted to be bradycardic and his beta-guanako was stopped with improvement in his heart rates. EKG today shows sinus rhythm with first-degree AV block with PAC at a rate of 79 bpm. He continues on Eliquis 5 mg orally twice daily based on age, weight, and kidney function. He has a [id number] score of 5. He denies any excessive bruising or bleeding. Will continue current therapies. Coronary artery disease 07/07/2021 Overview (08/27/2024): Last Assessment & Plan: Patient has a history of coronary artery disease status post stent to the LAD in 2018. He reports recent episode of chest discomfort after his recent hospitalization which prompted recent ER visit. He has not had any further episodes. We have requested this report from [facility] to review. He underwent a left heart catheterization July 2023 which showed no new significant coronary artery disease and small caliber OM1 was not amendable to PCI. We reviewed these results in depth. At this point, I will further titrate his medical therapy and increase isosorbide mononitrate to 60 mg orally daily to see if this improves his symptoms. His beta-guanako was held after his last hospitalization in December due to bradycardia. Once the metoprolol was stopped, there was improvement in his heart rates. I will have him increase isosorbide mononitrate and at his next office visit, consider reinitiating metoprolol at a low dose 12.5 mg orally daily if he continues to have normal heart rates. He will continue to monitor his heart rate and blood pressure at home and notify me of any significant changes. He will continue his current dose of aspirin, statin. Patient advised to seek emergency medical attention by calling 911 if they were to develop severe dyspnea, chest pain that did not resolve with rest or nitroglycerin, or if they were to faint. 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 He will continue his current hypertensive medication regimen as prescribed. 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 Baer on 02/15/2012 Hyperlipidemia 09/30/2010 Overview (08/27/2024): Last Assessment & Plan: Patient has a history of hyperlipidemia as well as a history of coronary artery disease. He has a primary care appointment next week and he was ordered for a fasting lipid profile to be completed. We will review these results once they result. He will continue his current dose of atorvastatin in the meantime. His goal LDL should ideally be less than 70. Pneumonia 02/19/2009 Overview (08/27/2024): LLL infitrates on 02/19/09 Immunizations Name Administration Dates Next Due Influenza Quadravalent, MDCK , 0.5ml, with preservative (Flucelvax) 6mo and older 07/19/2017 Influenza trivalent, 0.5mL, preservative free (Fluarix; FluLaval; Fluzone) ages 6mo and older (Afluria) 3 years and older 11/11/2016,09/30/2010 Pneumococcal polysaccharide 23 valent (Pneumovax 23) 2yo and older 08/11/2011 Tdap Tetanus diptheria acell ular pertussis (Boostrix; Adacel) 7yo and older 08/11/2011 Surgical History Surgery Date Site/Laterality Comments COLONOSCOPY PROCEDURE: HISTORICAL COLONOSCOPY APPENDECTOMY PROCEDURE: OK APPENDECTOMY Medical History Medical History Date Comments Type II or unspecified type diabetes mellitus with unspecified complication, not stated as uncontrolled DX:Type II or unspecified ty pe diabetes mellitus with unspecified complication, not stated as uncontrolled Tubulovillous adenoma 01/04/2019 DX:Tubulov illous adenoma; COMMENT: With high grade dysplasia, follows with Dr Cohen has repeat CNSP 01/10/2019 Cerebrovascular disease DX:Cereb rovascular disease CVA (cerebral vascular accid ent) ([facility]) 07/06/2021 DX:CVA (cerebral vascular ac cident) ([facility]) Patent foramen ovale DX:Patent f oramen ovale JODI (acute kidney injury) ([facility]) 07/06/2021 DX:JODI (acute kidney injury) ([facility]) Anemia DX:Anemia Hyperkalemia DX:Hyperkalemia Chronic back pain DX:Chronic mina k pain Diarrhea DX:Diarrhea HTN (hypertension) DX:HTN (hyper tension) Diabetes mellitus, with long -term current use of insulin ([facility]) DX:Diabetes mellitus, with long-term current use of insulin ([facility]) 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 ([facility]) Diabetes mellitus with hyper glycemia ([facility]) DX:Diabetes mellitus with hyperglycemia ([facility]) Colon cancer ([facility]) DX:Colon cancer ([facility]) Nausea DX:Nausea Essential hypertension 05/18/2018 Family History Medical History Relation Name Comments Cataracts Father Coronary artery disease Father Diabetes Father Glaucoma Father Heart attack Father Breast cancer Mother Diabetes Mother Blindness Neg Hx Macular degeneration Neg Hx Strabismus Neg Hx Relation Name Status Comments Father Mother Social History Tobacco Use Types Packs/Day Years Used Date Smoking Tobacco: Never Smokeless Tobacco: Never Alcohol Use Standard Drinks/Week Comments No 0 (1 standard drink = 0.6 oz pur e alcohol) Sex and Gender Information Value Date Recorded Sex Assigned at Not on file Legal Sex Male 9:52 PM EST Gender Identity Not on file Sexual Orientation Not on file Obstetrics History Last Filed Vital Signs Vital Sign Reading Time Taken Comments Blood Pressure 120/64 02/26/2024 2:17 PM EDT Sitting L Arm Pulse 75 02/26/2024 2:17 PM EDT Temperature - - Respiratory Rate - - Oxygen Saturation - - Inhaled Oxygen Concentration - - Weight 75.5 kg (166 lb 6.4 oz) 02/26/2024 2:17 PM EDT Height 177.8 cm (5' 10 ) 02/26/2024 2:1 7 PM EDT Body Mass Index 23.88 02/26/2024 2:17 PM EDT Plan of Treatment Upcoming Encounters Date Type Department Care Team (Late st Contact Info) Description 09/30/2025 3:30 PM EST Office Visit [facility] [address] [place] [address] Jimy Arrieta MD [address] [place] [address] [address] [place] [address] Health Maintenance Due Date Last Done Comments Diabetes: Annual Foot Exam 1963 Diabetes: Annual Retina Eye Exam 1963 Zoster Vaccines (1 of 2) 1972 RSV Immunization Adult Patients (1 - Risk 60-74 years 1-dose series) 2013 Pneumococcal Vaccine: 50+ Years (3 of 3 - PPSV23, PCV20 or PCV21) 01/31/2020 12/06/2019, 08/11/2011 Diabetes: Annual GFR (Glomerular Filtration Rate) 02/15/2020 02/14/2019 DTaP,Tdap,and Td Vaccines (3 - Td or Tdap) 08/11/2021 08/11/2011, 10/23/2010 Depression Screening 10/01/2022 Falls Risk Assessment 10/01/2022 Medicare Annual Wellness Visit 10/01/2022 Social Influencers of Health Screening 10/01/2022 Diabetes: Annual Urine Albumin-Creatinine Ratio (uACR) 10/05/2022 04/02/2018 Diabetes: Blood Sugar Control Test (HGBA1C) 10/05/2022 01/23/2019 Hypertension/CHF/CAD Annual BMP Blood Test 10/05/2022 02/14/2019 Cholesterol Screening (Lipid Panel) 01/24/2024 01/23/2019 COVID-19 Vaccine ( season) 2024 10/10/2021, 01/15/2021, 12/18/2020 Influenza Vaccine (#1) 2024 , 09/23/2020, 07/19/2017, Additional history exists Colorectal Cancer Screening: Colonoscopy 07/24/2030 07/24/2020 Hepatitis C Screening Completed 04/02/2018 HIB Vaccines Aged Out No longer eligi ble based on patient's age to complete this topic HPV Vaccines Aged Out No longer eligi ble based on patient's age to complete this topic Hepatitis A Vaccines Aged Out No long er eligible based on patient's age to complete this topic Hepatitis B Vaccines Aged Out No long er eligible based on patient's age to complete this topic IPV Vaccines Aged Out No longer eligi ble based on patient's age to complete this topic MMR Vaccines Aged Out No longer eligi ble based on patient's age to complete this topic Meningococcal ACWY Vaccine Aged Out N o longer eligible based on patient's age to complete this topic Meningococcal B Vacine Aged Out No lo nger eligible based on patient's age to complete this topic RSV Immunization Patients Under 20 months Aged Out No longer eligible based on patient's age to complete this topic Varicella Vaccines Aged Out No longer eligible based on patient's age to complete this topic Procedures Procedure Name Priority Date/Time Associated Diagnosis Comments COLONOSCOPY Routine 07/24/2020 ANNUAL BMP BLOOD TEST Routine 02/14/2019 HEMOGLOBIN A1C Routine 01/23/2019 LIPID PANEL Routine 01/23/2019 HEPATITIS C SCREENING Routine 04/02/2018 URINE ALBUMIN CREATININE RATIO Routine 04/02/2018 from Last 3 Months or Most Recently Relevant to Health Maintenance Results * Colonoscopy (07/24/2020) [facility]ologist [facility] Colonoscopy Abstracted, no interpretation Anatomical Region Laterality Modality Other [facility] Provider HEALTH MAINTENANCE Final Result * Annual BMP Blood Test (02/14/2019) [facility]ologist [facility] Annual BMP Blood Test Abstracted [facility] Provider HEALTH MAINTENANCE Final Result * (ABNORMAL) Hemoglobin A1c (01/23/2019) [facility] Hemoglobin A1C 8.7(A) <=6.5 % Blood Venous blood specimen / Unknown [facility] Provider LAB BLOOD ORDERABLES Lizzie l Result * (ABNORMAL) Lipid panel (01/23/2019) [facility] LDL/HDL Ratio 2 0 - 4 Triglycerides 65 0 - 150 mg/dL Cholesterol 74 0 - 200 mg/dL HDL 37(A) >=40 mg/dL LDL Cholesterol 24 0 - 100 mg/dL Blood Venous blood specimen / Unknown Historical Provider LAB BLOOD ORDERABLES Lizzie l Result * Urine Albumin Creatinine Ratio (04/02/2018) Urine Albumin Creatinine Ratio Abstracted Historical Provider HEALTH MAINTENANCE Final Result * Hepatitis C Screening (04/02/2018) Hepatitis C Screening Abstracted Historical Provider HEALTH MAINTENANCE Final Result from Last 3 Months or Most Recently Relevant to Health Maintenance Insurance [employer] MEDICARE Advance Directives Documents on File Type Date Recorded 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 Health Care Decision (hx) 07/24/2020 AD [place] DIRECTIVE Health Care Decision (hx) 07/24/2020 AD HOLLIGNSWORTH DIRECTIVE Health Care Decision (hx) 07/24/2020 AD [place] DIRECTIVE Health Care Decision (hx) 07/24/2020 AD [place]TH DIRECTIVE Health Care Decision (hx) 07/24/2020 AD [place]LL[place]ORTH DIRECTIVE Health Care Decision (hx) 07/24/2020 AD [place]LL[place]ORTH DIRECTIVE Health Care Decision (hx) 01/30/2019 AD HOLLINGSWORTH DIRECTIVE Health Care Decision (hx) 01/30/2019 AD [place]LL[place]ORTH DIRECTIVE Health Care Decision (hx) 01/30/2019 AD HOLL[place]ORTH DIRECTIVE Health Care Decision (hx) 01/30/2019 AD [place]LL[place]ORTH DIRECTIVE Health Care Decision (hx) 01/30/2019 AD [place]LL[place]ORTH DIRECTIVE Health Care Decision (hx) 01/30/2019 AD [place]LL[place]ORTH DIRECTIVE Health Care Decision (hx) 01/30/2019 AD [place]ORTH DIRECTIVE Health Care Decision (hx) 01/30/2019 AD [place]TH DIRECTIVE Health Care Decision (hx) 01/30/2019 AD [place]LL[place]ORTH DIRECTIVE Health Care Decision (hx) 01/30/2019 AD [place]LL[place]ORTH DIRECTIVE Health Care Decision (hx) 12/29/2018 AD [place]LL[place]ORTH DIRECTIVE Health Care Decision (hx) 12/29/2018 AD [place]LL[place]ORTH DIRECTIVE Health Care Decision (hx) 12/29/2018 AD HOLLINGSWORTH DIRECTIVE Health Care Decision (hx) 12/29/2018 AD [place]LL[place]ORTH DIRECTIVE Health Care Decision (hx) 12/29/2018 AD HOLL[place]ORTH DIRECTIVE Health Care Decision (hx) 12/29/2018 AD [place]LL[place]ORTH DIRECTIVE Health Care Decision (hx) 12/29/2018 AD HOLLINGSWORTH DIRECTIVE Health Care Decision (hx) 12/29/2018 AD HOLLINGSWORTH DIRECTIVE Health Care Decision (hx) 12/29/2018 AD [place]LLINGSWORTH DIRECTIVE Health Care Decision (hx) 12/29/2018 AD HOLLING[place]TH DIRECTIVE Care Teams 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
--- OUTSIDE RECORDS SUMMARY | 2025-01-25 10:43 | XMS_ITS | Clinical Summary ---
Author Organization [facility] Address [address] [place] [id number] Care Team Providers Care Viscosity Tester Name Role Phone Unavailable Primary Care Provider Unavailabl e Allergies Active Allergy Reactions Criticality Noted Date Comments Penicillins Rash/Dermatitis Low 01/15/2019 Sulfa Antibiotics Hives Medium 01/15/2019 Medications Medication Sig Dispensed Refills Start Date End Date Status atorvastatin (LIPITOR) 80 MG tablet Take 80 mg by mouth daily. 0 01/04/2019 Active [facility] BISACODYL 5 MG EC tablet TAKE 4 BISACODYL TABS 1 -2 HOURS BEFORE STARTING THE BOWEL PREP. 0 01/08/2019 Active metoPROLOL TARTRATE (LOPRESSOR) 50 MG tablet Take 50 mg by mouth 2 (two) times a day. 0 12/28/2018 Active PANTOprazole (PROTONIX) 40 MG EC tablet Take 40 mg by mouth daily. 0 12/28/2018 Active aspirin 81 MG chewable tabletIndications:Ce rebrovascular accident (CVA), unspecified mechanism (HCC) Chew 1 tablet (81 mg total) daily. 90 tablet 01/19/2019 Active Active Problems Problem Noted Date Diagnosed Date Stroke 01/15/2019 Family History Medical History Relation Name Comments Heart attack Father Relation Name Status Comments Father Social History Tobacco Use Types Packs/Day Years Used Date Smoking Tobacco: Never Smokeless Tobacco: Never Alcohol Use Standard Drinks/Week Comments Yes 0 (1 standard drink = 0.6 oz pur e alcohol) once per month AUDIT-C Answer Date Recorded Frequency of Alcohol Consumption Never 01/15/2019 Average Number of Drinks Not on file 019 Frequency of Binge Drinking Not on file 12/22 Sex and Gender Information Value Date Recorded Sex Assigned at Not on file Gender Identity Not on file Sexual Orientation Not on file Last Filed Vital Signs Vital Sign Reading Time Taken Comments Blood Pressure 131/69 01/18/2019 7:55 AM EDT Pulse 66 01/18/2019 7:55 AM EDT Temperature 36.1 ??C (97 ??F) 01/18/2019 7:55 AM EDT Respiratory Rate 17 01/18/2019 7:55 AM EDT Oxygen Saturation 93% 01/18/2019 7:55 AM EDT Inhaled Oxygen Concentration - - Weight 88.4 kg (194 lb 14.2 oz) 01/15/2019 4:25 AM EDT Height 177.8 cm (5' 10 ) 01/15/2019 4:25 AM EDT Body Mass Index 27.96 01/15/2019 4:25 AM EDT Plan of Treatment Health Maintenance Due Date Last Done Comments Hepatitis C Virus Screening 1953 DTaP/Tdap/Td Vaccines (1 - Tdap) 1972 Colonoscopy 1998 Pneumococcal Vaccines 50+ (1 of 1 - PCV) 2003 Zoster (Shingles) Vaccine (1 of 2) 2003 Influenza Vaccine 05/23/2024 COVID-19 Vaccine (1 - 2023-2 5 season) 2024 RSV Vaccine 60 years and old er and Patients (1 - 1-dose 75+ series) 2028 Hepatitis B Vaccines Aged Out No long er eligible based on patient's age to complete this topic Advance Directives * Full Code (Latest Code Status on File) Date Activated Date Inactivated Comments 01/15/2019 3:38 AM Question Answer Comments Decision Thoroughly Discussed with: Patient
--- NOTE | 2025-01-25 10:47 | PC.NURSE ---
Cage Supervisor called Dr. Stinson for consult on patient at this time
[2025-01-25 10:49] LABS: Troponin-I High Sensitivity 3.7 ng/L (<3.5-35.0)
--- NOTE | 2025-01-25 11:47 | PM.IMHP ---
History of Present Illness Date of Service: 01/25/25 Attending physician on admission: Arnaud Jiménez Chief Complaint: Right-sided numbness Pt is a 69-year-old male with a PMH significant for?hx of CVA x3 (last in 2020) on Eliquis, with residual bilateral lower extremity weakness, CAD s/p stenting, insulin-dependent type 2 diabetes, hx of colon cancer s/p bowel resection, chronic diarrhea, peripheral neuropathy, and CKD 3 who presents to the ED for evaluation of right upper and lower extremity numbness since this morning. Pt reports initially experienced 3-4 episodes of left-sided, nonradiating chest pain when he awoke to use the bathroom at 3:00-4:00. Episodes lasted approximately 10 seconds at a time. States has had similar episodes in the past. Pt then awoke at approximately 07:00 in normal state of health. Around 09:00 began feeling numbness in his right upper and lower extremity. Is uncertain whether experienced any right-sided weakness as pt has chronic weakness secondary to prior CVAs. Did not note any facial numbness or droop. No difficulty speaking. Denies headache or acute vision changes. Pt notes he has had difficulty walking since previous strokes, uses walker at baseline but unable to ambulate long distances. Has experienced some increased fatigue in the past 2 weeks, but has been more active than normal with many outpatient appointments. No unintended weight loss. Denies shortness or breath or difficulty breathing. No fever, chills, nausea, vomiting, abdominal pain. Pt reports right-sided numbnes has lessened since being in the ED, though has not fully resolved. ? In the ED pt was hypertensive up to 162/52, vitals otherwise stable and WNL. Labs were grossly unremarkable and around baseline for pt. Stable normocytic anemia of 12.7/37.1. No significant electrolyte abnormalities. Creatinine elevated at 1.75, around baseline. Lipid profile with low HDL of 29, otherwise WNL. CT of head negative for acute intracranial findings. CTA of head neck found a short segment near complete stenosis involving left internal carotid artery origin. Also showed multiple left lower neck aggressive-appearing masses suspicious for malignancy and rhonda metastases disease the primary malignancy possibly involving the left thyroid lobe. CXR showed no acute findings. EKG demonstrated sinus rhythm with first-degree AV block but no evidence of significant ischemic changes. Pt will be admitted to the hospital for treatment and further evaluation of left-sided numbness concerning for CVA. Review of Systems Review of Systems: Negative except for that which is stated in the HPI. [facility] Medical History (Updated 01/25/25 @ 13:23 by DEV Orosco) Colon cancer Hx SBO CAD (coronary artery disease) HLD (hyperlipidemia) CKD (chronic kidney disease), stage III CVA (cerebral vascular accident) Atrial fibrillation Type 2 diabetes mellitus Surgical History (Updated 01/25/25 @ 13:11 by DEV Orosco) History of colon resection Stented coronary artery H/O cardiac radiofrequency ablation Social History Household Members: Family Housing: House Do you presently have visiting nurse or other home services: No Unable to assess alcohol history related to: Unknown Alcohol intake: former Patient Tobacco Use Status: Never used Tobacco Smoked in Last 30 Days: No Use of substances other than those prescribed or required for medical reasons: No Advance Directives: No Advance Directives Information Provided: No Advance Directives Date on File: 11/10/22 service: No Current occupational status: retired [employer] Allergies Allergy/AdvReac Type Severity Reaction Status Date / Time Sulfa (Sulfonamide Allergy Mild HIVES Verified 01/25/25 10:12 Antibiotics) [SULFA (SULFONAMIDE ANTIBIOTICS)] penicillamine [Cuprimine] Allergy Unknown unknown Verified 01/25/25 10:12 Penicillins Allergy Unknown INKNOWN Verified 01/25/25 10:12 sulfacetamide Allergy Unknown rash Verified 01/25/25 10:12 Home Medications ?Medication ?Instructions ?Recorded ?Confirmed ?Last Taken ?Type apixaban 5 mg tablet (Eliquis) 1 tab PO BID 06/28/21 01/25/25 01/25/25 09:00 History aspirin 81 mg tablet,delayed 81 mg PO DAILY 11/05/22 01/25/25 01/25/25 09:00 History release atorvastatin 80 mg tablet 40 mg PO BEDTIME 01/13/24 01/25/25 Unknown History diphenoxylate-atropine 2.5 1 tab PO BID PRN Diarrhea 01/13/24 01/25/25 01/25/25 09:00 History mg-0.025 mg tablet insulin glargine 100 unit/mL (3 20 unit subcut DAILY 10/26/24 01/25/25 01/25/25 09:00 History mL) subcutaneous pen (Lantus Solostar U-100 Insulin) isosorbide mononitrate 60 mg 30 mg PO BEDTIME 10/26/24 01/25/25 Unknown History tablet,extended release 24 hr pregabalin 50 mg capsule 50 mg PO BID 10/26/24 01/25/25 01/25/25 09:00 History Physical Exam Vital Signs and Narrative: Vital Signs: Last Vital Signs Temp 97.6 F 01/25/25 10:08 Pulse 87 01/25/25 10:29 Resp 16 01/25/25 10:29 BP 160/67 H 01/25/25 10:29 Pulse Ox 97 01/25/25 10:29 O2 Del Method Room Air 01/25/25 10:29 BMI result Body Mass Index 24.9 Constitutional: Alert, in no acute distress. Mental Status: Oriented to person, place and time. Eyes: Pupils are equal, round, and reactive to light. Ear, Nose, and Throat: Oropharynx clear, mucous membranes moist. Ears and nose without deformities. Trachea midline. Respiratory: Clear to auscultation bilaterally. No wheezing, rales, or rhonchi. Cardiovascular: S1, S2 regular. No murmurs, rubs, or gallops. Gastrointestinal: Abdomen soft, non-distended. Normal bowel sounds. Some mild epigastric discomfort. Neurologic: Global weakness noted. 3/5 symmetric strength of upper extremities. 2/5 symmetric strength of lower extremities. Sensation to light touch preserved in face and upper extremities bilaterally. Sensation to light touch chronically absent in lower extremities. Negative pronator drift. Resting tremor of right upper extremity. No facial droop, speaking in full sentences. Skin: Warm, dry. Extremities: No edema. Psychiatric: Normal mood and affect. Results Labs 01/25/25 10:22 01/25/25 10:22 Labs: Laboratory Results - last 24 hr 01/25/25 01/25/25 01/25/25 09:52 09:53 10:22 MCV 84.3 MCH 28.9 MCHC 34.2 RDW 13.1 Plt Count 179 MPV 11.5 Immature Gran % (Auto) 0.1 Neut % (Auto) 62.5 Lymph % (Auto) 25.6 [place] % (Auto) 8.6 Eos % (Auto) 2.4 Baso % (Auto) 0.8 Lymph # (Auto) 2.0 [place] # (Auto) 0.7 Eos # (Auto) 0.2 Baso # (Auto) 0.1 Abs Immat Gran (auto) 0.01 Absolute Neuts (auto) 4.9 Absolute Nucleated RBC 0.000 Nucleated RBC % (auto) 0.0 PT 17.4 H Whole Blood PT 15.6 H INR 1.5 H Whole Blood INR 1.3 H APTT 38.2 H Anion Gap 10 L Estim Creat Clear Calc 39.9 Estimated GFR 39 POC Glucose 196 H Random Glucose 204 H Calcium 8.6 D Triglycerides 139 Cholesterol 89 LDL Cholesterol, Calc 33 HDL Cholesterol 29 L Assessment and Plan (1) Right sided numbness: Status: Acute Plan Pt is a 69-year-old male with a PMH significant for?hx of CVA x3 (last in 2020) on Eliquis, with residual bilateral lower extremity weakness, CAD s/p stenting, insulin-dependent type 2 diabetes, hx of colon cancer s/p bowel resection, chronic diarrhea, peripheral neuropathy, and CKD 3 who presents to the ED for evaluation of right upper and lower extremity numbness since this morning. Pt will be admitted to the hospital for treatment and further evaluation of left-sided numbness concerning for CVA. Right-sided numbness Pt experienced numbness of right upper and lower extremity since 09:00 this morning Pt with chronic global weakness, especially of lower extremities; unable to determine if worsening right-sided weakness CTA of head negative for acute abnormality, CTA of head/neck showing short segment near complete stenosis of left internal carotid artery origin Symptoms currently better, but not yet back to baseline Pt with hx of CVA x3 Concerning for CVA vs TIA Echo on 10/28/2024 showed EF of 55-60%, moderate pulmonary hypertension We will get MRI of the brain Continue aspirin, statin, Eliquis Vascular surgery consult for carotid stenosis Neurology consult for possible CVA PT/OT evaluation Monitor on telemetry Atypical chest pain Pt experienced 3-4 episodes of left-sided nonradiating chest pain lasting 10 seconds each Has experienced similar episodes before Pt with hx of CAD s/p stenting EKG nonischemic, troponin WNL Possibly in the setting of severe left carotid stenosis Continue isosorbide mononitrate Monitor on telemetry Masses in the neck Incidental finding of CTA showed multiple left lower neck aggressive-appearing masses suspicious for malignancy and rhonda metastatic disease Primary malignancy may involve left thyroid lobe Pt reports increased fatigue x2 weeks, no unintended weight loss Will check TSH Oncology consult to establish outpatient follow up and care Insulin-dependent type [address] on sliding scale insulin Continue Lantus Diabetic diet Chronic diarrhea Pt with hx of colon cancer s/p colectomy Continue Lomotil Peripheral neuropathy Continue pregabalin Full Code Attending:?Dr. Jiménez DVT Prophylaxis: On Eliquis Pt will require a hospitalization of at least two nights for treatment and further evaluation of?right-sided numbness concerning for CVA vs TIA. Pt require close cardiac and neurological monitoring, additional imaging with MRI, and specialist consultation with Neurology. Quality Stroke Does the patient have a stroke diagnosis?: No VTE Prior VTE?: No VTE Risk Level:: Medical - moderate - high VTE Device Contraindication: Treatment Not Indicated VTE Drug Contraindication: N/A - Med Ordered
[2025-01-25 13:12] LABS: Glucose, Whole Blood 188 mg/dL (60-115)
[2025-01-25 13:12] LABS: TSH reflex Free T4 3.42 uIU/mL (0.32-4.0)
--- NOTE | 2025-01-25 13:41 | PHA.MEDREC ---
Addendum entered by Dalila Tapia RPh 01/25/25 15:33: [facility] Original Note: Pharmacy Consult ? Medication Reconciliation Pharmacy has completed the medication reconciliation. Spoke to pt's daughter Deanna to confirm meds.
--- NOTE | 2025-01-25 14:45 | PC.NURSE ---
patient taken to MRI.
[2025-01-25] MEDS: 0.9 % Sodium Chloride Flush 3 ML SYRINGE IVFLUSH (16:32)
--- NOTE | 2025-01-25 16:43 | P.CNHO_ITS ---
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 CTA of the head and neck shows multiple masses in the left neck at level of larynx. Review of Systems - Constitutional Reports anorexia - Eyes Reports other - ENT Reports system reviewed and no additional complaints, except as documented - Cardiovascular Reports leg swelling - Respiratory Reports chest congestion - Gastrointestinal Reports constipation - Genitourinary Genitourinary: Reports frequent nighttime urination - Musculoskeletal Reports numbness PMFSH Medical History: Medical History (Last Reviewed 01/25/25 @ 16:09 by Yoana Bar, PT) Atrial fibrillation CAD (coronary artery disease) CKD (chronic kidney disease), stage III Colon cancer CVA (cerebral vascular accident) HLD (hyperlipidemia) Hx SBO Type 2 diabetes mellitus Surgical History: Surgical History (Last Reviewed 01/25/25 @ 16:09 by Yoana Bra, PT) H/O cardiac radiofrequency ablation History of colon resection Stented coronary artery Social History: Social History (Last Reviewed 01/25/25 @ 13:10 by DEV Orosco) Living Situation History: Household Members: Family Housing: House Do you presently have visiting nurse or other home services: No Alcohol History: Unable to assess alcohol history related to: Unknown Alcohol History Details: 1. How often do you have a drink containing alcohol?: a. Never AUDIT-C Alcohol total score: 0 Tobacco History: Patient Tobacco Use Status: Never used Tobacco Smoked in Last 30 Days: No Substance Use History: Use of substances other than those prescribed or required for medical reasons : No Advance Directives: Advance Directives: No Advance Directives Information Provided: No Advance Directives Date on File: 11/10/22 Occupation Assessmet: service: No Current occupational status: retired Home Medications and Allergies Current Medications: Current Medications Acetaminophen (Acetaminophen 325 Mg Tablet) 650 mg PO Q6H PRN PRN Reason: Pain, Mild 1-3,fever,headache Apixaban (Apixaban 5 Mg Tablet) 5 mg PO BID [facility] Aspirin (Aspirin Enteric Coated 81 Mg Tablet.Dr) 81 mg PO DAILY [facility] Atorvastatin Calcium (Atorvastatin Calcium 40 Mg Tablet) 40 mg PO BEDTIME [facility] Calcium Carbonate (Calcium Carbonate 750 Mg Tab.Chew) 750 mg PO Q4H PRN PRN Reason: Heartburn Dextrose (Dextrose 50 % 25 Gm/50 Ml Syringe) 25 gm IVPUSH Q15M PRN; Protocol PRN Reason: per Hypoglycemia Standing Ord. Diphenoxylate HCl/Atropine (Diphenoxylate/Atrop 2.5/0.025 Tablet) 1 tab PO BID PRN PRN Reason: Diarrhea Glucose (Glucose Gel 15 Gm Gel..Gram.) 15 gm PO Q15M PRN; Protocol PRN Reason: per Hypoglycemia Standing Ord. Insulin Glargine (Insulin Glargine,Hum.Rec.Anlog 100 Unit/Ml 10 Ml Vial) 20 unit SUBCUT DAILY [facility] Insulin Human Lispro (Insulin Lispro 100 Unit/Ml 3 Ml Vial) 0 unit SUBCUT QIDACHS [facility]; Protocol Isosorbide Mononitrate (Isosorbide Mononitrate 30 Mg Tab.Er.24h) 30 mg PO BEDTIME [facility]; Protocol Magnesium Hydroxide (Milk Of Magnesia 30 Ml Oral.Susp) 30 ml PO DAILY PRN PRN Reason: Constipation Melatonin (Melatonin 3 Mg Tablet) 6 mg PO BEDTIME PRN PRN Reason: Insomnia Ondansetron HCl (Ondansetron Hcl 4 Mg/2 Ml Vial) 4 mg IVPUSH Q8H PRN PRN Reason: Nausea and Vomiting Pregabalin (Pregabalin 50 Mg Capsule) 50 mg PO BID [facility] Sodium Chloride (0.9 % Sodium Chloride Flush 3 Ml Syringe) 3 ml IVFLUSH QSHIFT [facility] Last Admin: 01/25/25 16:32 Dose: 3 ml Spironolactone (Spironolactone 25 Mg Tablet) 25 mg PO DAILY [facility]; Protocol Home Medications ?Medication ?Instructions ?Recorded ?Confirmed ?Type apixaban 5 mg tablet (Eliquis) 1 tab PO BID 06/28/21 01/25/25 History aspirin 81 mg tablet,delayed 81 mg PO DAILY 11/05/22 01/25/25 History release atorvastatin 80 mg tablet 40 mg PO BEDTIME 01/13/24 01/25/25 History diphenoxylate-atropine 2.5 1 tab PO BID PRN Diarrhea 01/13/24 01/25/25 History mg-0.025 mg tablet insulin glargine 100 unit/mL (3 20 unit subcut DAILY 10/26/24 01/25/25 History mL) subcutaneous pen (Lantus Solostar U-100 Insulin) isosorbide mononitrate 60 mg 30 mg PO BEDTIME 10/26/24 01/25/25 History tablet,extended release 24 hr pregabalin 50 mg capsule 50 mg PO BID 10/26/24 01/25/25 History Allergies Allergy/AdvReac Type Severity Reaction Status Date / Time Sulfa (Sulfonamide Allergy Mild HIVES Verified 01/25/25 10:12 Antibiotics) [SULFA (SULFONAMIDE ANTIBIOTICS)] penicillamine [Cuprimine] Allergy Unknown unknown Verified 01/25/25 10:12 Penicillins Allergy Unknown INKNOWN Verified 01/25/25 10:12 sulfacetamide Allergy Unknown rash Verified 01/25/25 10:12 Physical Exam Vital signs: Vital Signs Temp 97.6 F 01/25/25 10:08 Pulse 87 01/25/25 16:07 Resp 16 01/25/25 10:29 BP 160/67 H 01/25/25 16:07 Pulse Ox 97 01/25/25 16:07 O2 Del Method Room Air 01/25/25 10:29 Intake & Output 01/24/25 01/25/25 01/25/25 18:59 06:59 18:59 Other: Weight 78.7 kg [place] Weight in Grams [id number] Weight 78.7 kg - Constitutional Present: no acute distress - Routine HEENT Exam Head: Present: atraumatic, normal inspection - Routine Neck Exam Present: full ROM Comments: multiple hard palpable rhonda masses left neck level of the larynx, trachea mobile - Routine Respiratory Exam Present: decreased breath sounds - Routine Cardiovascular Exam Cardiovascular: Present: RRR - Routine Abdominal Exam Present: diminished bowel sounds - Routine Extremities Exam Present: pedal edema Comments: ulceration lower legs Hem/Onc Consult Result - Labs CBC & Chem 7: 01/25/25 10:22 01/25/25 10:22 Labs: Short CBC 01/25/25 Range/Units 10:22 WBC 7.9 (4.8-10.8) X10*3/uL Hgb 12.7 L D (14.0-18.0) g/dl Hct 37.1 L D (42.0-52.0) % Plt Count 179 (160-400) X10*3/uL BMP 01/25/25 10:22 Sodium 139 Potassium 4.6 D Chloride 111 H Carbon Dioxide 23 BUN 42 H Creatinine 1.75 H Calcium 8.6 D Assessment and Plan Patient Active problem list reviewed?: Yes (1) Adenopathy, cervical Status: Acute Assessment and plan: This is likely neoplastic. 2023 and 2022 imaging does not report same in neck region. Recommend FNA biopsy. Recommend mri of neck with attention to thyroid. Will follow. - Time Spent With Patient Time Spent with Patient (in minutes): 20
[2025-01-25 17:00] LABS: Glucose, Whole Blood 201 mg/dL (60-115)
[2025-01-25] MEDS: Insulin Lispro 100 UNIT/ML 3 ML VIAL SUBCUT ×2 (18:15→20:23)
--- NOTE | 2025-01-25 19:15 | PC.NURSE ---
neuro assessment stable, intact. states right extremity numbness is resolved. strength feels equally bilaterally. call coyne in reach. plan of care ongoing
--- NOTE | 2025-01-25 19:45 | PC.NURSE ---
hypoxic to 87% with ambulation after duoneb. bilateral inspiratory and expiratory wheezes auscultated. pt appears slightly short of breath with RR around 20-22. MD Scanlon and Curry aware. pt back in bed with return to 94% SpO2
[2025-01-25 20:23] LABS: Glucose, Whole Blood 187 mg/dL (60-115)
[2025-01-25] MEDS: Isosorbide Mononitrate 30 MG TAB.ER.24H PO (20:23)
[2025-01-25] MEDS: Atorvastatin Calcium 40 MG TABLET PO (20:23)
[2025-01-25] MEDS: Apixaban 5 MG TABLET PO (20:23)
[2025-01-25] MEDS: Pregabalin 50 MG CAPSULE PO (21:41)
--- NOTE | 2025-01-25 22:27 | PC.NURSE ---
Addendum entered by Tae Lezama RN 01/26/25 03:47: neuro assessment unchanged Original Note: neuro assessment stable. unchanged. call coyne in reach
[2025-01-26] VITALS (9 sets, daily range): BP systolic 109–179; BP diastolic 44–99; PULSE 64–73; RESP 12–18; TEMP 36–36.9; O2SAT 95–98; BMI 24.5
[2025-01-26 07:05] LABS: Glucose, Whole Blood 126 mg/dL (60-115)
[2025-01-26] MEDS: Aspirin Enteric Coated 81 MG TABLET.DR PO (07:57)
[2025-01-26] MEDS: Apixaban 5 MG TABLET PO (07:57)
[2025-01-26] MEDS: Pregabalin 50 MG CAPSULE PO ×2 (07:58→21:28)
[2025-01-26] MEDS: Insulin Glargine,Hum.rec.anlog 100 UNIT/ML 10 ML VIAL 20 UNIT SUBCUT (07:58)
[2025-01-26] MEDS: Spironolactone 25 MG TABLET PO (07:58)
[2025-01-26] MEDS: 0.9 % Sodium Chloride Flush 3 ML SYRINGE IVFLUSH ×3 (08:00→21:30)
[2025-01-26 09:04] LABS: Hematocrit 34.4 % (42.0-52.0); Hemoglobin 12.1 g/dl (14.0-18.0); Mean Corpuscular HGB Conc 35.2 g/dl (31.0-36.0); Mean Corpuscular Hemoglobin 29.7 pg (27.0-33.0); Mean Corpuscular Volume 84.5 fL (80.0-98.0); Mean Platelet Volume 11.1 fL (9.4-12.4); Platelet Count 193 X10*3/uL (160-400); Red Blood Count 4.07 X10*6/uL (4.60-5.80); White Blood Count 8.6 X10*3/uL (4.8-10.8)
[2025-01-26 09:13] LABS: INTERNATIONAL NORM RATIO 1.6 (0.9-1.1); Prothrombin Time 19.1 SEC (10.9-12.4)
[2025-01-26 09:16] LABS: Anion Gap 11 (12-20); Blood Urea Nitrogen 41 mg/dL (9-16); Calcium 8.8 mg/dL (8.4-10.2); Carbon Dioxide 26 mmol/L (22-29); Chloride 109 mmol/L (96-108); Creatinine Clr Calc Pharmacy 36.8; Estimated Glomerular Filt Rate 35; Glucose Random 204 mg/dL (60-115); Lactate Dehydrogenase 133 U/L (118-273); Potassium 4.6 mmol/L (3.3-5.1); Sodium 141 mmol/L (135-145)
--- NOTE | 2025-01-26 09:56 | MHC.CM.PN ---
IMM 01/26. Pt self-care, lives at home with his son and [id number]. Pt uses a walker and has a shower, he also has home O2 through [employer]. Pts family will transport him home at discharge. HCP on file and verified. PCP: Dr. Masood Jeffery
--- NOTE | 2025-01-26 10:10 | PC.NURSE ---
Pt reports Hx of a sore to his L buttock right at the crease. Location inspected per Pt request. No open sores at this time. Pt c/o tenderness to this area from being in bed. Foam padding applied to area to relieve some pressure--Pt agreeable to this. Pt also advised that extra pillowed can be utilized for positioning PRN to relieve pressure. Pt verbalized understanding and opts out of this option at this time.
[2025-01-26 11:34] LABS: Glucose, Whole Blood 165 mg/dL (60-115)
--- NOTE | 2025-01-26 12:49 | P.PNIM_ITS ---
Subjective Subjective Date of Service: 01/26/25 Interval History: RLE/RUE numbness resolved no fever/chills chronic leg weakness Review of Systems Review of Systems: Yes all other systems are reviewed and are negative Physical Exam 2 Vital Signs: Vital Signs: Last Vital Signs Temp 98.2 F 01/26/25 12:09 Pulse 67 01/26/25 12:09 Resp 14 01/26/25 12:09 BP 147/66 H 01/26/25 12:09 Pulse Ox 98 01/26/25 12:09 O2 Del Method Room Air 01/26/25 12:09 BMI result Body Mass Index 24.9 Gen: in no acute distress HEENT: sclera anicteric, moist mucus membranes Neck: supple Lungs: clear to auscultation bilaterally Heart: regular rate and rhythm, no murmurs Abd: soft, non-tender, non-distended Ext: no edema Skin: warm/well-perfused Neuro: alert and oriented x3, 3/5 strength throughout Psych: appropriate affect Objective Data Active Medications Acetaminophen (Acetaminophen 325 Mg Tablet) 650 mg PO Q6H PRN PRN Reason: Pain, Mild 1-3,fever,headache Apixaban (Apixaban 5 Mg Tablet) 5 mg PO BID [facility] Last Admin: 01/26/25 07:57 Dose: 5 mg Documented By: STEVE Aspirin (Aspirin Enteric Coated 81 Mg Tablet.) 81 mg PO DAILY [facility] Last Admin: 01/26/25 07:57 Dose: 81 mg Documented By: STEVE Atorvastatin Calcium (Atorvastatin Calcium 40 Mg Tablet) 40 mg PO BEDTIME [facility] Last Admin: 01/25/25 20:23 Dose: 40 mg Documented By: DWAYNE Calcium Carbonate (Calcium Carbonate 750 Mg Tab.Chew) 750 mg PO Q4H PRN PRN Reason: Heartburn Dextrose (Dextrose 50 % 25 Gm/50 Ml Syringe) 25 gm IVPUSH Q15M PRN; Protocol PRN Reason: per Hypoglycemia Standing Ord. Diphenoxylate HCl/Atropine (Diphenoxylate/Atrop 2.5/0.025 Tablet) 1 tab PO BID PRN PRN Reason: Diarrhea Glucose (Glucose Gel 15 Gm Gel..Gram.) 15 gm PO Q15M PRN; Protocol PRN Reason: per Hypoglycemia Standing Ord. Insulin Glargine (Insulin Glargine,Hum.Rec.Anlog 100 Unit/Ml 10 Ml Vial) 20 unit SUBCUT DAILY [facility] Last Admin: 01/26/25 07:58 Dose: 20 unit Documented By: STEVE Insulin Human Lispro (Insulin Lispro 100 Unit/Ml 3 Ml Vial) 0 unit SUBCUT QIDACHS [facility]; Protocol Last Admin: 01/26/25 07:06 Dose: Not Given Documented By: STEVE Non-Admin Reason: No Insulin Coverage Comments: POC 126 Isosorbide Mononitrate (Isosorbide Mononitrate 30 Mg Tab.Er.24h) 30 mg PO BEDTIME [facility]; Protocol Last Admin: 01/25/25 20:23 Dose: 30 mg Documented By: LAFLAMEliseo Magnesium Hydroxide (Milk Of Magnesia 30 Ml Oral.Susp) 30 ml PO DAILY PRN PRN Reason: Constipation Melatonin (Melatonin 3 Mg Tablet) 6 mg PO BEDTIME PRN PRN Reason: Insomnia Ondansetron HCl (Ondansetron Hcl 4 Mg/2 Ml Vial) 4 mg IVPUSH Q8H PRN PRN Reason: Nausea and Vomiting Pregabalin (Pregabalin 50 Mg Capsule) 50 mg PO BID [facility] Last Admin: 01/26/25 07:58 Dose: 50 mg Documented By: STEVE Sodium Chloride (0.9 % Sodium Chloride Flush 3 Ml Syringe) 3 ml IVFLUSH QSHIFT [facility] Last Admin: 01/26/25 08:00 Dose: 3 ml Documented By: STEVE Spironolactone (Spironolactone 25 Mg Tablet) 25 mg PO DAILY [facility]; Protocol Last Admin: 01/26/25 07:58 Dose: 25 mg Documented By: STEVE Labs 01/26/25 08:58 01/26/25 08:58 Labs: Laboratory Results - last 24 hr 01/25/25 01/25/25 01/25/25 10:22 13:08 16:55 MCV MCH MCHC RDW Plt Count MPV Absolute Nucleated RBC Nucleated RBC % (auto) PT INR Anion Gap Estim Creat Clear Calc Estimated GFR POC Glucose 188 H 201 H Random Glucose Calcium Lactate Dehydrogenase TSH 3.42 01/25/25 01/26/25 01/26/25 20:19 07:01 08:58 MCV 84.5 MCH 29.7 MCHC 35.2 RDW 13.0 Plt Count 193 MPV 11.1 Absolute Nucleated RBC 0.000 Nucleated RBC % (auto) 0.0 PT 19.1 H INR 1.6 H Anion Gap 11 L Estim Creat Clear Calc 36.8 Estimated GFR 35 POC Glucose 187 H 126 H Random Glucose 204 H Calcium 8.8 Lactate Dehydrogenase 133 TSH 01/26/25 11:30 MCV MCH MCHC RDW Plt Count MPV Absolute Nucleated RBC Nucleated RBC % (auto) PT INR Anion Gap Estim Creat Clear Calc Estimated GFR POC Glucose 165 H Random Glucose Calcium Lactate Dehydrogenase TSH MRI brain 01/25/25 No acute infarction. There is susceptibility at the left parietal/occipital lobe junction which likely indicates blood products. No acute hemorrhage is seen on the recent head CT. Associated increased signal on the T1 weighted images favors subacute hemorrhage. Chronic hemorrhage is also possible. Consider follow up with noncontrast head CT. Assessment and Plan (1) Neck mass: Status: Acute Assessment and Plan: d2 for 69yo M with hx of CVA x3 on apixaban with residual BLE weakness, CAD s/p PCI, DM2, hx colon CA s/p resection, chronic diarrhea, peripheral neuropathy, and CKD3 presenting with acute RUE/RLE numbness concerning for TIA/CVA, found to have aggressive neck masses concerning for malignancy R-sided numbness - no acute CVA on MRI but concern of subacute-chronic L parieto-occipital hemorrhage; will hold ASA + apixaban and discuss with Neurology - PT/OT consult - continue statin near-complete carotid occlusion L ICA - Vascular Surgery consult; ASA, statin CAD - ASA, statin, Imdur neck mass - incidental finding on CTA; question whether primary malignancy is from L thyroid lobe. Oncology consulted; recommends needle biopsy and MR; will discuss with Radiology in AM to plan as outpt; will need to hold apixaban and bridge with Lovenox CKD3 - SCr around baseline DM2 - basal-bolus insulin chronic diarrhea - Lomotil HTN - spironolactone peripheral neuropathy - continue pregabalin VTE ppx - apixaban dispo - TBD In my clinical judgment, the patient requires continued inpatient hospitalization for the following reasons: neurologic, radiologic + surgical consultation Total time managing care of this patient today: 45 minutes. Quality Stroke Does the patient have a stroke diagnosis?: No VTE Prior VTE?: No VTE Risk Level:: Medical - moderate - high VTE Device Contraindication: Treatment Not Indicated VTE Drug Contraindication: N/A - Med Ordered
[2025-01-26] MEDS: Insulin Lispro 100 UNIT/ML 3 ML VIAL SUBCUT ×2 (13:58→21:29)
[2025-01-26 16:37] LABS: Glucose, Whole Blood 153 mg/dL (60-115)
[2025-01-26 20:38] LABS: Glucose, Whole Blood 199 mg/dL (60-115)
[2025-01-26] MEDS: Isosorbide Mononitrate 30 MG TAB.ER.24H PO (21:28)
[2025-01-26] MEDS: Atorvastatin Calcium 40 MG TABLET PO (21:28)
[2025-01-27] VITALS (9 sets, daily range): BP systolic 94–168; BP diastolic 53–76; PULSE 65–71; RESP 17–18; TEMP 35.9–36.7; O2SAT 91–98
--- NOTE | 2025-01-27 | ECG_ITS ---
Test Reason : CP Blood Pressure : */* mmHG Vent. Rate : 68 BPM Atrial Rate : 68 BPM P-R Int : 220 ms QRS Dur : 90 ms QT Int : 402 ms P-R-T Axes : 71 43 23 degrees QTcB Int : 427 ms Sinus rhythm with 1st degree A-V block Low voltage QRS Inferior infarct (cited on or before 25-Jan-2025) Abnormal ECG When compared with ECG of 25-Jan-2025 10:10, No significant change was found Referred By: Arnaud Jiménez Electronically Signed By: Jose Farfan
[2025-01-27] MEDS: HYDROmorphone HCl 0.5 MG/0.5 ML SYRINGE IVPUSH (06:28)
--- NOTE | 2025-01-27 06:41 | PC.NURSE ---
Pt reporting 5/10 intermittent chest pain. Ekg taken. Vitals 163/73, o2 92 pulse 67. No sob. MD notified. Troponins ordered and diludid 0.5mg IVpush once ordered and given.
--- NOTE | 2025-01-27 07:00 | CA_ITS ---
Transthoracic Echocardiogram Patient (Last, First, Middle): Kiko River, Gender: Male Date of : 1955 Age: 69 Procedure Date: 01/27/2025 Procedure Type: Transthoracic Echocardiogram Location: [facility] [place] Height: 177.8 cm Weight: 77.11 kg BSA: 1.95 m2 Heart Rate: 67 bpm BP: 151 / 73 mmHg Brand Attendant: Referring MD: Sahara Keys PA-C Symptoms: CVA vs TIA Study Quality: Fair ECG Rhythm: Sinus Conclusions: - Normal left ventricular cavity size. There is severely increased left ventricular wall thickness. The left ventricular systolic function is hyperdynamic. The visually estimated ejection fraction is >70%. - E/E prime ratio is between 8 and 15 consistent with indeterminate filling pressures. - Normal right ventricular cavity size and systolic function. Findings Left Ventricle Normal left ventricular cavity size. There is severely increased left ventricular wall thickness. The left ventricular systolic function is hyperdynamic. The visually estimated ejection fraction is >70%. There is no evidence of regional wall motion abnormalities. Abnormal diastolic function is noted. Spectral Doppler is indicative of an impaired relaxation filling pattern. E/E prime ratio is between 8 and 15 consistent with indeterminate filling pressures. Right Ventricle Normal right ventricular cavity size and systolic function. Atria The left atrium is mildly dilated. The right atrium is likely dilated. Aortic Valve There is a normal trileaflet aortic valve. There is mild calcification of the aortic valve. There is no aortic valve stenosis. There is trace (trivial) aortic valve regurgitation. Mitral Valve The mitral valve appears normal. There is no mitral valve regurgitation. There is no mitral valve stenosis. Pulmonic Valve The pulmonic valve is likely normal. Tricuspid Valve Normal tricuspid valve structure. There is no tricuspid valve regurgitation. Normal right atrial pressure. There is no evidence of pulmonary hypertension. Great Vessels All visible segments of the aorta are normal in size. Venous The inferior vena cava is normal in size and collapses greater than 50% with inspiration. Pericardium/Pleural There is no evidence of pericardial effusion. Prior Study Comparison Changes noted compared to prior study dated: 10/28/2024. RV size and function is normal. Normal PA pressures. Measurements 2D Linear Measurements IVSd: 1.40 0.6-0.9/0.6-1.0 cm LVIDd: 3.17 3.9-5.3/4.2-5.9 cm LVIDd Index: 1.63 2.4-3.2/2.2-3.1 cm/m2 LVIDs: 1.94 2.0-3.6 cm LVPWd: 1.42 0.7-1.1 cm LA Diam: 4.30 2.7-3.8/3.0-4.0 cm LAIDs Index: 2.21 1.5-2.3 cm/m2 LV Mass: 190.39 67-162/88-224 g LV Mass Index: 97.64 43-95/49-115 g/m2 LVOT Diam: 2.00 3.0+(-)1.3 cm Mitral Valve MV Pk E: 0.74 MV PK A: 0.78 MV Decel Time: 242.00 E/A: 0.90 E'Lateral: 8.70 E'Medial: 4.03 E/E' Med: 18.30 E/E' Lat: 8.50 PHT: 71.00 MVA PHT: 3.10 Decel [place]: 3.04 Aortic Valve AoV Pk Darion: 1.52 AoV Mn Darion: 1.00 AoV VTI: 0.29 AoV Pk Grad: 9.00 Aov Mn Grad: 5.00 DEEP Cont.VTI: 2.57 LVOT LVOT Pk Darion: 1.09 LVOT Mn Darion: 0.68 LVOT VTI: 0.24 LVOT Pk Grad: 5.00 LVOT Mn Grad: 2.00 LVOT Diam: 2.00 LVOT Area: 3.14 Diastolic Function MV Pk E: 0.74 MV Pk A: 0.78 E/A: 0.90 E'Medial: 4.03 E/E' Med: 18.30 E' Laterial: 8.70 E/E' Lat: 8.50 Right Ventricle TAPSE (mm): 31.30 Tricuspid Valve TR Pk Darion: 2.56 TR Pk Grad: 26.00 RA Press: 3.00 RVSP: 29.00 Great Vessels Aorta Sinus of Valsalva: 3.40 2.0-3.5 cm Ao Asc: 3.50 2.1-3.4 cm Pulmonary Valve PV Pk Darion: 1.05 Peak PV Grad: 4.00 Updated in Other Vendor System with Status of Final Jose Farfan MD electronically signed on 01/27/2025 6:25:37 PM with status of Final
[2025-01-27 07:34] LABS: Glucose, Whole Blood 157 mg/dL (60-115)
[2025-01-27] MEDS: Apixaban 5 MG TABLET PO ×2 (08:03→20:27)
[2025-01-27] MEDS: Aspirin Enteric Coated 81 MG TABLET.DR PO (08:03)
[2025-01-27] MEDS: Spironolactone 25 MG TABLET PO (08:03)
[2025-01-27] MEDS: Insulin Glargine,Hum.rec.anlog 100 UNIT/ML 10 ML VIAL 20 UNIT SUBCUT (08:03)
[2025-01-27] MEDS: Insulin Lispro 100 UNIT/ML 3 ML VIAL SUBCUT ×3 (08:03→20:27)
[2025-01-27] MEDS: Pregabalin 50 MG CAPSULE PO ×2 (08:03→20:27)
[2025-01-27] MEDS: 0.9 % Sodium Chloride Flush 3 ML SYRINGE IVFLUSH ×3 (08:04→20:28)
[2025-01-27] MEDS: Milk of Magnesia 30 ML ORAL.SUSP PO (08:06)
[2025-01-27 08:52] LABS: Troponin-I High Sensitivity 5.2 ng/L (<3.5-35.0)
--- NOTE | 2025-01-27 09:02 | PM.NEUROCN ---
History of Present Illness Data of Consult Service Date: 01/27/25 Primary Care Provider: Masood Jeffery MD HPI Reason for consult: Stroke 69 years old man who came with complain of right-sided numbness. Because of him being taking anticoagulation, he was not considered a candidate for treatment of ischemic stroke with TNK. He was admitted and had further evaluation including an MRI of brain that suggested possible subacute infarct and this consultation was requested. He said that numbness now was resolved. There was no other associated symptom. While having investigations, there was incidental finding of left-sided neck mass that was suspected of tumor. It was being investigated. Review of Systems Review of Systems: No speech or swallowing difficulty. [facility] Past Medical History Medical History (Updated 01/27/25 @ 09:05 by Lynne Dominguez MD) Colon cancer Hx SBO CAD (coronary artery disease) HLD (hyperlipidemia) CKD (chronic kidney disease), stage III CVA (cerebral vascular accident) Atrial fibrillation Type 2 diabetes mellitus Surgical History Surgical History History of colon resection Stented coronary artery H/O cardiac radiofrequency ablation Social History Social History Household Members: Family and Children Housing: House Do you presently have visiting nurse or other home services: No (son and daughter help with care) Unable to assess alcohol history related to: Unknown Alcohol intake: former Patient Tobacco Use Status: Never used Tobacco Second Hand Smoke Exposure: Yes Advance Directives Date on File: 11/10/22 service: No Current occupational status: retired Meds Allergies Allergy/AdvReac Type Severity Reaction Status Date / Time Sulfa (Sulfonamide Allergy Mild HIVES Verified 01/25/25 10:12 Antibiotics) [SULFA (SULFONAMIDE ANTIBIOTICS)] penicillamine [Cuprimine] Allergy Unknown unknown Verified 01/25/25 10:12 Penicillins Allergy Unknown INKNOWN Verified 01/25/25 10:12 sulfacetamide Allergy Unknown rash Verified 01/25/25 10:12 Active Medications: Current Medications Acetaminophen (Acetaminophen 325 Mg Tablet) 650 mg PO Q6H PRN PRN Reason: Pain, Mild 1-3,fever,headache Apixaban (Apixaban 5 Mg Tablet) 5 mg PO BID [facility] Last Admin: 01/27/25 08:03 Dose: 5 mg Aspirin (Aspirin Enteric Coated 81 Mg Tablet.Dr) 81 mg PO DAILY [facility] Last Admin: 01/27/25 08:03 Dose: 81 mg Atorvastatin Calcium (Atorvastatin Calcium 40 Mg Tablet) 40 mg PO BEDTIME [facility] Last Admin: 01/26/25 21:28 Dose: 40 mg Calcium Carbonate (Calcium Carbonate 750 Mg Tab.Chew) 750 mg PO Q4H PRN PRN Reason: Heartburn Dextrose (Dextrose 50 % 25 Gm/50 Ml Syringe) 25 gm IVPUSH Q15M PRN; Protocol PRN Reason: per Hypoglycemia Standing Ord. Diphenoxylate HCl/Atropine (Diphenoxylate/Atrop 2.5/0.025 Tablet) 1 tab PO BID PRN PRN Reason: Diarrhea Glucose (Glucose Gel 15 Gm Gel..Gram.) 15 gm PO Q15M PRN; Protocol PRN Reason: per Hypoglycemia Standing Ord. Insulin Glargine (Insulin Glargine,Hum.Rec.Anlog 100 Unit/Ml 10 Ml Vial) 20 unit SUBCUT DAILY [facility] Last Admin: 01/27/25 08:03 Dose: 20 unit Insulin Human Lispro (Insulin Lispro 100 Unit/Ml 3 Ml Vial) 0 unit SUBCUT QIDACHS [facility]; Protocol Last Admin: 01/27/25 08:03 Dose: 2 unit Isosorbide Mononitrate (Isosorbide Mononitrate 30 Mg Tab.Er.24h) 30 mg PO BEDTIME [facility]; Protocol Last Admin: 01/26/25 21:28 Dose: 30 mg Magnesium Hydroxide (Milk Of Magnesia 30 Ml Oral.Susp) 30 ml PO DAILY PRN PRN Reason: Constipation Last Admin: 01/27/25 08:06 Dose: 30 ml Melatonin (Melatonin 3 Mg Tablet) 6 mg PO BEDTIME PRN PRN Reason: Insomnia Ondansetron HCl (Ondansetron Hcl 4 Mg/2 Ml Vial) 4 mg IVPUSH Q8H PRN PRN Reason: Nausea and Vomiting Pregabalin (Pregabalin 50 Mg Capsule) 50 mg PO BID [facility] Last Admin: 01/27/25 08:03 Dose: 50 mg Sodium Chloride (0.9 % Sodium Chloride Flush 3 Ml Syringe) 3 ml IVFLUSH QSHIFT [facility] Last Admin: 01/27/25 08:04 Dose: 3 ml Spironolactone (Spironolactone 25 Mg Tablet) 25 mg PO DAILY [facility]; Protocol Last Admin: 01/27/25 08:03 Dose: 25 mg Home Medications ?Medication ?Instructions ?Recorded ?Confirmed ?Last Taken ?Type apixaban 5 mg tablet (Eliquis) 1 tab PO BID 06/28/21 01/25/25 01/25/25 09:00 History aspirin 81 mg tablet,delayed 81 mg PO DAILY 11/05/22 01/25/25 01/25/25 09:00 History release atorvastatin 80 mg tablet 40 mg PO BEDTIME 01/13/24 01/25/25 Unknown History diphenoxylate-atropine 2.5 1 tab PO BID PRN Diarrhea 01/13/24 01/25/25 01/25/25 09:00 History mg-0.025 mg tablet insulin glargine 100 unit/mL (3 20 unit subcut DAILY 10/26/24 01/25/25 01/25/25 09:00 History mL) subcutaneous pen (Lantus Solostar U-100 Insulin) isosorbide mononitrate 60 mg 30 mg PO BEDTIME 10/26/24 01/25/25 Unknown History tablet,extended release 24 hr pregabalin 50 mg capsule 50 mg PO BID 10/26/24 01/25/25 01/25/25 09:00 History Physical Exam Vital Signs: Vital Signs: Last Vital Signs Temp 97.3 F 01/27/25 06:55 Pulse 65 01/27/25 06:55 Resp 17 01/27/25 06:55 BP 151/73 H 01/27/25 06:55 Pulse Ox 98 01/27/25 06:55 O2 Del Method Room Air 01/27/25 06:55 BMI result Body Mass Index 24.5 Neuro: Other: He is alert and awake with normal spontaneity of speech fluency comprehension and vague affect. Face is symmetrical. Visual ann are full. Extraocular muscles were intact. There is moderate side left-sided mass on the neck and angle of jaw. There was no pronator drift. [id number] testing revealed bilateral tremor. Deep tendon reflexes are absent with flexor plantars. Speech is normal. Results Labs 01/26/25 08:58 01/26/25 08:58 Labs: Short CBC 01/26/25 Range/Units 08:58 WBC 8.6 (4.8-10.8) X10*3/uL Hgb 12.1 L (14.0-18.0) g/dl Hct 34.4 L (42.0-52.0) % Plt Count 193 (160-400) X10*3/uL [facility] 01/26/25 08:58 Sodium 141 Potassium 4.6 Chloride 109 H Carbon Dioxide 26 BUN 41 H Creatinine 1.90 H Calcium 8.8 MRI of brain revealed extensive microvascular ischemic changes and an area of possibly subacute to chronic small embolic looking ischemic infarction and parietal occipital area of left hemisphere. CTA revealed near occlusion of left internal carotid artery. Assessment and Plan (1) Cerebral infarction: Qualifiers: Cerebral infarction mechanism: embolism Precerebral and cerebral artery: middle cerebral artery Laterality of affected vessel: left Qualified Code(s): I63.412 - Cerebral infarction due to embolism of left middle cerebral artery Status: Acute 69 years old man with nearly occluded left internal carotid artery, coronary artery disease, and atrial fibrillation on anticoagulation presented with right-sided numbness. Imaging revealed a subacute to chronic small embolic looking left parieto-occipital cortical ischemic infarct, which might have been caused by the carotid disease. I do not have much concerned about anticoagulation. In addition, I would suggest adding a baby aspirin daily or couple of times a week as carotid disease of this nature is better protected with anti-platelet agent such as baby aspirin. At the same time, the concern is the neck mass, which would require biopsy and appropriate treatment. Avoid hypotension at low blood pressure can typically result in left hemispheric stroke in this patient. It maybe better, to have left carotid disease treated before proceeding any treatment for the neck mass. This has because general anesthesia with this amount of carotid disease could result in significant risk of stroke. Procedures Date of Service Date of Service: 01/27/25
[2025-01-27 12:17] LABS: Glucose, Whole Blood 198 mg/dL (60-115)
--- NOTE | 2025-01-27 13:34 | PM.CNCAR ---
History of Present Illness History of Present Illness Date of Service: 01/27/25 Requesting physician: Arnaud Jiménez Chief complaint: Chest discomfort, right-sided numbness Narrative: [age] gentleman presenting with numbness affecting the right side of his body. He has been diagnosed with neck mass with concern for malignancy and we will be transferred to [facility] for further assessment. He has reported history of coronary disease and previous stenting approximately 2 years ago by his report. He was on aspirin and apixaban on admission for known history of atrial fibrillation. He complained of some left-sided sharp chest pain and we have been asked to see him for that. He is saying that it was stabbing sensation of the left side of the chest. This was at rest and has resolved. Denying any symptoms currently. His MRI has shown old blood products which Neurology feels it is not the reason for presentation and Eliquis is resumed. His neck masses are thought to be malignant and he is going to [facility] for further assessment. [facility] Past Medical History Medical History (Updated 01/27/25 @ 13:37 by Jose Farfan MD) Colon cancer Hx SBO CAD (coronary artery disease) HLD (hyperlipidemia) CKD (chronic kidney disease), stage III CVA (cerebral vascular accident) Atrial fibrillation Type 2 diabetes mellitus Surgical History Surgical History History of colon resection Stented coronary artery H/O cardiac radiofrequency ablation Social History Social History Household Members: Family and Children Housing: House Do you presently have visiting nurse or other home services: No (son and daughter help with care) Unable to assess alcohol history related to: Unknown Alcohol intake: former Patient Tobacco Use Status: Never used Tobacco Second Hand Smoke Exposure: Yes Advance Directives Date on File: 11/10/22 service: No Current occupational status: retired Meds Allergies Allergy/AdvReac Type Severity Reaction Status Date / Time Sulfa (Sulfonamide Allergy Mild HIVES Verified 01/25/25 10:12 Antibiotics) [SULFA (SULFONAMIDE ANTIBIOTICS)] penicillamine [Cuprimine] Allergy Unknown unknown Verified 01/25/25 10:12 Penicillins Allergy Unknown INKNOWN Verified 01/25/25 10:12 sulfacetamide Allergy Unknown rash Verified 01/25/25 10:12 Active Medications: Current Medications Acetaminophen (Acetaminophen 325 Mg Tablet) 650 mg PO Q6H PRN PRN Reason: Pain, Mild 1-3,fever,headache Apixaban (Apixaban 5 Mg Tablet) 5 mg PO BID [facility] Last Admin: 01/27/25 08:03 Dose: 5 mg Aspirin (Aspirin Enteric Coated 81 Mg Tablet.Dr) 81 mg PO DAILY [facility] Last Admin: 01/27/25 08:03 Dose: 81 mg Atorvastatin Calcium (Atorvastatin Calcium 40 Mg Tablet) 40 mg PO BEDTIME [facility] Last Admin: 01/26/25 21:28 Dose: 40 mg Calcium Carbonate (Calcium Carbonate 750 Mg Tab.Chew) 750 mg PO Q4H PRN PRN Reason: Heartburn Dextrose (Dextrose 50 % 25 Gm/50 Ml Syringe) 25 gm IVPUSH Q15M PRN; Protocol PRN Reason: per Hypoglycemia Standing Ord. Diphenoxylate HCl/Atropine (Diphenoxylate/Atrop 2.5/0.025 Tablet) 1 tab PO BID PRN PRN Reason: Diarrhea Glucose (Glucose Gel 15 Gm Gel..Gram.) 15 gm PO Q15M PRN; Protocol PRN Reason: per Hypoglycemia Standing Ord. Insulin Glargine (Insulin Glargine,Hum.Rec.Anlog 100 Unit/Ml 10 Ml Vial) 20 unit SUBCUT DAILY [facility] Last Admin: 01/27/25 08:03 Dose: 20 unit Insulin Human Lispro (Insulin Lispro 100 Unit/Ml 3 Ml Vial) 0 unit SUBCUT QIDACHS [facility]; Protocol Last Admin: 01/27/25 12:19 Dose: 2 unit Isosorbide Mononitrate (Isosorbide Mononitrate 30 Mg Tab.Er.24h) 30 mg PO BEDTIME [facility]; Protocol Last Admin: 01/26/25 21:28 Dose: 30 mg Magnesium Hydroxide (Milk Of Magnesia 30 Ml Oral.Susp) 30 ml PO DAILY PRN PRN Reason: Constipation Last Admin: 01/27/25 08:06 Dose: 30 ml Melatonin (Melatonin 3 Mg Tablet) 6 mg PO BEDTIME PRN PRN Reason: Insomnia Ondansetron HCl (Ondansetron Hcl 4 Mg/2 Ml Vial) 4 mg IVPUSH Q8H PRN PRN Reason: Nausea and Vomiting Pregabalin (Pregabalin 50 Mg Capsule) 50 mg PO BID [facility] Last Admin: 01/27/25 08:03 Dose: 50 mg Sodium Chloride (0.9 % Sodium Chloride Flush 3 Ml Syringe) 3 ml IVFLUSH QSHIFT [facility] Last Admin: 01/27/25 08:04 Dose: 3 ml Spironolactone (Spironolactone 25 Mg Tablet) 25 mg PO DAILY [facility]; Protocol Last Admin: 01/27/25 08:03 Dose: 25 mg Home Medications ?Medication ?Instructions ?Recorded ?Confirmed ?Last Taken ?Type apixaban 5 mg tablet (Eliquis) 1 tab PO BID 06/28/21 01/25/25 01/25/25 09:00 History aspirin 81 mg tablet,delayed 81 mg PO DAILY 11/05/22 01/25/25 01/25/25 09:00 History release atorvastatin 80 mg tablet 40 mg PO BEDTIME 01/13/24 01/25/25 Unknown History diphenoxylate-atropine 2.5 1 tab PO BID PRN Diarrhea 01/13/24 01/25/25 01/25/25 09:00 History mg-0.025 mg tablet insulin glargine 100 unit/mL (3 20 unit subcut DAILY 10/26/24 01/25/25 01/25/25 09:00 History mL) subcutaneous pen (Lantus Solostar U-100 Insulin) isosorbide mononitrate 60 mg 30 mg PO BEDTIME 10/26/24 01/25/25 Unknown History tablet,extended release 24 hr pregabalin 50 mg capsule 50 mg PO BID 10/26/24 01/25/25 01/25/25 09:00 History Physical Exam Vital Signs: Vital Signs: Last Vital Signs Temp 97.3 F 01/27/25 06:55 Pulse 65 01/27/25 06:55 Resp 17 01/27/25 06:55 BP 151/73 H 01/27/25 06:55 Pulse Ox 98 01/27/25 06:55 O2 Del Method Room Air 01/27/25 06:55 BMI result Body Mass Index 24.5 GENERAL APPEARANCE: in no acute distress, pleasant. SKIN: no suspicious lesions, warm and dry. HEART: no murmurs, regular rate and rhythm. LUNGS: clear to auscultation bilaterally. ABDOMEN: soft, nontender. EXTREMITIES: no edema. PERIPHERAL PULSES: equal. NEUROLOGIC: No gross deficits, AAO X 3 Objective Labs and Meds 01/26/25 08:58 01/26/25 08:58 Lab results: Laboratory Results - last 24 hr 01/26/25 01/26/25 01/27/25 16:31 20:34 07:26 POC Glucose 153 H 199 H 157 H Troponin I High Sens 01/27/25 01/27/25 08:22 12:14 POC Glucose 198 H Troponin I High Sens 5.2 Imaging Radiologist's impression: Impressions Thyroid Ultrasound 01/27/25 11:06 IMPRESSION: 1. There is a 3.5 cm TR category 5 nodule in the left mid pole, highly suspicious given the appearance. FNA advised. 2. There is a 1.0 cm TR category 4 nodule left upper pole. Follow-up advised. 3. There is a 1.5 cm TR category 5 nodule left inferior pole. FNA advised. 4. There are abnormal pathologic appearing lymph nodes in the left neck level 3 and 4. ACR TI-RADS RECOMMENDATION REFERENCE: Ultrasound-guided fine-needle aspiration, followup ultrasound, no further follow up. * TR1 (0 point) and TR2 (2 points): No FNA or follow up. * TR3 (3 points): FNA if more than or equal to 2.5 cm in maximum dimension, followup ultrasound in 1, 3 and 5 years if 1.5 to 2.4 cm in maximum dimension. * TR4 (4-6 points): FNA if more than or equal to 1.5 cm in maximum dimension, followup ultrasound in 1, 2, 3 and 5 years if 1 to 1.4 cm in maximum dimension. * TR5 (more than or equal to 7 points): FNA if more than or equal to 1 cm in maximum dimension, followup ultrasound every year for 5 years if 0.5 to 0.9 cm in maximum dimension. * TR3, TR4 or TR5 nodules that are below the size threshold for followup receive no follow up. Electronically signed by: Ron Christiansen MD 01/27/2025 12:31 PM EDT Carotid Doppler Study 01/27/25 11:24 IMPRESSION: 1. Findings consistent with 0-49% stenosis of the right internal carotid artery. 2. Findings consistent with 50-79% stenosis of the left internal carotid artery. 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 His MRI did not show any evidence of stroke but did show subacute on chronic left parieto-occipital hemorrhage. His aspirin and Eliquis were held. After discussion with Neurology Eliquis has been resumed. I think aspirin should be discontinued at this stage and we should continue Eliquis monotherapy in him. In terms of chest pain appears quite atypical and does not need any further testing currently. He has neck mass which is incidental finding picked up on CTA and is concerning for malignancy arising from left thyroid low. He will be transferred to [facility] for further assessment. It appears he follows with [facility] cardiology. They can be consulted at [facility] for further advice. My recommendation is stop the aspirin and just use Eliquis monotherapy for now. Thank you for allowing me to participate in the care of your patient. Please feel free to contact me if you have any questions. Procedures Date of Service Date of Service: 01/27/25
--- NOTE | 2025-01-27 14:56 | W.MHC.F2F ---
Service Date Service Date: 01/27/25 Encounter Date of encounter: 01/27/25 Reasons for Services Signs and symptoms assessed: attach PT evaluation from 01/25/25 and OT evaluation from 01/27/25 Reason for long-term: neurological assessment, medication management, medication treatment and teach disease management Reason for physical therapy: home safety and mobility, therapeutic exercises, gait/transfer training, assess need for DME, ADL training and energy conservation Reason for occupational therapy: home safety and mobility, therapeutic exercises, gait/transfer training, assess need for DME, ADL training and energy conservation Overseeing Care: Masood Jeffery Homebound: Leaving the home is medically contraindicated at this time without the asist of a device and/or another person due th the listed conditions above and below. Reason homebound: unsteady gait / fall risk and weakness related to hospital stay Certification: Based on the above findings, I certify that this patient is confined to the home and needs intermittent long-term care, physical therapy and/or speech therapy, or continues to need occupational therapy. The patient is under my care, and I have initiated the establishment of the plan of care. The patient will be followed by a physician who will periodically review the plan of care. Time Spent With Patient Time: Total time managing care of this patient today ____ minutes.
--- NOTE | 2025-01-27 15:08 | P.DS_ITS ---
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 To establish care Consult to Vascular Surgery Routine Consulting Provider: [facility] Vascular Services Reason for consultation: Near complete stenosis of left internal carotid artery origin 01/25/25 12:46 Consult to Neurology Routine Consulting Provider: [facility] Reason for consultation: Left-sided deficits concerning for possible CVA 01/27/25 09:27 Consult to Cardiology Routine Consulting Provider: [facility] Cardiovascular Specialists Reason for consultation: intermittent chest pain, neg trop/ekg but significant vascular hx 01/27/25 10:42 Consult to Wound Care Routine Reason for consultation: ? stage 1 to coccyx DS: Diagnosis Discharge Diagnosis (1) Ischemic stroke: Status: Acute (2) Carotid occlusion, left: Status: Acute (3) Thyroid mass: Status: Acute (4) Atypical chest pain: Status: Inactive DS: Summary Hospital Course Hospital Course: From the history and physical by the admitting hospitalist, DEV Orosco, 01/25/25: Pt is a 69-year-old male with a PMH significant for?hx of CVA x3 (last in 2020) on Eliquis, with residual bilateral lower extremity weakness, CAD s/p stenting, insulin-dependent type 2 diabetes, hx of colon cancer s/p bowel resection, chronic diarrhea, peripheral neuropathy, and CKD 3 who presents to the ED for evaluation of right upper and lower extremity numbness since this morning. Pt reports initially experienced 3-4 episodes of left-sided, nonradiating chest pain when he awoke to use the bathroom at 3:00-4:00. Episodes lasted approx imately 10 seconds at a time. States has had similar episodes in the past. Pt then awoke at approximately 07:00 in normal state of health. Around 09:00 began feeling numbness in his right upper and lower extremity. Is uncertain whether experienced any right-sided weakness as pt has chronic weakness secondary to prior CVAs. Did not note any facial numbness or droop. No difficulty speaking. Denies headache or acute vision changes. Pt notes he has had difficulty walking since previous strokes, uses walker at baseline but unable to ambulate long distances. Has experienced some increased fatigue in the past 2 weeks, but has been more active than normal with many outpatient appointments. No unintended weight loss. Denies shortness or breath or difficulty breathing. No fever, chills, nausea, vomiting, abdominal pain. Pt reports right-sided numbnes has lessened since being in the ED, though has not fully resolved. ? In the ED pt was hypertensive up to 162/52, vitals otherwise stable and WNL. Labs were grossly unremarkable and around baseline for pt. Stable normocytic anemia of 12.7/37.1. No significant electrolyte abnormalities. Creatinine elevated at 1.75, around baseline. Lipid profile with low HDL of 29, otherwise WNL. CT of head negative for acute intracranial findings. CTA of head neck found a short segment near complete stenosis involving left internal carotid artery origin. Also showed multiple left lower neck aggressive-appearing masses suspicious for malignancy and mendy metastases disease the primary malignancy possibly involving the left thyroid lobe. CXR showed no acute findings. EKG demonstrated sinus rhythm with first-degree AV block but no evidence of significant ischemic changes. Pt will be admitted to the hospital for treatment and further evaluation of left-sided numbness concerning for CVA. 69yo M with hx of CVA x3 on apixaban with residual BLE weakness, CAD s/p PCI, DM2, hx colon CA s/p resection, chronic diarrhea, peripheral neuropathy, and CKD3 presenting with acute RUE/RLE numbness concerning for TIA/CVA, found to have aggressive neck masses concerning for malignancy. He was admitted to the telemetry unit with Cardiology, Neurology, Vascular Surgery, and Oncology consultations. Hospital course by problem: R-sided numbness carotid occlusion - Concern of subacute-chronic L parieto-occipital signal intensity; per Neurolo gy likely subacute-chronic ischemic stroke related to near-complete left carotid occlusion. Per Vascular Surgery, there is residual flow, suggesting that he will benefit from a revascularization procedure. He will pursue further care of this through the [facility] system and I suggest he be referred urgently to the Neuroendovascular Surgery. Per Neurology, continue aspirin and apixaban as well as atorvastatin. Numbness resolved. PT and OT evaluations suggested home PT/OT through [facility] services, which were arranged. neck/thyroid masses - Incidental finding on CTA; possibly primary malignancy is from the left thyroid lobe. He will need a needle biopsy and wishes to pursue this through the [facility] system. He should be referred to Interventional Radiology. He will need to hold aspirin and apixaban per their ilya-procedure anticoagulation guidelines. While apixaban is held, he will bridge with enoxaparin as he has in the past, as missed doses of apixaban have provoked strokes in him previously. Enoxaparin was prescribed for this purpose. - If he needs surgical excision or radiation to the neck, the carotid occlusion should be addressed first. In the former case, it is because the stenosis is so severe that general anesthesia has a high risk of triggering a catastrophic stroke. In the latter case, it is because radiation will distort the anatomy of the neck. Atypical chest pain - No EKG changes or troponin leak; atypical presentation. He will follow up with his cardiologists at [facility]. Time Attestation Discharge Coordination Time (in mins): 45 Quality: Safe Use of Opioids Does Pt have an Active Cancer Diagnosis on the Problem List?: No Quality: Stroke Does the patient have a stroke diagnosis?: Yes Reason for No Anti-thrombotic at DC: N/A - Med Ordered Reason for No Anticoagulant at DC: N/A - Med Ordered Reason Not Initiating IV-Tpa: Not indicated Reason for No Anti-thrombotic by Day Two: N/A - Med Ordered Reason for No Statin at DC: N/A - Med Ordered Physical Exam Vital Signs: Vital Signs: Last Vital Signs Temp 97.3 F 01/27/25 06:55 Pulse 65 01/27/25 06:55 Resp 17 01/27/25 06:55 BP 151/73 H 01/27/25 06:55 Pulse Ox 98 01/27/25 06:55 O2 Del Method Room Air 01/27/25 06:55 BMI result Body Mass Index 24.5 Gen: in no acute distress HEENT: sclera anicteric, moist mucus membranes Neck: supple, palpable mass L anterior cervical area Lungs: clear to auscultation bilaterally Heart: regular rate and rhythm, no murmurs Abd: soft, non-tender, non-distended Ext: no edema Skin: warm/well-perfused Neuro: alert and oriented x3, 3/5 strength throughout Psych: appropriate affect DS: Data Data Completed and Pending Completed studies during hospitalization [Text1]: Laboratory Results WBC 8.6 X10*3/uL (4.8-10.8) 01/26/25 08:58 RBC 4.07 X10*6/uL (4.60-5.80) L 01/26/25 08:58 Hgb 12.1 g/dl (14.0-18.0) L 01/26/25 08:58 Hct 34.4 % (42.0-52.0) L 01/26/25 08:58 MCV 84.5 fL (80.0-98.0) 01/26/25 08:58 MCH 29.7 pg (27.0-33.0) 01/26/25 08:58 MCHC 35.2 g/dl (31.0-36.0) 01/26/25 08:58 RDW 13.0 % (11.0-16.0) 01/26/25 08:58 Plt Count 193 X10*3/uL (160-400) 01/26/25 08:58 MPV 11.1 fL (9.4-12.4) 01/26/25 08:58 Immature Gran % (Auto) 0.1 % (0.0-0.4) 01/25/25 10:22 Neut % (Auto) 62.5 % (45-73) 01/25/25 10:22 Lymph % (Auto) 25.6 % (20-40) 01/25/25 10:22 Morrow % (Auto) 8.6 % (2-11) 01/25/25 10:22 Eos % (Auto) 2.4 % (0-4) 01/25/25 10:22 Baso % (Auto) 0.8 % (0-2) 01/25/25 10:22 Lymph # (Auto) 2.0 X10*3/uL (1.2-4.9) 01/25/25 10:22 Morrow # (Auto) 0.7 X10*3/uL (0.1-1.2) 01/25/25 10:22 Eos # (Auto) 0.2 X10*3/uL (0.0-0.4) 01/25/25 10:22 Baso # (Auto) 0.1 X10*3/uL (0.0-0.2) 01/25/25 10:22 Abs Immat Gran (auto) 0.01 X10*3/uL (0.00-0.03) 01/25/25 10:22 Absolute Neuts (auto) 4.9 x10*3/uL (2.0-8.3) 01/25/25 10:22 Absolute Nucleated RBC 0.000 X10*3/uL (0.0-0.012) 01/26/25 08:58 Nucleated RBC % (auto) 0.0 /100WBC (0.0-0.2) 01/26/25 08:58 PT 19.1 SEC (10.9-12.4) H 01/26/25 08:58 Whole Blood PT 15.6 sec (11.1-13.5) H 01/25/25 09:53 INR 1.6 (0.9-1.1) H 01/26/25 08:58 Whole Blood INR 1.3 (0.9-1.1) H 01/25/25 09:53 APTT 38.2 SEC (26.0-36.8) H 01/25/25 10:22 Sodium 141 mmol/L (135-145) 01/26/25 08:58 Potassium 4.6 mmol/L (3.3-5.1) 01/26/25 08:58 Chloride 109 mmol/L (96-108) H 01/26/25 08:58 Carbon Dioxide 26 mmol/L (22-29) 01/26/25 08:58 Anion Gap 11 (12-20) L 01/26/25 08:58 BUN 41 mg/dL (9-16) H 01/26/25 08:58 Creatinine 1.90 mg/dL (0.5-1.4) H 01/26/25 08:58 Estim Creat Clear Calc 36.8 01/26/25 08:58 Estimated GFR 35 01/26/25 08:58 POC Glucose 198 mg/dL (60-115) H 01/27/25 12:14 Random Glucose 204 mg/dL (60-115) H 01/26/25 08:58 Calcium 8.8 mg/dL (8.4-10.2) 01/26/25 08:58 Lactate Dehydrogenase 133 U/L (118-273) 01/26/25 08:58 Troponin I High Sens 5.2 ng/L (<3.5-35.0) 01/27/25 08:22 Triglycerides 139 mg/dL (<150) 01/25/25 10:22 Cholesterol 89 mg/dL (<200) 01/25/25 10:22 LDL Cholesterol, Calc 33 mg/dL (<100) 01/25/25 10:22 HDL Cholesterol 29 mg/dL (>40) L 01/25/25 10:22 TSH 3.42 uIU/mL (0.32-4.0) 01/25/25 10:22 Impressions Thyroid Ultrasound 01/27/25 11:06 IMPRESSION: 1. There is a 3.5 cm TR category 5 nodule in the left mid pole, highly suspicious given the appearance. FNA advised. 2. There is a 1.0 cm TR category 4 nodule left upper pole. Follow-up advised. 3. There is a 1.5 cm TR category 5 nodule left inferior pole. FNA advised. 4. There are abnormal pathologic appearing lymph nodes in the left neck level 3 and 4. ACR TI-RADS RECOMMENDATION REFERENCE: Ultrasound-guided fine-needle aspiration, followup ultrasound, no further follow up. * TR1 (0 point) and TR2 (2 points): No FNA or follow up. * TR3 (3 points): FNA if more than or equal to 2.5 cm in maximum dimension, followup ultrasound in 1, 3 and 5 years if 1.5 to 2.4 cm in maximum dimension. * TR4 (4-6 points): FNA if more than or equal to 1.5 cm in maximum dimension, followup ultrasound in 1, 2, 3 and 5 years if 1 to 1.4 cm in maximum dimension. * TR5 (more than or equal to 7 points): FNA if more than or equal to 1 cm in maximum dimension, followup ultrasound every year for 5 years if 0.5 to 0.9 cm in maximum dimension. * TR3, TR4 or TR5 nodules that are below the size threshold for followup receive no follow up. Electronically signed by: Ron Christiansen MD 01/27/2025 12:31 PM EDT Carotid Doppler Study 01/27/25 11:24 IMPRESSION: 1. Findings consistent with 0-49% stenosis of the right internal carotid artery. 2. Findings consistent with 50-79% stenosis of the left internal carotid artery. Electronically signed by: Terrence Garcia MD 01/27/2025 12:45 PM EDT RP MRI brain 01/25/25 No acute infarction. There is susceptibility at the left parietal/occipital lobe junction which likely indicates blood products. No acute hemorrhage is seen on the recent head CT. Associated increased signal on the T1 weighted images favors subacute hemorrhage. Chronic hemorrhage is also possible. Consider follow up with noncontrast head CT. CTA head/neck 01/25/25 1. 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 2. Multiple left lower neck aggressive appearing masses which are suspicious for malignancy and mendy metastatic disease. Primary malignancy may involve the left thyroid lobe. Discharge Plan Discharge Anticipated Discharge Date/Time: 01/27/25 14:48 Patient Disposition: Home Health Service Discharge Diagnosis: subacute stroke critical carotid stenosis neck masses probably of thyroid origin suspicious for malignancy Referrals: Masood Jeffery MD [Primary Care Provider] - 1 Week Discharge Medications: New enoxaparin 120 mg/0.8 mL syringe 120 mg subcut DAILY Qty: 8 0RF Rx Instructions: Use once daily when interrupting Eliquis around surgery or other procedures Continued Eliquis 5 mg tablet 1 tab PO BID aspirin 81 mg Tablet,Delayed Release (Dr/Ec) 81 mg PO DAILY (DME) [facility] See Rx Instructions .Route Qty: 1 0RF Rx Instructions: As directed atorvastatin 80 mg tablet 40 mg PO BEDTIME spironolactone 25 mg Tablet 25 mg PO DAILY Qty: 30 0RF Protocol: Hold for SBP< HOLD for SBP < : 90 isosorbide mononitrate 60 mg tablet extended release 24 hr 30 mg PO BEDTIME pregabalin 50 mg capsule 50 mg PO BID insulin glargine [Lantus Solostar U-100 Insulin] 100 unit/mL (3 mL) insulin pen 20 unit subcut DAILY diphenoxylate-atropine 2.5-0.025 mg tablet 1 tab PO BID PRN (Reason: Diarrhea) Qty: 30 0RF Rx Instructions: Per family, if patient does not take Lyrica, he will need to take Lomotil Discharge Orders: Discharge Order (Routine); Ordered 01/27/25 Ordered By: Arnaud Jiménez Diet: Diabetic diet Activity on Discharge: As tolerated Stand Alone Forms: Patient Portal Discharge page Print Language: Maori Care Plan Goals: prevent future strokes diagnose thyroid mass Health Concerns: subacute stroke critical carotid stenosis neck masses probably of thyroid origin suspicious for malignancy Plan of Treatment: home with PT/OT continue aspirin 81 mg daily PLUS apixaban 5 mg twice daily hold aspirin and apixaban as directed for biopsy of thyroid mass. While holding apixaban, give Lovenox 120 mg once daily as bridging anticoagulation follow up with your primary care as soon as possible for: - referral to [facility] Interventional Radiology for ultrasound-guided biopsy of thyroid mass - referral to [facility] Neuroendovascular Surgery for treatment of the carotid stenosis Please follow up with your primary care doctor within 1 week. Return to the hospital if you experience recurrent or worsening symptoms. Assessment: See Discharge Summary.
--- NOTE | 2025-01-27 15:18 | P.CONGS_ITS ---
<Statement entered by Anibal Stinson MD - 01/28/25 11:38> I have seen and evaluated the patient and agree with history, findings, assessment and plan documented by Sahara Keys PA-c. Ultrasound was reviewed and concerning for string sign. He has undergone ultrasound and echo. Upon discharge we will expedite follow-up and scheduling of operation. Thank you for allowing us to assist in his care. If there are any questions or concerns please do not hesitate to contact us. History of Present Illness Consult details Consult date: 01/27/25 Narrative: We were consulted for Kiko, for concerns of findings of left carotid artery stenosis. Kiko presented to the ER on 01/25 due to chest pain and right sided weakness. He has a medical hx pertinent for Afib on Eliquis, SBO, CAD, HLD, CVA, DM II, coronary stents, and a cardiac RFA. His weakness resolved. 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 He states today he feels good. He denies any weakness, headaches, lightheadedness, or chest pain. He is eating and drinking well. He states he has not slept well. Review of Systems 2 Constitutional: Constitutional: Reports as per HPI and Denies weakness ENT: Reports Normal hearing present and Denies dizziness Cardiovascular: Cardiovascular: Reports as per HPI, Denies chest pain, Denies chest pain at rest, Denies chest pain with activity, Denies dyspnea and Denies dyspnea on exertion Respiratory: Respiratory: Reports as per HPI, Denies cough, Denies dyspnea and Denies dyspnea on exertion Gastrointestinal: Gastrointestinal: Reports as per HPI, Denies abdominal pain, Denies nausea and Denies vomiting Musculoskeletal: Musculoskeletal: Denies numbness Integumentary/Breasts: Skin/Breast: Reports as per HPI, Denies erythema and Denies wounds Neurologic: Reports Normal hearing present, Denies dizziness, Denies numbness, Denies Sensory deficit (Neuro) and Denies weakness Psychiatric: Psychiatric: Reports no additional psychiatric complaints Endocrine: Endocrine: Reports no additional endocrine complaints [facility] Past Medical History Medical History (Updated 01/27/25 @ 15:23 by Sahara Keys PA-C) Colon cancer Hx SBO CAD (coronary artery disease) HLD (hyperlipidemia) CKD (chronic kidney disease), stage III CVA (cerebral vascular accident) Atrial fibrillation Type 2 diabetes mellitus Surgical History Surgical History History of colon resection Stented coronary artery H/O cardiac radiofrequency ablation Social History Social History Household Members: Family and Children Housing: House Do you presently have visiting nurse or other home services: No (son and daughter help with care) Unable to assess alcohol history related to: Unknown Alcohol intake: former Patient Tobacco Use Status: Never used Tobacco Second Hand Smoke Exposure: Yes Advance Directives Date on File: 11/10/22 service: No Current occupational status: retired Meds Allergies Allergy/AdvReac Type Severity Reaction Status Date / Time Sulfa (Sulfonamide Allergy Mild HIVES Verified 01/25/25 10:12 Antibiotics) [SULFA (SULFONAMIDE ANTIBIOTICS)] penicillamine [Cuprimine] Allergy Unknown unknown Verified 01/25/25 10:12 Penicillins Allergy Unknown INKNOWN Verified 01/25/25 10:12 sulfacetamide Allergy Unknown rash Verified 01/25/25 10:12 Active Medications: Current Medications Acetaminophen (Acetaminophen 325 Mg Tablet) 650 mg PO Q6H PRN PRN Reason: Pain, Mild 1-3,fever,headache Apixaban (Apixaban 5 Mg Tablet) 5 mg PO BID [facility] Last Admin: 01/27/25 08:03 Dose: 5 mg Aspirin (Aspirin Enteric Coated 81 Mg Tablet.) 81 mg PO DAILY [facility] Last Admin: 01/27/25 08:03 Dose: 81 mg Atorvastatin Calcium (Atorvastatin Calcium 40 Mg Tablet) 40 mg PO BEDTIME [facility] Last Admin: 01/26/25 21:28 Dose: 40 mg Calcium Carbonate (Calcium Carbonate 750 Mg Tab.Chew) 750 mg PO Q4H PRN PRN Reason: Heartburn Dextrose (Dextrose 50 % 25 Gm/50 Ml Syringe) 25 gm IVPUSH Q15M PRN; Protocol PRN Reason: per Hypoglycemia Standing Ord. Diphenoxylate HCl/Atropine (Diphenoxylate/Atrop 2.5/0.025 Tablet) 1 tab PO BID PRN PRN Reason: Diarrhea Glucose (Glucose Gel 15 Gm Gel..Gram.) 15 gm PO Q15M PRN; Protocol PRN Reason: per Hypoglycemia Standing Ord. Insulin Glargine (Insulin Glargine,Hum.Rec.Anlog 100 Unit/Ml 10 Ml Vial) 20 unit SUBCUT DAILY [facility] Last Admin: 01/27/25 08:03 Dose: 20 unit Insulin Human Lispro (Insulin Lispro 100 Unit/Ml 3 Ml Vial) 0 unit SUBCUT QIDACHS [facility]; Protocol Last Admin: 01/27/25 12:19 Dose: 2 unit Isosorbide Mononitrate (Isosorbide Mononitrate 30 Mg Tab.Er.24h) 30 mg PO BEDTIME [facility]; Protocol Last Admin: 01/26/25 21:28 Dose: 30 mg Magnesium Hydroxide (Milk Of Magnesia 30 Ml Oral.Susp) 30 ml PO DAILY PRN PRN Reason: Constipation Last Admin: 01/27/25 08:06 Dose: 30 ml Melatonin (Melatonin 3 Mg Tablet) 6 mg PO BEDTIME PRN PRN Reason: Insomnia Ondansetron HCl (Ondansetron Hcl 4 Mg/2 Ml Vial) 4 mg IVPUSH Q8H PRN PRN Reason: Nausea and Vomiting Pregabalin (Pregabalin 50 Mg Capsule) 50 mg PO BID [facility] Last Admin: 01/27/25 08:03 Dose: 50 mg Sodium Chloride (0.9 % Sodium Chloride Flush 3 Ml Syringe) [facility] Last Admin: 01/27/25 08:04 Dose: 3 ml Spironolactone (Spironolactone 25 Mg Tablet) 25 mg PO DAILY [facility]; Protocol Last Admin: 01/27/25 08:03 Dose: 25 mg Home Medications ?Medication ?Instructions ?Recorded ?Confirmed ?Last Taken ?Type apixaban 5 mg tablet (Eliquis) 1 tab PO BID 06/28/21 01/25/25 01/25/25 09:00 History aspirin 81 mg tablet,delayed 81 mg PO DAILY 11/05/22 01/25/25 01/25/25 09:00 History release atorvastatin 80 mg tablet 40 mg PO BEDTIME 01/13/24 01/25/25 Unknown History insulin glargine 100 unit/mL (3 20 unit subcut DAILY 10/26/24 01/25/25 01/25/25 09:00 History mL) subcutaneous pen (Lantus Solostar U-100 Insulin) isosorbide mononitrate 60 mg 30 mg PO BEDTIME 10/26/24 01/25/25 Unknown History tablet,extended release 24 hr pregabalin 50 mg capsule 50 mg PO BID 10/26/24 01/25/25 01/25/25 09:00 History Physical Exam 2 Vital Signs: Vital Signs: Last Vital Signs Temp 97.3 F 01/27/25 06:55 Pulse 65 01/27/25 06:55 Resp 17 01/27/25 06:55 BP 151/73 H 01/27/25 06:55 Pulse Ox 98 01/27/25 06:55 O2 Del Method Room Air 01/27/25 06:55 BMI result Body Mass Index 24.5 Const: General: comfortable and no acute distress O rientation/consciousness: patient oriented x3 HEENT: Ears: hearing grossly normal bilaterally Resp: Effort & Inspection: normal respiratory effort and able to speak in complete sentences Auscultation: clear to auscultation bilaterally Cardio: Rate: regular rate Rhythm: regular rhythm Heart sounds: S1 normal heart sound present and S2 normal heart sound present Bruits: no abdominal aortic bruits, no carotid bruits, no femoral bruits and no renal bruits GI: Palpation (GI): No Abdominal aortic bruit present Neuro: General: patient oriented x3 Cranial nerves: Yes CN's II-XII intact bilaterally and Yes Normal hearing present Cognition (Neuro): normal cognition Motor exam (neuro): 5/5 motor strength present throughout S ensory Exam: No Sensory deficit (Neuro) Results Labs 01/26/25 08:58 01/26/25 08:58 Labs: Abnormal lab results 01/26/25 01/26/25 01/27/25 Range/Units 16:31 20:34 07:26 POC Glucose 153 H 199 H 157 H (60-115) mg/dL 01/27/25 Range/Units 12:14 POC Glucose 198 H (60-115) mg/dL All other labs normal. Assessment and Plan (1) Left carotid stenosis: Status: Acute Plan We were consulted on Kiko for concerns of near complete occlusion of the LICA, found on CTA. He presented to the ER with right sided weakness and CP, both of which have resolved. He states he is feeling much better today. We have ordered a carotid US as well as Echo. Carotid US revealed 50-79% stenosis of the LICA, 0-49% of the FAMILIA. We discussed with the pt that we will follow up with him outpatient after we review all of the images. There is no acute vascular surgical intervention. We recommend continuing with Eliquis, ASA, and statin. We will continue to monitor. If there are any questions or concerns, please do not hesitate to reach out to us. Procedures Date of Service Date of Service: 01/27/25
--- NOTE | 2025-01-27 15:23 | MHC.CM.PN ---
Pt has been medically cleared to [place], he will go home via family transport and have home care services from [facility].
[2025-01-27 16:01] LABS: Glucose, Whole Blood 114 mg/dL (60-115)
--- NOTE | 2025-01-27 16:22 | HO.WOUND ---
Wound Consult: Initial 69yr old?Male admitted to [facility] on 01/25/25 12:54- See progress notes and H&P for detailed history.? Wound consult placed for Coccyx.? Chart review completed and photo review completed. Coccyx Etiology: ??Stage 2 Pressure Injury Present on Admission Wound Bed: partial thickness tissue loss with clean pink wound bed Drainage / Odor: scant watts drainage noted on dressing Edges: ? well defined Galilea wound: ? pink intact slow to katherine tissue No Induration, Fluctuance or Warmth noted Goals of Treatment: ?Foam dressing while inpatient and barrier cream at time of discharge. Recommendations: 1. Turn and Reposition every 2 hours and as needed for patient comfort.? Use pillows or wedges to support off loading positions. 2. Off Load all bony prominences with use of pillows and heel boots if needed.? Apply Preventative foams where needed. ? 3. Monitor for incontinence and moisture control, use barrier creams when needed for prevention and treatment. 4. Provide adequate and supplemental nutrition.? 5. Order low air loss mattress. 6. When applicable maintain blood glucose levels per Providers order. Coccyx - Off Load Pressure with Q2 hr turns and use of pillows - Cleanse with PH balance spray or wipes, pat dry. ?Apply thin layer of Triad to wound bed. Do not remove all of paste between applications as this may cause further skin damage.? While inpatient may cover with foam dressing to aid in off loading and protection from friction. Change every 3 days and PRN. Re-consult wound care Nurse for wound deterioration or wound changes.
--- NOTE | 2025-01-27 16:55 | HO.PM.IMPN ---
Subjective Subjective Date of Service: 01/27/25 Interval History: pt was all set to d/c home with VNA but couldn't get off toilet and became dizzy, lightheaded, and pale BP low 97/50 sitting, was previously 123/61 and this AM 151/73 denies chest pain no fever no cough Review of Systems Review of Systems: Yes all other systems are reviewed and are negative Physical Exam Vital Signs: Vital Signs: Last Vital Signs Temp 98.0 F 01/27/25 15:57 Pulse 70 01/27/25 15:57 Resp 18 01/27/25 15:57 BP 123/61 01/27/25 15:57 Pulse Ox 94 01/27/25 15:57 O2 Del Method Room Air 01/27/25 15:57 BMI result Body Mass Index 24.5 Gen: in no acute distress, pale HEENT: sclera anicteric, moist mucus membranes Neck: supple, palpable mass L anterior cervical area Lungs: clear to auscultation bilaterally Heart: regular rate and rhythm, no murmurs Abd: soft, non-tender, non-distended Ext: no edema Skin: warm/well-perfused Neuro: alert and oriented x3, 3/5 strength throughout Psych: appropriate affect Objective Data Active Medications Acetaminophen (Acetaminophen 325 Mg Tablet) 650 mg PO Q6H PRN PRN Reason: Pain, Mild 1-3,fever,headache Apixaban (Apixaban 5 Mg Tablet) 5 mg PO BID [facility] Last Admin: 01/27/25 08:03 Dose: 5 mg Documented By: SHAMA Aspirin (Aspirin Enteric Coated 81 Mg Tablet.) 81 mg PO DAILY [facility] Last Admin: 01/27/25 08:03 Dose: 81 mg Documented By: SHAMA Atorvastatin Calcium (Atorvastatin Calcium 40 Mg Tablet) 40 mg PO BEDTIME [facility] Last Admin: 01/26/25 21:28 Dose: 40 mg Documented By: MARJORIE Calcium Carbonate (Calcium Carbonate 750 Mg Tab.Chew) 750 mg PO Q4H PRN PRN Reason: Heartburn Dextrose (Dextrose 50 % 25 Gm/50 Ml Syringe) 25 gm IVPUSH Q15M PRN; Protocol PRN Reason: per Hypoglycemia Standing Ord. Diphenoxylate HCl/Atropine (Diphenoxylate/Atrop 2.5/0.025 Tablet) 1 tab PO BID PRN PRN Reason: Diarrhea Glucose (Glucose Gel 15 Gm Gel..Gram.) 15 gm PO Q15M PRN; Protocol PRN Reason: per Hypoglycemia Standing Ord. Sodium Chloride (Ns) 1,000 mls @ 999 mls/hr IV .Q1H1M [facility] Stop: 01/27/25 18:00 Insulin Glargine (Insulin Glargine,Hum.Rec.Anlog 100 Unit/Ml 10 Ml Vial) 20 unit SUBCUT DAILY [facility] Last Admin: 01/27/25 08:03 Dose: 20 unit Documented By: SHAMA Insulin Human Lispro (Insulin Lispro 100 Unit/Ml 3 Ml Vial) 0 unit SUBCUT QIDACHS [facility]; Protocol Last Admin: 01/27/25 12:19 Dose: 2 unit Documented By: SHAMA Isosorbide Mononitrate (Isosorbide Mononitrate 30 Mg Tab.Er.24h) 30 mg PO BEDTIME [facility]; Protocol Last Admin: 01/26/25 21:28 Dose: 30 mg Documented By: MARJORIE Magnesium Hydroxide (Milk Of Magnesia 30 Ml Oral.Susp) 30 ml PO DAILY PRN PRN Reason: Constipation Last Admin: 01/27/25 08:06 Dose: 30 ml Documented By: SHAMA Melatonin (Melatonin 3 Mg Tablet) 6 mg PO BEDTIME PRN PRN Reason: Insomnia Ondansetron HCl (Ondansetron Hcl 4 Mg/2 Ml Vial) 4 mg IVPUSH Q8H PRN PRN Reason: Nausea and Vomiting Pregabalin (Pregabalin 50 Mg Capsule) 50 mg PO BID [facility] Last Admin: 01/27/25 08:03 Dose: 50 mg Documented By: SHAMA Sodium Chloride (0.9 % Sodium Chloride Flush 3 Ml Syringe) 3 ml IVFLUSH QSHIFT [facility] Last Admin: 01/27/25 08:04 Dose: 3 ml Documented By: SHAMA Spironolactone (Spironolactone 25 Mg Tablet) 25 mg PO DAILY [facility]; Protocol Last Admin: 01/27/25 08:03 Dose: 25 mg Documented By: SHAMA Labs 01/26/25 08:58 01/26/25 08:58 Labs: Laboratory Results - last 24 hr 01/26/25 01/27/25 01/27/25 20:34 07:26 12:14 POC Glucose 199 H 157 H 198 H 01/27/25 15:57 POC Glucose 114 Assessment and Plan (1) Neck mass: Status: Acute Assessment and Plan: d3 for 69yo M with hx of CVA x3 on apixaban with residual BLE weakness, CAD s/p PCI, DM2, hx colon CA s/p resection, chronic diarrhea, peripheral neuropathy, and CKD3 presenting with acute RUE/RLE numbness concerning for TIA/CVA, found to have aggressive neck masses concerning for malignancy dizziness/hypotension - hold discharge; give 1L NS, check BMP/CBC/lactate + orthostatics. Hold Imdur and hold spironolactone. TTE pending. R-sided numbness due to subacute/chronic stroke carotid occlusion coronary artery disease - Concern of subacute-chronic L parieto-occipital signal intensity; per Neurology likely subacute-chronic ischemic stroke related to near-complete left carotid occlusion. Per Vascular Surgery, there is residual flow, suggesting that he will benefit from a revascularization procedure. He will pursue further care of this through the [facility] system and I suggest he be referred urgently to the Neuroendovascular Surgery. Per Neurology, continue aspirin and apixaban as well as atorvastatin. Numbness resolved. PT and OT evaluations suggested home PT/OT through VNA services, which were arranged. neck/thyroid masses - Incidental finding on CTA; possibly primary malignancy is from the left thyroid lobe. He will need a needle biopsy and wishes to pursue this through the [facility] system. He should be referred to Interventional Radiology. He will need to hold aspirin and apixaban per their ilya-procedure anticoagulation guidelines. While apixaban is held, he will bridge with enoxaparin as he has in the past, as missed doses of apixaban have provoked strokes in him previously. Enoxaparin was prescribed for this purpose. - If he needs surgical excision or radiation to the neck, the carotid occlusion should be addressed first. In the former case, it is because the stenosis is so severe that general anesthesia has a high risk of triggering a catastrophic stroke. In the latter case, it is because radiation will distort the anatomy of the neck. Atypical chest pain - No EKG changes or troponin leak; atypical presentation. He will follow up with his cardiologists at [facility]. CKD3 - SCr around baseline DM2 - basal-bolus insulin chronic diarrhea - Lomotil peripheral neuropathy - continue pregabalin VTE ppx - apixaban dispo - home with VNA In my clinical judgment, the patient requires continued inpatient hospitalization for the following reasons: dizzy/hypotension Total time managing care of this patient today: 55 minutes. Quality Stroke Does the patient have a stroke diagnosis?: Yes Reason for No Anti-thrombotic by Day Two: N/A - Med Ordered VTE Prior VTE?: No VTE Risk Level:: Medical - moderate - high VTE Device Contraindication: Treatment Not Indicated VTE Drug Contraindication: N/A - Med Ordered
[2025-01-27 16:59] LABS: Glucose, Whole Blood 118 mg/dL (60-115)
[2025-01-27] MEDS: 0.9 % Sodium Chloride 1,000 ML 999 ML IV (17:04)
[2025-01-27 17:30] LABS: Hematocrit 35.2 % (42.0-52.0); Hemoglobin 11.9 g/dl (14.0-18.0); Mean Corpuscular HGB Conc 33.8 g/dl (31.0-36.0); Mean Corpuscular Hemoglobin 29.2 pg (27.0-33.0); Mean Corpuscular Volume 86.3 fL (80.0-98.0); Mean Platelet Volume 11.4 fL (9.4-12.4); Platelet Count 192 X10*3/uL (160-400); Red Blood Count 4.08 X10*6/uL (4.60-5.80); White Blood Count 9.1 X10*3/uL (4.8-10.8)
[2025-01-27 17:43] LABS: Anion Gap 12 (12-20); Blood Urea Nitrogen 36 mg/dL (9-16); Calcium 8.8 mg/dL (8.4-10.2); Carbon Dioxide 24 mmol/L (22-29); Chloride 113 mmol/L (96-108); Creatinine Clr Calc Pharmacy 41.6; Estimated Glomerular Filt Rate 40; Glucose Random 135 mg/dL (60-115); Potassium 4.2 mmol/L (3.3-5.1); Sodium 145 mmol/L (135-145)
[2025-01-27 17:44] LABS: Lactic Acid 1.2 mmol/L (0.5-2.0)
[2025-01-27 17:51] LABS: B Type Natriuretic Peptide 89 pg/mL (<100)
[2025-01-27] MEDS: Atorvastatin Calcium 40 MG TABLET PO (20:27)
[2025-01-27 20:28] LABS: Glucose, Whole Blood 175 mg/dL (60-115)
[2025-01-28 03:48] VITALS: BP 151/70; PULSE 61; RESP 18; TEMP 36.1; O2SAT 98
[2025-01-28 07:54] VITALS: BP 146/72; PULSE 68; RESP 16; TEMP 36.4; O2SAT 99
[2025-01-28 08:02] LABS: Glucose, Whole Blood 110 mg/dL (60-115)
[2025-01-28] MEDS: 0.9 % Sodium Chloride Flush 3 ML SYRINGE IVFLUSH (08:31)
[2025-01-28] MEDS: Insulin Glargine,Hum.rec.anlog 100 UNIT/ML 10 ML VIAL 20 UNIT SUBCUT (08:33)
[2025-01-28] MEDS: Apixaban 5 MG TABLET PO (08:34)
[2025-01-28] MEDS: Pregabalin 50 MG CAPSULE PO (08:34)
[2025-01-28] MEDS: Aspirin Enteric Coated 81 MG TABLET.DR PO (08:34)
--- NOTE | 2025-01-28 09:31 | HO.VASCPN ---
Subjective Subjective Date of Service: 01/28/25 Interval history: Kiko is doing well this morning. He was going to be discharged yesterday but had a dizziness/lightheadedness spell when on the toilet yesterday with hypotension and was kept one more night. He returned to normotension and remains normotensive. He states this morning he thinks he did not eat/drink enough yesterday, which is why he got dizzy. He denies a headache, dizziness, or lightheadedness this morning. He states he ate his full meal this morning and has been drinking water. He denies any weakness. Physical Exam Vital Signs: Vital Signs: Last Vital Signs Temp 97.6 F 01/28/25 07:54 Pulse 68 01/28/25 07:54 Resp 16 01/28/25 07:54 BP 146/72 H 01/28/25 07:54 Pulse Ox 99 01/28/25 07:54 O2 Del Method Room Air 01/28/25 07:54 BMI result Body Mass Index 24.5 Const: General: comfortable and no acute distress Orientation/consciousness: patient oriented x3 HEENT: Ears: hearing grossly normal bilaterally Resp: Effort & Inspection: normal respiratory effort and able to speak in complete sentences Auscultation: clear to auscultation bilaterally Cardio: Rate: regular rate Rhythm: regular rhythm Heart sounds: S1 normal heart sound present and S2 normal heart sound present Bruits: no abdominal aortic bruits, no carotid bruits, no femoral bruits and no renal bruits GI: Palpation (GI): No Abdominal aortic bruit present Neuro: General: patient oriented x3 Cranial nerves: Yes CN's II-XII intact bilaterally Progress Note: A&P Assessment and plan (1) Left carotid stenosis: Status: Acute Assessment and Plan: Kiko remains stable this morning. Carotid US from yesterday revealed 50-79% stenosis of the LICA. Echo revealed an EF >70% and no motion wall abnormalities. The pt remains asymptomatic this morning. He will be getting discharged this morning. We will have him follow up with us outpatient in the office on . We will continue to monitor. If there are any questions or concerns, please do not hesitate to reach out to us. Time Spent With Patient Time: Total time managing care of this patient today ____ minutes. Procedures Date of Service Date of Service: 01/28/25 Quality Stroke Does the patient have a stroke diagnosis?: Yes Reason for No Anti-thrombotic by Day Two: N/A - Med Ordered VTE Prior VTE?: No VTE Risk Level:: Medical - moderate - high VTE Device Contraindication: Treatment Not Indicated VTE Drug Contraindication: N/A - Med Ordered
[2025-01-28 11:01] VITALS: BP 139/67; PULSE 73; RESP 16; TEMP 36.3; O2SAT 100
[2025-01-28] MEDS: Insulin Lispro 100 UNIT/ML 3 ML VIAL SUBCUT (11:07)
--- NOTE | 2025-01-28 11:08 | PM.DS ---
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 To establish care Consult to Vascular Surgery Routine Consulting Provider: [facility] [place] V[facility] Services Reason for consultation: Near complete stenosis of left internal carotid artery origin 01/25/25 12:46 Consult to Neurology Routine Consulting Provider: [facility] Reason for consultation: Left-sided deficits concerning for possible CVA 01/27/25 09:27 Consult to Cardiology Routine Consulting Provider: [facility] [place] [facility] Reason for consultation: intermittent chest pain, neg trop/ekg but significant vascular hx 01/27/25 10:42 Consult to Wound Care Routine Reason for consultation: ? stage 1 to coccyx DS: Diagnosis Discharge Diagnosis (1) Left carotid stenosis: Status: Acute DS: Summary Hospital Course Hospital Course: From the history and physical by the admitting hospitalist, DEV Orosco, 01/25/25: Pt is a 69-year-old male with a PMH significant for?hx of CVA x3 (last in 2020) on Eliquis, with residual bilateral lower extremity weakness, CAD s/p stenting, insulin-dependent type 2 diabetes, hx of colon cancer s/p bowel resection, chronic diarrhea, peripheral neuropathy, and CKD 3 who presents to the ED for evaluation of right upper and lower extremity numbness since this morning. Pt reports initially experienced 3-4 episodes of left-sided, nonradiating chest pain when he awoke to use the bathroom at 3:00-4:00. Episodes lasted approximately 10 seconds at a time. States has had similar episodes in the past. Pt then awoke at approximately 07:00 in normal state of health. Around 09:00 began feeling numbness in his right upper and lower extremity. Is uncertain whether experienced any right-sided weakness as pt has chronic weakness secondary to prior CVAs. Did not note any facial numbness or droop. No difficulty speaking. Denies headache or acute vision changes. Pt notes he has had difficulty walking since previous strokes, uses walker at baseline but unable to ambulate long distances. Has experienced some increased fatigue in the past 2 weeks, but has been more active than normal with many outpatient appointments. No unintended weight loss. Denies shortness or breath or difficulty breathing. No fever, chills, nausea, vomiting, abdominal pain. Pt reports right-sided numbnes has lessened since being in the ED, though has not fully resolved. ? In the ED pt was hypertensive up to 162/52, vitals otherwise stable and WNL. Labs were grossly unremarkable and around baseline for pt. Stable normocytic anemia of 12.7/37.1. No significant electrolyte abnormalities. Creatinine elevated at 1.75, around baseline. Lipid profile with low HDL of 29, otherwise WNL. CT of head negative for acute intracranial findings. CTA of head neck found a short segment near complete stenosis involving left internal carotid artery origin. Also showed multiple left lower neck aggressive-appearing masses suspicious for malignancy and mendy metastases disease the primary malignancy possibly involving the left thyroid lobe. CXR showed no acute findings. EKG demonstrated sinus rhythm with first-degree AV block but no evidence of significant ischemic changes. Pt will be admitted to the hospital for treatment and further evaluation of left-sided numbness concerning for CVA. Hospital course: 69yo M with hx of CVA x3 on apixaban with residual BLE weakness, CAD s/p PCI, DM2, hx colon CA s/p resection, chronic diarrhea, peripheral neuropathy, and CKD3 presenting with acute RUE/RLE numbness concerning for TIA/CVA, found to have aggressive neck masses concerning for malignancy. He was admitted to the telemetry unit with Cardiology, Neurology, Vascular Surgery, and Oncology consultations. Hospital course by problem: R-sided numbness carotid occlusion - Concern of subacute-chronic L parieto-occipital signal intensity; per Neurology likely subacute-chronic ischemic stroke related to near-complete left carotid occlusion. Per Vascular Surgery, there is residual flow, suggesting that he will benefit from a revascularization procedure. He will pursue further care of this through the [facility] system and I suggest he be referred urgently to the Neuroendovascular Surgery. Per Neurology, continue aspirin and apixaban as well as atorvastatin. Numbness resolved. PT and OT evaluations suggested home PT/OT through VNA services, which were arranged. neck/thyroid masses - Incidental finding on CTA; possibly primary malignancy is from the left thyroid lobe. He will need a needle biopsy and wishes to pursue this through the [facility] system. He should be referred to Interventional Radiology. He will need to hold aspirin and apixaban per their ilya-procedure anticoagulation guidelines. While apixaban is held, he will bridge with enoxaparin as he has in the past, as missed doses of apixaban have provoked strokes in him previously. Enoxaparin was prescribed for this purpose. - If he needs surgical excision or radiation to the neck, the carotid occlusion should be addressed first. In the former case, it is because the stenosis is so severe that general anesthesia has a high risk of triggering a catastrophic stroke. In the latter case, it is because radiation will distort the anatomy of the neck. Atypical chest pain - No EKG changes or troponin leak; atypical presentation. He will follow up with his cardiologists at [facility]. Time Attestation Discharge Coordination Time (in mins): 35 Quality: Safe Use of Opioids Does Pt have an Active Cancer Diagnosis on the Problem List?: No Quality: Stroke Does the patient have a stroke diagnosis?: No Physical Exam Vital Signs: Vital Signs: Last Vital Signs Temp 97.3 F 01/28/25 11:01 Pulse 73 01/28/25 11:01 Resp 16 01/28/25 11:01 BP 139/67 01/28/25 11:01 Pulse Ox 100 01/28/25 11:01 O2 Del Method Room Air 01/28/25 11:01 BMI result Body Mass Index 24.5 DS: Data Data Completed and Pending Labs on day of discharge: Laboratory Results - last 24 hr 01/27/25 01/27/25 01/27/25 12:14 15:57 16:56 WBC RBC Hgb Hct MCV MCH MCHC RDW Plt Count MPV Absolute Nucleated RBC Nucleated RBC % (auto) Sodium Potassium Chloride Carbon Dioxide Anion Gap BUN Creatinine Estim Creat Clear Calc Estimated GFR POC Glucose 198 H 114 118 H Random Glucose Lactic Acid Calcium B-Natriuretic Peptide 01/27/25 01/27/25 01/28/25 17:21 20:21 07:57 WBC 9.1 RBC 4.08 L Hgb 11.9 L Hct 35.2 L MCV 86.3 MCH 29.2 MCHC 33.8 RDW 13.0 Plt Count 192 MPV 11.4 Absolute Nucleated RBC 0.000 Nucleated RBC % (auto) 0.0 Sodium 145 Potassium 4.2 Chloride 113 H Carbon Dioxide 24 Anion Gap 12 BUN 36 H Creatinine 1.68 H Estim Creat Clear Calc 41.6 Estimated GFR 40 POC Glucose 175 H 110 Random Glucose 135 H Lactic Acid 1.2 Calcium 8.8 B-Natriuretic Peptide 89 Discharge Plan Discharge Anticipated Discharge Date/Time: 01/28/25 11:07 Patient Disposition: Home Health Service Discharge Diagnosis: subacute stroke critical carotid stenosis neck masses probably of thyroid origin suspicious for malignancy Referrals: [facility] [Outside] - 1 Week Masood Jeffery MD [Primary Care Provider] - 1 Week Discharge Medications: New enoxaparin 120 mg/0.8 mL syringe 120 mg subcut DAILY Qty: 8 0RF Rx Instructions: Use once daily when interrupting Eliquis around surgery or other procedures Continued Eliquis 5 mg tablet 1 tab PO BID aspirin 81 mg Tablet,Delayed Release (Dr/Ec) 81 mg PO DAILY (DME) walker [facility] [place] See Rx Instructions .Route Qty: 1 0RF Rx Instructions: As directed atorvastatin 80 mg tablet 40 mg PO BEDTIME spironolactone 25 mg Tablet 25 mg PO DAILY Qty: 30 0RF Protocol: Hold for SBP< HOLD for SBP < : 90 isosorbide mononitrate 60 mg tablet extended release 24 hr 30 mg PO BEDTIME pregabalin 50 mg capsule 50 mg PO BID insulin glargine [Lantus Solostar U-100 Insulin] 100 unit/mL (3 mL) insulin pen 20 unit subcut DAILY diphenoxylate-atropine 2.5-0.025 mg tablet 1 tab PO BID PRN (Reason: Diarrhea) Qty: 30 0RF Rx Instructions: Per family, if patient does not take Lyrica, he will need to take Lomotil Discharge Orders: Discharge Order (Routine); Ordered 01/28/25 Ordered By: Silas Lomeli Diet: Diabetic diet Activity on Discharge: As tolerated Stand Alone Forms: Patient Portal Discharge page Print Language: Chadian Activity Restrictions/Additional Instructions: Topical Wound Care Recommendations: Coccyx - Off Load Pressure with Q2 hr turns and use of pillows - Cleanse with PH balance spray or wipes, pat dry. ?Apply thin layer of Triad to wound bed. Do not remove all of paste between applications as this may cause further skin damage.? Apply twice daily. While inpatient may cover with foam dressing to aid in off loading and protection from friction. Change every 3 days and PRN. Care Plan Goals: prevent future strokes diagnose thyroid mass Health Concerns: subacute stroke critical carotid stenosis neck masses probably of thyroid origin suspicious for malignancy Plan of Treatment: home with PT/OT continue aspirin 81 mg daily PLUS apixaban 5 mg twice daily hold aspirin and apixaban as directed for biopsy of thyroid mass. While holding apixaban, give Lovenox 120 mg once daily as bridging anticoagulation follow up with your primary care as soon as possible for: - referral to [facility] Interventional Radiology for ultrasound-guided biopsy of thyroid mass - referral to [facility] Neuroendovascular Surgery for treatment of the carotid stenosis Please follow up with your primary care doctor within 1 week. Return to the hospital if you experience recurrent or worsening symptoms. Assessment: See Discharge Summary. Discharge Date/Time: 01/28/25 12:39
[2025-01-28 11:20] LABS: Glucose, Whole Blood 210 mg/dL (60-115)
--- NOTE | 2025-01-28 11:41 | MHC.STROKE ---
Met with patient in room 487 as he is anticipated to be discharged today. Pt awake, alert and oriented, watching television. Answering questions appropriately Pt reports no symptoms at this time. No complaints offered. Medical history reviewed,along with medications, diet, activity, and social history. Pt denies tobacco or alcohol use. Stroke Education provided. Pt reports I've had 3 strokes, I know all about them . We discussed the importance of following up with vascular regarding carotid findings on CT. Pt aware and reports that his daughter takes care of all of that. Stroke pamphlet provided/reviewed. Pt states no questions. Will continue to assist as needed.
== END 2025-01-28 12:39 | disposition home health service (06) | DRG 66 ==
LOC: HO.ED 10:50 → HO.EDOVER 12:56 → HO.IMC 01-26 14:56
PROVIDERS: Family Medicine; Hospitalist; Admitting Provider Student in an Organized Health Care Education/Training Program; Emergency Provider Emergency Medicine Emergency Medical Services; PCP Family Medicine; Visit Provider Internal Medicine
DX: I63.132 Cerebral infarction due to embolism of left carotid artery (principal); I25.10 Atherosclerotic heart disease of native coronary artery without angina pectoris; N18.30 Chronic kidney disease, stage 3 unspecified; E11.22 Type 2 diabetes mellitus with diabetic chronic kidney disease; I95.9 Hypotension, unspecified; R29.700 NIHSS score 0; C73 Malignant neoplasm of thyroid gland; R20.0 Anesthesia of skin; Z95.5 Presence of coronary angioplasty implant and graft; D63.1 Anemia in chronic kidney disease; E11.42 Type 2 diabetes mellitus with diabetic polyneuropathy; I48.91 Unspecified atrial fibrillation; Z85.038 Personal history of other malignant neoplasm of large intestine; K52.9 Noninfective gastroenteritis and colitis, unspecified; Z79.4 Long term (current) use of insulin; Z79.01 Long term (current) use of anticoagulants; Z79.82 Long term (current) use of aspirin; Z79.899 Other long term (current) drug therapy
CPT/HCPCS: 36415; 70450; 70496; 70498; 70551; 71045; 76536; 80048; 80061; 82947; 83605; 83615; 83880; 84443; 84484; 85025; 85027; 85610; 85730; 93005; 93306; 93880; 97162; 97165; 99285; J1171; Q9967

== ENCOUNTER → 2025-01-25 09:53 | Outpatient (BNV) | payer MEDICARE, SELFPAY | PROVIDERS: Admitting Provider Student in an Organized Health Care Education/Training Program; Emergency Provider Emergency Medicine Emergency Medical Services; PCP Family Medicine; Visit Provider Internal Medicine | DX: I44.0 Atrioventricular block, first degree (principal); I45.10 Unspecified right bundle-branch block | CPT/HCPCS: 93010 ==

== ENCOUNTER → 2025-01-25 09:53 | Outpatient (BNV) | payer MEDICARE, SELFPAY | PROVIDERS: Emergency Provider Emergency Medicine Emergency Medical Services; PCP Family Medicine; Visit Provider Radiology Diagnostic Radiology | DX: R07.9 Chest pain, unspecified (principal); R22.1 Localized swelling, mass and lump, neck; I65.22 Occlusion and stenosis of left carotid artery; I63.9 Cerebral infarction, unspecified | CPT/HCPCS: 70450; 70496; 70498; 70551; 71045 ==

== ENCOUNTER 2025-01-25 12:54 | Outpatient (BNV) | payer MEDICARE, SELFPAY | END 2025-01-27 11:06 | PROVIDERS: Admitting Provider Student in an Organized Health Care Education/Training Program; Emergency Provider Emergency Medicine Emergency Medical Services; PCP Family Medicine; Visit Provider Radiology Diagnostic Radiology | DX: R59.0 Localized enlarged lymph nodes (principal); I65.23 Occlusion and stenosis of bilateral carotid arteries | CPT/HCPCS: 76536; 93880 ==

== ENCOUNTER 2025-01-25 12:54 | Outpatient (BNV) | payer MEDICARE, SELFPAY | END 2025-01-27 07:00 | PROVIDERS: Admitting Provider Student in an Organized Health Care Education/Training Program; Emergency Provider Emergency Medicine Emergency Medical Services; PCP Family Medicine; Visit Provider Internal Medicine Cardiovascular Disease | DX: I35.8 Other nonrheumatic aortic valve disorders (principal); I35.1 Nonrheumatic aortic (valve) insufficiency; I51.89 Other ill-defined heart diseases | CPT/HCPCS: 93306 ==

== ENCOUNTER → 2025-01-25 12:54 | Outpatient (BNV) | payer MEDICARE, SELFPAY | PROVIDERS: Admitting Provider Student in an Organized Health Care Education/Training Program; Emergency Provider Emergency Medicine Emergency Medical Services; PCP Family Medicine; Visit Provider Psychiatry & Neurology Neurology | DX: I63.412 Cerebral infarction due to embolism of left middle cerebral artery (principal) | CPT/HCPCS: 99223 ==

== ENCOUNTER → 2025-01-25 12:54 | Outpatient (BNV) | payer MEDICARE, SELFPAY | PROVIDERS: Admitting Provider Student in an Organized Health Care Education/Training Program; Emergency Provider Emergency Medicine Emergency Medical Services; PCP Family Medicine; Visit Provider Physician Assistant Surgical | DX: I65.22 Occlusion and stenosis of left carotid artery (principal) | CPT/HCPCS: 99222; 99232 ==

== ENCOUNTER → 2025-01-25 12:54 | Outpatient (BNV) | payer MEDICARE, SELFPAY | PROVIDERS: Admitting Provider Student in an Organized Health Care Education/Training Program; Emergency Provider Emergency Medicine Emergency Medical Services; PCP Family Medicine; Visit Provider Internal Medicine Cardiovascular Disease | DX: I73.9 Peripheral vascular disease, unspecified (principal); I25.10 Atherosclerotic heart disease of native coronary artery without angina pectoris | CPT/HCPCS: 99223 ==

== ENCOUNTER → 2025-01-25 12:54 | Outpatient (BNV) | payer MEDICARE, SELFPAY | PROVIDERS: Admitting Provider Student in an Organized Health Care Education/Training Program; Emergency Provider Emergency Medicine Emergency Medical Services; PCP Family Medicine; Visit Provider Student in an Organized Health Care Education/Training Program | DX: I63.9 Cerebral infarction, unspecified (principal); I65.22 Occlusion and stenosis of left carotid artery; E07.9 Disorder of thyroid, unspecified; R07.89 Other chest pain; R22.1 Localized swelling, mass and lump, neck | CPT/HCPCS: 99233; 99239; G0180 ==